=== PATIENT | female | born 1950 | race Caucasian/White ===

== ENCOUNTER 2018-05-10 17:11 | Inpatient (IN) | payer OTHER ==
--- NOTE | 2018-05-10 18:15 | PDOC ---
History of Present Illness - General Chief Complaint: Nausea/Vomiting Stated Complaint: Nausea/Vomiting Time Seen by Provider: 05/10/18 18:03 History Source: Patient Exam Limitations: Language Barrier - History of Present Illness Initial Comments: 05/10/18 22:50 Pt is a 68yo F with PMH of kidney failure s/p b/l nephrectomy with L kidney transplant January 2012 on Mycophenolate and Tacrolimus sent to ED from Dr. Perez's office for UTI, cough and fever. Pt states that for the past week she has been having cough productive of yellow phlegm. She endorses feeling weak, liquid diarrhea (7 times today) fevers up to 103 for the past 4-5 days, chills and generalized malaise and nausea. She also endorses dysuria for the past 3 days. She endorses headache and neck pain that started yesterday. Denies abdominal pain, flank pain, chest pain, SOB, syncope. She states she was at [place] on Sunday or and given Ampicillin for the UTI. PMD: Ana PMH: see hpi PSH: see hpi Meds: see med rec Allergies: nkda Social: denies Past History - Past Medical History Allergies/Adverse Reactions: Allergies Allergy/AdvReac Type Severity Reaction Status Date / Time No Known Allergies Allergy Verified 05/10/18 19:03 Home Medications: Ambulatory Orders Baclofen 10 mg PO HS 05/10/18 Bisacodyl [Laxative] 5 mg PO DAILY 05/10/18 Gabapentin [Neurontin -] 300 mg PO BID 05/10/18 Linaclotide [Linzess] 72 mcg PO DAILY 05/10/18 Omeprazole 40 mg PO DAILY 05/10/18 Review of Systems - Review of Systems Constitutional: Yes: Chills, Fever, Weakness HEENTM: Yes: Nose Congestion. No: Double Vision, Ear Pain, Throat Pain Respiratory: Yes: Cough, Productive cough. No: Shortness of Breath, Hemoptysis Cardiac (ROS): No: Chest Pain, Edema, Lightheadedness, Palpitations, Syncope ABD/GI: Yes: Diarrhea, Nausea, Poor Appetite, Vomiting. No: Constipated, Difficulty Swallowing, Rectal Bleeding, Abdominal cramping : Yes: Burning, Dysuria. No: Flank Pain, Hematuria Musculoskeletal: Yes: Back Pain, Neck Pain. No: Joint Pain, Muscle Pain Integumentary: No: Symptoms Reported Neurological: Yes: Headache. No: Numbness, Paresthesia, Tingling, Tremors, Weakness, Dizziness *Physical Exam - Physical Exam General Appearance: Yes: Appropriately Dressed, Mild Distress, Obese HEENT: positive: EOMI, JEAN, Pharynx Normal. negative: Pale Conjunctivae, Scleral Icterus (R), Scleral Icterus (L), Pharyngeal Erythema Neck: positive: Trachea midline, Supple. negative: Lymphadenopathy (R), Lymphadenopathy (L) Respiratory/Chest: positive: Lungs Clear, Normal Breath Sounds. negative: Crackles, Rales, Rhonchi, Stridor, Wheezing Cardiovascular: positive: Regular Rhythm, Regular Rate, S1, S2. negative: Edema , JVD, Murmur Vascular Pulses: Carotid (R): 2+, Carotid (L): 2+, Dorsalis-Pedis (R): 2+, Doralis-Pedis (L): 2+ Gastrointestinal/Abdominal: positive: Normal Bowel Sounds, Soft. negative: Distended, Guarding, Rebound, Tenderness, Hernia Musculoskeletal: negative: CVA Tenderness Extremity: positive: Normal Capillary Refill, Pelvis Stable. negative: Coldness , Pedal Edema, Calf Tenderness Integumentary: positive: Normal Color, Dry, Warm. negative: Cold, Clammy, Diaphoresis, Petechiae, Rash, Swelling Neurologic: positive: mountain bike guide II-XII NML intact, Fully Oriented, Alert, Normal Mood/ Affect, Normal Response, Motor Strength 5/5 ED Treatment Course - LABORATORY CBC & Chemistry Diagram: 05/10/18 18:55 05/10/18 18:55 Medical Decision Making - Medical Decision Making 05/10/18 22:56 Pt is a 68yo F with PMH of kidney failure s/p b/l nephrectomy with L kidney transplant January 2012 on Mycophenolate and Tacrolimus sent to ED from Dr. Perez's office for UTI, cough and fever. Pt states that for the past week she has been having cough productive of yellow phlegm. She endorses feeling weak, liquid diarrhea (7 times today) fevers up to 103, chills and generalized malaise and nausea. She also endorses dysuria for the past 3 days. Denies abdominal pain, flank pain, chest pain, SOB, headache, syncope. She states she was at [place] on Sunday or and given Ampicillin for the UTI. Vitals: rectal temp 103.7 pulse PE: no abdominal tenderness, clear breath sounds High suspicion for sepsis. Pt is in an immunocompromised state. Could have UTI/ Pyelonephritis, PNA, Colitis possibly even C. Diff colitis due to recent antibiotic use and fever with diarrhea. -Septic workup, Prograf levels, cxr, ekg, stool for c.diff, ucx, ua. -Vanc and Zosyn. 500mL IVF, IV Tylenol Labs significant for WBC 19. lactic acid 1.3, Cr 2.0. Ca 8.2 Flu negative. CXR does not show focal infiltrates. UA pending. Will admit for sepsis, most likely from UTI or PNA (although no consolidations on CXR) Will order tacrolimus 1mg, 0.5mg and mycophenolate 500 05/11/18 00:30 102.1, HR 97, BP 89/34 Second IV placed. Pt getting 2.5 L Repeat vitals: BP 111/43, HR 89, 96%RA. Will monitor BP. Pt is otherwise mentating well, does not feel clammy, appears well UA shows 2+LE, bacteria and WBC pending 05/11/18 01:04 Repeat BP with different cuff 88/40. Per admitting team, pt should be transferred to renal transplant center. Pt had transplant at [facility]. Dr. Ferrell is her data entry email processor there. Called [facility] transplant center and spoke to Dr. Ferrell. Stated that pt does not need to be transferred, she can be managed here. Recommended transfer if we do not have capability of taking care of patient here or if prograf levels will take a while to result, pt can be transferred but it would be ed-ed or medicine- medicine transfer. Dr. Ferrell states that Cr of 2.0 is not too concerning. Recommended trial of hydration. Dr. Ferrell Double checked with lab about add on Prograf levels. It will be a send out, result most likely on Sunday. Wanted physical label. Label sent. *DC/Admit/Observation/Transfer Diagnosis at time of Disposition: Sepsis Qualifiers: Sepsis type: sepsis due to unspecified organism Qualified Code(s): A41.9 - Sepsis, unspecified organism UTI (urinary tract infection) Qualifiers: Urinary tract infection type: site unspecified Hematuria presence: without hematuria Qualified Code(s): N39.0 - Urinary tract infection, site not specified - Discharge Dispostion Condition at time of disposition: Stable Decision to Admit order: Yes - Referrals - Patient Instructions - Post Discharge Activity
[2018-05-10 18:22] VITALS: BMI 27.4
[2018-05-10] MEDS ORDERED: ACETAMINOPHEN 1000 MG/100 ML VIAL (NON FORMULARY) IVPB ONE (19:46)
[2018-05-10] MEDS ORDERED: ACETAMINOPHEN INJECTION 100 ML IVPB ONE (19:50)
[2018-05-10 19:56] LABS: INR 1.42 (0.83-1.09); PROTHROMBIN TIME (PATIENT) 16.8 SEC (9.7-13.0)
[2018-05-10 19:58] LABS: BASO % 0.1 % (0-2.0); HEMATOCRIT 36.2 % (32.4-45.2); HEMOGLOBIN 12.6 GM/dL (10.7-15.3); LYMPH % 2.9 % (8-40); MCH 29.5 pg (25.7-33.7); MCHC 34.7 g/dl (32.0-36.0); MEAN CELL VOLUME 85.1 fl (80-96); MEAN PLT VOLUME 9.1 fl (7.5-11.1); MONO % 6.6 % (3.8-10.2); NEUT % 90.4 % (42.8-82.8); PLATELET COUNT 135 K/MM3 (134-434); RBC 4.26 M/mm3 (3.60-5.2); RDW 13.8 % (11.6-15.6); WHITE BLOOD COUNT 19.2 K/mm3 (4.0-10.0)
[2018-05-10 20:05] LABS: LIPASE 49 U/L (73-393)
[2018-05-10 20:13] LABS: ALBUMIN 3.4 g/dl (3.4-5.0); ALK PHOS 111 U/L (45-117); ANION GAP 10 MMOL/L (8-16); BILIRUBIN,TOTAL 0.5 mg/dL (0.2-1); BLOOD UREA NITROGEN 30 mg/dL (7-18); CALCIUM 8.2 mg/dL (8.5-10.1); CHLORIDE 101 mmol/L (98-107); CO2 21 mmol/L (21-32); GLUCOSE,RANDOM 126 mg/dL (74-106); POTASSIUM 4.8 mmol/L (3.5-5.1); SGOT/AST 30 U/L (15-37); SGPT/ALT 18 U/L (13-61); SODIUM 132 mmol/L (136-145); TOT PROT 6.1 g/dl (6.4-8.2)
[2018-05-10] MEDS ORDERED: PIPERACILLIN/TAZOB 3.375 GM 3.375 GM in DEXTROSE 5%-WATER - 50 ML IVPB ONE (20:22)
[2018-05-10] MEDS ORDERED: VANCOMYCIN 1 GM in D5W (PRE-DOCKED) 1,000 MG/250 ML IVPB ONE (20:22)
[2018-05-10] MEDS ORDERED: VANCOMYCIN 1 GRAM (PRE-DOCKED) 1,000 MG/250 ML BAG IVPB ONE (20:25)
[2018-05-10] MEDS ORDERED: PIPERACILLIN/TAZOB 3.375 GM 3.375 GM/50 ML BAG IVPB ONE (20:26)
--- NOTE | 2018-05-10 21:03 | PDOC ---
Attending Attestation - Resident Resident Name: Maria C Urbano - ED Attending Attestation I have performed the following: I have examined & evaluated the patient, The case was reviewed & discussed with the resident, I agree w/resident's findings & plan, Exceptions are as noted - HPI HPI: 05/10/18 20:57 The patient is a 68 year old female, with a significant past medical history of renal disease and bilateral nephrectomy s/p L renal transplant 2011 who presents to the emergency department from Dr. Jorge office to rule out pneumonia and pyelonephritis. The patient reports having one week of yellow, productive cough,accompanied with vomiting, fevers with tmax of 103, and chills. The patient reports having multiple episodes watery brown diarrhea. The patient reports having dysuria since Sunday, at which point states she went to [facility] and was prescribed ampicillin. The patient denies CP, shortness of breath, headache and dizziness. The patient denies frequency, urgency and hematuria. Allergies: NKA Past surgical history: Bilateral nephrostomy tube(L transplant, 2011) Social history: No reported - Physicial Exam PE: 05/10/18 21:09 agree with resident exam - Medical Decision Making 05/10/18 21:09 68yo F with MMP including renal transplant (on immunesuppression) presents to the ED with fever, prductive cough, hypoxia, vomiting, diarrhea, and dysuria. Given immunecomprimised status, will do broad infectious w/u, cover empirically , and admit. Dr. Qureshi sent pt in for admission. 05/11/18 00:02 BP 89/42, pt status post 1 L NS 2nd IV line placed, 2 more liters going, one LR and one NS Will repeat after fluid resusitation WBC 19 UA collected, appears cloudy. Possible infiltrate on CXR as well Pt has already been covered with [facility] has been microblogged for admission, awaiting call back. 05/11/18 00:47 Pt was initially accepted for admission On Dr. Smith's evaluation, asks to hold on the admission and see if [facility] renal transplant team will accept the pt as her creatinine is 2 [facility] transfer center has been contacted 05/11/18 01:[address] Ferrell, the pt's renal transplant surgeon at [facility] Discussed creatinine of 2, and remaining results. She's states no urgent need for transfer at this time Case discussed with Dr. Ambrose who has evaluated the pt, pt accepted for admission. Case discussed in detail with admitting physician including history, physical exam and ancillary studies. Admitting physician has assumed care for the patient, will follow all pending diagnostics and will complete the evaluation and treatment.
[2018-05-10] MEDS ORDERED: SODIUM CHLORIDE 500 ML IV STA (22:07)
[2018-05-10] MEDS ORDERED: SODIUM CHLORIDE 1,000 ML IV STA (23:06)
[2018-05-10] MEDS ORDERED: TACROLIMUS ANHYDROUS 1 MG CAPSULE PO ONE (23:15)
[2018-05-10] MEDS ORDERED: MYCOPHENOLATE MOFETIL 250 MG CAPSULE PO ONE (23:16)
[2018-05-10] MEDS ORDERED: TACROLIMUS 0.5 MG CAPSULE PO ONE (23:24)
[2018-05-11 00:13] LABS: URINE APPEARANCE CLOUDY; URINE BILIRUBIN NEGATIVE (<2.0 mg/dL); URINE GLUCOSE (UA) 1+ (NEGATIVE); URINE KETONE NEGATIVE (NEGATIVE); URINE LEUK ESTERASE 2+ (NEGATIVE); URINE NITRITE NEGATIVE (NEGATIVE); URINE PROTEIN 2+ (NEGATIVE); URINE UROBILINOGEN NEGATIVE mg/dL (0.2-1.0)
[2018-05-11 00:20] LABS: URINE COLOR YELLOW
[2018-05-11 00:22] LABS: EPI CELLS MANY /HPF (FEW); GRANULAR CASTS 25 /lpf; URINE MUCUS RARE
--- NOTE | 2018-05-11 01:13 | HP ---
Admitting History and Physical - Primary Care Physician PCP: Liza Qureshi - Admission Chief Complaint: burning sensation when you i urinate History of Present Illness: this is a 68 y/o f with hx of HTN, DM, ESRD s/p renal transplant presented to the hospital for pain when the patient urinate that started sunday, the patient was at [facility] for which she d/c from the hospital and went to her PCP. who told her to come to the ER. patient has been complaining of burning urination, fever, chills, denied any flank pain. she stated that she has been coughing as well for the past few days and she is complaining of shoulder pain. History Source: Patient Limitations to Obtaining History: No Limitations - Smoking History Smoking history: Never smoked Have you smoked in the past 12 months: No - Alcohol/Substance Use Hx Alcohol Use: No Home Medications - Allergies Allergies/Adverse Reactions: Allergies Allergy/AdvReac Type Severity Reaction Status Date / Time No Known Allergies Allergy Verified 05/10/18 19:03 - Home Medications Home Medications: Ambulatory Orders Baclofen 10 mg PO HS 05/10/18 Bisacodyl [Laxative] 5 mg PO DAILY 05/10/18 Gabapentin [Neurontin -] 300 mg PO BID 05/10/18 Linaclotide [Linzess] 72 mcg PO DAILY 05/10/18 Omeprazole 40 mg PO DAILY 05/10/18 Review of Systems - Review of Systems Constitutional: reports: Chills, Diaphoresis, Fever Eyes: reports: No Symptoms HENT: reports: No Symptoms Neck: reports: No Symptoms Cardiovascular: reports: No Symptoms Respiratory: reports: No Symptoms Gastrointestinal: reports: Diarrhea Genitourinary: reports: Burning, Dysuria Breasts: reports: No Symptoms Reported Musculoskeletal: reports: No Symptoms Integumentary: reports: No Symptoms Neurological: reports: No Symptoms Physical Examination Vital Signs: Vital Signs Temperature 102.1 F H 05/10/18 22:48 Pulse Rate 97 H 05/10/18 22:48 Respiratory Rate 18 05/10/18 22:48 Blood Pressure 89/34 L 05/10/18 22:48 O2 Sat by Pulse Oximetry (%) 95 05/10/18 22:48 Constitutional: Yes: Well Nourished, No Distress, Calm Eyes: Yes: WNL, Conjunctiva Clear, EOM Intact HENT: Yes: WNL, Atraumatic, Normocephalic Neck: Yes: WNL, Supple, Trachea Midline Cardiovascular: Yes: WNL, Regular Rate and Rhythm, S1, S2 Respiratory: Yes: WNL, Regular, CTA Bilaterally Gastrointestinal: Yes: WNL, Normal Bowel Sounds, Soft Musculoskeletal: Yes: WNL Extremities: Yes: WNL Edema: No Peripheral Pulses WNL: Yes Labs: CBC, BMP 05/10/18 18:55 05/10/18 18:55 Imaging - Results Chest X-ray: Image Reviewed Problem List - Problems (1) SIRS (systemic inflammatory response syndrome) Assessment/Plan: admit patient to the [facility] for sirs start pipercillin/tazobactam stat dose of vancomycin f/u with ID IVF hydration ID consult Code(s): R65.10 - SIRS OF NON-INFECTIOUS ORIGIN W/O ACUTE ORGAN DYSFUNCTION (2) Sepsis due to gram-negative urinary tract infection Assessment/Plan: 05/18 UTI follow up blood cultures f.u urine cultures pipercillin/tazobactam will treat it as MDRO Code(s): A41.50 - GRAM-NEGATIVE SEPSIS, UNSPECIFIED; N39.0 - URINARY TRACT INFECTION, SITE NOT SPECIFIED (3) Acute kidney injury superimposed on CKD Assessment/Plan: no base line f/u renal consult IVF hydration f/u with creatinine Code(s): N17.9 - ACUTE KIDNEY FAILURE, UNSPECIFIED; N18.9 - CHRONIC KIDNEY DISEASE, UNSPECIFIED (4) History of renal transplant Assessment/Plan: patient is s/p transplant c.w immumosupressive medication c/w tacrlimus c/w Mycophenolate Mofotil Code(s): Z94.0 - KIDNEY TRANSPLANT STATUS
[2018-05-11] MEDS ORDERED: SODIUM CHLORIDE 1,000 ML IV SCH (01:45)
[2018-05-11] MEDS ORDERED: HEPARIN NA (PORCINE) 5,000 UNITS/ML 1ML VIAL SQ SCH (02:00)
[2018-05-11] MEDS: SODIUM CHLORIDE 1,000 ML IV SCH (06:24)
[2018-05-11] MEDS: INSULIN SLIDING SCALE (NOVOLOG) 1 VIAL SQ SCH ×3 (06:24→16:39)
--- NOTE | 2018-05-11 09:41 | CONSULT ---
Consult - text type - Consultation Consultation Note: Renal Consult for ESRD s/p Renal Transplant This is a 68 year old woman with history of polycystic kidney and liver disease , ESRD s/p renal transplant in 2011 in [place] (now follows at [facility] with Dr. Krause), Hypertension, Pancreatic cyst, [place] kidney nephrectomy in 2013 who presented with complaints of dysuria, abd pain, fever and diarrhea and found to have UA suspicious for UTI and TRU with Cr of 2. Baseline Cr is 1 from 02/2018. Pt is on tacrolimus 1.5mg BID, Cellcept 500mg BID. Pt reports dysuria for 3 days and diarrhea x 2 days. Has abd discomfort today, dysuria is improved. No sob, cp, GEORGE, confusion, lethargy, LE swelling. PMhx: as above Allergies: NKDA Family Hx: NC Social Hx: No T/A/D ROS: as per HPI, all other pertinent ros negative Vital Signs Temperature 99.0 F 05/11/18 08:57 Pulse Rate 88 05/11/18 08:57 Respiratory Rate 21 H 05/11/18 08:57 Blood Pressure 112/45 L 05/11/18 08:57 O2 Sat by Pulse Oximetry (%) 96 05/11/18 09:25 Intake & Output 05/08/18 05/09/18 05/10/18 05/11/18 23:59 23:59 23:59 23:59 Weight 77.111 kg NAD awake and alert neck supple no JVD RRR, CTA soft, mild tenderness RUQ No LE edema, clubbing or cyanosis no tenderness over graft site CBC, BMP 05/10/18 18:55 05/10/18 18:55 Current Medications Heparin Sodium (Porcine) (Heparin -) 5,000 unit SQ TID [facility] Sodium Chloride (Normal Saline -) 1,000 mls @ 100 mls/hr IV ASDIR [facility] Last Admin: 05/11/18 06:24 Dose: 100 mls/hr Insulin Aspart (Novolog Vial Sliding Scale -) 1 vial SQ TIDAC [facility]; Protocol Last Admin: 05/11/18 06:24 Dose: Not Given Tacrolimus (Prograf) 1.5 mg PO DAILY [facility] Last Admin: 05/11/18 09:31 Dose: 1.5 mg 68 year old woman with history of polycystic kidney and liver disease, ESRD s/p renal transplant in 2011 in [place] (now follows at [facility] with Dr. Timmy Lieberman), Hypertension, Pancreatic cyst, [place] kidney nephrectomy in 2013 who presented with complaints of dysuria, abd pain, fever and diarrhea and found to have UA suspicious for UTI and TRU with Cr of 2. #TRU likely due to volume depletion in setting of UTI/Diarrhea and less likely an acute rejection #Dysuria r/o pylonephritis #Abd discomfort with hx of pancreatic cyst #Hx of hypertension, now normotensive #Hyponatremia in setting of renal insufficiency Baseline Cr is 1 Check urine studies for UPCR, FeNa Check Abd US to check for pylonephritis around transplanted kidney and r/o RUQ pathology Continue aggressive IVF hydration with NS Continue Tacolimus 1.5mg BID, Cellcept 500mg BID Pt is not on prednisone can consider holding Cellcept if pt appears toxic/septic but does not appear that way at this time Trend renal function BID Avoid IV contrast and Nephrotoxins can consider transfer to tertiary care center if there is not marked improvement in renal function in 24-48 hours continue zosyn, follow up urine and blood cultures. Baseline labs obtained from [facility] EMR. Thank you Will follow Moiz Diamond DO
[2018-05-11] MEDS ORDERED: TACROLIMUS ANHYDROUS 1 MG CAPSULE PO SCH (10:00)
[2018-05-11] MEDS ORDERED: TACROLIMUS 0.5 MG CAPSULE PO SCH (10:00)
[2018-05-11] MEDS ORDERED: PIPERACILLIN/TAZOB 2.25 GM 2.25 GM in DEXTROSE 5%-WATER - 50 ML IVPB SCH ×2 (10:15→10:30)
[2018-05-11] MEDS ORDERED: PIPERACILLIN/TAZOB 2.25 GM 2.25 GM/50 ML BAG IVPB ONE (10:24)
[2018-05-11] MEDS: MYCOPHENOLATE MOFETIL 250 MG CAPSULE PO SCH ×2 (10:35→22:34)
--- NOTE | 2018-05-11 14:00 | CON.CARD ---
Consult Consult Specialty:: Cardiology - History of Present Illness History of Present Illness: 68 year old woman with history of polycystic kidney and liver disease, ESRD s/p renal transplant in 2011 in [place] (now follows at [facility] with Dr. Timmy Lieberman), Hypertension, Pancreatic cyst, [place] kidney nephrectomy in 2013 who presented with dysuria, abd pain, fever and diarrhea and found to have UA suspicious for UTI and TRU with Cr of 2. Baseline Cr is 1 from 02/2018. Pt reports dysuria for 3 days and diarrhea x 2 days. Had transient hypotension in ER. - History Source History Provided By: Patient, Medical Record - Alcohol/Substance Use Hx Alcohol Use: No - Smoking History Smoking history: Never smoked Have you smoked in the past 12 months: No Home Medications - Allergies Allergies/Adverse Reactions: Allergies Allergy/AdvReac Type Severity Reaction Status Date / Time No Known Allergies Allergy Verified 05/10/18 19:03 - Home Medications Home Medications: Ambulatory Orders Baclofen 10 mg PO HS 05/10/18 Bisacodyl [Laxative] 5 mg PO DAILY 05/10/18 Gabapentin [Neurontin -] 300 mg PO BID 05/10/18 Linaclotide [Linzess] 72 mcg PO DAILY 05/10/18 Omeprazole 40 mg PO DAILY 05/10/18 Fluticasone Prop 0.05% Nasal [Flonase -] 1 spray NS DAILY 05/11/18 Mycophenolate Mofetil [Cellcept -] 500 mg PO BID 05/11/18 Olopatadine HCl 0.2 ml OP DAILY 05/11/18 Olopatadine HCl [Pataday] 1 drop OP ASDIR 05/11/18 Polyethylene Glycol 3350 [Glycolax] 17 gm PO DAILY 05/11/18 Pramipexole Dihydrochloride [Mirapex -] 0.125 mg PO HS 05/11/18 Tacrolimus 1.5 mg PO BID 05/11/18 Vit B Comp/C/Folic/Iron/Vit E [Vitamin B Complex Tablet] 1 each PO DAILY Review of Systems - Review of Systems Constitutional: reports: Chills, Fever Eyes: reports: No Symptoms HENT: reports: No Symptoms Neck: reports: Pain on Movement Cardiovascular: denies: Chest Pain, Edema Respiratory: reports: No Symptoms Gastrointestinal: reports: Abdominal Pain Vital Signs: Vital Signs Temperature 99.5 F 05/11/18 12:40 Pulse Rate 74 05/11/18 12:40 Respiratory Rate 20 05/11/18 12:40 Blood Pressure 134/60 05/11/18 12:40 O2 Sat by Pulse Oximetry (%) 98 05/11/18 12:40 Constitutional: Yes: Well Nourished, Mild Distress, Obese Eyes: Yes: Conjunctiva Clear HENT: Yes: Atraumatic, Normocephalic Neck: Yes: Supple, Trachea Midline Respiratory: Yes: Regular, CTA Bilaterally Gastrointestinal: Yes: Normal Bowel Sounds, Soft Cardiovascular: Yes: Regular Rate and Rhythm JVD: No Carotid Bruit: No Heart Sounds: Yes: S1, S2 Murmur: Yes: Systolic Murmur, Diastolic Murmur Musculoskeletal: Yes: Back Pain Edema: No - Other Data Labs, Other Data: CBC, BMP 05/10/18 18:55 05/10/18 18:55 INR, PTT INR 1.42 (0.83-1.09) H 05/10/18 18:55 Troponin, BNP 05/10/18 18:55 Troponin I < 0.02 Troponin, BNP 05/10/18 18:55 Troponin I < 0.02 Problem List - Problems (1) Acute kidney injury superimposed on CKD Code(s): N17.9 - ACUTE KIDNEY FAILURE, UNSPECIFIED; N18.9 - CHRONIC KIDNEY DISEASE, UNSPECIFIED (2) History of renal transplant Code(s): Z94.0 - KIDNEY TRANSPLANT STATUS (3) SIRS (systemic inflammatory response syndrome) Code(s): R65.10 - SIRS OF NON-INFECTIOUS ORIGIN W/O ACUTE ORGAN DYSFUNCTION Assessment/Plan 68 year old woman with history of polycystic kidney and liver disease, ESRD s/p renal transplant in 2011 in [place] (now follows at [facility] with Dr. Timmy Lieberman), Hypertension, Pancreatic cyst, [place] kidney nephrectomy in 2013 who presented with dysuria, abd pain, fever and diarrhea and found to have UA suspicious for UTI and TRU with Cr of 2. Baseline Cr is 1 from 02/2018. Pt reports dysuria for 3 days and diarrhea x 2 days. Had transient hypotension in ER. TRU in renal transplant with likely UTI, diarrhea and dehydration resulting in hemodynamic instability which is now improved. Will see as needed.
[2018-05-11] MEDS ORDERED: MORPHINE SULFATE 2 MG/ML VIAL IVPUSH ONE (14:26)
[2018-05-11] MEDS ORDERED: DEXTROSE 5%-WATER - 50 ML IVPB ONE ×2 (14:36→17:23)
[2018-05-11] MEDS ORDERED: PIPERACILLIN/TAZOBACTAM 2.25 GM VIAL IVPB ONE ×2 (14:36→17:23)
[2018-05-11] MEDS: PIPERACILLIN/TAZOB 2.25 GM 2.25 GM in DEXTROSE 5%-WATER - 50 ML IVPB SCH ×2 (14:38→17:42)
[2018-05-11] MEDS: HEPARIN NA (PORCINE) 5,000 UNITS/ML 1ML VIAL SQ SCH ×2 (14:39→22:33)
--- NOTE | 2018-05-11 15:07 | PN ---
Progress Note, Physician Chief Complaint: UTI Sepsis History of Present Illness: Previous notes and events reviewed awake and alert NAD c/o llq pain radiating down thigh - Current Medication List Current Medications: Active Medications Albuterol/Ipratropium (Duoneb -) 1 amp NEB Q6H PRN PRN Reason: SHORTNESS OF BREATH Heparin Sodium (Porcine) (Heparin -) 5,000 unit SQ TID [facility] Last Admin: 05/11/18 14:39 Dose: 5,000 unit Sodium Chloride (Normal Saline -) 1,000 mls @ 100 mls/hr IV ASDIR [facility] Last Admin: 05/11/18 06:24 Dose: 100 mls/hr Piperacillin Sod/Tazobactam (Sod 2.25 gm/ Dextrose) 50 mls @ 100 mls/hr IVPB Q8H-IV [facility]; Protocol Last Admin: 05/11/18 14:38 Dose: 100 mls/hr Insulin Aspart (Novolog Vial Sliding Scale -) 1 vial SQ TIDAC [facility]; Protocol Last Admin: 05/11/18 12:14 Dose: Not Given Mycophenolate Mofetil (Cellcept -) 500 mg PO BID [facility] Last Admin: 05/11/18 10:35 Dose: 500 mg Tacrolimus (Prograf) 1.5 mg PO BID [facility] - Objective Vital Signs: Vital Signs Temperature 98.6 F 05/11/18 13:49 Pulse Rate 82 05/11/18 13:49 Respiratory Rate 20 05/11/18 13:49 Blood Pressure 142/54 L 05/11/18 13:49 O2 Sat by Pulse Oximetry (%) 98 05/11/18 13:49 Constitutional: Yes: Calm, Mild Distress Eyes: Yes: Conjunctiva Clear Cardiovascular: Yes: Regular Rate and Rhythm Respiratory: Yes: Regular, CTA Bilaterally Gastrointestinal: Yes: Soft, Abdomen, Obese, Tenderness (LLQ tenderness on palpation) Genitourinary: Yes: Incontinence Musculoskeletal: Yes: Muscle Weakness Extremities: Yes: WNL Edema: No Neurological: Yes: Alert, Oriented Psychiatric: Yes: Alert, Oriented Labs: CBC, BMP 05/10/18 18:55 05/10/18 18:55 INR, PTT INR 1.42 (0.83-1.09) H 05/10/18 18:55 Yari Menendez - Last Filed: 05/11/18 15:25> - Current Medication List Current Medications: Active Medications Acetaminophen (Tylenol -) 650 mg PO Q6H PRN PRN Reason: Fever Or Pain Last Admin: 05/12/18 07:00 Dose: 650 mg Albuterol/Ipratropium (Duoneb -) 1 amp NEB Q6H PRN PRN Reason: SHORTNESS OF BREATH Last Admin: 05/12/18 06:20 Dose: 1 amp Heparin Sodium (Porcine) (Heparin -) 5,000 unit SQ TID [facility] Last Admin: 05/12/18 05:58 Dose: 5,000 unit Sodium Chloride (Normal Saline -) 1,000 mls @ 100 mls/hr IV ASDIR [facility] Last Admin: 05/12/18 06:55 Dose: 100 mls/hr Piperacillin Sod/Tazobactam (Sod 2.25 gm/ Dextrose) 50 mls @ 100 mls/hr IVPB Q8H-IV [facility]; Protocol Last Admin: 05/12/18 02:20 Dose: 100 mls/hr Insulin Aspart (Novolog Vial Sliding Scale -) 1 vial SQ TIDAC [facility]; Protocol Last Admin: 05/12/18 06:12 Dose: Not Given Metronidazole (Flagyl -) 500 mg PO TID [facility] Last Admin: 05/12/18 05:58 Dose: 500 mg Mycophenolate Mofetil (Cellcept -) 500 mg PO BID [facility] Last Admin: 05/11/18 22:34 Dose: 500 mg Tacrolimus (Prograf) 1.5 mg PO BID [facility] Last Admin: 05/11/18 22:34 Dose: 1.5 mg - Objective Vital Signs: Vital Signs Temperature 98.3 F 05/12/18 06:56 Pulse Rate 85 05/12/18 06:56 Respiratory Rate 20 05/12/18 06:56 Blood Pressure 121/50 L 05/12/18 06:56 O2 Sat by Pulse Oximetry (%) 96 05/11/18 21:00 Labs: CBC, BMP 05/12/18 07:00 INR, PTT INR 1.42 (0.83-1.09) H 05/10/18 18:55 <Cyndie Santos - Last Filed: 05/12/18 09:02> Problem List - Problems (1) Acute kidney injury superimposed on CKD Assessment/Plan: -renal on board -cont tacrolimus and mycophenolate -monitor renal function BID -abd US reviewed no hydronephrosis, L pelvic transplant kidney grossly unremarkable -if renal function does not improve in 24-48 hrs consider transfer to tertiary facility Code(s): N17.9 - ACUTE KIDNEY FAILURE, UNSPECIFIED; N18.9 - CHRONIC KIDNEY DISEASE, UNSPECIFIED (2) History of renal transplant Assessment/Plan: -abd US reviewed no hydronephrosis, L pelvic transplant kidney grossly unremarkable -if renal function does not improve in 24-48 hrs consider transfer to tertiary facility Code(s): Z94.0 - KIDNEY TRANSPLANT STATUS (3) Sepsis Assessment/Plan: -cont IVF hydration -cont IV zosyn -wbc elev, will monitor for down trend -lactic acid 1.3 -BC pending Code(s): A41.9 - SEPSIS, UNSPECIFIED ORGANISM Qualifiers: Sepsis type: sepsis due to unspecified organism Qualified Code(s): A41.9 - Sepsis, unspecified organism (4) UTI (urinary tract infection) Assessment/Plan: -cont with IV zosyn -urine culture pending -pyuria noted Code(s): N39.0 - URINARY TRACT INFECTION, SITE NOT SPECIFIED Qualifiers: Urinary tract infection type: site unspecified Hematuria presence: without hematuria Qualified Code(s): N39.0 - Urinary tract infection, site not specified <Yari Bowers - Last Filed: 05/11/18 15:25> Assessment/Plan dvt ppx <Yari Bowers - Last Filed: 05/11/18 15:25> PATIENT SEEN AND EXAMINED AND I AGREE WITH THE ABOVE NOTE <Cyndie Santos - Last Filed: 05/12/18 09:02>
--- NOTE | 2018-05-11 17:09 | CON.GI ---
Consult Consult Specialty:: Gastroenterology ( covering for Dr Matias) Referred by:: DAVIN Fox Reason for Consultation:: Liver cysts - History of Present Illness Chief Complaint: Fever and diarrhea History of Present Illness: 68F with renal transplant presents with fever of 103 and diarrhea. She has also been having mild lower abdominal cramps and has noted spotting of blood since the diarrhea began. She was started on Ampicillin for a UTI several days ago. She is followed for her transplant at [facility] but the transplant was done in [place] at which time her polycystic kidneys were removed. She informs me that she has multiple liver and pancreatic cysts but no liver disease or bout with pancreatitis. Dr Matias is her pricing director and has done both and EGD and a colonoscopy on her. She informs me that she was found to have gastritis but was free of polyps. She was moving her bowel regularly until this diarrhea began. 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year): age 48 Home Medications - Allergies Allergies/Adverse Reactions: Allergies Allergy/AdvReac Type Severity Reaction Status Date / Time No Known Allergies Allergy Verified 05/10/18 19:03 - Home Medications Home Medications: Ambulatory Orders Baclofen 10 mg PO HS 05/10/18 Bisacodyl [Laxative] 5 mg PO DAILY 05/10/18 Gabapentin [Neurontin -] 300 mg PO BID 05/10/18 Linaclotide [Linzess] 72 mcg PO DAILY 05/10/18 Omeprazole 40 mg PO DAILY 05/10/18 Fluticasone Prop 0.05% Nasal [Flonase -] 1 spray NS DAILY 05/11/18 Mycophenolate Mofetil [Cellcept -] 500 mg PO BID 05/11/18 Olopatadine HCl 0.2 ml OP DAILY 05/11/18 Olopatadine HCl [Pataday] 1 drop OP ASDIR 05/11/18 Polyethylene Glycol 3350 [Glycolax] 17 gm PO DAILY 05/11/18 Pramipexole Dihydrochloride [Mirapex -] 0.125 mg PO HS 05/11/18 Tacrolimus 1.5 mg PO BID 05/11/18 Vit B Comp/C/Folic/Iron/Vit E [Vitamin B Complex Tablet] 1 each PO DAILY Family Disease History - Family Disease History Family Disease History: CA: Father ( of lung cancer), Mother ( of breast cancer), Brother ( of lung cancer) Physical Exam-GI Vital Signs: Vital Signs Temperature 98.6 F 05/11/18 13:49 Pulse Rate 82 05/11/18 13:49 Respiratory Rate 20 05/11/18 15:15 Blood Pressure 142/54 L 05/11/18 13:49 O2 Sat by Pulse Oximetry (%) 98 05/11/18 15:15 Current Medications Generic Name Dose Route Start Last Admin Trade Name Freq PRN Reason Stop Dose Admin Albuterol/Ipratropium 1 amp 05/11/18 10:16 Duoneb - NEB Q6H PRN SHORTNESS OF BREATH Heparin Sodium (Porcine) 5,000 unit 05/11/18 14:00 05/11/18 14:39 Heparin - SQ 5,000 unit TID [facility] Administration Sodium Chloride 1,000 mls @ 100 mls/hr 05/11/18 06:30 05/11/18 06:24 Normal Saline - IV 100 mls/hr ASDIR [facility] Administration Piperacillin Sod/Tazobactam 50 mls @ 100 mls/hr 05/11/18 14:30 05/11/18 14:38 Sod 2.25 gm/ Dextrose IVPB 100 mls/hr Q8H-IV [facility] Administration Protocol Insulin Aspart 1 vial 05/11/18 07:00 05/11/18 16:39 Novolog Vial Sliding Scale - SQ Not Given TIDAC [facility] Protocol Mycophenolate Mofetil 500 mg 05/11/18 10:15 05/11/18 10:35 Cellcept - PO 500 mg BID [facility] Administration Tacrolimus 1.5 mg 05/11/18 22:00 Prograf PO BID [facility] CBC,CMP WBC 19.2 K/mm3 (4.0-10.0) H 05/10/18 18:55 RBC 4.26 M/mm3 (3.60-5.2) 05/10/18 18:55 Hgb 12.6 GM/dL (10.7-15.3) 05/10/18 18:55 Hct 36.2 % (32.4-45.2) 05/10/18 18:55 MCV 85.1 fl (80-96) 05/10/18 18:55 MCH 29.5 pg (25.7-33.7) 05/10/18 18:55 MCHC 34.7 g/dl (32.0-36.0) 05/10/18 18:55 RDW 13.8 % (11.6-15.6) 05/10/18 18:55 Plt Count 135 K/MM3 (134-434) 05/10/18 18:55 MPV 9.1 fl (7.5-11.1) 05/10/18 18:55 Absolute Neuts (auto) 17.4 K/mm3 (1.5-8.0) H 05/10/18 18:55 Neutrophils % 90.4 % (42.8-82.8) H 05/10/18 18:55 Lymphocytes % 2.9 % (8-40) L 05/10/18 18:55 Monocytes % 6.6 % (3.8-10.2) 05/10/18 18:55 Eosinophils % 0.0 % (0-4.5) 05/10/18 18:55 Basophils % 0.1 % (0-2.0) 05/10/18 18:55 Nucleated RBC % 0 % (0-0) 05/10/18 18:55 Sodium 132 mmol/L (136-145) L 05/10/18 18:55 Potassium 4.8 mmol/L (3.5-5.1) 05/10/18 18:55 Chloride 101 mmol/L (98-107) 05/10/18 18:55 Carbon Dioxide 21 mmol/L (21-32) 05/10/18 18:55 Anion Gap 10 MMOL/L (8-16) 05/10/18 18:55 BUN 30 mg/dL (7-18) H 05/10/18 18:55 Creatinine 2.0 mg/dL (0.55-1.3) H 05/10/18 18:55 Creat Clearance w eGFR 24.63 (>60) 05/10/18 18:55 POC Glucometer 149 UNITS (80-120) 05/11/18 16:36 Random Glucose 126 mg/dL (74-106) H 05/10/18 18:55 Lactic Acid 1.3 mmol/L (0.4-2.0) 05/10/18 18:55 Calcium 8.2 mg/dL (8.5-10.1) L 05/10/18 18:55 Total Bilirubin 0.5 mg/dL (0.2-1) 05/10/18 18:55 AST 30 U/L (15-37) 05/10/18 18:55 ALT 18 U/L (13-61) 05/10/18 18:55 Alkaline Phosphatase 111 U/L (45-117) 05/10/18 18:55 Troponin I < 0.02 ng/ml (0.00-0.05) 05/10/18 18:55 Total Protein 6.1 g/dl (6.4-8.2) L 05/10/18 18:55 Albumin 3.4 g/dl (3.4-5.0) 05/10/18 18:55 Lipase 49 U/L (73-393) L 05/10/18 18:55 Constitutional: Yes: Anxious Eyes: Yes: Conjunctiva Clear HENT: Yes: Atraumatic Neck: Yes: Supple Cardiovascular: Yes: Regular Rate and Rhythm Respiratory: Yes: CTA Bilaterally Gastrointestinal Inspection: Yes: Scars (healed vertical midline incisions and drain scars) ...Auscultate: Yes: Hyperactive Bowel Sounds ...Palpate: Yes: Soft, Other (mild LLQ tenderness) ...Rectal Exam: Yes: Guaiac Positive (loose mustard colored stool) Labs: CBC, BMP 05/10/18 18:55 05/10/18 18:55 INR, PTT INR 1.42 (0.83-1.09) H 05/10/18 18:55 Imaging - Results Ultrasound: Report Reviewed (Fernando Beaulieu Name: [facility] Phys: Moiz Diamond MD : [id number] Age: 68 Sex: F [facility] Acct: [id number] Loc: [facility] Exam Date: 05/11/18 Status: [place] [address] Unit Number: [id number] EXAM#: TYPE/EXAM: RESULT: [id number] US/ABDOMEN US -LIMITED Abdominal sonogram HISTORY: Status post transplant kidney. Evaluate for pyelonephritis COMPARISON: MR the abdomen 11/05/2017 FINDINGS: The liver is enlarged measuring 20.1 cm. Multiple cysts of the liver are again identified. The largest measures 7.2 cm There are no gallstones No abnormal bile duct dilatation Pancreas is not seen because of bowel gas The spleen was not identified A left pelvic transplant kidney is identified. It measures 13.5 cm without evidence of hydronephrosis, renal masses, renal calculi or perinephric collections. The chenega right and left kidneys are not identified The aorta was not well imaged. IMPRESSION: Multiple hepatic cysts. Enlarged liver Pancreas not seen because of bowel gas Left pelvic transplant kidney grossly unremarkable Reported By: Warren Marion MD 05/11/18 1200 Technologist: Jessica Beaulieu Transcribed Date/Time: 05/11/18 1200 Tug Boat Engineer: Warren Marion Printed Date/Time: By: Signed by: Warren Marion Signed on: 11-May-2018 12:02) Problem List - Problems (1) Polycystic liver disease, congenital Assessment/Plan: Generally liver and pancreatic function remain stable with polycystic disease. Pain can occur with massive cystic involvement and cyst abscesses are rare. Suresh has normal LFTs and no pain over her liver so I believe this area is asymptomatic. Code(s): Q44.6 - CYSTIC DISEASE OF LIVER (2) Diarrhea Assessment/Plan: I am concerned that Suresh may may C diff colitis and agree with empiric Vanco therapy given her immunocompromised state. Code(s): R19.7 - DIARRHEA, UNSPECIFIED (3) Polycystic kidney disease Code(s): Q61.3 - POLYCYSTIC KIDNEY, UNSPECIFIED (4) Acute kidney injury superimposed on CKD Code(s): N17.9 - ACUTE KIDNEY FAILURE, UNSPECIFIED; N18.9 - CHRONIC KIDNEY DISEASE, UNSPECIFIED (5) History of renal transplant Code(s): Z94.0 - KIDNEY TRANSPLANT STATUS (6) SIRS (systemic inflammatory response syndrome) Code(s): R65.10 - SIRS OF NON-INFECTIOUS ORIGIN W/O ACUTE ORGAN DYSFUNCTION (7) Sepsis due to gram-negative urinary tract infection Code(s): A41.50 - GRAM-NEGATIVE SEPSIS, UNSPECIFIED; N39.0 - URINARY TRACT INFECTION, SITE NOT SPECIFIED Assessment/Plan Asymptomatic liver and pancreatic cysts Agree with Vanco for suspected C diff colitis
--- NOTE | 2018-05-11 17:34 | PN ---
Progress Note (short form) - Note Progress Note: ID CONSULT DICTATED R/O sepsis secondary to source Pending c/s empiric zosyn
[2018-05-11] MEDS: ACETAMINOPHEN 325 MG TABLET (FP) PO PRN (18:11)
[2018-05-11 19:16] LABS: ANION GAP 10 MMOL/L (8-16); BLOOD UREA NITROGEN 33 mg/dL (7-18); CALCIUM 7.8 mg/dL (8.5-10.1); CHLORIDE 102 mmol/L (98-107); CO2 21 mmol/L (21-32); CREATININE 1.9 mg/dL (0.55-1.3); GLUCOSE,RANDOM 167 mg/dL (74-106); POTASSIUM 3.8 mmol/L (3.5-5.1); SODIUM 133 mmol/L (136-145)
[2018-05-11] MEDS ORDERED: PT OWN MED DRAWER 7, Y5N ONE (22:05)
[2018-05-11] MEDS: metroNIDAZOLE 250 MG TABLET PO SCH (22:33)
[2018-05-11] MEDS: TACROLIMUS 0.5 MG CAPSULE PO SCH (22:34)
[2018-05-12] MEDS ORDERED: PIPERACILLIN/TAZOBACTAM 2.25 GM VIAL IVPB ONE ×3 (01:32→17:06)
[2018-05-12] MEDS ORDERED: DEXTROSE 5%-WATER - 50 ML IVPB ONE ×3 (01:32→17:06)
[2018-05-12] MEDS: PIPERACILLIN/TAZOB 2.25 GM 2.25 GM in DEXTROSE 5%-WATER - 50 ML IVPB SCH ×3 (02:20→17:17)
[2018-05-12] MEDS: HEPARIN NA (PORCINE) 5,000 UNITS/ML 1ML VIAL SQ SCH ×3 (05:58→21:05)
[2018-05-12] MEDS: metroNIDAZOLE 250 MG TABLET PO SCH ×3 (05:58→21:06)
[2018-05-12] MEDS: INSULIN SLIDING SCALE (NOVOLOG) 1 VIAL SQ SCH ×3 (06:12→16:44)
[2018-05-12] MEDS: ALBUTEROL SO4 2.5/IPRATROPIUM 0.5 INH SOL 3 ML VIAL.NEB. NEB PRN ×2 (06:20→20:25)
[2018-05-12] MEDS: SODIUM CHLORIDE 1,000 ML IV SCH ×2 (06:55→18:45)
[2018-05-12] MEDS: ACETAMINOPHEN 325 MG TABLET (FP) PO PRN (07:00)
[2018-05-12 07:51] LABS: BASO % 0.1 % (0-2.0); HEMOGLOBIN 11.5 GM/dL (10.7-15.3); LYMPH % 4.7 % (8-40); MCH 29.6 pg (25.7-33.7); MCHC 34.8 g/dl (32.0-36.0); MEAN CELL VOLUME 85.2 fl (80-96); MEAN PLT VOLUME 9.6 fl (7.5-11.1); MONO % 6.5 % (3.8-10.2); NEUT % 88.7 % (42.8-82.8); PLATELET COUNT 126 K/MM3 (134-434); RBC 3.87 M/mm3 (3.60-5.2); RDW 13.8 % (11.6-15.6); WHITE BLOOD COUNT 15.8 K/mm3 (4.0-10.0)
[2018-05-12 09:06] LABS: ALBUMIN 2.6 g/dl (3.4-5.0); ALK PHOS 91 U/L (45-117); ANION GAP 11 MMOL/L (8-16); BILIRUBIN,TOTAL 0.5 mg/dL (0.2-1); BLOOD UREA NITROGEN 29 mg/dL (7-18); CALCIUM 8.3 mg/dL (8.5-10.1); CHLORIDE 107 mmol/L (98-107); CHOLESTEROL 104 mg/dL (50-200); CO2 20 mmol/L (21-32); CREATININE 1.5 mg/dL (0.55-1.3); GLUCOSE,RANDOM 112 mg/dL (74-106); HDL CHOLESTEROL 23 mg/dL (40-60); MAGNESIUM 1.2 mg/dL (1.8-2.4); PHOSPHOROUS 2.2 mg/dL (2.5-4.9); POTASSIUM 3.5 mmol/L (3.5-5.1); SGOT/AST 16 U/L (15-37); SGPT/ALT 17 U/L (13-61); SODIUM 137 mmol/L (136-145); TRIGLYCERIDES 131 mg/dL (0-150)
[2018-05-12] MEDS ORDERED: PT OWN MED DRAWER 7, Y5N ONE ×2 (09:46→19:42)
[2018-05-12] MEDS: MYCOPHENOLATE MOFETIL 250 MG CAPSULE PO SCH ×2 (09:58→21:06)
[2018-05-12] MEDS: TACROLIMUS 0.5 MG CAPSULE PO SCH ×2 (09:59→21:06)
--- NOTE | 2018-05-12 10:11 | CONS ---
DATE OF CONSULTATION: 05/11/2018 The patient is a 68-year-old female with a history of renal transplant who is evaluated for fever. She was admitted to the hospital on May 10, 2018, with a 1-week history of cough productive of yellowish sputum, chills, malaise, and dysuria and diarrhea. The patient reports, over the past 4 to 5 days, she has had high-grade fever to as high as 103 associated with dysuria for the past 3 days, chills, malaise, and loose bowel movements. She also had a cough productive of yellowish sputum. The patient was admitted to the hospital, where she underwent evaluation. A sonogram of the abdomen showed a transplant kidney without evidence of inflammation or hydronephrosis. She was empirically treated with Zosyn. At the present time, she complains of headache and diffuse body pains. An influenza swab was performed and was negative. PAST MEDICAL HISTORY: Positive for chronic kidney disease secondary to polycystic kidneys. She is status post left renal transplant and bilateral nephrectomy. No known allergies. MEDICATIONS: Tylenol; albuterol; morphine; mycophenolate; tacrolimus. SOCIAL HISTORY: Patient resides at home in the community. She is a former smoker. No recent hospital admissions to [facility]. SYSTEMS REVIEW: Neurologic: No loss of consciousness, seizure activity, focal weakness. Cardiac: Negative chest pain or palpitations. Respiratory: As per HPI. Gastrointestinal: As per HPI. Genitourinary: As per HPI. LABORATORY DATA: White count 19.2 with 90 neutrophils, 3 lymphocytes, 6 monocytes; hematocrit 36.2; platelet count 135. Urinalysis with 264 white cells. BUN 30, creatinine 2.0. CHEST X-RAY: Negative for acute infiltrate. PHYSICAL EXAMINATION: General: She is awake. She is in moderate distress secondary to generalized body pain and headache. Vital Signs: Temperature 99.5, temperature maximum 103.7, blood pressure 134/90, pulse 74 and regular, respirations 20/min. HEENT: Sclerae anicteric. Heart Sounds: S1, S2. Lungs: Clear bilaterally. No rhonchi, rales, or wheezing. Abdomen: Soft. No tenderness elicited. No mass, rebound, or rigidity. Extremities: Negative for edema. IMPRESSION: 1. Urinary tract infection, possible sepsis secondary to genitourinary source. 2. Rule out respiratory tract infection. 3. Leukocytosis. 4. Azotemia. 5. History of renal transplant, on immunosuppressive therapy. Await culture results. Empiric antibiotic coverage with Zosyn 2.25 g IV piggyback every 8 hours. The patient was also given a STAT dose of vancomycin. Further recommendations pending sepsis workup. Thank you for the kind referral. JERZY MCCAIN M.D. [id number]
[2018-05-12 10:23] LABS: INR 1.22 (0.83-1.09); PROTHROMBIN TIME (PATIENT) 14.4 SEC (9.7-13.0)
[2018-05-12 10:26] LABS: ACTIVATED PTT 30.4 SECONDS (25.2-36.5)
[2018-05-12] MEDS: PANTOPRAZOLE 40 MG TABLET (FP) PO SCH (14:46)
[2018-05-12] MEDS ORDERED: MAGNESIUM OXIDE 400 MG TABLET (FP) PO ONE (20:23)
--- NOTE | 2018-05-12 20:26 | PN ---
Progress Note, Physician Chief Complaint: AWAKE ALERT EATING DINNER FEELING BETTER EVENTS AND NOTES REVIEWED - Current Medication List Current Medications: Active Medications Acetaminophen (Tylenol -) 650 mg PO Q6H PRN PRN Reason: Fever Or Pain Last Admin: 05/12/18 07:00 Dose: 650 mg Albuterol/Ipratropium (Duoneb -) 1 amp NEB Q6H PRN PRN Reason: SHORTNESS OF BREATH Last Admin: 05/12/18 06:20 Dose: 1 amp Heparin Sodium (Porcine) (Heparin -) 5,000 unit SQ TID [facility] Last Admin: 05/12/18 13:08 Dose: 5,000 unit Sodium Chloride (Normal Saline -) 1,000 mls @ 100 mls/hr IV ASDIR [facility] Last Admin: 05/12/18 18:45 Dose: 100 mls/hr Piperacillin Sod/Tazobactam (Sod 2.25 gm/ Dextrose) 50 mls @ 100 mls/hr IVPB Q8H-IV [facility]; Protocol Last Admin: 05/12/18 17:17 Dose: 100 mls/hr Insulin Aspart (Novolog Vial Sliding Scale -) 1 vial SQ TIDAC [facility]; Protocol Last Admin: 05/12/18 16:44 Dose: Not Given Magnesium Oxide (Mag-Ox -) 800 mg PO ONCE ONE Stop: 05/12/18 20:24 Magnesium Oxide (Mag-Ox -) 400 mg PO BID [facility] Metronidazole (Flagyl -) 500 mg PO TID [facility] Last Admin: 05/12/18 13:08 Dose: 500 mg Mycophenolate Mofetil (Cellcept -) 500 mg PO BID [facility] Last Admin: 05/12/18 09:58 Dose: 500 mg Pantoprazole Sodium (Protonix -) 40 mg PO DAILY [facility] Last Admin: 05/12/18 14:46 Dose: 40 mg Tacrolimus (Prograf) 1.5 mg PO BID [facility] Last Admin: 05/12/18 09:59 Dose: 1.5 mg - Objective Vital Signs: Vital Signs Temperature 97.7 F 05/12/18 14:24 Pulse Rate 73 05/12/18 14:24 Respiratory Rate 18 05/12/18 14:24 Blood Pressure 132/78 05/12/18 14:24 O2 Sat by Pulse Oximetry (%) 96 05/12/18 09:00 Constitutional: Yes: Mild Distress Cardiovascular: Yes: Regular Rate and Rhythm Respiratory: Yes: WNL Gastrointestinal: Yes: Soft Genitourinary: Yes: Other Extremities: Yes: WNL Neurological: Yes: WNL ...Motor Strength: WNL Psychiatric: Yes: WNL Labs: CBC, BMP 05/12/18 07:00 05/12/18 08:40 INR, PTT INR 1.22 (0.83-1.09) H 05/12/18 09:35 Problem List - Problems (1) Acute kidney injury superimposed on CKD Code(s): N17.9 - ACUTE KIDNEY FAILURE, UNSPECIFIED; N18.9 - CHRONIC KIDNEY DISEASE, UNSPECIFIED (2) Diarrhea Code(s): R19.7 - DIARRHEA, UNSPECIFIED (3) History of renal transplant Code(s): Z94.0 - KIDNEY TRANSPLANT STATUS (4) Polycystic liver disease, congenital Code(s): Q44.6 - CYSTIC DISEASE OF LIVER (5) Sepsis Code(s): A41.9 - SEPSIS, UNSPECIFIED ORGANISM Qualifiers: Sepsis type: sepsis due to unspecified organism Qualified Code(s): A41.9 - Sepsis, unspecified organism (6) Sepsis due to gram-negative urinary tract infection Code(s): A41.50 - GRAM-NEGATIVE SEPSIS, UNSPECIFIED; N39.0 - URINARY TRACT INFECTION, SITE NOT SPECIFIED Assessment/Plan IV ABX CONTINUE MAG OXIDE 800MG PO X 1 NOW THEN 400MG BID STARTING TOMORROW OOB TO CHAIR PT EVAL RENAL EVAL
[2018-05-12] MEDS: MAGNESIUM OXIDE 400 MG TABLET (FP) PO SCH (21:06)
[2018-05-12] MEDS ORDERED: RANITIDINE HCL 150 MG/10 ML UNIT-DOSE PO ONE (23:13)
[2018-05-13] MEDS ORDERED: DEXTROSE 5%-WATER - 50 ML IVPB ONE ×3 (01:20→16:49)
[2018-05-13] MEDS ORDERED: PIPERACILLIN/TAZOBACTAM 2.25 GM VIAL IVPB ONE ×3 (01:20→16:48)
[2018-05-13] MEDS: PIPERACILLIN/TAZOB 2.25 GM 2.25 GM in DEXTROSE 5%-WATER - 50 ML IVPB SCH ×3 (01:31→16:59)
[2018-05-13] MEDS: metroNIDAZOLE 250 MG TABLET PO SCH ×3 (05:55→21:11)
[2018-05-13] MEDS: HEPARIN NA (PORCINE) 5,000 UNITS/ML 1ML VIAL SQ SCH ×3 (05:55→21:12)
[2018-05-13] MEDS: INSULIN SLIDING SCALE (NOVOLOG) 1 VIAL SQ SCH ×3 (06:06→16:59)
[2018-05-13] MEDS: SODIUM CHLORIDE 1,000 ML IV SCH (06:06)
[2018-05-13 08:06] LABS: ANION GAP 9 MMOL/L (8-16); BLOOD UREA NITROGEN 18 mg/dL (7-18); CALCIUM 8.1 mg/dL (8.5-10.1); CHLORIDE 110 mmol/L (98-107); CO2 19 mmol/L (21-32); CREATININE 1.1 mg/dL (0.55-1.3); GLUCOSE,RANDOM 117 mg/dL (74-106); MAGNESIUM 1.7 mg/dL (1.8-2.4); PHOSPHOROUS 1.6 mg/dL (2.5-4.9); POTASSIUM 3.7 mmol/L (3.5-5.1); SODIUM 138 mmol/L (136-145)
[2018-05-13 08:39] LABS: HEMOGLOBIN 11.4 GM/dL (10.7-15.3); MCH 28.6 pg (25.7-33.7); MCHC 34.6 g/dl (32.0-36.0); MEAN CELL VOLUME 82.6 fl (80-96); PLATELET COUNT 148 K/MM3 (134-434); RDW 14.3 % (11.6-15.6)
[2018-05-13] MEDS: TACROLIMUS 0.5 MG CAPSULE PO SCH ×2 (09:09→21:13)
[2018-05-13] MEDS: PANTOPRAZOLE 40 MG TABLET (FP) PO SCH (09:09)
[2018-05-13] MEDS: MAGNESIUM OXIDE 400 MG TABLET (FP) PO SCH ×2 (09:09→21:12)
[2018-05-13] MEDS: MYCOPHENOLATE MOFETIL 250 MG CAPSULE PO SCH ×2 (09:11→21:12)
[2018-05-13] MEDS: NAPH,MB-DB/K PH,MBDB POWDER PACKET PO SCH ×2 (11:25→21:11)
--- NOTE | 2018-05-13 15:17 | PN ---
Progress Note, Physician Chief Complaint: AWAKE ALERT FEELING BETTER DENIES CHEST PAIN OR SOB - Current Medication List Current Medications: Active Medications Acetaminophen (Tylenol -) 650 mg PO Q6H PRN PRN Reason: Fever Or Pain Last Admin: 05/12/18 07:00 Dose: 650 mg Albuterol/Ipratropium (Duoneb -) 1 amp NEB Q6H PRN PRN Reason: SHORTNESS OF BREATH Last Admin: 05/12/18 20:25 Dose: 1 amp Heparin Sodium (Porcine) (Heparin -) 5,000 unit SQ TID [facility] Last Admin: 05/13/18 14:03 Dose: 5,000 unit Piperacillin Sod/Tazobactam (Sod 2.25 gm/ Dextrose) 50 mls @ 100 mls/hr IVPB Q8H-IV [facility]; Protocol Last Admin: 05/13/18 09:09 Dose: 100 mls/hr Insulin Aspart (Novolog Vial Sliding Scale -) 1 vial SQ TIDAC [facility]; Protocol Last Admin: 05/13/18 11:25 Dose: Not Given Magnesium Oxide (Mag-Ox -) 400 mg PO BID [facility] Last Admin: 05/13/18 09:09 Dose: 400 mg Metronidazole (Flagyl -) 500 mg PO TID [facility] Last Admin: 05/13/18 14:03 Dose: 500 mg Mycophenolate Mofetil (Cellcept -) 500 mg PO BID [facility] Last Admin: 05/13/18 09:11 Dose: 500 mg Pantoprazole Sodium (Protonix -) 40 mg PO DAILY [facility] Last Admin: 05/13/18 09:09 Dose: 40 mg Potassium Phos/Sodium Phos (Phos-Nak Packet -) 1 packet PO BID [facility] Last Admin: 05/13/18 11:25 Dose: 1 packet Tacrolimus (Prograf) 1.5 mg PO BID [facility] Last Admin: 05/13/18 09:09 Dose: 1.5 mg - Objective Vital Signs: Vital Signs Temperature 98.4 F 05/13/18 14:00 Pulse Rate 78 05/13/18 14:00 Respiratory Rate 20 05/13/18 14:00 Blood Pressure 153/81 05/13/18 14:00 O2 Sat by Pulse Oximetry (%) 96 05/13/18 09:00 Constitutional: Yes: Mild Distress Eyes: Yes: WNL HENT: Yes: WNL Neck: Yes: WNL Cardiovascular: Yes: WNL Respiratory: Yes: WNL Gastrointestinal: Yes: WNL Genitourinary: Yes: WNL Musculoskeletal: Yes: Muscle Weakness Edema: No Integumentary: Yes: WNL Wound/Incision: Yes: Clean/Dry Neurological: Yes: Pre-Existing Deficit Labs: CBC, BMP 05/13/18 08:15 05/13/18 06:17 INR, PTT INR 1.22 (0.83-1.09) H 05/12/18 09:35 Problem List - Problems (1) Acute kidney injury superimposed on CKD Code(s): N17.9 - ACUTE KIDNEY FAILURE, UNSPECIFIED; N18.9 - CHRONIC KIDNEY DISEASE, UNSPECIFIED (2) Diarrhea Code(s): R19.7 - DIARRHEA, UNSPECIFIED (3) History of renal transplant Code(s): Z94.0 - KIDNEY TRANSPLANT STATUS (4) Polycystic liver disease, congenital Code(s): Q44.6 - CYSTIC DISEASE OF LIVER (5) Sepsis Code(s): A41.9 - SEPSIS, UNSPECIFIED ORGANISM Qualifiers: Sepsis type: sepsis due to unspecified organism Qualified Code(s): A41.9 - Sepsis, unspecified organism (6) Sepsis due to gram-negative urinary tract infection Code(s): A41.50 - GRAM-NEGATIVE SEPSIS, UNSPECIFIED; N39.0 - URINARY TRACT INFECTION, SITE NOT SPECIFIED Assessment/Plan IV ABX CONTINUE MAG OXIDE 800MG PO X 1 NOW THEN 400MG BID STARTING TOMORROW OOB TO CHAIR PT EVAL PHYSICAL THERAPY EVAL DVT PROPHYLAXIS RENAL EVAL
--- NOTE | 2018-05-13 15:44 | PN ---
Progress Note (short form) - Note Progress Note: Renal follow up for TRU/Renal transplant Pt seen and examined at the bedside c/o cough, no sob making urine no abd pain, N/V/D, CP Vital Signs Temperature 98.4 F 05/13/18 14:00 Pulse Rate 78 05/13/18 14:00 Respiratory Rate 20 05/13/18 14:00 Blood Pressure 153/81 05/13/18 14:00 O2 Sat by Pulse Oximetry (%) 96 05/13/18 09:00 Intake & Output 05/10/18 05/11/18 05/12/18 05/13/18 23:59 23:59 23:59 23:59 Intake Total 620 2120 1370 Balance 620 2120 1370 Weight 77.111 kg 77.111 kg 81.363 kg NAD no JVD Dec BS soft, mild tenderness RUQ No LE edema, clubbing or cyanosis no tenderness over graft site CBC, BMP 05/13/18 08:15 05/13/18 06:17 Current Medications Acetaminophen (Tylenol -) 650 mg PO Q6H PRN PRN Reason: Fever Or Pain Last Admin: 05/12/18 07:00 Dose: 650 mg Albuterol/Ipratropium (Duoneb -) 1 amp NEB Q6H PRN PRN Reason: SHORTNESS OF BREATH Last Admin: 05/12/18 20:25 Dose: 1 amp Heparin Sodium (Porcine) (Heparin -) 5,000 unit SQ TID [facility] Last Admin: 05/13/18 14:03 Dose: 5,000 unit Piperacillin Sod/Tazobactam (Sod 2.25 gm/ Dextrose) 50 mls @ 100 mls/hr IVPB Q8H-IV [facility]; Protocol Last Admin: 05/13/18 09:09 Dose: 100 mls/hr Insulin Aspart (Novolog Vial Sliding Scale -) 1 vial SQ TIDAC [facility]; Protocol Last Admin: 05/13/18 11:25 Dose: Not Given Magnesium Oxide (Mag-Ox -) 400 mg PO BID [facility] Last Admin: 05/13/18 09:09 Dose: 400 mg Metronidazole (Flagyl -) 500 mg PO TID [facility] Last Admin: 05/13/18 14:03 Dose: 500 mg Mycophenolate Mofetil (Cellcept -) 500 mg PO BID [facility] Last Admin: 05/13/18 09:11 Dose: 500 mg Pantoprazole Sodium (Protonix -) 40 mg PO DAILY [facility] Last Admin: 05/13/18 09:09 Dose: 40 mg Potassium Phos/Sodium Phos (Phos-Nak Packet -) 1 packet PO BID [facility] Last Admin: 05/13/18 11:25 Dose: 1 packet Tacrolimus (Prograf) 1.5 mg PO BID [facility] Last Admin: 05/13/18 09:09 Dose: 1.5 mg 68 year old woman with history of polycystic kidney and liver disease, ESRD s/p renal transplant in 2011 in [place] (now follows at [facility] with Dr. Timmy Lieberman), Hypertension, Pancreatic cyst, [place] kidney nephrectomy in 2013 who presented with complaints of dysuria, abd pain, fever and diarrhea and found to have UA suspicious for UTI and TRU with Cr of 2. #TRU likely due to volume depletion in setting of UTI/Diarrhea and less likely an acute rejection #Dysuria r/o pylonephritis #Abd discomfort with hx of pancreatic cyst #Hx of hypertension, now normotensive #Hyponatremia in setting of renal insufficiency Renal function now improved to baseline s/p IVF US of Abd showed multiple hepatic cysts which are chronic and no pathology in transplanted kidney Continue Tacolimus 1.5mg BID, Cellcept 500mg BID will discontinue IVF at this time Avoid IV contrast and Nephrotoxins Continue zosyn as per primary, follow up cultures Thank you Will follow Moiz Diamond DO
[2018-05-13] MEDS ORDERED: PT OWN MED DRAWER 7, Y5N ONE ×2 (17:21→21:00)
[2018-05-13] MEDS ORDERED: guaiFENesin/D-M SUGAR-FREE/ACLHOL-FREE 118 ML BOTTLE PO PRN (20:32)
[2018-05-14] MEDS ORDERED: PT OWN MED DRAWER 7, Y5N ONE ×3 (01:15→22:38)
[2018-05-14] MEDS ORDERED: PIPERACILLIN/TAZOBACTAM 2.25 GM VIAL IVPB ONE ×3 (01:15→16:55)
[2018-05-14] MEDS ORDERED: DEXTROSE 5%-WATER - 50 ML IVPB ONE ×3 (01:16→16:55)
[2018-05-14] MEDS: PIPERACILLIN/TAZOB 2.25 GM 2.25 GM in DEXTROSE 5%-WATER - 50 ML IVPB SCH ×3 (01:36→17:02)
[2018-05-14] MEDS: ACETAMINOPHEN 325 MG TABLET (FP) PO PRN (01:44)
[2018-05-14] MEDS: HEPARIN NA (PORCINE) 5,000 UNITS/ML 1ML VIAL SQ SCH ×3 (06:02→22:42)
[2018-05-14] MEDS: metroNIDAZOLE 250 MG TABLET PO SCH ×3 (06:02→22:42)
[2018-05-14] MEDS: INSULIN SLIDING SCALE (NOVOLOG) 1 VIAL SQ SCH ×3 (06:03→16:45)
[2018-05-14 07:34] LABS: ANION GAP 7 MMOL/L (8-16); BLOOD UREA NITROGEN 13 mg/dL (7-18); CHLORIDE 106 mmol/L (98-107); CO2 24 mmol/L (21-32); GLUCOSE,RANDOM 113 mg/dL (74-106); MAGNESIUM 1.4 mg/dL (1.8-2.4); PHOSPHOROUS 1.4 mg/dL (2.5-4.9); POTASSIUM 3.3 mmol/L (3.5-5.1); SODIUM 137 mmol/L (136-145)
--- NOTE | 2018-05-14 08:13 | PN ---
Progress Note, Physician Chief Complaint: AWAKE ALERT FEELING BETTER - Current Medication List Current Medications: Active Medications Acetaminophen (Tylenol -) 650 mg PO Q6H PRN PRN Reason: Fever Or Pain Last Admin: 05/14/18 01:44 Dose: 650 mg Albuterol/Ipratropium (Duoneb -) 1 amp NEB Q6H PRN PRN Reason: SHORTNESS OF BREATH Last Admin: 05/12/18 20:25 Dose: 1 amp Guaifenesin (Diabetic Tussin Dm -) 5 ml PO Q4H PRN PRN Reason: COUGH Last Admin: 05/13/18 21:13 Dose: 5 ml Heparin Sodium (Porcine) (Heparin -) 5,000 unit SQ TID [facility] Last Admin: 05/14/18 06:02 Dose: 5,000 unit Piperacillin Sod/Tazobactam (Sod 2.25 gm/ Dextrose) 50 mls @ 100 mls/hr IVPB Q8H-IV [facility]; Protocol Last Admin: 05/14/18 01:36 Dose: 100 mls/hr Insulin Aspart (Novolog Vial Sliding Scale -) 1 vial SQ TIDAC [facility]; Protocol Last Admin: 05/14/18 06:03 Dose: Not Given Magnesium Oxide (Mag-Ox -) 400 mg PO BID [facility] Last Admin: 05/13/18 21:12 Dose: 400 mg Magnesium Sulfate (Magnesium Sulfate) 1 gm IVPB ONCE ONE Stop: 05/14/18 08:10 Metronidazole (Flagyl -) 500 mg PO TID [facility] Last Admin: 05/14/18 06:02 Dose: 500 mg Mycophenolate Mofetil (Cellcept -) 500 mg PO BID [facility] Last Admin: 05/13/18 21:12 Dose: 500 mg Pantoprazole Sodium (Protonix -) 40 mg PO DAILY [facility] Last Admin: 05/13/18 09:09 Dose: 40 mg Potassium Chloride (K-Dur -) 40 meq PO ONCE ONE Stop: 05/14/18 08:10 Potassium Phos/Sodium Phos (Phos-Nak Packet -) 1 packet PO BID [facility] Last Admin: 05/13/18 21:11 Dose: 1 packet Tacrolimus (Prograf) 1.5 mg PO BID [facility] Last Admin: 05/13/18 21:13 Dose: 1.5 mg - Objective Vital Signs: Vital Signs Temperature 98.6 F 05/14/18 05:20 Pulse Rate 63 05/14/18 05:20 Respiratory Rate 20 05/14/18 05:20 Blood Pressure 141/73 05/14/18 05:20 O2 Sat by Pulse Oximetry (%) 93 L 05/13/18 21:00 Constitutional: Yes: Mild Distress Eyes: Yes: WNL HENT: Yes: WNL Neck: Yes: WNL Cardiovascular: Yes: Regular Rate and Rhythm Respiratory: Yes: WNL Gastrointestinal: Yes: Normal Bowel Sounds, Soft Genitourinary: Yes: WNL Musculoskeletal: Yes: Muscle Weakness Extremities: Yes: WNL Edema: No Peripheral Pulses WNL: Yes Integumentary: Yes: WNL Wound/Incision: Yes: Clean/Dry Neurological: Yes: WNL ...Motor Strength: WNL Psychiatric: Yes: WNL Labs: CBC, BMP 05/13/18 08:15 05/14/18 06:15 INR, PTT INR 1.22 (0.83-1.09) H 05/12/18 09:35 Problem List - Problems (1) Acute kidney injury superimposed on CKD Code(s): N17.9 - ACUTE KIDNEY FAILURE, UNSPECIFIED; N18.9 - CHRONIC KIDNEY DISEASE, UNSPECIFIED (2) Diarrhea Code(s): R19.7 - DIARRHEA, UNSPECIFIED (3) History of renal transplant Code(s): Z94.0 - KIDNEY TRANSPLANT STATUS (4) Polycystic liver disease, congenital Code(s): Q44.6 - CYSTIC DISEASE OF LIVER (5) Sepsis Code(s): A41.9 - SEPSIS, UNSPECIFIED ORGANISM Qualifiers: Sepsis type: sepsis due to unspecified organism Qualified Code(s): A41.9 - Sepsis, unspecified organism (6) Sepsis due to gram-negative urinary tract infection Code(s): A41.50 - GRAM-NEGATIVE SEPSIS, UNSPECIFIED; N39.0 - URINARY TRACT INFECTION, SITE NOT SPECIFIED Assessment/Plan IV ABX PER ID PT EVAL OOB TO CHAIR REPLETE POTASSIUM AND MAGNESIUM ON NEUTROPHOS DC PLANNING TO D/W ID DR MCCAIN ON DURATION WITH ABX
[2018-05-14] MEDS ORDERED: MAGNESIUM SULF 50% (8.12 MEQ/2 ML-1 GM VIAL) IVPB ONE (08:45)
[2018-05-14] MEDS ORDERED: POTASSIUM CHLORIDE TABS 10 MEQ TABLET.ER (FP) PO ONE (09:00)
[2018-05-14] MEDS: NAPH,MB-DB/K PH,MBDB POWDER PACKET PO SCH ×2 (09:05→22:42)
[2018-05-14] MEDS: PANTOPRAZOLE 40 MG TABLET (FP) PO SCH (09:05)
[2018-05-14] MEDS: MAGNESIUM OXIDE 400 MG TABLET (FP) PO SCH ×2 (09:05→22:42)
[2018-05-14] MEDS: MYCOPHENOLATE MOFETIL 250 MG CAPSULE PO SCH ×2 (09:08→22:43)
[2018-05-14] MEDS: TACROLIMUS 0.5 MG CAPSULE PO SCH ×2 (09:08→22:44)
--- NOTE | 2018-05-14 11:35 | PN ---
Progress Note (short form) - Note Progress Note: Renal follow up for TRU/Renal transplant Pt seen and examined at the bedside no acute complaints feels well making urine no sob, cp, abd pain Vital Signs Temperature 98.3 F 05/14/18 09:11 Pulse Rate 69 05/14/18 09:11 Respiratory Rate 16 05/14/18 09:11 Blood Pressure 150/80 05/14/18 09:11 O2 Sat by Pulse Oximetry (%) 93 L 05/13/18 21:00 Intake & Output 05/11/18 05/12/18 05/13/18 05/14/18 23:59 23:59 23:59 23:59 Intake Total 620 2120 1610 50 Balance 620 2120 1610 50 Weight 77.111 kg 81.363 kg 80.059 kg NAD no JVD Dec BS soft, mild tenderness RUQ No LE edema, clubbing or cyanosis CBC, BMP 05/13/18 08:15 05/14/18 06:15 Current Medications Acetaminophen (Tylenol -) 650 mg PO Q6H PRN PRN Reason: Fever Or Pain Last Admin: 05/14/18 01:44 Dose: 650 mg Albuterol/Ipratropium (Duoneb -) 1 amp NEB Q6H PRN PRN Reason: SHORTNESS OF BREATH Last Admin: 05/12/18 20:25 Dose: 1 amp Guaifenesin (Diabetic Tussin Dm -) 5 ml PO Q4H PRN PRN Reason: COUGH Last Admin: 05/13/18 21:13 Dose: 5 ml Heparin Sodium (Porcine) (Heparin -) 5,000 unit SQ TID [facility] Last Admin: 05/14/18 06:02 Dose: 5,000 unit Piperacillin Sod/Tazobactam (Sod 2.25 gm/ Dextrose) 50 mls @ 100 mls/hr IVPB Q8H-IV [facility]; Protocol Last Admin: 05/14/18 10:21 Dose: 100 mls/hr Insulin Aspart (Novolog Vial Sliding Scale -) 1 vial SQ TIDAC [facility]; Protocol Last Admin: 05/14/18 06:03 Dose: Not Given Magnesium Oxide (Mag-Ox -) 400 mg PO BID [facility] Last Admin: 05/14/18 09:05 Dose: 400 mg Metronidazole (Flagyl -) 500 mg PO TID [facility] Last Admin: 05/14/18 06:02 Dose: 500 mg Mycophenolate Mofetil (Cellcept -) 500 mg PO BID [facility] Last Admin: 05/14/18 09:08 Dose: 500 mg Pantoprazole Sodium (Protonix -) 40 mg PO DAILY [facility] Last Admin: 05/14/18 09:05 Dose: 40 mg Potassium Phos/Sodium Phos (Phos-Nak Packet -) 1 packet PO BID [facility] Last Admin: 05/14/18 09:05 Dose: 1 packet Tacrolimus (Prograf) 1.5 mg PO BID [facility] Last Admin: 05/14/18 09:08 Dose: 1.5 mg 68 year old woman with history of polycystic kidney and liver disease, ESRD s/p renal transplant in 2011 in [place] (now follows at [facility] with Dr. Timmy Lieberman), Hypertension, Pancreatic cyst, [place] kidney nephrectomy in 2013 who presented with complaints of dysuria, abd pain, fever and diarrhea and found to have UA suspicious for UTI and TRU with Cr of 2. #TRU likely due to volume depletion #Abd discomfort with hx of pancreatic cyst #Hx of hypertension, now normotensive #Hyponatremia in setting of renal insufficiency (improved) Renal function now improved to baseline US of Abd showed multiple hepatic cysts which are chronic and no pathology in transplanted kidney Continue Tacolimus 1.5mg BID, Cellcept 500mg BID continue to trend renal function and electrolytes while inpatient stable for discharge from renal perspective to follow up with primary micro computer specialist on discharge Thank you Will follow Moiz Diamond DO
[2018-05-14] MEDS: ALBUTEROL SO4 2.5/IPRATROPIUM 0.5 INH SOL 3 ML VIAL.NEB. NEB PRN (20:20)
[2018-05-15] MEDS ORDERED: DEXTROSE 5%-WATER - 50 ML IVPB ONE ×2 (01:29→09:33)
[2018-05-15] MEDS ORDERED: PIPERACILLIN/TAZOBACTAM 2.25 GM VIAL IVPB ONE ×2 (01:29→09:33)
[2018-05-15] MEDS: PIPERACILLIN/TAZOB 2.25 GM 2.25 GM in DEXTROSE 5%-WATER - 50 ML IVPB SCH ×2 (01:39→09:57)
[2018-05-15] MEDS: HEPARIN NA (PORCINE) 5,000 UNITS/ML 1ML VIAL SQ SCH ×3 (06:15→21:51)
[2018-05-15] MEDS: INSULIN SLIDING SCALE (NOVOLOG) 1 VIAL SQ SCH ×3 (06:15→17:16)
[2018-05-15] MEDS: metroNIDAZOLE 250 MG TABLET PO SCH ×3 (06:15→21:51)
[2018-05-15 07:09] LABS: HEMATOCRIT 34.7 % (32.4-45.2); HEMOGLOBIN 11.9 GM/dL (10.7-15.3); MCHC 34.4 g/dl (32.0-36.0); MEAN CELL VOLUME 84.3 fl (80-96); PLATELET COUNT 192 K/MM3 (134-434); RBC 4.12 M/mm3 (3.60-5.2); RDW 14.5 % (11.6-15.6); WHITE BLOOD COUNT 6.5 K/mm3 (4.0-10.0)
[2018-05-15 07:50] LABS: ANION GAP 9 MMOL/L (8-16); BLOOD UREA NITROGEN 11 mg/dL (7-18); CALCIUM 8.2 mg/dL (8.5-10.1); CHLORIDE 107 mmol/L (98-107); CO2 24 mmol/L (21-32); CREATININE 0.9 mg/dL (0.55-1.3); GLUCOSE,RANDOM 118 mg/dL (74-106); MAGNESIUM 1.6 mg/dL (1.8-2.4); PHOSPHOROUS 2.4 mg/dL (2.5-4.9); POTASSIUM 3.8 mmol/L (3.5-5.1); SODIUM 140 mmol/L (136-145)
[2018-05-15] MEDS ORDERED: PT OWN MED DRAWER 7, Y5N ONE (09:32)
[2018-05-15] MEDS: TACROLIMUS 0.5 MG CAPSULE PO SCH ×2 (09:56→21:53)
[2018-05-15] MEDS: NAPH,MB-DB/K PH,MBDB POWDER PACKET PO SCH ×2 (09:56→21:52)
[2018-05-15] MEDS: MAGNESIUM OXIDE 400 MG TABLET (FP) PO SCH ×2 (09:56→21:52)
[2018-05-15] MEDS: PANTOPRAZOLE 40 MG TABLET (FP) PO SCH (09:56)
[2018-05-15] MEDS: MYCOPHENOLATE MOFETIL 250 MG CAPSULE PO SCH ×2 (09:57→22:07)
--- NOTE | 2018-05-15 10:00 | PN ---
Progress Note, Physician - Current Medication List Current Medications: Active Medications Acetaminophen (Tylenol -) 650 mg PO Q6H PRN PRN Reason: Fever Or Pain Last Admin: 05/14/18 01:44 Dose: 650 mg Albuterol/Ipratropium (Duoneb -) 1 amp NEB Q6H PRN PRN Reason: SHORTNESS OF BREATH Last Admin: 05/14/18 20:20 Dose: 1 amp Guaifenesin (Diabetic Tussin Dm -) 5 ml PO Q4H PRN PRN Reason: COUGH Last Admin: 05/13/18 21:13 Dose: 5 ml Heparin Sodium (Porcine) (Heparin -) 5,000 unit SQ TID [facility] Last Admin: 05/15/18 06:15 Dose: 5,000 unit Piperacillin Sod/Tazobactam (Sod 2.25 gm/ Dextrose) 50 mls @ 100 mls/hr IVPB Q8H-IV [facility]; Protocol Last Admin: 05/15/18 09:57 Dose: 100 mls/hr Insulin Aspart (Novolog Vial Sliding Scale -) 1 vial SQ TIDAC [facility]; Protocol Last Admin: 05/15/18 06:15 Dose: Not Given Magnesium Oxide (Mag-Ox -) 400 mg PO BID [facility] Last Admin: 05/15/18 09:56 Dose: 400 mg Metronidazole (Flagyl -) 500 mg PO TID [facility] Last Admin: 05/15/18 06:15 Dose: 500 mg Mycophenolate Mofetil (Cellcept -) 500 mg PO BID [facility] Last Admin: 05/15/18 09:57 Dose: 500 mg Pantoprazole Sodium (Protonix -) 40 mg PO DAILY [facility] Last Admin: 05/15/18 09:56 Dose: 40 mg Potassium Phos/Sodium Phos (Phos-Nak Packet -) 1 packet PO BID [facility] Last Admin: 05/15/18 09:56 Dose: 1 packet Tacrolimus (Prograf) 1.5 mg PO BID [facility] Last Admin: 05/15/18 09:56 Dose: 1.5 mg - Objective Vital Signs: Vital Signs Temperature 97.9 F 05/15/18 05:43 Pulse Rate 70 05/15/18 05:43 Respiratory Rate 18 05/15/18 05:43 Blood Pressure 151/67 05/15/18 05:43 O2 Sat by Pulse Oximetry (%) 96 05/14/18 21:00 Cardiovascular: Yes: Regular Rate and Rhythm Respiratory: Yes: Regular, CTA Bilaterally Gastrointestinal: Yes: Normal Bowel Sounds, Soft Labs: CBC, BMP 05/15/18 06:30 05/15/18 06:30 INR, PTT INR 1.22 (0.83-1.09) H 05/12/18 09:35 Problem List - Problems (1) UTI (urinary tract infection) Assessment/Plan: On antibiotics Microbiology 05/10/18 19:20 Blood - Peripheral Venous Blood Culture - Preliminary NO GROWTH OBTAINED AFTER 96 HOURS, INCUBATION TO CONTINUE FOR 1 DAYS. 05/10/18 19:20 Blood - Peripheral Venous Blood Culture - Preliminary NO GROWTH OBTAINED AFTER 96 HOURS, INCUBATION TO CONTINUE FOR 1 DAYS. 05/10/18 23:50 Urine - Urine Clean Catch Urine Culture - Final NO GROWTH OBTAINED 05/10/18 09:02 Stool Clostridium difficile Antigen (BRITT) - Final 05/10/18 09:02 Stool Clostridium difficile Toxin Assay - Final Code(s): N39.0 - URINARY TRACT INFECTION, SITE NOT SPECIFIED Qualifiers: Urinary tract infection type: site unspecified Hematuria presence: without hematuria Qualified Code(s): N39.0 - Urinary tract infection, site not specified (2) Acute kidney injury superimposed on CKD Assessment/Plan: Laboratory Tests 05/14/18 05/15/18 06:15 06:30 Potassium 3.8 BUN 13 11 Creatinine 1.0 0.9 f/u renal consult s/p IVF hydration Code(s): N17.9 - ACUTE KIDNEY FAILURE, UNSPECIFIED; N18.9 - CHRONIC KIDNEY DISEASE, UNSPECIFIED (3) History of renal transplant Assessment/Plan: patient is s/p transplant c.w immumosupressive medication c/w tacrlimus c/w Mycophenolate Mofotil Code(s): Z94.0 - KIDNEY TRANSPLANT STATUS (4) Sepsis Assessment/Plan: admit patient to the [facility] for sirs ID consult noted 2/2 UTI follow up blood cultures neg f.u urine cultures neg pipercillin/tazobactam per id Code(s): A41.9 - SEPSIS, UNSPECIFIED ORGANISM Qualifiers: Sepsis type: sepsis due to unspecified organism Qualified Code(s): A41.9 - Sepsis, unspecified organism
--- NOTE | 2018-05-15 10:27 | PN ---
Progress Note, Physician History of Present Illness: OOB IN [place] NO C/O ABDOMINAL PAIN NO F/C TEMPS DOWN AFEBRILE WBC IMPROVED WNL BC (-) URINE C/S (-) - Current Medication List Current Medications: Active Medications Acetaminophen (Tylenol -) 650 mg PO Q6H PRN PRN Reason: Fever Or Pain Last Admin: 05/14/18 01:44 Dose: 650 mg Albuterol/Ipratropium (Duoneb -) 1 amp NEB Q6H PRN PRN Reason: SHORTNESS OF BREATH Last Admin: 05/14/18 20:20 Dose: 1 amp Guaifenesin (Diabetic Tussin Dm -) 5 ml PO Q4H PRN PRN Reason: COUGH Last Admin: 05/13/18 21:13 Dose: 5 ml Heparin Sodium (Porcine) (Heparin -) 5,000 unit SQ TID [facility] Last Admin: 05/15/18 06:15 Dose: 5,000 unit Piperacillin Sod/Tazobactam (Sod 2.25 gm/ Dextrose) 50 mls @ 100 mls/hr IVPB Q8H-IV [facility]; Protocol Last Admin: 05/15/18 09:57 Dose: 100 mls/hr Insulin Aspart (Novolog Vial Sliding Scale -) 1 vial SQ TIDAC [facility]; Protocol Last Admin: 05/15/18 06:15 Dose: Not Given Magnesium Oxide (Mag-Ox -) 400 mg PO BID [facility] Last Admin: 05/15/18 09:56 Dose: 400 mg Metronidazole (Flagyl -) 500 mg PO TID [facility] Last Admin: 05/15/18 06:15 Dose: 500 mg Mycophenolate Mofetil (Cellcept -) 500 mg PO BID [facility] Last Admin: 05/15/18 09:57 Dose: 500 mg Pantoprazole Sodium (Protonix -) 40 mg PO DAILY [facility] Last Admin: 05/15/18 09:56 Dose: 40 mg Potassium Phos/Sodium Phos (Phos-Nak Packet -) 1 packet PO BID [facility] Last Admin: 05/15/18 09:56 Dose: 1 packet Tacrolimus (Prograf) 1.5 mg PO BID [facility] Last Admin: 05/15/18 09:56 Dose: 1.5 mg - Objective Vital Signs: Vital Signs Temperature 97.9 F 05/15/18 05:43 Pulse Rate 70 05/15/18 05:43 Respiratory Rate 18 05/15/18 05:43 Blood Pressure 151/67 05/15/18 05:43 O2 Sat by Pulse Oximetry (%) 96 05/14/18 21:00 Constitutional: Yes: No Distress Eyes: Yes: Conjunctiva Clear Cardiovascular: Yes: Regular Rate and Rhythm, S1, S2 Respiratory: Yes: CTA Bilaterally Gastrointestinal: Yes: Normal Bowel Sounds, Soft Labs: CBC, BMP 05/15/18 06:30 05/15/18 06:30 INR, PTT INR 1.22 (0.83-1.09) H 05/12/18 09:35 Assessment/Plan UTI FEVER/ LEUKOCYTOSIS- RESOLVED S/P RENAL TRANSPLANT SUBSTITUTE PO ANTIBIOTICS AUGMENTIN 875MG PO BID X 48-72H
[2018-05-15] MEDS ORDERED: MAGNESIUM SULF 50% (8.12 MEQ/2 ML-1 GM VIAL) IVPB ONE (11:00)
--- NOTE | 2018-05-15 13:26 | PN ---
Progress Note (short form) - Note Progress Note: Renal follow up for TRU/Renal transplant Pt seen and examined at the bedside complains of discomfort in legs no sob, cp, abd pain, N/V Vital Signs Temperature 98.2 F 05/15/18 10:00 Pulse Rate 75 05/15/18 10:00 Respiratory Rate 18 05/15/18 10:00 Blood Pressure 141/81 05/15/18 10:00 O2 Sat by Pulse Oximetry (%) 95 05/15/18 10:00 Intake & Output 05/12/18 05/13/18 05/14/18 05/15/18 23:59 23:59 23:59 23:59 Intake Total 2119 1610 550 900 Balance 2119 1610 550 900 Weight 81.363 kg 80.059 kg 80.467 kg NAD no JVD Dec BS soft, mild tenderness RUQ No LE edema, clubbing or cyanosis CBC, BMP 05/15/18 06:30 05/15/18 06:30 Current Medications Acetaminophen (Tylenol -) 650 mg PO Q6H PRN PRN Reason: Fever Or Pain Last Admin: 05/14/18 01:44 Dose: 650 mg Albuterol/Ipratropium (Duoneb -) 1 amp NEB Q6H PRN PRN Reason: SHORTNESS OF BREATH Last Admin: 05/14/18 20:20 Dose: 1 amp Amoxicillin/Clavulanate Potassium (Augmentin - 875mg Tablet) 1 tab PO BID@0800, 1730 [facility] Guaifenesin (Diabetic Tussin Dm -) 5 ml PO Q4H PRN PRN Reason: COUGH Last Admin: 05/13/18 21:13 Dose: 5 ml Heparin Sodium (Porcine) (Heparin -) 5,000 unit SQ TID [facility] Last Admin: 05/15/18 06:15 Dose: 5,000 unit Insulin Aspart (Novolog Vial Sliding Scale -) 1 vial SQ TIDAC [facility]; Protocol Last Admin: 05/15/18 11:41 Dose: Not Given Magnesium Oxide (Mag-Ox -) 400 mg PO BID [facility] Last Admin: 05/15/18 09:56 Dose: 400 mg Metronidazole (Flagyl -) 500 mg PO TID [facility] Last Admin: 05/15/18 06:15 Dose: 500 mg Mycophenolate Mofetil (Cellcept -) 500 mg PO BID [facility] Last Admin: 05/15/18 09:57 Dose: 500 mg Pantoprazole Sodium (Protonix -) 40 mg PO DAILY [facility] Last Admin: 05/15/18 09:56 Dose: 40 mg Potassium Phos/Sodium Phos (Phos-Nak Packet -) 1 packet PO BID [facility] Last Admin: 05/15/18 09:56 Dose: 1 packet Tacrolimus (Prograf) 1.5 mg PO BID [facility] Last Admin: 05/15/18 09:56 Dose: 1.5 mg 68 year old woman with history of polycystic kidney and liver disease, ESRD s/p renal transplant in 2011 in [place] (now follows at [facility] with Dr. Timmy Lieberman), Hypertension, Pancreatic cyst, [place] kidney nephrectomy in 2013 who presented with complaints of dysuria, abd pain, fever and diarrhea and found to have UA suspicious for UTI and TRU with Cr of 2. #TRU likely due to volume depletion #Abd discomfort with hx of pancreatic cyst #Hx of hypertension, now normotensive #Hyponatremia in setting of renal insufficiency (improved) Renal function now improved to baseline US of Abd showed multiple hepatic cysts which are chronic and no pathology in transplanted kidney Continue Tacolimus 1.5mg BID, Cellcept 500mg BID on oral Abx as per ID discharge planning as per primary Moiz Diamond DO
[2018-05-15] MEDS: AMOX TR/POT CLAV 875MG/125MG TABLETS (FP) PO SCH (17:17)
[2018-05-15 18:43] LABS: URINE APPEARANCE CLEAR; URINE BILIRUBIN NEGATIVE (<2.0 mg/dL); URINE COLOR LTYELLOW; URINE GLUCOSE (UA) NEGATIVE (NEGATIVE); URINE KETONE NEGATIVE (NEGATIVE); URINE LEUK ESTERASE TRACE (NEGATIVE); URINE NITRITE NEGATIVE (NEGATIVE); URINE PROTEIN NEGATIVE (NEGATIVE); URINE UROBILINOGEN NEGATIVE mg/dL (0.2-1.0)
[2018-05-15 18:46] LABS: EPI CELLS RARE /HPF (FEW)
[2018-05-15] MEDS: FLUTICASONE PROP 0.05% 16 GM NASAL SPRAY NS SCH (21:49)
[2018-05-16] MEDS: HEPARIN NA (PORCINE) 5,000 UNITS/ML 1ML VIAL SQ SCH ×2 (06:26→14:30)
[2018-05-16] MEDS: metroNIDAZOLE 250 MG TABLET PO SCH ×2 (06:26→14:30)
[2018-05-16] MEDS: INSULIN SLIDING SCALE (NOVOLOG) 1 VIAL SQ SCH ×3 (06:27→16:43)
[2018-05-16] MEDS ORDERED: PT OWN MED DRAWER 7, Y5N ONE (09:25)
[2018-05-16] MEDS: PANTOPRAZOLE 40 MG TABLET (FP) PO SCH (09:35)
[2018-05-16] MEDS: FLUTICASONE PROP 0.05% 16 GM NASAL SPRAY NS SCH (09:35)
[2018-05-16] MEDS: AMOX TR/POT CLAV 875MG/125MG TABLETS (FP) PO SCH (09:35)
[2018-05-16] MEDS: MYCOPHENOLATE MOFETIL 250 MG CAPSULE PO SCH (09:35)
[2018-05-16] MEDS: MAGNESIUM OXIDE 400 MG TABLET (FP) PO SCH (09:35)
[2018-05-16] MEDS: NAPH,MB-DB/K PH,MBDB POWDER PACKET PO SCH (09:36)
[2018-05-16] MEDS: TACROLIMUS 0.5 MG CAPSULE PO SCH (09:36)
--- NOTE | 2018-05-16 10:12 | PN ---
Progress Note, Physician Chief Complaint: UTI Sepsis History of Present Illness: Previous notes and events reviewed awake and alert NAD wbc nl and afebrile patient complain of having fecal incontinence - Current Medication List Current Medications: Active Medications Acetaminophen (Tylenol -) 650 mg PO Q6H PRN PRN Reason: Fever Or Pain Last Admin: 05/14/18 01:44 Dose: 650 mg Albuterol/Ipratropium (Duoneb -) 1 amp NEB Q6H PRN PRN Reason: SHORTNESS OF BREATH Last Admin: 05/14/18 20:20 Dose: 1 amp Amoxicillin/Clavulanate Potassium (Augmentin - 875mg Tablet) 1 tab PO BID@0800, 1730 [facility] Last Admin: 05/16/18 09:35 Dose: 1 tab Fluticasone Propionate (Flonase -) 2 spray NS DAILY [facility] Last Admin: 05/16/18 09:35 Dose: 1 sprays Guaifenesin (Diabetic Tussin Dm -) 5 ml PO Q4H PRN PRN Reason: COUGH Last Admin: 05/13/18 21:13 Dose: 5 ml Heparin Sodium (Porcine) (Heparin -) 5,000 unit SQ TID [facility] Last Admin: 05/16/18 06:26 Dose: 5,000 unit Insulin Aspart (Novolog Vial Sliding Scale -) 1 vial SQ TIDAC [facility]; Protocol Last Admin: 05/16/18 06:27 Dose: Not Given Magnesium Oxide (Mag-Ox -) 400 mg PO BID [facility] Last Admin: 05/16/18 09:35 Dose: 400 mg Metronidazole (Flagyl -) 500 mg PO TID [facility] Last Admin: 05/16/18 06:26 Dose: 500 mg Mycophenolate Mofetil (Cellcept -) 500 mg PO BID [facility] Last Admin: 05/16/18 09:35 Dose: 500 mg Pantoprazole Sodium (Protonix -) 40 mg PO DAILY [facility] Last Admin: 05/16/18 09:35 Dose: 40 mg Potassium Phos/Sodium Phos (Phos-Nak Packet -) 1 packet PO BID [facility] Last Admin: 05/16/18 09:36 Dose: 1 packet Tacrolimus (Prograf) 1.5 mg PO BID [facility] Last Admin: 05/16/18 09:36 Dose: 1.5 mg - Objective Vital Signs: Vital Signs Temperature 97.3 F L 05/16/18 06:00 Pulse Rate 63 05/16/18 06:00 Respiratory Rate 20 05/16/18 06:00 Blood Pressure 148/73 05/16/18 06:00 O2 Sat by Pulse Oximetry (%) 95 05/15/18 20:39 Constitutional: Yes: No Distress, Calm Eyes: Yes: Conjunctiva Clear Cardiovascular: Yes: Regular Rate and Rhythm Respiratory: Yes: Diminished Gastrointestinal: Yes: Normal Bowel Sounds, Soft Genitourinary: Yes: Incontinence Musculoskeletal: Yes: Muscle Weakness Extremities: Yes: WNL Edema: No Neurological: Yes: Alert, Oriented Psychiatric: Yes: Alert, Oriented Labs: CBC, BMP 05/15/18 06:30 05/15/18 06:30 INR, PTT INR 1.22 (0.83-1.09) H 05/12/18 09:35 Microbiology 05/10/18 19:20 Blood - Peripheral Venous Blood Culture - Final NO GROWTH AFTER 5 DAYS INCUBATION 05/10/18 19:20 Blood - Peripheral Venous Blood Culture - Final NO GROWTH AFTER 5 DAYS INCUBATION Problem List - Problems (1) Acute kidney injury superimposed on CKD Assessment/Plan: -renal on board -cont tacrolimus and mycophenolate -renal function has improved Code(s): N17.9 - ACUTE KIDNEY FAILURE, UNSPECIFIED; N18.9 - CHRONIC KIDNEY DISEASE, UNSPECIFIED (2) History of renal transplant Assessment/Plan: -renal on board -BUN/Cr has improved, will continue to monitor renal function -cont with tacrolimus and cellcept Code(s): Z94.0 - KIDNEY TRANSPLANT STATUS (3) Sepsis Assessment/Plan: -PO ABT augmentin -BC neg -UC neg -LA 1.3 -wbc 6.5 and afebrile Code(s): A41.9 - SEPSIS, UNSPECIFIED ORGANISM Qualifiers: Sepsis type: sepsis due to unspecified organism Qualified Code(s): A41.9 - Sepsis, unspecified organism (4) UTI (urinary tract infection) Assessment/Plan: -PO augmentin for ABT -UC neg -wbc 6.5 Code(s): N39.0 - URINARY TRACT INFECTION, SITE NOT SPECIFIED Qualifiers: Urinary tract infection type: site unspecified Hematuria presence: without hematuria Qualified Code(s): N39.0 - Urinary tract infection, site not specified Assessment/Plan dvt ppx SNF discharge for rehab
--- NOTE | 2018-05-16 13:28 | DS ---
Physical Examination Vital Signs: Vital Signs Temperature 97.3 F L 05/16/18 10:33 Pulse Rate 80 05/16/18 10:33 Respiratory Rate 20 05/16/18 10:33 Blood Pressure 131/54 L 05/16/18 10:33 O2 Sat by Pulse Oximetry (%) 95 05/16/18 10:33 Findings/Remarks: Patient is a 68 y/o female with past medical history of HTN, DM, ESRD s/p transplant. Patient presented to ER with complaints of painful urination and was noted with elevated WBC 19.2 on admission. Patient was also noted with elevated BUN/Cr on admission, nephrology was consulted. Patient was placed on IV ABT with good response and switched to PO augmentin. Patient is now afebrile , BUN/Cr . 11/0.9, and WBC 6.5. Patient will be discharged home and home care services will be re-started. Constitutional: Yes: No Distress, Calm Eyes: Yes: Conjunctiva Clear Neck: Yes: Supple Cardiovascular: Yes: Regular Rate and Rhythm Respiratory: Yes: Regular, CTA Bilaterally Gastrointestinal: Yes: Normal Bowel Sounds, Soft Renal/: Yes: Incontinence Musculoskeletal: Yes: Muscle Weakness Extremities: Yes: WNL Edema: No Integumentary: Yes: WNL Neurological: Yes: Alert, Oriented Psychiatric: Yes: Alert, Oriented Labs: CBC, BMP 05/15/18 06:30 05/15/18 06:30 Microbiology 05/10/18 19:20 Blood - Peripheral Venous Blood Culture - Final NO GROWTH AFTER 5 DAYS INCUBATION 05/10/18 19:20 Blood - Peripheral Venous Blood Culture - Final NO GROWTH AFTER 5 DAYS INCUBATION Discharge Summary Reason For Visit: URINARY TRACT INFECTION SEPSIS Current Active Problems Acute kidney injury superimposed on CKD (Acute) Diarrhea (Acute) History of renal transplant (Acute) Polycystic kidney disease (Acute) Polycystic liver disease, congenital (Acute) SIRS (systemic inflammatory response syndrome) (Acute) Sepsis (Acute) Sepsis due to gram-negative urinary tract infection (Acute) UTI (urinary tract infection) (Acute) Hospital Course: see progress notes CBC, BMP 05/15/18 06:30 05/15/18 06:30 Current Medications Acetaminophen (Tylenol -) 650 mg PO Q6H PRN PRN Reason: Fever Or Pain Last Admin: 05/14/18 01:44 Dose: 650 mg Amoxicillin/Clavulanate Potassium (Augmentin - 875mg Tablet) 1 tab PO BID@0800, 1730 [facility] Last Admin: 05/16/18 09:35 Dose: 1 tab Fluticasone Propionate (Flonase -) 2 spray NS DAILY [facility] Last Admin: 05/16/18 09:35 Dose: 1 sprays Guaifenesin (Diabetic Tussin Dm -) 5 ml PO Q4H PRN PRN Reason: COUGH Last Admin: 05/13/18 21:13 Dose: 5 ml Heparin Sodium (Porcine) (Heparin -) 5,000 unit SQ TID [facility] Last Admin: 05/16/18 06:26 Dose: 5,000 unit Insulin Aspart (Novolog Vial Sliding Scale -) 1 vial SQ TIDAC [facility]; Protocol Last Admin: 05/16/18 12:01 Dose: Not Given Magnesium Oxide (Mag-Ox -) 400 mg PO BID [facility] Last Admin: 05/16/18 09:35 Dose: 400 mg Metronidazole (Flagyl -) 500 mg PO TID [facility] Last Admin: 05/16/18 06:26 Dose: 500 mg Mycophenolate Mofetil (Cellcept -) 500 mg PO BID [facility] Last Admin: 05/16/18 09:35 Dose: 500 mg Pantoprazole Sodium (Protonix -) 40 mg PO DAILY [facility] Last Admin: 05/16/18 09:35 Dose: 40 mg Potassium Phos/Sodium Phos (Phos-Nak Packet -) 1 packet PO BID [facility] Last Admin: 05/16/18 09:36 Dose: 1 packet Tacrolimus (Prograf) 1.5 mg PO BID [facility] Last Admin: 05/16/18 09:36 Dose: 1.5 mg Laboratory Tests 05/10/18 05/10/18 05/10/18 18:55 18:55 18:55 WBC 19.2 H RBC 4.26 Hgb 12.6 Hct 36.2 MCV 85.1 MCH 29.5 MCHC 34.7 RDW 13.8 Plt Count 135 MPV 9.1 Absolute Neuts (auto) 17.4 H Neutrophils % 90.4 H Lymphocytes % 2.9 L Monocytes % 6.6 Eosinophils % 0.0 Basophils % 0.1 Nucleated RBC % 0 PT with INR 16.80 H INR 1.42 H PTT (Actin FS) Sodium 132 L Potassium 4.8 Chloride 101 Carbon Dioxide 21 Anion Gap 10 BUN 30 H Creatinine 2.0 H Creat Clearance w eGFR 24.63 POC Glucometer Random Glucose 126 H Lactic Acid Calcium 8.2 L Phosphorus Magnesium Total Bilirubin 0.5 AST 30 ALT 18 Alkaline Phosphatase 111 Troponin I Total Protein 6.1 L Albumin 3.4 Triglycerides Cholesterol Total LDL Cholesterol HDL Cholesterol Lipase TSH Urine Color Urine Appearance Urine pH Ur Specific [place] Urine Protein Urine Glucose (UA) Urine Ketones Urine Blood Urine Nitrite Urine Bilirubin Urine Urobilinogen Ur Leukocyte Esterase Urine WBC (Auto) Urine RBC (Auto) Ur Epithelial Cells Granular Casts Urine Mucus Random Vancomycin Tacrolimus Influenza A (Rapid) Influenza B (Rapid) 05/10/18 05/10/18 05/10/18 18:55 18:55 18:55 WBC RBC Hgb Hct MCV MCH MCHC RDW Plt Count MPV Absolute Neuts (auto) Neutrophils % Lymphocytes % Monocytes % Eosinophils % Basophils % Nucleated RBC % PT with INR INR PTT (Actin FS) Sodium Potassium Chloride Carbon Dioxide Anion Gap BUN Creatinine Creat Clearance w eGFR POC Glucometer Random Glucose Lactic Acid 1.3 Calcium Phosphorus Magnesium Total Bilirubin AST ALT Alkaline Phosphatase Troponin I < 0.02 Total Protein Albumin Triglycerides Cholesterol Total LDL Cholesterol HDL Cholesterol Lipase 49 L TSH Urine Color Urine Appearance Urine pH Ur Specific [place] Urine Protein Urine Glucose (UA) Urine Ketones Urine Blood Urine Nitrite Urine Bilirubin Urine Urobilinogen Ur Leukocyte Esterase Urine WBC (Auto) Urine RBC (Auto) Ur Epithelial Cells Granular Casts Urine Mucus Random Vancomycin Tacrolimus 4.3 Influenza A (Rapid) Influenza B (Rapid) 05/10/18 05/10/18 05/11/18 20:34 23:50 12:11 WBC RBC Hgb Hct MCV MCH MCHC RDW Plt Count MPV Absolute Neuts (auto) Neutrophils % Lymphocytes % Monocytes % Eosinophils % Basophils % Nucleated RBC % PT with INR INR PTT (Actin FS) Sodium Potassium Chloride Carbon Dioxide Anion Gap BUN Creatinine Creat Clearance w eGFR POC Glucometer 158.18498 Random Glucose Lactic Acid Calcium Phosphorus Magnesium Total Bilirubin AST ALT Alkaline Phosphatase Troponin I Total Protein Albumin Triglycerides Cholesterol Total LDL Cholesterol HDL Cholesterol Lipase TSH Urine Color Yellow Urine Appearance Cloudy Urine pH 5.[address] [place] 1.020 Urine Protein 2+ H Urine Glucose (UA) 1+ H Urine Ketones Negative Urine Blood 1+ H Urine Nitrite Negative Urine Bilirubin Negative Urine Urobilinogen Negative Ur Leukocyte Esterase 2+ H Urine WBC (Auto) 264 Urine RBC (Auto) 99 Ur Epithelial Cells Many Granular Casts 25 Urine Mucus Rare Random Vancomycin Tacrolimus Influenza A (Rapid) Negative Influenza B (Rapid) Negative 05/11/18 05/11/18 05/12/18 16:36 18:20 06:10 WBC RBC Hgb Hct MCV MCH MCHC RDW Plt Count MPV Absolute Neuts (auto) Neutrophils % Lymphocytes % Monocytes % Eosinophils % Basophils % Nucleated RBC % PT with INR INR PTT (Actin FS) Sodium 133 L Potassium 3.8 Chloride 102 Carbon Dioxide 21 Anion Gap 10 BUN 33 H Creatinine 1.9 H Creat Clearance w eGFR 26.13 POC Glucometer 149 101 Random Glucose 167 H Lactic Acid Calcium 7.8 L Phosphorus Magnesium Total Bilirubin AST ALT Alkaline Phosphatase Troponin I Total Protein Albumin Triglycerides Cholesterol Total LDL Cholesterol HDL Cholesterol Lipase TSH Urine Color Urine Appearance Urine pH Ur Specific [place] Urine Protein Urine Glucose (UA) Urine Ketones Urine Blood Urine Nitrite Urine Bilirubin Urine Urobilinogen Ur Leukocyte Esterase Urine WBC (Auto) Urine RBC (Auto) Ur Epithelial Cells Granular Casts Urine Mucus Random Vancomycin Tacrolimus Influenza A (Rapid) Influenza B (Rapid) 05/12/18 05/12/18 05/12/18 07:00 07:00 08:40 WBC 15.8 H RBC 3.87 Hgb 11.5 Hct 33.0 MCV 85.2 MCH 29.6 MCHC 34.8 RDW 13.8 Plt Count 126 L MPV 9.6 Absolute Neuts (auto) 14.0 H Neutrophils % 88.7 H Lymphocytes % 4.7 L D Monocytes % 6.5 Eosinophils % 0.0 Basophils % 0.1 Nucleated RBC % 0 PT with INR INR PTT (Actin FS) Sodium 137 Potassium 3.5 Chloride 107 Carbon Dioxide 20 L Anion Gap 11 BUN 29 H Creatinine 1.5 H Creat Clearance w eGFR 34.33 POC Glucometer Random Glucose 112 H Lactic Acid Calcium 8.3 L Phosphorus 2.2 L Magnesium 1.2 L Total Bilirubin 0.5 AST 16 ALT 17 Alkaline Phosphatase 91 Troponin I Total Protein 5.0 L Albumin 2.6 L Triglycerides 131 Cholesterol 104 Total LDL Cholesterol 54 HDL Cholesterol 23 L Lipase TSH Urine Color Urine Appearance Urine pH Ur Specific [place] Urine Protein Urine Glucose (UA) Urine Ketones Urine Blood Urine Nitrite Urine Bilirubin Urine Urobilinogen Ur Leukocyte Esterase Urine WBC (Auto) Urine RBC (Auto) Ur Epithelial Cells Granular Casts Urine Mucus Random Vancomycin 4.4 L Tacrolimus Influenza A (Rapid) Influenza B (Rapid) 05/12/18 05/12/18 05/12/18 09:35 11:29 16:41 WBC RBC Hgb Hct MCV MCH MCHC RDW Plt Count MPV Absolute Neuts (auto) Neutrophils % Lymphocytes % Monocytes % Eosinophils % Basophils % Nucleated RBC % PT with INR 14.40 H INR 1.22 H PTT (Actin FS) 30.4 Sodium Potassium Chloride Carbon Dioxide Anion Gap BUN Creatinine Creat Clearance w eGFR POC Glucometer 147 190 Random Glucose Lactic Acid Calcium Phosphorus Magnesium Total Bilirubin AST ALT Alkaline Phosphatase Troponin I Total Protein Albumin Triglycerides Cholesterol Total LDL Cholesterol HDL Cholesterol Lipase TSH Urine Color Urine Appearance Urine pH Ur Specific [place] Urine Protein Urine Glucose (UA) Urine Ketones Urine Blood Urine Nitrite Urine Bilirubin Urine Urobilinogen Ur Leukocyte Esterase Urine WBC (Auto) Urine RBC (Auto) Ur Epithelial Cells Granular Casts Urine Mucus Random Vancomycin Tacrolimus Influenza A (Rapid) Influenza B (Rapid) 05/13/18 05/13/18 05/13/18 06:03 06:17 08:15 WBC 13.0 H RBC 4.00 Hgb 11.4 Hct 33.0 MCV 82.6 MCH 28.6 MCHC 34.6 RDW 14.3 Plt Count 148 MPV 9.0 Absolute Neuts (auto) Neutrophils % Lymphocytes % Monocytes % Eosinophils % Basophils % Nucleated RBC % PT with INR INR PTT (Actin FS) Sodium 138 Potassium 3.7 Chloride 110 H Carbon Dioxide 19 L Anion Gap 9 BUN 18 Creatinine 1.1 Creat Clearance w eGFR 49.10 POC Glucometer 118 Random Glucose 117 H Lactic Acid Calcium 8.1 L Phosphorus 1.6 L Magnesium 1.7 L Total Bilirubin AST ALT Alkaline Phosphatase Troponin I Total Protein Albumin Triglycerides Cholesterol Total LDL Cholesterol HDL Cholesterol Lipase TSH Urine Color Urine Appearance Urine pH Ur Specific [place] Urine Protein Urine Glucose (UA) Urine Ketones Urine Blood Urine Nitrite Urine Bilirubin Urine Urobilinogen Ur Leukocyte Esterase Urine WBC (Auto) Urine RBC (Auto) Ur Epithelial Cells Granular Casts Urine Mucus Random Vancomycin Tacrolimus Influenza A (Rapid) Influenza B (Rapid) 05/13/18 05/13/18 05/14/18 11:17 16:57 06:02 WBC RBC Hgb Hct MCV MCH MCHC RDW Plt Count MPV Absolute Neuts (auto) Neutrophils % Lymphocytes % Monocytes % Eosinophils % Basophils % Nucleated RBC % PT with INR INR PTT (Actin FS) Sodium Potassium Chloride Carbon Dioxide Anion Gap BUN Creatinine Creat Clearance w eGFR POC Glucometer 173 110 125 Random Glucose Lactic Acid Calcium Phosphorus Magnesium Total Bilirubin AST ALT Alkaline Phosphatase Troponin I Total Protein Albumin Triglycerides Cholesterol Total LDL Cholesterol HDL Cholesterol Lipase TSH Urine Color Urine Appearance Urine pH Ur Specific [place] Urine Protein Urine Glucose (UA) Urine Ketones Urine Blood Urine Nitrite Urine Bilirubin Urine Urobilinogen Ur Leukocyte Esterase Urine WBC (Auto) Urine RBC (Auto) Ur Epithelial Cells Granular Casts Urine Mucus Random Vancomycin Tacrolimus Influenza A (Rapid) Influenza B (Rapid) 05/14/18 05/14/18 05/14/18 06:15 11:51 16:44 WBC RBC Hgb Hct MCV MCH MCHC RDW Plt Count MPV Absolute Neuts (auto) Neutrophils % Lymphocytes % Monocytes % Eosinophils % Basophils % Nucleated RBC % PT with INR INR PTT (Actin FS) Sodium 137 Potassium 3.3 L Chloride 106 Carbon Dioxide 24 Anion Gap 7 L BUN 13 Creatinine 1.0 Creat Clearance w eGFR 54.81 POC Glucometer 138 137 Random Glucose 113 H Lactic Acid Calcium 8.0 L Phosphorus 1.4 L Magnesium 1.4 L Total Bilirubin AST ALT Alkaline Phosphatase Troponin I Total Protein Albumin Triglycerides Cholesterol Total LDL Cholesterol HDL Cholesterol Lipase TSH Urine Color Urine Appearance Urine pH Ur Specific [place] Urine Protein Urine Glucose (UA) Urine Ketones Urine Blood Urine Nitrite Urine Bilirubin Urine Urobilinogen Ur Leukocyte Esterase Urine WBC (Auto) Urine RBC (Auto) Ur Epithelial Cells Granular Casts Urine Mucus Random Vancomycin Tacrolimus Influenza A (Rapid) Influenza B (Rapid) 05/15/18 05/15/18 05/15/18 05:53 06:30 06:30 WBC 6.5 RBC 4.12 Hgb 11.9 Hct 34.7 MCV 84.3 MCH 29.0 MCHC 34.4 RDW 14.5 Plt Count 192 D MPV 9.0 Absolute Neuts (auto) Neutrophils % Lymphocytes % Monocytes % Eosinophils % Basophils % Nucleated RBC % PT with INR INR PTT (Actin FS) Sodium 140 Potassium 3.8 Chloride 107 Carbon Dioxide 24 Anion Gap 9 BUN 11 Creatinine 0.9 Creat Clearance w eGFR > 60 POC Glucometer 122 Random Glucose 118 H Lactic Acid Calcium 8.2 L Phosphorus 2.4 L Magnesium 1.6 L Total Bilirubin AST ALT Alkaline Phosphatase Troponin I Total Protein Albumin Triglycerides Cholesterol Total LDL Cholesterol HDL Cholesterol Lipase TSH 2.46 Urine Color Urine Appearance Urine pH Ur Specific [place] Urine Protein Urine Glucose (UA) Urine Ketones Urine Blood Urine Nitrite Urine Bilirubin Urine Urobilinogen Ur Leukocyte Esterase Urine WBC (Auto) Urine RBC (Auto) Ur Epithelial Cells Granular Casts Urine Mucus Random Vancomycin Tacrolimus Influenza A (Rapid) Influenza B (Rapid) 05/15/18 05/15/18 05/15/18 11:27 16:41 17:47 WBC RBC Hgb Hct MCV MCH MCHC RDW Plt Count MPV Absolute Neuts (auto) Neutrophils % Lymphocytes % Monocytes % Eosinophils % Basophils % Nucleated RBC % PT with INR INR PTT (Actin FS) Sodium Potassium Chloride Carbon Dioxide Anion Gap BUN Creatinine Creat Clearance w eGFR POC Glucometer 148 128 Random Glucose Lactic Acid Calcium Phosphorus Magnesium Total Bilirubin AST ALT Alkaline Phosphatase Troponin I Total Protein Albumin Triglycerides Cholesterol Total LDL Cholesterol HDL Cholesterol Lipase TSH Urine Color Ltyellow Urine Appearance Clear Urine pH 6.0 [address] [place] 1.009 L Urine Protein Negative Urine Glucose (UA) Negative Urine Ketones Negative Urine Blood Negative Urine Nitrite Negative Urine Bilirubin Negative Urine Urobilinogen Negative Ur Leukocyte Esterase Trace Urine WBC (Auto) 2 Urine RBC (Auto) 1 Ur Epithelial Cells Rare Granular Casts Urine Mucus Random Vancomycin Tacrolimus Influenza A (Rapid) Influenza B (Rapid) 05/16/18 05/16/18 05:13 11:26 WBC RBC Hgb Hct MCV MCH MCHC RDW Plt Count MPV Absolute Neuts (auto) Neutrophils % Lymphocytes % Monocytes % Eosinophils % Basophils % Nucleated RBC % PT with INR INR PTT (Actin FS) Sodium Potassium Chloride Carbon Dioxide Anion Gap BUN Creatinine Creat Clearance w eGFR POC Glucometer 100 129 Random Glucose Lactic Acid Calcium Phosphorus Magnesium Total Bilirubin AST ALT Alkaline Phosphatase Troponin I Total Protein Albumin Triglycerides Cholesterol Total LDL Cholesterol HDL Cholesterol Lipase TSH Urine Color Urine Appearance Urine pH Ur Specific [place] Urine Protein Urine Glucose (UA) Urine Ketones Urine Blood Urine Nitrite Urine Bilirubin Urine Urobilinogen Ur Leukocyte Esterase Urine WBC (Auto) Urine RBC (Auto) Ur Epithelial Cells Granular Casts Urine Mucus Random Vancomycin Tacrolimus Influenza A (Rapid) Influenza B (Rapid) Condition: Stable - Instructions Diet, Activity, Other Instructions: Patient is to follow up with PMD in 3-4 days Patient is to follow up with surety bond agent at [facility] as scheduled cont with low Na diet cont with current med regimen as ordered cont antibiotic therapy will resume home care services Disposition: VNS/HOME HEALTH CARE - Home Medications Comprehensive Discharge Medication List: Ambulatory Orders Baclofen 10 mg PO HS 05/10/18 Bisacodyl [Laxative] 5 mg PO DAILY 05/10/18 Gabapentin [Neurontin -] 300 mg PO BID 05/10/18 Linaclotide [Linzess] 72 mcg PO DAILY 05/10/18 Omeprazole 40 mg PO DAILY 05/10/18 Fluticasone Prop 0.05% Nasal [Flonase -] 1 spray NS DAILY 05/11/18 Mycophenolate Mofetil [Cellcept -] 500 mg PO BID 05/11/18 Olopatadine HCl 0.2 ml OP DAILY 05/11/18 Olopatadine HCl [Pataday] 1 drop OP ASDIR 05/11/18 Polyethylene Glycol 3350 [Glycolax] 17 gm PO DAILY 05/11/18 Pramipexole Dihydrochloride [Mirapex -] 0.125 mg PO HS 05/11/18 Tacrolimus 1.5 mg PO BID 05/11/18 Vit B Comp/C/Folic/Iron/Vit E [Vitamin B Complex Tablet] 1 each PO DAILY
[2018-05-16 15:00] VITALS: BP 169/96; PULSE 72; TEMP 97.9
== END 2018-05-16 18:12 | disposition home health service (06) | DRG 872 ==
LOC: JER 17:11 → JERBED 22:08 → J4S 05-11 13:17
PROVIDERS: ADMIT Internal Medicine; ATTEND Family Medicine
DX: A41.9 Sepsis, unspecified organism (principal); N39.0 Urinary tract infection, site not specified; Z94.0 Kidney transplant status; N17.9 Acute kidney failure, unspecified; E87.1 Hypo-osmolality and hyponatremia; Q61.3 Polycystic kidney, unspecified; K86.2 Cyst of pancreas; K76.89 Other specified diseases of liver; Z90.5 Acquired absence of kidney; I12.9 Hypertensive chronic kidney disease with stage 1 through stage 4 chronic kidney disease, or unspecified chronic kidney disease; N18.9 Chronic kidney disease, unspecified; E86.9 Volume depletion, unspecified; R19.7 Diarrhea, unspecified; E66.9 Obesity, unspecified; Z68.28 Body mass index [BMI] 28.0-28.9, adult; E86.0 Dehydration
CPT/HCPCS: 36415; 71045-TC-FY; 76705-TC; 80048; 80053; 80061; 80197; 81003; 81015; 82962; 83605; 83690; 83721; 83735; 84100; 84443; 84484; 85025; 85027; 85610; 85730; 87040; 87045; 87046; 87086; 87186; 87324; 87449; 87804; 94640; 97116-GP; 97161-GP; 99283-25; G0480; J0131; J1644; J7030; J7517

== ENCOUNTER 2018-05-29 18:14 | Inpatient (IN) | payer OTHER ==
[2018-05-29 18:38] VITALS: BMI 27.1
[2018-05-29] MEDS ORDERED: ACETAMINOPHEN 325 MG TABLET (FP) PO ONE (19:50)
[2018-05-29] MEDS ORDERED: ACETAMINOPHEN 325 MG TABLET (FP) ONE (19:58)
--- NOTE | 2018-05-29 20:24 | PDOC ---
History of Present Illness - General Chief Complaint: Weakness Stated Complaint: VOMITTING/NAUSEA Time Seen by Provider: 05/29/18 19:47 History Source: Patient - History of Present Illness Initial Comments: 05/29/18 20:17 68 yo female with PMH HTN, DM, ESRD s/p renal transplant in 2013, presents with 2 days of myalgias, headache, neck and extremity pain, nausea, burning with urination, lower abdominal pain, and chills. She states she was discharged around may with antibiotics for her urinary tract infection and mentions a concern for pneumonia at that time. She states she completed her antibiotic course at home. She lives alone in an apartment and is able to care for herself normally. She denies any cough, SOB, vomiting. Past History - Travel Traveled outside of the country in the last 30 days: No - Past Medical History Allergies/Adverse Reactions: Allergies Allergy/AdvReac Type Severity Reaction Status Date / Time No Known Allergies Allergy Verified 05/10/18 19:03 Home Medications: Ambulatory Orders Baclofen 10 mg PO HS 05/10/18 Omeprazole 40 mg PO DAILY 05/10/18 Olopatadine HCl [Pataday] 1 drop OP BID 05/11/18 Pramipexole Dihydrochloride [Mirapex -] 0.125 mg PO HS 05/11/18 Tacrolimus 1.5 mg PO BID 05/11/18 Vit B Comp/C/Folic/Iron/Vit E [Vitamin B Complex Tablet] 1 each PO DAILY Mycophenolate Mofetil [Cellcept -] 500 mg PO BID capsule 05/16/18 Diclofenac Sodium 100 gm TP HS 05/29/18 Propylene Glycol/Peg 400 [Systane Ultra 0.4-0.3% Eye Drp] 10 ml OP BID 05/29/18 Anemia: Yes Asthma: No Cancer: No Cardiac Disorders: No CVA: Yes (mild L hemiparesis) COPD: No CHF: No Dementia: No Diabetes: Yes GI Disorders: No Disorders: No HTN: Yes Hypercholesterolemia: No Kidney Stones: No (kidney) Liver Disease: (polycystic liver/pancreas) Seizures: No Thyroid Disease: No - Surgical History Abdominal Surgery: No Appendectomy: No Cardiac Surgery: No Cholecystectomy: No Lung Surgery: No Neurologic Surgery: No Orthopedic Surgery: No - Suicide/Smoking/Psychosocial Hx Smoking History: Never smoked Have you smoked in the past 12 months: No If you are a former smoker, when did you quit?: when transplanted Information on smoking cessation initiated: No Hx Alcohol Use: No Drug/Substance Use Hx: No Hx Substance Use Treatment: No Review of Systems - Review of Systems Able to Perform ROS?: Yes Is the patient limited [place] proficient: Yes Constitutional: Yes: Chills Respiratory: No: Cough, Shortness of Breath, Wheezing Cardiac (ROS): No: Chest Pain, Edema, Irregular Heart Rate ABD/GI: Yes: Nausea. No: Rectal Bleeding, Vomiting, Tarry Stools : Yes: Burning, Dysuria. No: Hematuria, Incontinence Musculoskeletal: Yes: Joint Pain, Muscle Pain Neurological: Yes: Headache. No: Numbness, Paresthesia, Dizziness *Physical Exam - Vital Signs Last Vital Signs Temp Pulse Resp BP Pulse Ox 99.5 F 87 18 142/54 L 100 05/29/18 18:33 05/29/18 18:33 05/29/18 18:33 05/29/18 18:33 05/29/18 18:33 - Physical Exam Comments: 05/29/18 21:25 GEN: A&O, no acute distress HEENT: moist mucus membranes, no exudate, PERRL, EOMI NECK: supple, no lymphadenopathy HEART: RRR, no murmurs LUNGS: CTA b/l, no wheezes ABDOMEN: Soft, suprapubic tenderness to palpation, LLQ resolving ecchymosis likely from recent DVT prophylaxis, MSK: CVA tenderness b/l EXTREMITIES: no edema or calf tenderness Moderate Sedation - Procedure Monitoring Vital Signs: Procedure Monitoring Vital Signs Temperature 99.5 F 05/29/18 18:33 Pulse Rate 87 05/29/18 18:33 Respiratory Rate 18 05/29/18 18:33 Blood Pressure 142/54 L 05/29/18 18:33 O2 Sat by Pulse Oximetry (%) 100 05/29/18 18:33 ED Treatment Course - LABORATORY CBC & Chemistry Diagram: 05/29/18 20:41 05/29/18 20:41 Medical Decision Making - Medical Decision Making 05/29/18 19:50 68 yo female with recent UTI admission, states she completed her antibiotics on discharge. She is complaining of dysuria and suprapubic pain in addition to diffuse myalgias. Differential Dx at this time included UTI, Pyelonephritis, Flu. will order CBC, CMP, UA, Urine c/s, flu swab 05/29/18 21:30 WBC count 11.3, Hyponatremic at 124, 3+ LE 25 WBCs, Flu swab negative As patient failed recent inpatient treatment with IV Abx and outpatient Augmentin, will give one dose Zosyn following blood cultures being drawn. 1L NS, Zofran, Pepsid 05/29/18 21:55 Case discussed with Hospitalist Service who will accept for admission as patient will require IV Abx for UTI, possibly pyelonephritis, as well as management of her hyponatremia. BUN/Cr okay, would have low threshold for US of transplant kidney if renal function begins to worsen. *DC/Admit/Observation/Transfer Diagnosis at time of Disposition: UTI (urinary tract infection), Hyponatremia - Discharge Dispostion Condition at time of disposition: Stable Decision to Admit order: Yes - Referrals - Patient Instructions - Post Discharge Activity
[2018-05-29 20:57] LABS: BASO % 0.3 % (0-2.0); EOS % 0.1 % (0-4.5); HEMOGLOBIN 12.9 GM/dL (10.7-15.3); LYMPH % 6.5 % (8-40); MCH 28.9 pg (25.7-33.7); MEAN PLT VOLUME 8.7 fl (7.5-11.1); MONO % 6.8 % (3.8-10.2); NEUT % 86.3 % (42.8-82.8); PLATELET COUNT 233 K/MM3 (134-434); RBC 4.47 M/mm3 (3.60-5.2); RDW 14.1 % (11.6-15.6); WHITE BLOOD COUNT 11.7 K/mm3 (4.0-10.0)
[2018-05-29 20:59] LABS: URINE APPEARANCE SLCLOUDY; URINE BILIRUBIN NEGATIVE (<2.0 mg/dL); URINE COLOR LTYELLOW; URINE GLUCOSE (UA) NEGATIVE (NEGATIVE); URINE KETONE NEGATIVE (NEGATIVE); URINE LEUK ESTERASE 3+ (NEGATIVE); URINE NITRITE NEGATIVE (NEGATIVE); URINE PROTEIN NEGATIVE (NEGATIVE); URINE UROBILINOGEN NEGATIVE mg/dL (0.2-1.0)
[2018-05-29 21:01] LABS: EPI CELLS RARE /HPF (FEW); URINE BACTERIA RARE /hpf (NONE SEEN)
[2018-05-29] MEDS ORDERED: ONDANSETRON 4 MG/2 ML VIAL IVPUSH ONE (21:02)
[2018-05-29] MEDS ORDERED: FAMOTIDINE 20 MG/50 ML IVPB 20 MG/50 ML MG IVPB ONE (21:02)
[2018-05-29] MEDS ORDERED: SODIUM CHLORIDE 0.9% 1000 ML INFUS.BAG IV ONE (21:02)
--- NOTE | 2018-05-29 21:09 | PDOC ---
Attending Attestation - HPI HPI: 05/29/18 22:20 The patient is a 68 year old female, with a significant PMH of HTN, DM, ESRD s/ p transplant 2013, who presents to the emergency department complaining of myalgia, diarrhea, headache, abdominal pain and dysuria. Patient was here at the end of April for a UTI, given antibiotics, and was discharged with the rest of the prescription. Patient denies cough, SOB, vomiting Allergies: IV Dye Past surgical history: Renal transplant 2013 Social history: None reported - Physicial Exam PE: 05/29/18 22:21 GENERAL: Awake, alert, and fully oriented, in no acute distress HEAD: No signs of trauma EYES: PERRLA, EOMI, sclera anicteric, conjunctiva clear ENT: Auricles normal inspection, hearing grossly normal, nares patent, oropharynx clear without exudates. Moist mucosa NECK: Normal ROM, supple, no lymphadenopathy, JVD, or masses LUNGS: Breath sounds equal, clear to auscultation bilaterally. No wheezes, and no crackles HEART: Regular rate and rhythm, normal S1 and S2, no murmurs, rubs or gallops ABDOMEN: (+) Left CVA and superpubic tenderness. Soft, normoactive bowel sounds. No guarding, no rebound. No masses EXTREMITIES: (+) Right upper extremity AV fistula. Normal range of motion, no edema. No clubbing or cyanosis. No cords, erythema, or tenderness NEUROLOGICAL: Cranial nerves II through XII grossly intact. Normal speech, normal gait SKIN: (+) Hot to touch. Dry, normal turgor, no rashes or lesions noted. <Liliana Chapman - Last Filed: 05/29/18 22:20> - Resident Resident Name: Gumaro Ibanez - ED Attending Attestation I have performed the following: I have examined & evaluated the patient, The case was reviewed & discussed with the resident, I agree w/resident's findings & plan, Exceptions are as noted - Medical Decision Making 05/29/18 21:07 I, Dr. Alba Wagner, DO, attest that this document has been prepared under my direction and personally reviewed by me in its entirety. I further attest, that it accurately reflects all work, treatment, procedures and medical decision -making performed by me. 05/29/18 21:07 a/p: 68yo female with hx of ESRD s/p renal transplant in [place] and follows with nephro at [facility] recently dc from [facility] for UTI with fever/n/v/dysuria, L flank pain -transplanted kidney to [facility] -recently dc on augmentin -fevers since yesterday -concer for recurrent uti vs flu -will send labs, ivf hdyration, fever control, ua, ucx, flu swab -will hydrate -will give tylenol -will monitor and reassess -will most likely need admission 05/29/18 21:29 pt with recurrent uti, recently on abx culture pending increasing wbc sodium low will need ivf hdyraiton, abx will add blood cultures given fevers at home pt follows with Dr. Santos as outpt will admit to [facility] marc Santos at night 05/29/18 22:08 resident discussed the case with the IT APPLICATION SUPPORT ANALYST from [facility] who accepts pt under Dr. Hidalgo <Alba Wagner - Last Filed: 05/29/18 23:28> Heart Score/ECG Review - ECG Intrepretation Comment:: 05/29/18 22:09 sinus at 85 w pac, nl axis, nl interval, no acute st/t wave findings <Alba Wagner - Last Filed: 05/29/18 23:28> Attestations - Attestations 05/29/18 22:21 Documentation prepared by Liliana Chapman, acting as medical officer psychiatry for Alba Wagner DO. <Liliana Chapman - Last Filed: 05/29/18 22:20>
[2018-05-29 21:19] LABS: ALBUMIN 3.8 g/dl (3.4-5.0); ALK PHOS 143 U/L (45-117); ANION GAP 10 MMOL/L (8-16); BILIRUBIN,TOTAL 0.9 mg/dL (0.2-1); BLOOD UREA NITROGEN 14 mg/dL (7-18); CALCIUM 8.9 mg/dL (8.5-10.1); CHLORIDE 90 mmol/L (98-107); CO2 24 mmol/L (21-32); GLUCOSE,RANDOM 129 mg/dL (74-106); MAGNESIUM 1.5 mg/dL (1.8-2.4); PHOSPHOROUS 2.5 mg/dL (2.5-4.9); POTASSIUM 4.7 mmol/L (3.5-5.1); SGOT/AST 14 U/L (15-37); SGPT/ALT 20 U/L (13-61); SODIUM 124 mmol/L (136-145); TOT PROT 6.9 g/dl (6.4-8.2)
[2018-05-29] MEDS ORDERED: ONDANSETRON 4 MG/2 ML VIAL ONE (21:23)
[2018-05-29] MEDS ORDERED: PIPERACILLIN/TAZOB 3.375 GM 3.375 GM in DEXTROSE 5%-WATER - 50 ML IVPB ONE (21:30)
[2018-05-29] MEDS ORDERED: MAGNESIUM SULF 50% (8.12 MEQ/2 ML-1 GM VIAL) IVPB ONE (21:30)
--- NOTE | 2018-05-29 23:26 | HP ---
Admitting History and Physical - Admission Chief Complaint: abdominal pain, urinary frequency History of Present Illness: 68 year old female, with a history of ESRD previously on HD via RUE AVF, now s/ p bilateral nephrectomy with L renal transplant 2011 presents to ED one week after discharge for inpatient treatment of UTII. Ms. Rios reports abdominal pain, urinary frequency, nausea, vomiting and myalgias associated with suprapubic tenderness and loose stools. Of note, pt was recently hospitalized from 05/10 to 05/16 after presenting to ED with complaints of painful urination and was noted with elevated WBC 19.2. She was also noted to have an elevated Cr of 2.0 on admission, nephrology was consulted. Patient was placed on Zosyn with good response and switched to PO Augmentin at time of discharge. Patients' BUN/Cr 11/0.9, and WBC 6.5 a time of discharge. Pt reports completing entire course of augmentin which finished saturday 05/27, however, on sunday 05/28 she began to experience urinary frequency and abdominal pain. She endorses inserting " a vaginal ovule" for two consecutive days which slightly relieved her symptoms. However, due to progressive malaise, N and vomiting she decided to present to ED for evaluation. In ED vitals were: T 99.5, HR 87, RR 18, BP 142/54, O2 sat 100% Flu swab negative WBC 11.3, UA +3 Leuks, 25WBCs Pt dosed Zosyn and decision made to admit for further management. History Source: Patient Limitations to Obtaining History: No Limitations - Past Medical History Cardiovascular: Yes: HTN, Hyperlipdemia Gastrointestinal: Yes: Gastritis Renal/: Yes: Renal Failure (due to polycystic disease leading to nephrectomies and renal transplant in [place] in 2013) Reproductive: Yes: Postmenopausal - Past Surgical History Past Surgical History: Yes: AV Fistula/Graft (RUE no longer active), Kidney Transplant (2013) - Smoking History Smoking history: Never smoked Have you smoked in the past 12 months: No If you are a former smoker, when did you quit?: when transplanted - Alcohol/Substance Use Hx Alcohol Use: No History of Substance Use: reports: None - Social History 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 Home Medications - Allergies Allergies/Adverse Reactions: Allergies Allergy/AdvReac Type Severity Reaction Status Date / Time No Known Allergies Allergy Verified 05/10/18 19:03 - Home Medications Home Medications: Ambulatory Orders Baclofen 10 mg PO HS 05/10/18 Omeprazole 40 mg PO DAILY 05/10/18 Olopatadine HCl [Pataday] 1 drop OP BID 05/11/18 Pramipexole Dihydrochloride [Mirapex -] 0.125 mg PO HS 05/11/18 Tacrolimus 1.5 mg PO BID 05/11/18 Vit B Comp/C/Folic/Iron/Vit E [Vitamin B Complex Tablet] 1 each PO DAILY Mycophenolate Mofetil [Cellcept -] 500 mg PO BID capsule 05/16/18 Diclofenac Sodium 100 gm TP HS 05/29/18 Propylene Glycol/Peg 400 [Systane Ultra 0.4-0.3% Eye Drp] 10 ml OP BID 05/29/18 Family Disease History - Family Disease History Family Disease History: CA: Father ( of lung cancer), Mother ( of breast cancer), Brother ( of lung cancer) Review of Systems - Review of Systems Constitutional: reports: Lethargy, Weakness Eyes: reports: No Symptoms HENT: reports: No Symptoms Neck: reports: No Symptoms Cardiovascular: reports: No Symptoms Respiratory: reports: No Symptoms Gastrointestinal: reports: Abdominal Pain, Diarrhea, Vomiting Genitourinary: reports: Flank Pain, Frequency Breasts: reports: No Symptoms Reported Musculoskeletal: reports: Back Pain, Muscle Weakness Neurological: reports: Weakness Endocrine: reports: No Symptoms Hematology/Lymphatic: reports: No Symptoms Psychiatric: reports: No Symptoms Physical Examination Vital Signs: Vital Signs Temperature 99.5 F 05/29/18 18:33 Pulse Rate 87 05/29/18 18:33 Respiratory Rate 18 05/29/18 18:33 Blood Pressure 142/54 L 05/29/18 18:33 O2 Sat by Pulse Oximetry (%) 100 05/29/18 18:33 Constitutional: Yes: No Distress, Calm Eyes: Yes: Conjunctiva Clear, PERRL HENT: Yes: Atraumatic, Normocephalic Neck: Yes: Supple, Trachea Midline Cardiovascular: Yes: Regular Rate and Rhythm Respiratory: Yes: Regular, CTA Bilaterally Gastrointestinal: Yes: Soft, Abdomen, Obese, Tenderness, Epigastrium, Tenderness , Rebound ...Rectal Exam: Yes: Deferred Renal/: Yes: CVA Tenderness - Left Musculoskeletal: Yes: WNL Extremities: Yes: WNL Edema: No Peripheral Pulses WNL: Yes Peripheral Pulses: Left Radial: 2+, Right Radial: 2+ Wound/Incision: Yes: Other (well healed abdominal incision) ...Motor Strength: WNL Psychiatric: Yes: Alert, Oriented Labs: CBC, BMP 05/29/18 20:41 05/29/18 20:41 Imaging - Results Chest X-ray: Report Reviewed (CXR 05/29/2018 Impression: No significant interval change or acute cardiopulmonary disease is present.) Problem List - Problems (1) Prophylactic measure Assessment/Plan: SC heparin BID OOB to chair ambulate as tolerated hold bowel regimen due to loose stools Code(s): Z29.9 - ENCOUNTER FOR PROPHYLACTIC MEASURES, UNSPECIFIED (2) Hyponatremia Assessment/Plan: Trend sodium urine electrolytes ordered renal consult in AM Code(s): E87.1 - HYPO-OSMOLALITY AND HYPONATREMIA (3) UTI (urinary tract infection) Assessment/Plan: f/u urine culture During last hospitalization urine culture was negative will hold off on abx overnight, await ID consult in AM Code(s): N39.0 - URINARY TRACT INFECTION, SITE NOT SPECIFIED Qualifiers: (4) Diarrhea Assessment/Plan: encourage oral fluid hydration Code(s): R19.7 - DIARRHEA, UNSPECIFIED (5) Abdominal pain Assessment/Plan: Abdominal sono and CT w/o constrast ordered to evaluate for alternate processes to explain pt's symptoms Code(s): R10.9 - UNSPECIFIED ABDOMINAL PAIN Assessment/Plan DISPO: Full code Visit type - Emergency Visit Emergency Visit: Yes ED Registration Date: 05/29/18 Care time: The patient presented to the Emergency Department on the above date and was hospitalized for further evaluation of their emergent condition. - New Patient This patient is new to me today: Yes Date on this admission: 05/29/18 - Critical Care Critical Care patient: No
[2018-05-29] MEDS ORDERED: ONDANSETRON 4 MG/2 ML VIAL IVPUSH PRN (23:40)
[2018-05-30] MEDS ORDERED: MAGNESIUM 1GM/D5W - 1 GM/100 ML IVPB IVPB ONE (00:48)
[2018-05-30] MEDS ORDERED: PIPERACILLIN/TAZOB 3.375 GM 3.375 GM/50 ML BAG IVPB ONE (00:48)
[2018-05-30] MEDS: ARTIFICIAL TEARS (POLYVINYL ALCOHOL) OPTH DROPS OU SCH ×3 (01:03→21:51)
[2018-05-30] MEDS: PRAMIPEXOLE DIHYDROCHLORIDE 0.125 MG TABLET PO SCH ×2 (01:04→21:50)
[2018-05-30] MEDS: TACROLIMUS 0.5 MG CAPSULE PO SCH ×3 (01:04→21:50)
[2018-05-30] MEDS: MYCOPHENOLATE MOFETIL 500 MG TABLET PO SCH ×3 (01:05→21:51)
[2018-05-30] MEDS ORDERED: PT OWN MED DRAWER 7, Y5N ONE ×2 (08:47→20:09)
[2018-05-30] MEDS: PANTOPRAZOLE 40 MG TABLET (FP) PO SCH (09:06)
[2018-05-30] MEDS: VITAMIN B COMPLEX W/C COMBO TABLET (FP) PO SCH (09:06)
[2018-05-30 09:27] LABS: HEMATOCRIT 36.3 % (32.4-45.2); HEMOGLOBIN 12.6 GM/dL (10.7-15.3); MCH 29.6 pg (25.7-33.7); MCHC 34.7 g/dl (32.0-36.0); MEAN CELL VOLUME 85.3 fl (80-96); MEAN PLT VOLUME 8.8 fl (7.5-11.1); PLATELET COUNT 202 K/MM3 (134-434); RBC 4.26 M/mm3 (3.60-5.2); RDW 14.5 % (11.6-15.6); WHITE BLOOD COUNT 10.1 K/mm3 (4.0-10.0)
[2018-05-30 09:39] LABS: ALBUMIN 3.4 g/dl (3.4-5.0); ALK PHOS 124 U/L (45-117); AMYLASE 58 U/L (25-115); ANION GAP 9 MMOL/L (8-16); BILIRUBIN,TOTAL 0.5 mg/dL (0.2-1); BLOOD UREA NITROGEN 11 mg/dL (7-18); CALCIUM 8.7 mg/dL (8.5-10.1); CHLORIDE 95 mmol/L (98-107); CO2 25 mmol/L (21-32); CREATININE 1.2 mg/dL (0.55-1.3); GLUCOSE,RANDOM 174 mg/dL (74-106); LIPASE 123 U/L (73-393); MAGNESIUM 1.5 mg/dL (1.8-2.4); N-TERMINAL BNP 1995.6 pg/ml (5-125); PHOSPHOROUS 2.2 mg/dL (2.5-4.9); POTASSIUM 4.5 mmol/L (3.5-5.1); SGOT/AST 14 U/L (15-37); SGPT/ALT 18 U/L (13-61); SODIUM 128 mmol/L (136-145); TOT PROT 6.2 g/dl (6.4-8.2)
--- NOTE | 2018-05-30 09:44 | PN ---
Progress Note, Physician Chief Complaint: B/L nephrectomy with L renal transplant 2011 UTI History of Present Illness: Previous notes and events reviewed awake and alert NAD sts continues to have dysuria and urgency with urination, denies suprapubic pain elev Na 128 - Current Medication List Current Medications: Active Medications Acetaminophen (Tylenol -) 650 mg PO Q6H PRN PRN Reason: FEVER Artificial Tears (Artificial Tears) 1 drop OU BID [facility] Last Admin: 05/30/18 09:06 Dose: 1 drop Influenza Virus Vaccine Quadrival (Flulaval Quad [id number]) 60 mcg IM .ONCE ONE Stop: 05/30/18 10:01 Multivitamins (Total B With C -) 1 each PO DAILY [facility] Last Admin: 05/30/18 09:06 Dose: 1 each Mycophenolate Mofetil (Cellcept -) 500 mg PO BID [facility] Last Admin: 05/30/18 09:08 Dose: 500 mg Ondansetron HCl (Zofran Injection) 4 mg IVPUSH Q6H PRN PRN Reason: NAUSEA Pantoprazole Sodium (Protonix -) 40 mg PO DAILY [facility] Last Admin: 05/30/18 09:06 Dose: 40 mg Pneumococcal 13-Valent Conj Vacc (Prevnar 13 Syringe -) 0.5 ml IM .ONCE ONE Stop: 05/30/18 10:01 Pramipexole Dihydrochloride (Mirapex -) 0.125 mg PO HS [facility] Last Admin: 05/30/18 01:04 Dose: Not Given Tacrolimus (Prograf) 1.5 mg PO BID [facility] Last Admin: 05/30/18 09:06 Dose: 1.5 mg - Objective Vital Signs: Vital Signs Temperature 98.5 F 05/30/18 04:44 Pulse Rate 81 05/30/18 04:44 Respiratory Rate 18 05/30/18 06:43 Blood Pressure 127/52 L 05/30/18 04:44 O2 Sat by Pulse Oximetry (%) 98 05/30/18 06:43 Constitutional: Yes: Well Nourished, No Distress, Calm Eyes: Yes: Conjunctiva Clear HENT: Yes: Normocephalic Neck: Yes: Supple Cardiovascular: Yes: Regular Rate and Rhythm Respiratory: Yes: Regular, CTA Bilaterally Gastrointestinal: Yes: Normal Bowel Sounds, Soft, Other (non tender) Genitourinary: Yes: Other (dysuria, urgency) Musculoskeletal: Yes: Muscle Weakness Extremities: Yes: WNL Neurological: Yes: Alert, Oriented Psychiatric: Yes: Alert, Oriented Labs: CBC, BMP 05/30/18 08:42 <Yari Bowers - Last Filed: 05/30/18 09:38> - Current Medication List Current Medications: Active Medications Acetaminophen (Tylenol -) 650 mg PO Q6H PRN PRN Reason: FEVER Last Admin: 06/01/18 20:58 Dose: 650 mg Artificial Tears (Artificial Tears) 1 drop OU BID [facility] Last Admin: 06/02/18 22:00 Dose: 1 drop Ertapenem 1 gm/ Sodium (Chloride) 50 mls @ 100 mls/hr IVPB DAILY [facility] Last Admin: 06/02/18 11:10 Dose: 100 mls/hr Multivitamins (Total B With C -) 1 each PO DAILY [facility] Last Admin: 06/02/18 11:12 Dose: 1 each Mycophenolate Mofetil (Cellcept -) 500 mg PO BID [facility] Last Admin: 06/02/18 22:01 Dose: 500 mg Ondansetron HCl (Zofran Injection) 4 mg IVPUSH Q6H PRN PRN Reason: NAUSEA Last Admin: 05/31/18 17:16 Dose: 4 mg Pantoprazole Sodium (Protonix -) 40 mg PO DAILY [facility] Last Admin: 06/02/18 11:11 Dose: 40 mg Pramipexole Dihydrochloride (Mirapex -) 0.125 mg PO HS [facility] Last Admin: 06/02/18 22:57 Dose: 0.125 mg Tacrolimus (Prograf) 1.5 mg PO BID [facility] Last Admin: 06/02/18 22:02 Dose: 1.5 mg - Objective Vital Signs: Vital Signs Temperature 97.6 F 06/03/18 06:00 Pulse Rate 64 06/03/18 06:00 Respiratory Rate 18 06/03/18 06:00 Blood Pressure 124/67 06/03/18 06:00 O2 Sat by Pulse Oximetry (%) 98 06/02/18 20:44 <Cyndie Santos - Last Filed: 06/03/18 08:22> Problem List - Problems (1) Hyponatremia Assessment/Plan: -current Na level 128 -will continue to trend Na level -renal consult pending -renal US reviewed and shows L pelvic renal transplant measuring 12.9cm without gross evidence of hydronephrosis or renal stones Code(s): E87.1 - HYPO-OSMOLALITY AND HYPONATREMIA (2) UTI (urinary tract infection) Assessment/Plan: -ID consult pending -wbc trending down from 11.7 to 10.1 now -afebrile -UC pending Code(s): N39.0 - URINARY TRACT INFECTION, SITE NOT SPECIFIED (3) History of renal transplant Assessment/Plan: -renal consult pending -current BUN/Cr 02/14.2 -cont tacrolimus and cellcept -renal US reviewed and shows L pelvic renal transplant measuring 12.9cm without gross evidence of hydronephrosis or renal stones -abd/pelvic CT scan show left renal haziness adjacent fat, otherwise neg Code(s): Z94.0 - KIDNEY TRANSPLANT STATUS <Yari Bowers - Last Filed: 05/30/18 09:38> Assessment/Plan PATIENT SEEN AND EXAMINED AND I AGREE WITH ABOVE NOTE <Cyndie Santos - Last Filed: 06/03/18 08:22>
[2018-05-30] MEDS ORDERED: PNEUMOC 13-VAL CONJ-DIP CRM/PF 0.5 ML DISP.SYRIN IM ONE (10:00)
[2018-05-30] MEDS ORDERED: FLU VACCINE QUAD 60 MCG/0.5 ML (MDV 18-19) IM ONE (10:00)
[2018-05-30] MEDS: ACETAMINOPHEN 325 MG TABLET (FP) PO PRN ×2 (11:16→19:00)
[2018-05-30] MEDS ORDERED: SODIUM CHLORIDE 1,000 ML IV SCH (11:30)
[2018-05-30] MEDS ORDERED: VANCOMYCIN 1 GRAM (PRE-DOCKED) 1,000 MG/250 ML BAG IVPB ONE (13:41)
--- NOTE | 2018-05-30 13:41 | PN ---
Progress Note (short form) - Note Progress Note: ID CONSULT DICTATED FEVER ? SOURCE ? RECURRENT UTI ? VIRAL SYNDROME S/P RENAL TRANSPLANT ON IMMUNOSUPPRESSIVE THERAPY AWAIT C/S EMPIRIC CEFEPIME + STAT DOSE VANCOMYCIN
--- NOTE | 2018-05-30 14:33 | CONS ---
DATE OF CONSULTATION: DATE OF DICTATION: 05/30/2018 The patient is a 68-year-old female who is evaluated for fever. The patient was recently hospitalized at [facility] from May 10 through May 16. She had presented with urinary tract and respiratory tract symptoms. She was treated with a course of Zosyn for presumed urinary tract infection as well as respiratory tract infection. She was discharged home, to complete a course of Augmentin. The patient reports completing the course of Augmentin on May 27, 2018. She now returns with 2-day history of generalized body pain, arthralgias, myalgias, headache, dysuria, lower abdominal pain, and chills. She was admitted to the hospital. She was empirically treated with Zosyn. She was noted to have an elevated white blood cell count, patient now febrile to 101. Patient supine in bed. She complains of generalized body pain. She complains of mild dysuria. She denies any chest pain, shortness of breath, or cough. No vomiting. She did report some loose bowel movements. She has a history of renal transplant, on immunosuppressive therapy. Past medical history positive for hypertension, diabetes, chronic kidney disease. PAST SURGICAL HISTORY: Status post bilateral nephrectomy and renal transplant in 2013. Allergies to IV DYE. MEDICATIONS: Baclofen, omeprazole, tacrolimus, CellCept. SOCIAL HISTORY: Lives at home. Nonsmoker, nondrinker. SYSTEMS REVIEW: Neurologic: No loss of consciousness, seizure activity, or focal weakness. Cardiac: Negative chest pain or palpitations. Respiratory: Negative cough or sputum production. Gastrointestinal: Positive diarrhea. Genitourinary: Positive for dysuria. LABORATORY DATA: White count 11.7, hematocrit 36.3, platelet count 202. Sodium 128, BUN 11, creatinine 1.2, total bilirubin 0.5, alkaline phosphatase 124, AST 14, ALT 18. CAT scan of the abdomen and pelvis showed some haziness around the renal transplant. Chest x-ray negative for acute infiltrate. Urinalysis: 25 white cells. Influenza swab negative. PHYSICAL EXAMINATION: General: She is supine in bed. She was awakened from sleep, complains of generalized weakness and body pain. Vital Signs: Temperature 98.5. Blood pressure 127/52. Pulse 81, regular. Respirations 18 per minute. Eyes: Sclerae anicteric. Heart Sounds: S1, S2. Lungs: Clear. Abdomen: Soft, nontender. No suprapubic tenderness. Extremities: Negative for edema. IMPRESSION: 1. Fever, unclear source. 2. Rule out urinary tract infection/sepsis secondary to urinary tract infection.3. Rule out viral syndrome. 4. Status post renal transplant. Await sepsis workup. Empiric antibiotic coverage with cefepime plus stat dose vancomycin. Will cover for possible hospital-acquired urinary tract pathogens. Will follow. Thank you for the kind referral. JERZY MCCAIN M.D. [id number]
[2018-05-30] MEDS ORDERED: DEXTROSE 5%-WATER - 50 ML IVPB ONE (15:10)
[2018-05-30] MEDS ORDERED: CEFEPIME HCL 1 GM VIAL (RESTRICTED TO ID) ONE (15:10)
--- NOTE | 2018-05-30 15:11 | CONSULT ---
Consult - text type - Consultation Consultation Note: Renal consult for ESRD with Renal Transplant 68 year old woman with history of polycystic kidney and liver disease, ESRD s/p renal transplant in 2011 in [place] (now follows at [facility] with Dr. Timmy Lieberman), Hypertension, Pancreatic cyst, [place] kidney nephrectomy in 2013 who presented with complaints of abd pain and dysuria and found to have cystitis with sepsis syndrome. Pt is on oral immunosuppressive medications for renal transplant. Reports complaince with all her medications. No N/V/D. Oral intake has deminished. No flank pain or pain over kidney transplant site. Denies any sob, cp. + Fever. PMhx: as above Allergies: NKDA Family Hx: NC Social Hx: No T/A/D ROS: as per HPI, all other pertinent ros negative Home Medications Medication Instructions Recorded Baclofen 10 mg PO HS 05/10/18 Omeprazole 40 mg PO DAILY 05/10/18 Olopatadine HCl [Pataday] 1 drop OP BID 05/11/18 Pramipexole Dihydrochloride 0.125 mg PO HS 05/11/18 [Mirapex -] Tacrolimus 1.5 mg PO BID 05/11/18 Vit B Comp/C/Folic/Iron/Vit E 1 each PO DAILY 05/11/18 [Vitamin B Complex Tablet] Mycophenolate Mofetil [Cellcept -] 500 mg PO BID capsule 05/16/18 Diclofenac Sodium 100 gm TP HS 05/29/18 Propylene Glycol/Peg 400 [Systane 10 ml OP BID 05/29/18 Ultra 0.4-0.3% Eye Drp] Vital Signs Temperature 98.1 F 05/30/18 15:07 Pulse Rate 74 05/30/18 15:07 Respiratory Rate 18 05/30/18 15:07 Blood Pressure 130/61 05/30/18 15:07 O2 Sat by Pulse Oximetry (%) 98 05/30/18 09:00 Intake & Output 05/27/18 05/28/18 05/29/18 05/30/18 23:59 23:59 23:59 23:59 Intake Total 230 Balance 230 Weight 76.204 kg 75.886 kg NAD awake and alert neck supple RRR CTA soft NT/ND no Le edema no bladder distension CBC, BMP 05/30/18 08:42 05/30/18 08:42 Current Medications Acetaminophen (Tylenol -) 650 mg PO Q6H PRN PRN Reason: FEVER Last Admin: 05/30/18 11:16 Dose: 650 mg Artificial Tears (Artificial Tears) 1 drop OU BID [facility] Last Admin: 05/30/18 09:06 Dose: 1 drop Sodium Chloride (Normal Saline -) 1,000 mls @ 83 mls/hr IV ASDIR [facility] Last Admin: 05/30/18 12:44 Dose: 83 mls/hr Cefepime HCl 1 gm/ Dextrose 50 mls @ 100 mls/hr IVPB Q8H-IV AILYN; Protocol Vancomycin HCl (Vancomycin (Pre-Docked)) 1,000 mg in 250 mls @ 166.667 mls/hr IVPB ONCE ONE; Protocol Stop: 05/30/18 15:10 Multivitamins (Total B With C -) 1 each PO DAILY [facility] Last Admin: 05/30/18 09:06 Dose: 1 each Mycophenolate Mofetil (Cellcept -) 500 mg PO BID [facility] Last Admin: 05/30/18 09:08 Dose: 500 mg Ondansetron HCl (Zofran Injection) 4 mg IVPUSH Q6H PRN PRN Reason: NAUSEA Pantoprazole Sodium (Protonix -) 40 mg PO DAILY [facility] Last Admin: 05/30/18 09:06 Dose: 40 mg Pramipexole Dihydrochloride (Mirapex -) 0.125 mg PO HS [facility] Last Admin: 05/30/18 01:04 Dose: Not Given Tacrolimus (Prograf) 1.5 mg PO BID [facility] Last Admin: 05/30/18 09:06 Dose: 1.5 mg 68 year old woman with history of polycystic kidney and liver disease, ESRD s/p renal transplant in 2011 in [place] (now follows at [facility] with Dr. Timmy Lieberman), Hypertension, Pancreatic cyst, [place] kidney nephrectomy in 2013 who presented with complaints of abd pain and dysuria and found to have cystitis with sepsis syndrome. #Cystitis/Sepsis syndrome r/o pylonephritis #Hyponatremia likely hypovolemic in setting of infection #ESRD s/p Renal Transplant #Hypertension Renal function at baseline Continue Tacrolimus and Cellcept at present dosages Avoid Nephrotoxins and IV contrast if possible CT and Us reviewed, no obstruction in urine flow noted but there was haziness around kidney, ? pyloenphritis Continue abx as per ID Start isotonic saline Repeat BMP this evening to monitor Na trend on IVF Thank you Moiz Diamond DO
[2018-05-30] MEDS: CEFEPIME 1 GM in DEXTROSE 5%-WATER - 50 ML IVPB SCH ×2 (15:13→17:14)
--- NOTE | 2018-05-30 15:40 | EKG ---
Test Reason : Blood Pressure : / mmHG Vent. Rate : 085 BPM Atrial Rate : 085 BPM P-R Int : 166 ms QRS Dur : 088 ms QT Int : 366 ms P-R-T Axes : 040 -08 066 degrees QTc Int : 435 ms SINUS RHYTHM WITH PREMATURE ATRIAL COMPLEXES OTHERWISE NORMAL ECG NO PREVIOUS ECGS AVAILABLE Confirmed by SENA RIVERA, MATT (2013) on 05/30/2018 3:40:33 PM Referred By: Confirmed By:MATT SHETTY MD
[2018-05-30 18:32] LABS: ANION GAP 8 MMOL/L (8-16); BLOOD UREA NITROGEN 11 mg/dL (7-18); CALCIUM 8.4 mg/dL (8.5-10.1); CHLORIDE 95 mmol/L (98-107); CO2 26 mmol/L (21-32); CREATININE 1.2 mg/dL (0.55-1.3); GLUCOSE,RANDOM 180 mg/dL (74-106); POTASSIUM 4.2 mmol/L (3.5-5.1); SODIUM 129 mmol/L (136-145)
[2018-05-31] MEDS: CEFEPIME 1 GM in DEXTROSE 5%-WATER - 50 ML IVPB SCH ×3 (03:05→17:16)
[2018-05-31 08:32] LABS: BASO % 0.5 % (0-2.0); HEMATOCRIT 37.2 % (32.4-45.2); HEMOGLOBIN 12.5 GM/dL (10.7-15.3); LYMPH % 5.8 % (8-40); MCH 28.9 pg (25.7-33.7); MCHC 33.6 g/dl (32.0-36.0); MONO % 9.7 % (3.8-10.2); RBC 4.33 M/mm3 (3.60-5.2); RDW 14.3 % (11.6-15.6); WHITE BLOOD COUNT 10.1 K/mm3 (4.0-10.0)
[2018-05-31 08:51] LABS: ANION GAP 9 MMOL/L (8-16); BLOOD UREA NITROGEN 9 mg/dL (7-18); CALCIUM 8.7 mg/dL (8.5-10.1); CHLORIDE 96 mmol/L (98-107); CO2 23 mmol/L (21-32); GLUCOSE,RANDOM 102 mg/dL (74-106); MAGNESIUM 1.9 mg/dL (1.8-2.4); POTASSIUM 4.4 mmol/L (3.5-5.1); SODIUM 127 mmol/L (136-145)
[2018-05-31] MEDS ORDERED: CEFEPIME HCL 1 GM VIAL (RESTRICTED TO ID) ONE ×2 (08:57→16:55)
[2018-05-31] MEDS ORDERED: PT OWN MED DRAWER 7, Y5N ONE (08:57)
[2018-05-31] MEDS ORDERED: DEXTROSE 5%-WATER - 50 ML IVPB ONE ×2 (08:57→16:55)
[2018-05-31] MEDS: ARTIFICIAL TEARS (POLYVINYL ALCOHOL) OPTH DROPS OU SCH ×2 (10:35→21:43)
[2018-05-31] MEDS: PANTOPRAZOLE 40 MG TABLET (FP) PO SCH (10:36)
[2018-05-31] MEDS: VITAMIN B COMPLEX W/C COMBO TABLET (FP) PO SCH (10:36)
[2018-05-31] MEDS: MYCOPHENOLATE MOFETIL 500 MG TABLET PO SCH ×2 (10:40→21:43)
[2018-05-31] MEDS: TACROLIMUS 0.5 MG CAPSULE PO SCH ×2 (10:41→21:44)
[2018-05-31 11:01] LABS: PLATELET ESTIMATE NORMAL
[2018-05-31 13:02] LABS: OSMOLALITY,SERUM 264 mosm/kg (278-305)
--- NOTE | 2018-05-31 13:54 | PN ---
Progress Note (short form) - Note Progress Note: Renal follow up for CKD/Renal Transplant Pt seen and examined at the bedside no acute complaints was worried about her kidney function no sob, cp, abd pain Vital Signs Temperature 98.8 F 05/31/18 10:00 Pulse Rate 93 H 05/31/18 10:00 Respiratory Rate 18 05/31/18 10:00 Blood Pressure 127/75 05/31/18 10:00 O2 Sat by Pulse Oximetry (%) 96 05/31/18 09:00 Intake & Output 05/28/18 05/29/18 05/30/18 05/31/18 23:59 23:59 23:59 23:59 Intake Total 1028 150 Balance 1028 150 Weight 76.204 kg 75.886 kg 75.115 kg NAD awake and alert neck supple RRR CTA soft NT/ND no Le edema no bladder distension CBC, BMP 05/31/18 06:00 05/31/18 06:00 Current Medications Acetaminophen (Tylenol -) 650 mg PO Q6H PRN PRN Reason: FEVER Last Admin: 05/30/18 19:00 Dose: 650 mg Artificial Tears (Artificial Tears) 1 drop OU BID [facility] Last Admin: 05/31/18 10:35 Dose: 1 drop Cefepime HCl 1 gm/ Dextrose 50 mls @ 100 mls/hr IVPB Q8H-IV [facility]; Protocol Last Admin: 05/31/18 10:35 Dose: 100 mls/hr Multivitamins (Total B With C -) 1 each PO DAILY [facility] Last Admin: 05/31/18 10:36 Dose: 1 each Mycophenolate Mofetil (Cellcept -) 500 mg PO BID [facility] Last Admin: 05/31/18 10:40 Dose: 500 mg Ondansetron HCl (Zofran Injection) 4 mg IVPUSH Q6H PRN PRN Reason: NAUSEA Pantoprazole Sodium (Protonix -) 40 mg PO DAILY [facility] Last Admin: 05/31/18 10:36 Dose: 40 mg Pramipexole Dihydrochloride (Mirapex -) 0.125 mg PO HS [facility] Last Admin: 05/30/18 21:50 Dose: 0.125 mg Tacrolimus (Prograf) 1.5 mg PO BID [facility] Last Admin: 05/31/18 10:41 Dose: 1.5 mg 68 year old woman with history of polycystic kidney and liver disease, ESRD s/p renal transplant in 2011 in [place] (now follows at [facility] with Dr. Timmy Lieberman), Hypertension, Pancreatic cyst, [place] kidney nephrectomy in 2013 who presented with complaints of abd pain and dysuria and found to have cystitis with sepsis syndrome. #Cystitis/Sepsis syndrome r/o pylonephritis #Hyponatremia likely hypovolemic in setting of infection #ESRD s/p Renal Transplant #Hypertension Renal function at baseline Continue Tacrolimus and Cellcept at present dosages Avoid Nephrotoxins and IV contrast if possible Continue abx as per ID can stop IVF now as pt appears to be evolemic free water restriction of 1L Trend renal function and electrolytes Thank you Moiz Diamond DO
--- NOTE | 2018-05-31 14:43 | PN ---
Progress Note, Physician Chief Complaint: APPEARS MORE COMFORTABLE TODAY REPORTS LESS GENERALIZED PAIN TEMPS DOWN AFEBRILE WBC IMPROVED BC PRELIM (-) URINE C/S GNR - Current Medication List Current Medications: Active Medications Acetaminophen (Tylenol -) 650 mg PO Q6H PRN PRN Reason: FEVER Last Admin: 05/30/18 19:00 Dose: 650 mg Artificial Tears (Artificial Tears) 1 drop OU BID [facility] Last Admin: 05/31/18 10:35 Dose: 1 drop Cefepime HCl 1 gm/ Dextrose 50 mls @ 100 mls/hr IVPB Q8H-IV [facility]ILY[facility]; Protocol Last Admin: 05/31/18 10:35 Dose: 100 mls/hr Multivitamins (Total B With C -) 1 each PO DAILY [facility] Last Admin: 05/31/18 10:36 Dose: 1 each Mycophenolate Mofetil (Cellcept -) 500 mg PO BID [facility] Last Admin: 05/31/18 10:40 Dose: 500 mg Ondansetron HCl (Zofran Injection) 4 mg IVPUSH Q6H PRN PRN Reason: NAUSEA Pantoprazole Sodium (Protonix -) 40 mg PO DAILY [facility] Last Admin: 05/31/18 10:36 Dose: 40 mg Pramipexole Dihydrochloride (Mirapex -) 0.125 mg PO HS [facility] Last Admin: 05/30/18 21:50 Dose: 0.125 mg Tacrolimus (Prograf) 1.5 mg PO BID [facility] Last Admin: 05/31/18 10:41 Dose: 1.5 mg - Objective Vital Signs: Vital Signs Temperature 98.8 F 05/31/18 10:00 Pulse Rate 93 H 05/31/18 10:00 Respiratory Rate 18 05/31/18 10:00 Blood Pressure 127/75 05/31/18 10:00 O2 Sat by Pulse Oximetry (%) 96 05/31/18 09:00 Constitutional: Yes: No Distress Eyes: Yes: Conjunctiva Clear Cardiovascular: Yes: Regular Rate and Rhythm, S1, S2 Respiratory: Yes: CTA Bilaterally Gastrointestinal: Yes: Normal Bowel Sounds, Soft. No: Tenderness Edema: No Labs: CBC, BMP 05/31/18 06:00 05/31/18 06:00 Assessment/Plan UTI R/O SEPSIS SECONDARY TO UTI S/P RENAL TRANSPLANT AWAIT C/S CONTINUE CEFEPIME
--- NOTE | 2018-05-31 15:49 | PN ---
Progress Note, Physician Chief Complaint: B/L nephrectomy with L renal transplant 2012 UTI History of Present Illness: Previous notes and events reviewed awake and alert NAD Na 127 complain of urgency with urination and feeling weak WBC trending down 10.1 - Current Medication List Current Medications: Active Medications Acetaminophen (Tylenol -) 650 mg PO Q6H PRN PRN Reason: FEVER Last Admin: 05/30/18 19:00 Dose: 650 mg Artificial Tears (Artificial Tears) 1 drop OU BID [facility] Last Admin: 05/31/18 10:35 Dose: 1 drop Cefepime HCl 1 gm/ Dextrose 50 mls @ 100 mls/hr IVPB Q8H-IV [facility]; Protocol Last Admin: 05/31/18 10:35 Dose: 100 mls/hr Multivitamins (Total B With C -) 1 each PO DAILY [facility] Last Admin: 05/31/18 10:36 Dose: 1 each Mycophenolate Mofetil (Cellcept -) 500 mg PO BID [facility] Last Admin: 05/31/18 10:40 Dose: 500 mg Ondansetron HCl (Zofran Injection) 4 mg IVPUSH Q6H PRN PRN Reason: NAUSEA Pantoprazole Sodium (Protonix -) 40 mg PO DAILY [facility] Last Admin: 05/31/18 10:36 Dose: 40 mg Pramipexole Dihydrochloride (Mirapex -) 0.125 mg PO HS [facility] Last Admin: 05/30/18 21:50 Dose: 0.125 mg Tacrolimus (Prograf) 1.5 mg PO BID [facility] Last Admin: 05/31/18 10:41 Dose: 1.5 mg - Objective Vital Signs: Vital Signs Temperature 98.8 F 05/31/18 10:00 Pulse Rate 93 H 05/31/18 10:00 Respiratory Rate 18 05/31/18 10:00 Blood Pressure 127/75 05/31/18 10:00 O2 Sat by Pulse Oximetry (%) 96 05/31/18 09:00 Constitutional: Yes: No Distress, Calm Eyes: Yes: Conjunctiva Clear HENT: Yes: Normocephalic Cardiovascular: Yes: Regular Rate and Rhythm Respiratory: Yes: Regular, CTA Bilaterally Gastrointestinal: Yes: Normal Bowel Sounds, Soft Musculoskeletal: Yes: Muscle Weakness Extremities: Yes: WNL Edema: No Neurological: Yes: Alert Psychiatric: Yes: Alert Labs: CBC, BMP 05/31/18 06:00 05/31/18 06:00 Microbiology 05/29/18 20:41 Urine Culture - Preliminary Urine - Urine Clean Catch Non Lactose Fermenting Gnb 05/29/18 23:54 Blood Culture - Preliminary Blood - Peripheral Venous NO GROWTH OBTAINED AFTER 24 HOURS, INCUBATION TO CONTINUE FOR 4 DAYS. 05/29/18 23:54 Blood Culture - Preliminary Blood - Peripheral Venous NO GROWTH OBTAINED AFTER 24 HOURS, INCUBATION TO CONTINUE FOR 4 DAYS. <Yari Bowers - Last Filed: 05/31/18 15:50> - Current Medication List Current Medications: Active Medications Acetaminophen (Tylenol -) 650 mg PO Q6H PRN PRN Reason: FEVER Last Admin: 06/01/18 20:58 Dose: 650 mg Artificial Tears (Artificial Tears) 1 drop OU BID [facility] Last Admin: 06/02/18 22:00 Dose: 1 drop Ertapenem 1 gm/ Sodium (Chloride) 50 mls @ 100 mls/hr IVPB DAILY [facility] Last Admin: 06/02/18 11:10 Dose: 100 mls/hr Multivitamins (Total B With C -) 1 each PO DAILY [facility] Last Admin: 06/02/18 11:12 Dose: 1 each Mycophenolate Mofetil (Cellcept -) 500 mg PO BID [facility] Last Admin: 06/02/18 22:01 Dose: 500 mg Ondansetron HCl (Zofran Injection) 4 mg IVPUSH Q6H PRN PRN Reason: NAUSEA Last Admin: 05/31/18 17:16 Dose: 4 mg Pantoprazole Sodium (Protonix -) 40 mg PO DAILY [facility] Last Admin: 06/02/18 11:11 Dose: 40 mg Pramipexole Dihydrochloride (Mirapex -) 0.125 mg PO HS [facility] Last Admin: 06/02/18 22:57 Dose: 0.125 mg Tacrolimus (Prograf) 1.5 mg PO BID [facility] Last Admin: 06/02/18 22:02 Dose: 1.5 mg - Objective Vital Signs: Vital Signs Temperature 97.6 F 06/03/18 06:00 Pulse Rate 64 06/03/18 06:00 Respiratory Rate 18 06/03/18 06:00 Blood Pressure 124/67 06/03/18 06:00 O2 Sat by Pulse Oximetry (%) 98 06/02/18 20:44 <Cyndie Santos - Last Filed: 06/03/18 08:21> Problem List - Problems (1) Hyponatremia Assessment/Plan: -current Na level 127 -will continue to trend Na level -renal on board -renal US reviewed and shows L pelvic renal transplant measuring 12.9cm without gross evidence of hydronephrosis or renal stones Code(s): E87.1 - HYPO-OSMOLALITY AND HYPONATREMIA (2) UTI (urinary tract infection) Assessment/Plan: -ID on board -continue cefepime -wbc trending down, currently 10.1 -afebrile -UC with non lactose fermenting GNB -tylenol PRN for temp >100F Code(s): N39.0 - URINARY TRACT INFECTION, SITE NOT SPECIFIED (3) History of renal transplant Assessment/Plan: -renal consult pending -current BUN/Cr 9/1.0, will continue to trend -1L fluid restriction -cont tacrolimus and cellcept -avoid nephrotoxic drugs -renal US reviewed and shows L pelvic renal transplant measuring 12.9cm without gross evidence of hydronephrosis or renal stones -abd/pelvic CT scan show left renal haziness adjacent fat, otherwise neg Code(s): Z94.0 - KIDNEY TRANSPLANT STATUS <Yari Bowers - Last Filed: 05/31/18 15:50> Assessment/Plan see problem list dvt ppx <Yari Bowers - Last Filed: 05/31/18 15:50> PATIENT SEEN AND EXAMINED AND I AGREE WITH ABOVE NOTE <Cyndie Santos - Last Filed: 06/03/18 08:21>
[2018-05-31] MEDS: ACETAMINOPHEN 325 MG TABLET (FP) PO PRN (17:26)
[2018-05-31] MEDS: PRAMIPEXOLE DIHYDROCHLORIDE 0.125 MG TABLET PO SCH (21:45)
[2018-06-01] MEDS ORDERED: CEFEPIME HCL 1 GM VIAL (RESTRICTED TO ID) ONE ×2 (01:26→09:35)
[2018-06-01] MEDS ORDERED: DEXTROSE 5%-WATER - 50 ML IVPB ONE ×2 (01:27→09:35)
[2018-06-01] MEDS: CEFEPIME 1 GM in DEXTROSE 5%-WATER - 50 ML IVPB SCH ×2 (02:01→09:56)
[2018-06-01] MEDS ORDERED: PT OWN MED DRAWER 7, Y5N ONE ×2 (09:34→16:52)
[2018-06-01 09:43] LABS: BASO % 0.4 % (0-2.0); EOS % 0.3 % (0-4.5); HEMATOCRIT 39.7 % (32.4-45.2); HEMOGLOBIN 13.4 GM/dL (10.7-15.3); LYMPH % 13.4 % (8-40); MCH 28.9 pg (25.7-33.7); MCHC 33.8 g/dl (32.0-36.0); MEAN CELL VOLUME 85.5 fl (80-96); MEAN PLT VOLUME 9.3 fl (7.5-11.1); MONO % 10.8 % (3.8-10.2); NEUT % 75.1 % (42.8-82.8); PLATELET COUNT 192 K/MM3 (134-434); RBC 4.64 M/mm3 (3.60-5.2); RDW 14.5 % (11.6-15.6); WHITE BLOOD COUNT 7.7 K/mm3 (4.0-10.0)
[2018-06-01] MEDS: MYCOPHENOLATE MOFETIL 500 MG TABLET PO SCH ×2 (09:55→20:59)
[2018-06-01] MEDS: ARTIFICIAL TEARS (POLYVINYL ALCOHOL) OPTH DROPS OU SCH ×2 (09:55→20:59)
[2018-06-01] MEDS: TACROLIMUS 0.5 MG CAPSULE PO SCH ×2 (09:56→20:59)
[2018-06-01] MEDS: PANTOPRAZOLE 40 MG TABLET (FP) PO SCH (09:57)
[2018-06-01] MEDS: VITAMIN B COMPLEX W/C COMBO TABLET (FP) PO SCH (09:57)
--- NOTE | 2018-06-01 10:01 | PN ---
Progress Note (short form) - Note Progress Note: Renal follow up for CKD/Renal Transplant Pt seen and examined at the bedside feels much better has mild pain in bladder but much improved no cp, sob, abd pain making urine no fevers Vital Signs Temperature 97.8 F 05/31/18 19:40 Pulse Rate 83 05/31/18 19:40 Respiratory Rate 20 05/31/18 21:00 Blood Pressure 155/59 L 05/31/18 19:40 O2 Sat by Pulse Oximetry (%) 97 05/31/18 21:00 Intake & Output 05/29/18 05/30/18 05/31/18 06/01/18 23:59 23:59 23:59 23:59 Intake Total 1028 350 50 Balance 1028 350 50 Weight 76.204 kg 75.886 kg 75.115 kg 75.353 kg NAD RRR CTA soft NT/ND no Le edema CBC, BMP 06/01/18 08:22 Current Medications Acetaminophen (Tylenol -) 650 mg PO Q6H PRN PRN Reason: FEVER Last Admin: 05/31/18 17:26 Dose: 650 mg Artificial Tears (Artificial Tears) 1 drop OU BID [facility] Last Admin: 06/01/18 09:55 Dose: 1 drop Cefepime HCl 1 gm/ Dextrose 50 mls @ 100 mls/hr IVPB Q8H-IV [facility]; Protocol Last Admin: 06/01/18 09:56 Dose: 100 mls/hr Multivitamins (Total B With C -) 1 each PO DAILY [facility] Last Admin: 06/01/18 09:57 Dose: 1 each Mycophenolate Mofetil (Cellcept -) 500 mg PO BID [facility] Last Admin: 06/01/18 09:55 Dose: 500 mg Ondansetron HCl (Zofran Injection) 4 mg IVPUSH Q6H PRN PRN Reason: NAUSEA Last Admin: 05/31/18 17:16 Dose: 4 mg Pantoprazole Sodium (Protonix -) 40 mg PO DAILY [facility] Last Admin: 06/01/18 09:57 Dose: 40 mg Pramipexole Dihydrochloride (Mirapex -) 0.125 mg PO HS [facility] Last Admin: 05/31/18 21:45 Dose: 0.125 mg Tacrolimus (Prograf) 1.5 mg PO BID [facility] Last Admin: 02/16/19 09:56 Dose: 1.5 mg 68 year old woman with history of polycystic kidney and liver disease, ESRD s/p renal transplant in 2011 in [place] (now follows at [facility] with Dr. Timmy Lieberman), Hypertension, Pancreatic cyst, [place] kidney nephrectomy in 2013 who presented with complaints of abd pain and dysuria and found to have cystitis with sepsis syndrome. #Cystitis/Sepsis syndrome r/o pylonephritis #Hyponatremia likely hypovolemic in setting of infection #ESRD s/p Renal Transplant #Hypertension Todays labs pending Continue Tacrolimus and Cellcept at present dosages Avoid Nephrotoxins and IV contrast if possible Continue abx as per ID free water restriction of 1L until serum Na improves Trend renal function and electrolytes can consider urologic eval as an outpatient as pt has had frequent urinary tract infections Thank you Moiz Diamond DO
--- NOTE | 2018-06-01 10:10 | PN ---
Progress Note, Physician Chief Complaint: B/L nephrectomy with L renal transplant 2012 UTI History of Present Illness: Previous notes and events reviewed awake and alert NAD sts feeling better WBC nl 7.7 - Current Medication List Current Medications: Active Medications Acetaminophen (Tylenol -) 650 mg PO Q6H PRN PRN Reason: FEVER Last Admin: 05/31/18 17:26 Dose: 650 mg Artificial Tears (Artificial Tears) 1 drop OU BID [facility] Last Admin: 06/01/18 09:55 Dose: 1 drop Cefepime HCl 1 gm/ Dextrose 50 mls @ 100 mls/hr IVPB Q8H-IV [facility]; Protocol Last Admin: 06/01/18 09:56 Dose: 100 mls/hr Multivitamins (Total B With C -) 1 each PO DAILY [facility] Last Admin: 06/01/18 09:57 Dose: 1 each Mycophenolate Mofetil (Cellcept -) 500 mg PO BID [facility] Last Admin: 06/01/18 09:55 Dose: 500 mg Ondansetron HCl (Zofran Injection) 4 mg IVPUSH Q6H PRN PRN Reason: NAUSEA Last Admin: 05/31/18 17:16 Dose: 4 mg Pantoprazole Sodium (Protonix -) 40 mg PO DAILY [facility] Last Admin: 06/01/18 09:57 Dose: 40 mg Pramipexole Dihydrochloride (Mirapex -) 0.125 mg PO HS [facility] Last Admin: 05/31/18 21:45 Dose: 0.125 mg Tacrolimus (Prograf) 1.5 mg PO BID [facility] Last Admin: 06/01/18 09:56 Dose: 1.5 mg - Objective Vital Signs: Vital Signs Temperature 97.8 F 05/31/18 19:40 Pulse Rate 83 05/31/18 19:40 Respiratory Rate 20 05/31/18 21:00 Blood Pressure 155/59 L 05/31/18 19:40 O2 Sat by Pulse Oximetry (%) 97 05/31/18 21:00 Constitutional: Yes: Well Nourished, No Distress, Calm Eyes: Yes: Conjunctiva Clear HENT: Yes: Normocephalic Neck: Yes: Supple Cardiovascular: Yes: Regular Rate and Rhythm Respiratory: Yes: Regular, CTA Bilaterally Gastrointestinal: Yes: Normal Bowel Sounds, Soft, Tenderness (suprapubic tenderness) Musculoskeletal: Yes: Muscle Weakness Extremities: Yes: WNL Edema: No Neurological: Yes: Alert, Oriented Psychiatric: Yes: Alert, Oriented Labs: CBC, BMP 06/01/18 08:22 Microbiology 05/29/18 23:54 Blood - Peripheral Venous Blood Culture - Preliminary NO GROWTH OBTAINED AFTER 48 HOURS, INCUBATION TO CONTINUE FOR 3 DAYS. 05/29/18 23:54 Blood - Peripheral Venous Blood Culture - Preliminary NO GROWTH OBTAINED AFTER 48 HOURS, INCUBATION TO CONTINUE FOR 3 DAYS. 05/29/18 20:41 Urine - Urine Clean Catch Urine Culture - Preliminary Non Lactose Fermenting Gnb <Yari Bowers - Last Filed: 06/01/18 10:05> - Current Medication List Current Medications: Active Medications Acetaminophen (Tylenol -) 650 mg PO Q6H PRN PRN Reason: FEVER Last Admin: 06/01/18 20:58 Dose: 650 mg Artificial Tears (Artificial Tears) 1 drop OU BID [facility] Last Admin: 06/02/18 22:00 Dose: 1 drop Ertapenem 1 gm/ Sodium (Chloride) 50 mls @ 100 mls/hr IVPB DAILY [facility] Last Admin: 06/02/18 11:10 Dose: 100 mls/hr Multivitamins (Total B With C -) 1 each PO DAILY [facility] Last Admin: 06/02/18 11:12 Dose: 1 each Mycophenolate Mofetil (Cellcept -) 500 mg PO BID [facility] Last Admin: 06/02/18 22:01 Dose: 500 mg Ondansetron HCl (Zofran Injection) 4 mg IVPUSH Q6H PRN PRN Reason: NAUSEA Last Admin: 05/31/18 17:16 Dose: 4 mg Pantoprazole Sodium (Protonix -) 40 mg PO DAILY [facility] Last Admin: 06/02/18 11:11 Dose: 40 mg Pramipexole Dihydrochloride (Mirapex -) 0.125 mg PO HS [facility] Last Admin: 06/02/18 22:57 Dose: 0.125 mg Tacrolimus (Prograf) 1.5 mg PO BID [facility] Last Admin: 06/02/18 22:02 Dose: 1.5 mg - Objective Vital Signs: Vital Signs Temperature 97.6 F 06/03/18 06:00 Pulse Rate 64 06/03/18 06:00 Respiratory Rate 18 06/03/18 06:00 Blood Pressure 124/67 06/03/18 06:00 O2 Sat by Pulse Oximetry (%) 98 06/02/18 20:44 <Cyndie Santos - Last Filed: 06/03/18 08:21> Problem List - Problems (1) Hyponatremia Assessment/Plan: -Na level 127, pending todays result -will continue to trend Na level -renal on board -renal US reviewed and shows L pelvic renal transplant measuring 12.9cm without gross evidence of hydronephrosis or renal stones Code(s): E87.1 - HYPO-OSMOLALITY AND HYPONATREMIA (2) UTI (urinary tract infection) Assessment/Plan: -ID on board -continue cefepime -wbc nl at 7.7 -afebrile -UC with non lactose fermenting GNB -tylenol PRN for temp >100F Code(s): N39.0 - URINARY TRACT INFECTION, SITE NOT SPECIFIED (3) History of renal transplant Assessment/Plan: -renal consult pending -BUN/Cr 9/1.0, today result pending -1L fluid restriction -cont tacrolimus and cellcept -avoid nephrotoxic drugs -renal US reviewed and shows L pelvic renal transplant measuring 12.9cm without gross evidence of hydronephrosis or renal stones -abd/pelvic CT scan show left renal haziness adjacent fat, otherwise neg Code(s): Z94.0 - KIDNEY TRANSPLANT STATUS (4) Polycystic liver disease, congenital Assessment/Plan: -US show multiple hepatic cysts with the largest simple cyst measuring 7.7 x 6.7cm -GI consult placed Code(s): Q44.6 - CYSTIC DISEASE OF LIVER <Yari Bowers - Last Filed: 06/01/18 10:05> Assessment/Plan PATIENT DAVIDE ND EXAMINED AND I AGREE WITH ABOVE NOTE <Cyndie Santos - Last Filed: 06/03/18 08:21>
[2018-06-01 10:47] LABS: ANION GAP 11 MMOL/L (8-16); BLOOD UREA NITROGEN 9 mg/dL (7-18); CALCIUM 9.3 mg/dL (8.5-10.1); CHLORIDE 98 mmol/L (98-107); CO2 22 mmol/L (21-32); CREATININE 0.9 mg/dL (0.55-1.3); GLUCOSE,RANDOM 107 mg/dL (74-106); MAGNESIUM 1.9 mg/dL (1.8-2.4); PHOSPHOROUS 2.7 mg/dL (2.5-4.9); POTASSIUM 4.4 mmol/L (3.5-5.1); SODIUM 132 mmol/L (136-145)
--- NOTE | 2018-06-01 13:17 | PN ---
Progress Note (short form) - Note Progress Note: overall improved able to eat no fevers still with pelvic discomfort, dysuria Vital Signs Period Temp Pulse Resp BP Sys/Contreras Pulse Ox Last 24 Hr 97.8 F-98.8 F 72-89 18-20 107-155/44-65 97-98 cor-rrr luungs clear abd soft,nt +suprpubic discomfort to palpation ext no edema CBC, BMP 06/01/18 08:22 06/01/18 08:27 Microbiology 05/29/18 20:41 Urine - Urine Clean Catch Urine Culture - Final Escherichia Coli [facility] [employer] Informatics Clinical Analyst 05/29/18 23:54 Blood - Peripheral Venous Blood Culture - Preliminary NO GROWTH OBTAINED AFTER 48 HOURS, INCUBATION TO CONTINUE FOR 3 DAYS. 05/29/18 23:54 Blood - Peripheral Venous Blood Culture - Preliminary NO GROWTH OBTAINED AFTER 48 HOURS, INCUBATION TO CONTINUE FOR 3 DAYS. us/ct scan-results reviewed-no hydronephrosis noted, left renal haziness adjacent fat Current Medications Acetaminophen (Tylenol -) 650 mg PO Q6H PRN PRN Reason: FEVER Last Admin: 05/31/18 17:26 Dose: 650 mg Artificial Tears (Artificial Tears) 1 drop OU BID [facility] Last Admin: 06/01/18 09:55 Dose: 1 drop Cefepime HCl 1 gm/ Dextrose 50 mls @ 100 mls/hr IVPB Q8H-IV [facility]; Protocol Last Admin: 06/01/18 09:56 Dose: 100 mls/hr Multivitamins (Total B With C -) 1 each PO DAILY [facility] Last Admin: 06/01/18 09:57 Dose: 1 each Mycophenolate Mofetil (Cellcept -) 500 mg PO BID [facility] Last Admin: 06/01/18 09:55 Dose: 500 mg Ondansetron HCl (Zofran Injection) 4 mg IVPUSH Q6H PRN PRN Reason: NAUSEA Last Admin: 05/31/18 17:16 Dose: 4 mg Pantoprazole Sodium (Protonix -) 40 mg PO DAILY [facility] Last Admin: 06/01/18 09:57 Dose: 40 mg Pramipexole Dihydrochloride (Mirapex -) 0.125 mg PO HS [facility] Last Admin: 05/31/18 21:45 Dose: 0.125 mg Tacrolimus (Prograf) 1.5 mg PO BID [facility] Last Admin: 06/01/18 09:56 Dose: 1.5 mg a/p UTI renal transplant switch to ertapenem renal f/u ongoing spoke with hui who translated for patient need for contact isolation
--- NOTE | 2018-06-01 17:27 | CON.GI ---
Consult Consult Specialty:: GI - History of Present Illness History of Present Illness: 68 y/o F history of ESRD previously on HD via RUE AVF, now s/p bilateral nephrectomy with L renal transplant 2011 presents to ED one week after discharge for inpatient treatment of UTII. Ms. Rios reports abdominal pain, urinary frequency, nausea, vomiting and myalgias associated with suprapubic tenderness and loose stoolPatient was admitted because recurrent UTI. She denies abdominal pain, nausea, vomiting and diarrhea. On routine abdominal ultrasound she was noted to have multiple large cyst in the liver. - Past Medical History Cardio/Vascular: Yes: HTN, Hyperlipdemia Gastrointestinal: Yes: Gastritis Renal/: Yes: Renal Failure (due to polycystic disease leading to nephrectomies and renal transplant in [place] in 2013) ...: No - Past Surgical History Past Surgical History: Yes: AV Fistula/Graft (RUE no longer active), Kidney Transplant (2013) - Alcohol/Substance Use Hx Alcohol Use: No History of Substance Use: reports: None - Smoking History Smoking history: Never smoked Have you smoked in the past 12 months: No If you are a former smoker, when did you quit?: when transplanted - Social History Usual Living Arrangement: Alone ADL: Support Services (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 weekly) 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 Home Medications - Allergies Allergies/Adverse Reactions: Allergies Allergy/AdvReac Type Severity Reaction Status Date / Time No Known Allergies Allergy Verified 05/10/18 19:03 - Home Medications Home Medications: Ambulatory Orders Baclofen 10 mg PO HS 05/10/18 Omeprazole 40 mg PO DAILY 05/10/18 Olopatadine HCl [Pataday] 1 drop OP BID 05/11/18 Pramipexole Dihydrochloride [Mirapex -] 0.125 mg PO HS 05/11/18 Tacrolimus 1.5 mg PO BID 05/11/18 Vit B Comp/C/Folic/Iron/Vit E [Vitamin B Complex Tablet] 1 each PO DAILY Mycophenolate Mofetil [Cellcept -] 500 mg PO BID capsule 05/16/18 Diclofenac Sodium 100 gm TP HS 05/29/18 Propylene Glycol/Peg 400 [Systane Ultra 0.4-0.3% Eye Drp] 10 ml OP BID 05/29/18 Family Disease History - Family Disease History Family Disease History: CA: Father ( of lung cancer), Mother ( of breast cancer), Brother ( of lung cancer) Review of Systems - Review of Systems Constitutional: denies: Fever HENT: denies: Difficult Swallowing Cardiovascular: denies: Chest Pain Respiratory: denies: Cough Gastrointestinal: denies: Abdominal Pain, Bloating, Constipation, Diarrhea, Indigestion, Melena, Nausea, Rectal Bleeding, Vomiting Physical Exam-GI Vital Signs: Vital Signs Temperature 97.4 F L 06/01/18 17:05 Pulse Rate 67 06/01/18 17:05 Respiratory Rate 18 06/01/18 17:05 Blood Pressure 151/53 L 06/01/18 17:05 O2 Sat by Pulse Oximetry (%) 98 06/01/18 09:00 Constitutional: No: Well Nourished Eyes: No: Conjunctiva Clear HENT: No: Atraumatic Neck: No: Supple Respiratory: No: CTA Bilaterally Gastrointestinal Inspection: No: Distention ...Auscultate: Yes: Normoactive Bowel Sounds ...Palpate: Yes: Mass, Soft. No: Firm/Rigid, Guarding, Hepatomegaly, Pulsatile Mass, Splenomegaly, Tenderness Labs: CBC, BMP 06/01/18 08:22 06/01/18 08:27 All Active Problems Abdominal pain (Acute) Hyponatremia (Acute) Prophylactic measure (Acute) UTI (urinary tract infection) (Acute) Acute kidney injury superimposed on CKD (Acute) Diarrhea (Acute) History of renal transplant (Acute) Polycystic kidney disease (Acute) Polycystic liver disease, congenital (Acute) SIRS (systemic inflammatory response syndrome) (Acute) Sepsis (Acute) Sepsis due to gram-negative urinary tract infection (Acute) Home Medications Medication Instructions Recorded Baclofen 10 mg PO HS 05/10/18 Omeprazole 40 mg PO DAILY 05/10/18 Olopatadine HCl [Pataday] 1 drop OP BID 05/11/18 Pramipexole Dihydrochloride 0.125 mg PO HS 05/11/18 [Mirapex -] Tacrolimus 1.5 mg PO BID 05/11/18 Vit B Comp/C/Folic/Iron/Vit E 1 each PO DAILY 05/11/18 [Vitamin B Complex Tablet] Mycophenolate Mofetil [Cellcept -] 500 mg PO BID capsule 05/16/18 Diclofenac Sodium 100 gm TP HS 05/29/18 Propylene Glycol/Peg 400 [Systane 10 ml OP BID 05/29/18 Ultra 0.4-0.3% Eye Drp] Ambulatory Orders Baclofen 10 mg PO HS 05/10/18 Omeprazole 40 mg PO DAILY 05/10/18 Olopatadine HCl [Pataday] 1 drop OP BID 05/11/18 Pramipexole Dihydrochloride [Mirapex -] 0.125 mg PO HS 05/11/18 Tacrolimus 1.5 mg PO BID 05/11/18 Vit B Comp/C/Folic/Iron/Vit E [Vitamin B Complex Tablet] 1 each PO DAILY Mycophenolate Mofetil [Cellcept -] 500 mg PO BID capsule 05/16/18 Diclofenac Sodium 100 gm TP HS 05/29/18 Propylene Glycol/Peg 400 [Systane Ultra 0.4-0.3% Eye Drp] 10 ml OP BID 05/29/18 Problem List - Problems (1) Polycystic liver disease, congenital Assessment/Plan: in the absence of any abdominal pain, jaundice, evidence of bleeding into cyst nor evidence of anyinfected cyst, the management is for the underlying problem is to repeat the imaging of the liver if above conditions are suspected. At this time no further work-up is needed. Code(s): Q44.6 - CYSTIC DISEASE OF LIVER
[2018-06-01] MEDS: ACETAMINOPHEN 325 MG TABLET (FP) PO PRN (20:58)
[2018-06-01] MEDS: PRAMIPEXOLE DIHYDROCHLORIDE 0.125 MG TABLET PO SCH (20:59)
[2018-06-02] MEDS ORDERED: PT OWN MED DRAWER 7, Y5N ONE (10:49)
[2018-06-02] MEDS: ERTAPENEM SODIUM 1 GM in SODIUM CHLORIDE 50 ML IVPB SCH ×2 (11:07→11:10)
[2018-06-02] MEDS: PANTOPRAZOLE 40 MG TABLET (FP) PO SCH (11:11)
[2018-06-02] MEDS: TACROLIMUS 0.5 MG CAPSULE PO SCH ×2 (11:11→22:02)
[2018-06-02] MEDS: MYCOPHENOLATE MOFETIL 500 MG TABLET PO SCH ×2 (11:12→22:01)
[2018-06-02] MEDS: ARTIFICIAL TEARS (POLYVINYL ALCOHOL) OPTH DROPS OU SCH ×2 (11:12→22:00)
[2018-06-02] MEDS: VITAMIN B COMPLEX W/C COMBO TABLET (FP) PO SCH (11:12)
--- NOTE | 2018-06-02 11:30 | PN ---
Progress Note (short form) - Note Progress Note: overall improved able to eat no fevers less dysuria us/ct scan-results reviewed-no hydronephrosis noted, left renal haziness adjacent fat Vital Signs Period Temp Pulse Resp BP Sys/Contreras Pulse Ox Last 24 Hr 97.4 F-97.8 F 67-78 18-18 147-157/48-85 98 cor-rrr lungs clear abd soft,nt ext no edema CBC, BMP 06/01/18 08:22 06/01/18 08:27 Microbiology 05/29/18 23:54 Blood - Peripheral Venous Blood Culture - Preliminary NO GROWTH OBTAINED AFTER 72 HOURS, INCUBATION TO CONTINUE FOR 2 DAYS. 05/29/18 23:54 Blood - Peripheral Venous Blood Culture - Preliminary NO GROWTH OBTAINED AFTER 72 HOURS, INCUBATION TO CONTINUE FOR 2 DAYS. 05/29/18 20:41 Urine - Urine Clean Catch Urine Culture - Final Escherichia Coli Esbl Records Specialist Current Medications Acetaminophen (Tylenol -) 650 mg PO Q6H PRN PRN Reason: FEVER Last Admin: 06/01/18 20:58 Dose: 650 mg Artificial Tears (Artificial Tears) 1 drop OU BID [facility] Last Admin: 06/02/18 11:12 Dose: 1 drop Ertapenem 1 gm/ Sodium (Chloride) 50 mls @ 100 mls/hr IVPB DAILY [facility] Last Admin: 06/02/18 11:10 Dose: 100 mls/hr Multivitamins (Total B With C -) 1 each PO DAILY [facility] Last Admin: 06/02/18 11:12 Dose: 1 each Mycophenolate Mofetil (Cellcept -) 500 mg PO BID [facility] Last Admin: 06/02/18 11:12 Dose: 500 mg Ondansetron HCl (Zofran Injection) 4 mg IVPUSH Q6H PRN PRN Reason: NAUSEA Last Admin: 05/31/18 17:16 Dose: 4 mg Pantoprazole Sodium (Protonix -) 40 mg PO DAILY [facility] Last Admin: 06/02/18 11:11 Dose: 40 mg Pramipexole Dihydrochloride (Mirapex -) 0.125 mg PO HS [facility] Last Admin: 06/01/18 20:59 Dose: 0.125 mg Tacrolimus (Prograf) 1.5 mg PO BID [facility] Last Admin: 06/02/18 11:11 Dose: 1.5 mg a/p UTI renal transplant continue ertapenem day #2 renal f/u ongoing d/w hospitalist- recurrent UTI -urology opinion will need to f/u 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
--- NOTE | 2018-06-02 11:40 | PN ---
Progress Note, Physician Chief Complaint: B/L nephrectomy with L renal transplant 2011 UTI History of Present Illness: Previous notes and events reviewed awake and alert NAD patient sts still experiecing urgency and lower abdominal pain c/o L sided chest pain, non-radiating, VS 139/76, 69, 20, 98% RA - Current Medication List Current Medications: Active Medications Acetaminophen (Tylenol -) 650 mg PO Q6H PRN PRN Reason: FEVER Last Admin: 06/01/18 20:58 Dose: 650 mg Artificial Tears (Artificial Tears) 1 drop OU BID [facility] Last Admin: 06/02/18 11:12 Dose: 1 drop Ertapenem 1 gm/ Sodium (Chloride) 50 mls @ 100 mls/hr IVPB DAILY [facility] Last Admin: 06/02/18 11:10 Dose: 100 mls/hr Multivitamins (Total B With C -) 1 each PO DAILY [facility] Last Admin: 06/02/18 11:12 Dose: 1 each Mycophenolate Mofetil (Cellcept -) 500 mg PO BID [facility] Last Admin: 06/02/18 11:12 Dose: 500 mg Ondansetron HCl (Zofran Injection) 4 mg IVPUSH Q6H PRN PRN Reason: NAUSEA Last Admin: 05/31/18 17:16 Dose: 4 mg Pantoprazole Sodium (Protonix -) 40 mg PO DAILY [facility] Last Admin: 06/02/18 11:11 Dose: 40 mg Pramipexole Dihydrochloride (Mirapex -) 0.125 mg PO HS [facility] Last Admin: 06/01/18 20:59 Dose: 0.125 mg Tacrolimus (Prograf) 1.5 mg PO BID [facility] Last Admin: 06/02/18 11:11 Dose: 1.5 mg - Objective Vital Signs: Vital Signs Temperature 97.5 F L 06/02/18 05:00 Pulse Rate 74 06/02/18 05:00 Respiratory Rate 18 06/01/18 23:10 Blood Pressure 147/48 L 06/02/18 05:00 O2 Sat by Pulse Oximetry (%) 98 06/01/18 21:00 Constitutional: Yes: No Distress, Calm Eyes: Yes: Conjunctiva Clear HENT: Yes: Normocephalic Cardiovascular: Yes: Regular Rate and Rhythm Respiratory: Yes: Regular, CTA Bilaterally Gastrointestinal: Yes: Normal Bowel Sounds, Soft, Tenderness (lower abdominal tenderness) Musculoskeletal: Yes: Muscle Weakness Extremities: Yes: WNL Edema: No Neurological: Yes: Alert, Pre-Existing Deficit Psychiatric: Yes: Alert Labs: CBC, BMP 06/01/18 08:22 06/01/18 08:27 Microbiology 05/29/18 23:54 Blood - Peripheral Venous Blood Culture - Preliminary NO GROWTH OBTAINED AFTER 72 HOURS, INCUBATION TO CONTINUE FOR 2 DAYS. 05/29/18 23:54 Blood - Peripheral Venous Blood Culture - Preliminary NO GROWTH OBTAINED AFTER 72 HOURS, INCUBATION TO CONTINUE FOR 2 DAYS. 05/29/18 20:41 Urine - Urine Clean Catch Urine Culture - Final Escherichia Coli Esbl Assistant Program Manager <Yari Bowers - Last Filed: 06/02/18 11:42> - Current Medication List Current Medications: Active Medications Acetaminophen (Tylenol -) 650 mg PO Q6H PRN PRN Reason: FEVER Last Admin: 06/01/18 20:58 Dose: 650 mg Artificial Tears (Artificial Tears) 1 drop OU BID [facility] Last Admin: 06/02/18 22:00 Dose: 1 drop Ertapenem 1 gm/ Sodium (Chloride) 50 mls @ 100 mls/hr IVPB DAILY [facility] Last Admin: 06/02/18 11:10 Dose: 100 mls/hr Multivitamins (Total B With C -) 1 each PO DAILY [facility] Last Admin: 06/02/18 11:12 Dose: 1 each Mycophenolate Mofetil (Cellcept -) 500 mg PO BID [facility] Last Admin: 06/02/18 22:01 Dose: 500 mg Ondansetron HCl (Zofran Injection) 4 mg IVPUSH Q6H PRN PRN Reason: NAUSEA Last Admin: 05/31/18 17:16 Dose: 4 mg Pantoprazole Sodium (Protonix -) 40 mg PO DAILY [facility] Last Admin: 06/02/18 11:11 Dose: 40 mg Pramipexole Dihydrochloride (Mirapex -) 0.125 mg PO HS [facility] Last Admin: 06/02/18 22:57 Dose: 0.125 mg Tacrolimus (Prograf) 1.5 mg PO BID [facility] Last Admin: 06/02/18 22:02 Dose: 1.5 mg - Objective Vital Signs: Vital Signs Temperature 97.6 F 06/03/18 06:00 Pulse Rate 64 06/03/18 06:00 Respiratory Rate 18 06/03/18 06:00 Blood Pressure 124/67 06/03/18 06:00 O2 Sat by Pulse Oximetry (%) 98 06/02/18 20:44 <Cyndie Santos - Last Filed: 06/03/18 08:20> Problem List - Problems (1) Hyponatremia Assessment/Plan: -Na level 132 -will continue to trend Na level -renal on board -renal US reviewed and shows L pelvic renal transplant measuring 12.9cm without gross evidence of hydronephrosis or renal stones Code(s): E87.1 - HYPO-OSMOLALITY AND HYPONATREMIA (2) UTI (urinary tract infection) Assessment/Plan: -ID on board -continue ertapenem -wbc nl at 7.7 -afebrile -UC with E.Coli and ESBL--continue contact precaution -tylenol PRN for temp >100F Code(s): N39.0 - URINARY TRACT INFECTION, SITE NOT SPECIFIED (3) History of renal transplant Assessment/Plan: -renal consult pending -BUN/Cr 9/0.9 -1L fluid restriction -cont tacrolimus and cellcept -avoid nephrotoxic drugs -renal US reviewed and shows L pelvic renal transplant measuring 12.9cm without gross evidence of hydronephrosis or renal stones -abd/pelvic CT scan show left renal haziness adjacent fat, otherwise neg Code(s): Z94.0 - KIDNEY TRANSPLANT STATUS (4) Polycystic liver disease, congenital Assessment/Plan: -US show multiple hepatic cysts with the largest simple cyst measuring 7.7 x 6.7cm -GI recommendations appreciated Code(s): Q44.6 - CYSTIC DISEASE OF LIVER (5) Chest pain Assessment/Plan: -EKG and cardiac profile ordered STAT -cardiology consult place -Abd/Pelvic CT scan from 05/30/18 show large pericardial effusion--echo ordered Code(s): R07.9 - CHEST PAIN, UNSPECIFIED <Yari Bowers - Last Filed: 06/02/18 11:42> Assessment/Plan PATIENT SEEN AND EXAMINED AND I AGREE WITH ABOVE NOTE <Cyndie Santos - Last Filed: 06/03/18 08:20>
[2018-06-02 12:40] LABS: HEMATOCRIT 36.6 % (32.4-45.2); HEMOGLOBIN 12.8 GM/dL (10.7-15.3); MCH 29.7 pg (25.7-33.7); MCHC 34.9 g/dl (32.0-36.0); PLATELET COUNT 222 K/MM3 (134-434); RDW 14.2 % (11.6-15.6); WHITE BLOOD COUNT 5.8 K/mm3 (4.0-10.0)
--- NOTE | 2018-06-02 12:40 | EKG ---
Test Reason : Blood Pressure : / mmHG Vent. Rate : 063 BPM Atrial Rate : 063 BPM P-R Int : 150 ms QRS Dur : 088 ms QT Int : 402 ms P-R-T Axes : 044 013 072 degrees QTc Int : 411 ms NORMAL SINUS RHYTHM NORMAL ECG WHEN COMPARED WITH ECG OF 29-MAY-2018 21:59, PREMATURE ATRIAL COMPLEXES ARE NO LONGER PRESENT Confirmed by JERZY REYES MD ([id number]) on 06/02/2018 12:40:17 PM Referred By: Lesly ARANDA Confirmed By:JERZY REYES MD
[2018-06-02 13:04] LABS: ALBUMIN 3.1 g/dl (3.4-5.0); ALK PHOS 122 U/L (45-117); ANION GAP 7 MMOL/L (8-16); BILIRUBIN,TOTAL 0.2 mg/dL (0.2-1); BLOOD UREA NITROGEN 14 mg/dL (7-18); CALCIUM 8.8 mg/dL (8.5-10.1); CHLORIDE 98 mmol/L (98-107); CO2 28 mmol/L (21-32); CREATININE 0.9 mg/dL (0.55-1.3); GLUCOSE,RANDOM 100 mg/dL (74-106); POTASSIUM 4.6 mmol/L (3.5-5.1); SGOT/AST 26 U/L (15-37); SGPT/ALT 37 U/L (13-61); SODIUM 133 mmol/L (136-145); TOT PROT 6.5 g/dl (6.4-8.2)
--- NOTE | 2018-06-02 16:20 | CON.CARD ---
Consult Consult Specialty:: Cardiology Reason for Consultation:: Pericardial Effusion on CT - History of Present Illness Chief Complaint: Malaise History of Present Illness: This is a 68 year old female with a PMH of HTN, DM, ESRD S/P reanl transplant in 2013. She presented on 05/29/18 with malaise and abdominal pain. A CT scan of the abdomen and pelvis happened to show a large pericardial effusion. She remains hemodynamically stable. - Past Medical History Cardio/Vascular: Yes: HTN, Hyperlipdemia Gastrointestinal: Yes: Gastritis Renal/: Yes: Renal Failure (due to polycystic disease leading to nephrectomies and renal transplant in [place] in 2013) ...: No - Past Surgical History Past Surgical History: Yes: AV Fistula/Graft (RUE no longer active), Kidney Transplant (2013) - Alcohol/Substance Use Hx Alcohol Use: No History of Substance Use: reports: None - Smoking History Smoking history: Never smoked Have you smoked in the past 12 months: No If you are a former smoker, when did you quit?: when transplanted - Social History Usual Living Arrangement: Alone ADL: Support Services (QUALITY CONTROL TESTER 3hrs per day x 3days weekly) 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 Home Medications - Allergies Allergies/Adverse Reactions: Allergies Allergy/AdvReac Type Severity Reaction Status Date / Time No Known Allergies Allergy Verified 05/10/18 19:03 - Home Medications Home Medications: Ambulatory Orders Baclofen 10 mg PO HS 05/10/18 Omeprazole 40 mg PO DAILY 05/10/18 Olopatadine HCl [Pataday] 1 drop OP BID 05/11/18 Pramipexole Dihydrochloride [Mirapex -] 0.125 mg PO HS 05/11/18 Tacrolimus 1.5 mg PO BID 05/11/18 Vit B Comp/C/Folic/Iron/Vit E [Vitamin B Complex Tablet] 1 each PO DAILY Mycophenolate Mofetil [Cellcept -] 500 mg PO BID capsule 05/16/18 Diclofenac Sodium 100 gm TP HS 05/29/18 Propylene Glycol/Peg 400 [Systane Ultra 0.4-0.3% Eye Drp] 10 ml OP BID 05/29/18 Family Disease History - Family Disease History Family Disease History: CA: Father ( of lung cancer), Mother ( of breast cancer), Brother ( of lung cancer) Vital Signs: Vital Signs Temperature 98.1 F 06/02/18 14:18 Pulse Rate 74 06/02/18 14:18 Respiratory Rate 18 06/02/18 14:18 Blood Pressure 125/57 L 06/02/18 14:18 O2 Sat by Pulse Oximetry (%) 98 06/01/18 21:00 Constitutional: Yes: No Distress HENT: Yes: WNL Neck: Yes: WNL Respiratory: Yes: Dullness (At bases bilaterally) Gastrointestinal: Yes: Normal Bowel Sounds Cardiovascular: Yes: Regular Rate and Rhythm (NL S1S2 no MRHG) JVD: No Extremities: Yes: WNL Neurological: Yes: Alert, Oriented - Other Data Labs, Other Data: CBC, BMP 06/02/18 11:33 06/02/18 11:33 Troponin, BNP 06/02/18 11:33 Troponin I < 0.02 Troponin, BNP 06/02/18 11:33 Troponin I < 0.02 Assessment/Plan 68 year old female with a PMH of HTN, DM, ESRD S/P reanl transplant in 2013. She presented on 05/29/18 with malaise and abdominal pain. A CT scan of the abdomen and pelvis happened to show a large pericardial effusion. She also complained of intermittent chest pain. Large Pericardial effusion Obtain an echocardiogram Check cardiac markers EKG reviewed - NSR with no acute changes, no evidence for pericarditis Will follow with you
[2018-06-02] MEDS: PRAMIPEXOLE DIHYDROCHLORIDE 0.125 MG TABLET PO SCH (22:57)
--- NOTE | 2018-06-03 08:10 | PN ---
Progress Note, Physician History of Present Illness: Patient examined and case discussed with Dr. Matias GI FOLLOW UP NOTE Patient examined lying in bed. Abdominal US shows multiple hepatic cysts. Denies abdominal pain, nausea, vomiting, diarrhea, rectal bleeding. Denies abnormal weight loss. - Current Medication List Current Medications: Active Medications Acetaminophen (Tylenol -) 650 mg PO Q6H PRN PRN Reason: FEVER Last Admin: 06/01/18 20:58 Dose: 650 mg Artificial Tears (Artificial Tears) 1 drop OU BID [facility] Last Admin: 06/02/18 22:00 Dose: 1 drop Ertapenem 1 gm/ Sodium (Chloride) 50 mls @ 100 mls/hr IVPB DAILY [facility] Last Admin: 06/02/18 11:10 Dose: 100 mls/hr Multivitamins (Total B With C -) 1 each PO DAILY [facility] Last Admin: 06/02/18 11:12 Dose: 1 each Mycophenolate Mofetil (Cellcept -) 500 mg PO BID [facility] Last Admin: 06/02/18 22:01 Dose: 500 mg Ondansetron HCl (Zofran Injection) 4 mg IVPUSH Q6H PRN PRN Reason: NAUSEA Last Admin: 05/31/18 17:16 Dose: 4 mg Pantoprazole Sodium (Protonix -) 40 mg PO DAILY [facility] Last Admin: 06/02/18 11:11 Dose: 40 mg Pramipexole Dihydrochloride (Mirapex -) 0.125 mg PO HS [facility] Last Admin: 06/02/18 22:57 Dose: 0.125 mg Tacrolimus (Prograf) 1.5 mg PO BID [facility] Last Admin: 06/02/18 22:02 Dose: 1.5 mg - Objective Vital Signs: Vital Signs Temperature 97.6 F 06/03/18 06:00 Pulse Rate 64 06/03/18 06:00 Respiratory Rate 18 06/03/18 06:00 Blood Pressure 124/67 06/03/18 06:00 O2 Sat by Pulse Oximetry (%) 98 06/02/18 20:44 Constitutional: Yes: No Distress, Calm Eyes: Yes: Conjunctiva Clear HENT: Yes: Normocephalic Cardiovascular: Yes: Regular Rate and Rhythm Respiratory: Yes: Regular, CTA Bilaterally Gastrointestinal: Yes: Normal Bowel Sounds, Soft, Tenderness (LLQ, tympany, non- distended). No: WNL, Abdomen, Obese, Ascites, Distention, Hematemesis, Hemorrhoids, Hepatomegaly, Hernia, Hyperactive Bowel Sounds, Hypoactive Bowel Sounds, Melena, Palpable Mass, Pulsatile Mass, Rectal Bleeding, Splenomegaly, Tenderness, Epigastrium, Tenderness, Rebound, Vomiting, Other Musculoskeletal: Yes: Muscle Weakness Neurological: Yes: Alert, Pre-Existing Deficit Psychiatric: Yes: Alert Labs: CBC, BMP 06/02/18 11:33 06/02/18 11:33 Active Medications Generic Name Dose Route Start Last Admin Trade Name Freq PRN Reason Stop Dose Admin Acetaminophen 650 mg 05/29/18 23:40 06/01/18 20:58 Tylenol - PO 650 mg Q6H PRN Administration FEVER Artificial Tears 1 drop 05/29/18 23:45 06/02/18 22:00 Artificial Tears OU 1 drop BID [facility] Administration Ertapenem 1 gm/ Sodium 50 mls @ 100 mls/hr 06/01/18 14:00 06/02/18 11:10 Chloride IVPB 100 mls/hr DAILY [facility] Administration Multivitamins 1 each 05/30/18 10:00 06/02/18 11:12 Total B With C - PO 1 each DAILY [facility] Administration Mycophenolate Mofetil 500 mg 05/29/18 23:45 06/02/18 22:01 Cellcept - PO 500 mg BID [facility] Administration Ondansetron HCl 4 mg 05/29/18 23:40 05/31/18 17:16 Zofran Injection IVPUSH 4 mg Q6H PRN Administration NAUSEA Pantoprazole Sodium 40 mg 05/30/18 10:00 06/02/18 11:11 Protonix - PO 40 mg DAILY [facility] Administration Pramipexole Dihydrochloride 0.125 mg 05/29/18 23:45 06/02/18 22:57 Mirapex - PO 0.125 mg HS [facility] Administration Tacrolimus 1.5 mg 05/29/18 23:45 06/02/18 22:02 Prograf PO 1.5 mg BID [facility] Administration Problem List - Problems (1) Hyponatremia Code(s): E87.1 - HYPO-OSMOLALITY AND HYPONATREMIA (2) UTI (urinary tract infection) Code(s): N39.0 - URINARY TRACT INFECTION, SITE NOT SPECIFIED Qualifiers: (3) History of renal transplant Code(s): Z94.0 - KIDNEY TRANSPLANT STATUS (4) Polycystic liver disease, congenital Assessment/Plan: -US show multiple hepatic cysts with the largest simple cyst measuring 7.7 x 6.7cm -patient instructed to follow up as an outpatient and will repeat abdominal US Code(s): Q44.6 - CYSTIC DISEASE OF LIVER (5) Chest pain Code(s): R07.9 - CHEST PAIN, UNSPECIFIED
--- NOTE | 2018-06-03 08:23 | PN ---
Progress Note, Physician Chief Complaint: AWAKE ALERT EVENTS AND NOTES REVIEWED - Current Medication List Current Medications: Active Medications Acetaminophen (Tylenol -) 650 mg PO Q6H PRN PRN Reason: FEVER Last Admin: 06/01/18 20:58 Dose: 650 mg Artificial Tears (Artificial Tears) 1 drop OU BID [facility] Last Admin: 06/02/18 22:00 Dose: 1 drop Ertapenem 1 gm/ Sodium (Chloride) 50 mls @ 100 mls/hr IVPB DAILY [facility] Last Admin: 06/02/18 11:10 Dose: 100 mls/hr Multivitamins (Total B With C -) 1 each PO DAILY [facility] Last Admin: 06/02/18 11:12 Dose: 1 each Mycophenolate Mofetil (Cellcept -) 500 mg PO BID [facility] Last Admin: 06/02/18 22:01 Dose: 500 mg Ondansetron HCl (Zofran Injection) 4 mg IVPUSH Q6H PRN PRN Reason: NAUSEA Last Admin: 05/31/18 17:16 Dose: 4 mg Pantoprazole Sodium (Protonix -) 40 mg PO DAILY [facility] Last Admin: 06/02/18 11:11 Dose: 40 mg Pramipexole Dihydrochloride (Mirapex -) 0.125 mg PO HS [facility] Last Admin: 06/02/18 22:57 Dose: 0.125 mg Tacrolimus (Prograf) 1.5 mg PO BID [facility] Last Admin: 06/02/18 22:02 Dose: 1.5 mg - Objective Vital Signs: Vital Signs Temperature 97.6 F 06/03/18 06:00 Pulse Rate 64 06/03/18 06:00 Respiratory Rate 18 06/03/18 06:00 Blood Pressure 124/67 06/03/18 06:00 O2 Sat by Pulse Oximetry (%) 98 06/02/18 20:44 Constitutional: Yes: Mild Distress Eyes: Yes: WNL HENT: Yes: WNL Neck: Yes: WNL Cardiovascular: Yes: Regular Rate and Rhythm Respiratory: Yes: On Nasal O2, Rhonchi Gastrointestinal: Yes: Soft Genitourinary: Yes: Other Musculoskeletal: Yes: WNL Extremities: Yes: WNL Edema: No Peripheral Pulses WNL: Yes Integumentary: Yes: WNL Wound/Incision: Yes: Clean/Dry Neurological: Yes: WNL ...Motor Strength: WNL Psychiatric: Yes: WNL Problem List - Problems (1) Abdominal pain Code(s): R10.9 - UNSPECIFIED ABDOMINAL PAIN (2) Chest pain Code(s): R07.9 - CHEST PAIN, UNSPECIFIED (3) Hyponatremia Code(s): E87.1 - HYPO-OSMOLALITY AND HYPONATREMIA (4) UTI (urinary tract infection) Code(s): N39.0 - URINARY TRACT INFECTION, SITE NOT SPECIFIED Qualifiers: (5) Acute kidney injury superimposed on CKD Code(s): N17.9 - ACUTE KIDNEY FAILURE, UNSPECIFIED; N18.9 - CHRONIC KIDNEY DISEASE, UNSPECIFIED (6) History of renal transplant Code(s): Z94.0 - KIDNEY TRANSPLANT STATUS Assessment/Plan IV ABX PER ID RENAL TX PATIENT WITH HYDRONEPHROSIS WILL CALL CONSULT NEPHROLOGY JERONIMO JOYA TO CHAIR ECHO CHECK CARDIAC STATUS CARDIOLOGY CONSULT
[2018-06-03 08:44] LABS: HEMATOCRIT 38.2 % (32.4-45.2); HEMOGLOBIN 12.8 GM/dL (10.7-15.3); MCH 28.4 pg (25.7-33.7); MCHC 33.4 g/dl (32.0-36.0); MEAN PLT VOLUME 8.4 fl (7.5-11.1); PLATELET COUNT 223 K/MM3 (134-434); RDW 14.3 % (11.6-15.6); WHITE BLOOD COUNT 5.1 K/mm3 (4.0-10.0)
[2018-06-03 09:07] LABS: ALBUMIN 3.1 g/dl (3.4-5.0); ALK PHOS 120 U/L (45-117); ANION GAP 7 MMOL/L (8-16); BILIRUBIN,TOTAL 0.5 mg/dL (0.2-1); BLOOD UREA NITROGEN 17 mg/dL (7-18); CALCIUM 9.2 mg/dL (8.5-10.1); CHLORIDE 99 mmol/L (98-107); CO2 28 mmol/L (21-32); CREATININE 0.9 mg/dL (0.55-1.3); GLUCOSE,RANDOM 99 mg/dL (74-106); POTASSIUM 4.7 mmol/L (3.5-5.1); SGOT/AST 24 U/L (15-37); SGPT/ALT 36 U/L (13-61); SODIUM 134 mmol/L (136-145); TOT PROT 6.3 g/dl (6.4-8.2)
[2018-06-03] MEDS ORDERED: PT OWN MED DRAWER 7, Y5N ONE (09:25)
[2018-06-03] MEDS: PANTOPRAZOLE 40 MG TABLET (FP) PO SCH (09:46)
[2018-06-03] MEDS: VITAMIN B COMPLEX W/C COMBO TABLET (FP) PO SCH (09:46)
[2018-06-03] MEDS: ERTAPENEM SODIUM 1 GM in SODIUM CHLORIDE 50 ML IVPB SCH (09:46)
[2018-06-03] MEDS: MYCOPHENOLATE MOFETIL 500 MG TABLET PO SCH ×2 (09:46→22:13)
[2018-06-03] MEDS: TACROLIMUS 0.5 MG CAPSULE PO SCH ×2 (09:47→22:14)
--- NOTE | 2018-06-03 10:46 | PN ---
Progress Note (short form) - Note Progress Note: still some dysuria 2 episodes of left sided chest pain yesterday, none today no fevers Vital Signs Period Temp Pulse Resp BP Sys/Contreras Pulse Ox Last 24 Hr 97.6 F-98.3 F 61-74 18-18 124-152/54-67 98 cor-rrr lngs decreased bs at bases abd soft,nt ext no edema CBC, BMP 06/03/18 08:10 06/03/18 08:10 Microbiology 05/29/18 23:54 Blood - Peripheral Venous Blood Culture - Preliminary NO GROWTH OBTAINED AFTER 96 HOURS, INCUBATION TO CONTINUE FOR 1 DAYS. 05/29/18 23:54 Blood - Peripheral Venous Blood Culture - Preliminary NO GROWTH OBTAINED AFTER 96 HOURS, INCUBATION TO CONTINUE FOR 1 DAYS. 05/29/18 20:41 Urine - Urine Clean Catch Urine Culture - Final Escherichia Coli Esbl Lithoplate Maker Current Medications Acetaminophen (Tylenol -) 650 mg PO Q6H PRN PRN Reason: FEVER Last Admin: 06/01/18 20:58 Dose: 650 mg Artificial Tears (Artificial Tears) 1 drop OU BID [facility] Last Admin: 06/02/18 22:00 Dose: 1 drop Ertapenem 1 gm/ Sodium (Chloride) 50 mls @ 100 mls/hr IVPB DAILY [facility] Last Admin: 06/03/18 09:46 Dose: 100 mls/hr Multivitamins (Total B With C -) 1 each PO DAILY [facility] Last Admin: 06/03/18 09:46 Dose: 1 each Mycophenolate Mofetil (Cellcept -) 500 mg PO BID [facility] Last Admin: 06/03/18 09:46 Dose: 500 mg Ondansetron HCl (Zofran Injection) 4 mg IVPUSH Q6H PRN PRN Reason: NAUSEA Last Admin: 05/31/18 17:16 Dose: 4 mg Pantoprazole Sodium (Protonix -) 40 mg PO DAILY [facility] Last Admin: 06/03/18 09:46 Dose: 40 mg Pramipexole Dihydrochloride (Mirapex -) 0.125 mg PO HS [facility] Last Admin: 06/02/18 22:57 Dose: 0.125 mg Tacrolimus (Prograf) 1.5 mg PO BID [facility] Last Admin: 06/03/18 09:47 Dose: 1.5 mg a/p UTI s/p renal transplant continue ertapenem day #3 renal f/u ongoing d/w hospitalist- recurrent UTI -urology opinion will need to f/u 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
--- NOTE | 2018-06-03 14:04 | PN ---
Progress Note, Physician Chief Complaint: The patient seen and examined in her room. still with some right sided suprapubic pain. Maintains good urine output. History of Present Illness: 68 year old woman with history of polycystic kidney and liver disease, ESRD s/p renal transplant in 2011 in [place] (now following at [facility] with Dr. Krause), Hypertension, Pancreatic cyst, [place] kidney nephrectomy in 2013 who presented with complaints of abdominal pain and dysuria and found to have cystitis with sepsis syndrome. - Current Medication List Current Medications: Active Medications Acetaminophen (Tylenol -) 650 mg PO Q6H PRN PRN Reason: FEVER Last Admin: 06/01/18 20:58 Dose: 650 mg Artificial Tears (Artificial Tears) 1 drop OU BID [facility] Last Admin: 06/02/18 22:00 Dose: 1 drop Ertapenem 1 gm/ Sodium (Chloride) 50 mls @ 100 mls/hr IVPB DAILY [facility] Last Admin: 06/03/18 09:46 Dose: 100 mls/hr Multivitamins (Total B With C -) 1 each PO DAILY [facility] Last Admin: 06/03/18 09:46 Dose: 1 each Mycophenolate Mofetil (Cellcept -) 500 mg PO BID [facility] Last Admin: 06/03/18 09:46 Dose: 500 mg Ondansetron HCl (Zofran Injection) 4 mg IVPUSH Q6H PRN PRN Reason: NAUSEA Last Admin: 05/31/18 17:16 Dose: 4 mg Pantoprazole Sodium (Protonix -) 40 mg PO DAILY [facility] Last Admin: 06/03/18 09:46 Dose: 40 mg Pramipexole Dihydrochloride (Mirapex -) 0.125 mg PO HS [facility] Last Admin: 06/02/18 22:57 Dose: 0.125 mg Tacrolimus (Prograf) 1.5 mg PO BID [facility] Last Admin: 06/03/18 09:47 Dose: 1.5 mg - Objective Vital Signs: Vital Signs Temperature 98.3 F 06/03/18 09:30 Pulse Rate 83 06/03/18 09:30 Respiratory Rate 18 06/03/18 09:30 Blood Pressure 120/54 L 06/03/18 09:30 O2 Sat by Pulse Oximetry (%) 98 06/03/18 09:00 Constitutional: Yes: Well Nourished, Anxious, Mild Distress Eyes: Yes: Conjunctiva Clear HENT: Yes: Normocephalic Neck: Yes: Trachea Midline Cardiovascular: Yes: Regular Rate and Rhythm, S1, S2 Respiratory: Yes: CTA Bilaterally, Diminished Gastrointestinal: Yes: Normal Bowel Sounds, Soft, Tenderness (suprapubic region) Genitourinary: No: Bladder Distention, CVA Tenderness - Left, CVA Tenderness - Right, Hematuria Edema: No Neurological: Yes: Alert, Oriented (Lithuanian speaking only) Labs: CBC, BMP 06/03/18 08:10 06/03/18 08:10 Problem List - Problems (1) Abdominal pain Code(s): R10.9 - UNSPECIFIED ABDOMINAL PAIN (2) Hyponatremia Code(s): E87.1 - HYPO-OSMOLALITY AND HYPONATREMIA (3) UTI (urinary tract infection) Code(s): N39.0 - URINARY TRACT INFECTION, SITE NOT SPECIFIED Qualifiers: (4) Acute kidney injury superimposed on CKD Code(s): N17.9 - ACUTE KIDNEY FAILURE, UNSPECIFIED; N18.9 - CHRONIC KIDNEY DISEASE, UNSPECIFIED (5) History of renal transplant Code(s): Z94.0 - KIDNEY TRANSPLANT STATUS (6) Polycystic kidney disease Code(s): Q61.3 - POLYCYSTIC KIDNEY, UNSPECIFIED (7) Sepsis Code(s): A41.9 - SEPSIS, UNSPECIFIED ORGANISM Qualifiers: Sepsis type: sepsis due to unspecified organism Qualified Code(s): A41.9 - Sepsis, unspecified organism Assessment/Plan 68 year old woman with history of polycystic kidney and liver disease, ESRD s/p renal transplant in 2011 in [place] (now follows at [facility] with Dr. Timmy Lieberman), Hypertension, Pancreatic cyst, [place] kidney nephrectomy in 2013 who presented with complaints of abd pain and dysuria and found to have cystitis with sepsis syndrome. #Cystitis/Sepsis syndrome r/o pylonephritis #Hyponatremia likely hypovolemic in setting of infection #ESRD s/p Renal Transplant #Hypertension. Will continue the IV antibotics as ordered. Renal functions stable. will continue the current Anti-rejection regimen. Will monitor the renal functions with you. Quiana Mendoza MD
--- NOTE | 2018-06-03 15:02 | PN ---
Progress Note, Physician Chief Complaint: No chest pain or sob History of Present Illness: 68 year old female with a PMH of HTN, DM, ESRD S/P reanl transplant in 2013. She presented on 05/29/18 with malaise and abdominal pain. A CT scan of the abdomen and pelvis happened to show a large pericardial effusion. She also complained of intermittent chest pain. Being treated for cystitis with sepsis syndrome - Current Medication List Current Medications: Active Medications Acetaminophen (Tylenol -) 650 mg PO Q6H PRN PRN Reason: FEVER Last Admin: 06/01/18 20:58 Dose: 650 mg Artificial Tears (Artificial Tears) 1 drop OU BID [facility] Last Admin: 06/02/18 22:00 Dose: 1 drop Ertapenem 1 gm/ Sodium (Chloride) 50 mls @ 100 mls/hr IVPB DAILY [facility] Last Admin: 06/03/18 09:46 Dose: 100 mls/hr Multivitamins (Total B With C -) 1 each PO DAILY [facility] Last Admin: 06/03/18 09:46 Dose: 1 each Mycophenolate Mofetil (Cellcept -) 500 mg PO BID [facility] Last Admin: 06/03/18 09:46 Dose: 500 mg Ondansetron HCl (Zofran Injection) 4 mg IVPUSH Q6H PRN PRN Reason: NAUSEA Last Admin: 05/31/18 17:16 Dose: 4 mg Pantoprazole Sodium (Protonix -) 40 mg PO DAILY [facility] Last Admin: 06/03/18 09:46 Dose: 40 mg Pramipexole Dihydrochloride (Mirapex -) 0.125 mg PO HS [facility] Last Admin: 06/02/18 22:57 Dose: 0.125 mg Tacrolimus (Prograf) 1.5 mg PO BID [facility] Last Admin: 06/03/18 09:47 Dose: 1.5 mg - Objective Vital Signs: Vital Signs Temperature 97.7 F 06/03/18 14:48 Pulse Rate 69 06/03/18 14:48 Respiratory Rate 20 06/03/18 14:48 Blood Pressure 127/71 06/03/18 14:48 O2 Sat by Pulse Oximetry (%) 98 06/03/18 09:00 Constitutional: Yes: No Distress Neck: Yes: Supple Cardiovascular: Yes: Regular Rate and Rhythm, Murmur (+3/6 HSM RUSB), S1, S2. No: JVD Respiratory: Yes: Diminished (R base) Gastrointestinal: Yes: Soft Edema: No Labs: CBC, BMP 06/03/18 08:10 06/03/18 08:10 Assessment/Plan 68 year old female with a PMH of HTN, DM, ESRD S/P reanl transplant in 2013. She presented on 05/29/18 with malaise and abdominal pain. A CT scan of the abdomen and pelvis happened to show a large pericardial effusion. She also complained of intermittent chest pain. Being treated for cystitis and sepsis syndrome Large Pericardial effusion Obtain an echocardiogram EKG reviewed - NSR with no acute changes, no evidence for pericarditis
[2018-06-03] MEDS: ACETAMINOPHEN 325 MG TABLET (FP) PO PRN (15:16)
[2018-06-03] MEDS: ARTIFICIAL TEARS (POLYVINYL ALCOHOL) OPTH DROPS OU SCH ×2 (18:21→22:13)
[2018-06-03] MEDS: PRAMIPEXOLE DIHYDROCHLORIDE 0.125 MG TABLET PO SCH (22:14)
--- NOTE | 2018-06-04 07:50 | CON.GU ---
Consult Consult Specialty:: urology Referred by:: odette Reason for Consultation:: uti - History of Present Illness Chief Complaint: uti History of Present Illness: Patient is s/p renal transplant 4 years ago and is currently followed by [facility]. She has had two uti's over the last month. Patient denies difficulty emptying her bladder and is currently without dysuria, frequency or urgency. - History Source History Provided By: Patient - Past Medical History Cardio/Vascular: Yes: HTN, Hyperlipdemia Gastrointestinal: Yes: Gastritis Renal/: Yes: Renal Failure (due to polycystic disease leading to nephrectomies and renal transplant in [place] in 2013) ...: No - Past Surgical History Past Surgical History: Yes: AV Fistula/Graft (RUE no longer active), Kidney Transplant (2013) - Alcohol/Substance Use Hx Alcohol Use: No History of Substance Use: reports: None - Smoking History Smoking history: Never smoked Have you smoked in the past 12 months: No If you are a former smoker, when did you quit?: when transplanted - Social History Usual Living Arrangement: Alone 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) Occupation: retired [employer] Home Medications - Allergies Allergies/Adverse Reactions: Allergies Allergy/AdvReac Type Severity Reaction Status Date / Time No Known Allergies Allergy Verified 05/10/18 19:03 - Home Medications Home Medications: Ambulatory Orders Baclofen 10 mg PO HS 05/10/18 Omeprazole 40 mg PO DAILY 05/10/18 Olopatadine HCl [Pataday] 1 drop OP BID 05/11/18 Pramipexole Dihydrochloride [Mirapex -] 0.125 mg PO HS 05/11/18 Tacrolimus 1.5 mg PO BID 05/11/18 Vit B Comp/C/Folic/Iron/Vit E [Vitamin B Complex Tablet] 1 each PO DAILY Mycophenolate Mofetil [Cellcept -] 500 mg PO BID capsule 05/16/18 Diclofenac Sodium 100 gm TP HS 05/29/18 Propylene Glycol/Peg 400 [Systane Ultra 0.4-0.3% Eye Drp] 10 ml OP BID 05/29/18 Family Disease History - Family Disease History Family Disease History: CA: Father ( of lung cancer), Mother ( of breast cancer), Brother ( of lung cancer) Physical Exam- Vital Signs: Vital Signs Temperature 98.7 F 06/04/18 05:00 Pulse Rate 68 06/04/18 05:00 Respiratory Rate 20 06/04/18 05:00 Blood Pressure 125/68 06/04/18 05:00 O2 Sat by Pulse Oximetry (%) 96 06/03/18 21:00 Constitutional: Yes: Well Nourished, No Distress, Calm Eyes: Yes: WNL, Conjunctiva Clear, EOM Intact HENT: Yes: WNL, Atraumatic, Normocephalic Neck: Yes: WNL, Supple, Trachea Midline Cardiovascular: Yes: WNL, Regular Rate and Rhythm Respiratory: Yes: WNL, Regular Gastrointestinal: Yes: Normal Bowel Sounds, Soft Renal/: Yes: WNL Kidneys: Yes: WNL Pelvis: Yes: Bladder Non Palpable External Genitalia: Yes: WNL Labs: CBC, BMP 06/03/18 08:10 06/03/18 08:10 Assessment/Plan imp recurrent uti s/p bilateral nephrectomies and renal transplan plan complete antiobiotic course will follow up as outpatient for uroflow analysis
--- NOTE | 2018-06-04 10:21 | PN ---
Progress Note, Physician Chief Complaint: The patient appears comfortable at the time of exam. She reports no recurrent chest pain, SOB at rest or palpitation. History of Present Illness: 68 year old woman with a PMHx of HTN, DM, ESRD, s/p reanl transplant in 2013 admitted on 05/29/18 with malaise and abdominal pain. A CT scan of the abdomen and pelvis happened to show a large pericardial effusion. She also complained of intermittent chest pain. Being treated for cystitis and sepsis syndrome. Hemodynamically stable. Echocardiogram pending EKG reviewed - NSR with no acute changes, no evidence for pericarditis - Current Medication List Current Medications: Active Medications Acetaminophen (Tylenol -) 650 mg PO Q6H PRN PRN Reason: FEVER Last Admin: 06/03/18 15:16 Dose: 650 mg Artificial Tears (Artificial Tears) 1 drop OU BID [facility] Last Admin: 06/03/18 22:13 Dose: 1 drop Ertapenem 1 gm/ Sodium (Chloride) 50 mls @ 100 mls/hr IVPB DAILY [facility] Last Admin: 06/03/18 09:46 Dose: 100 mls/hr Multivitamins (Total B With C -) 1 each PO DAILY [facility] Last Admin: 06/03/18 09:46 Dose: 1 each Mycophenolate Mofetil (Cellcept -) 500 mg PO BID [facility] Last Admin: 06/03/18 22:13 Dose: 500 mg Ondansetron HCl (Zofran Injection) 4 mg IVPUSH Q6H PRN PRN Reason: NAUSEA Last Admin: 05/31/18 17:16 Dose: 4 mg Pantoprazole Sodium (Protonix -) 40 mg PO DAILY [facility] Last Admin: 06/03/18 09:46 Dose: 40 mg Pramipexole Dihydrochloride (Mirapex -) 0.125 mg PO HS [facility] Last Admin: 06/03/18 22:14 Dose: 0.125 mg Tacrolimus (Prograf) 1.5 mg PO BID [facility] Last Admin: 06/03/18 22:14 Dose: 1.5 mg - Objective Vital Signs: Vital Signs Temperature 98.7 F 06/04/18 05:00 Pulse Rate 68 06/04/18 05:00 Respiratory Rate 20 06/04/18 05:00 Blood Pressure 125/68 06/04/18 05:00 O2 Sat by Pulse Oximetry (%) 96 06/03/18 21:00 General: Well developed. Well nourished. No acute distress. Head: Normocephalic. Atraumatic, Eyes: PERRLA, EOMI. Sclerae anicteric. Conjunctivae clear. Neck: Supple. +- JVD. No bruits. Heart: Normal S1, S2: Regular rhythm and rate. No murmur. No gallop or rub. Lungs: Symmetrical air entry. Clear to auscultation. No crackles. No wheezing or rhonchi. Abdomen: Soft. Bowel sound positive. Non tender. No masses. Extremities: No edema. No clubbing or cyanosis. PD 2+, equal bilaterally. Neuro: Intact, no focal findings. AAO X3. Labs: CBC, BMP 06/03/18 08:10 06/03/18 08:10 Assessment/Plan 68 year old woman with a PMHx of HTN, DM, ESRD, s/p reanl transplant in 2013 admitted on 05/29/18 with malaise and abdominal pain. A CT scan of the abdomen and pelvis happened to show a large pericardial effusion. She also complained of intermittent chest pain. Being treated for cystitis and sepsis syndrome. Hemodynamically stable. EKG reviewed - NSR with no acute changes, no evidence for pericarditis Echocardiogram pending for evaluation of the severity of pericardial effusion. We will follow with you.
[2018-06-04] MEDS ORDERED: PT OWN MED DRAWER 7, Y5N ONE (10:42)
[2018-06-04] MEDS: VITAMIN B COMPLEX W/C COMBO TABLET (FP) PO SCH (10:43)
[2018-06-04] MEDS: PANTOPRAZOLE 40 MG TABLET (FP) PO SCH (10:43)
[2018-06-04] MEDS: TACROLIMUS 0.5 MG CAPSULE PO SCH ×2 (10:44→22:14)
[2018-06-04] MEDS: ERTAPENEM SODIUM 1 GM in SODIUM CHLORIDE 50 ML IVPB SCH (10:49)
[2018-06-04] MEDS: MYCOPHENOLATE MOFETIL 500 MG TABLET PO SCH ×2 (10:49→22:14)
[2018-06-04] MEDS: ARTIFICIAL TEARS (POLYVINYL ALCOHOL) OPTH DROPS OU SCH ×2 (10:50→22:15)
--- NOTE | 2018-06-04 11:01 | PN ---
Progress Note, Physician Chief Complaint: The patient seen and examined in her room. Comfortable. Has some suprapubic discomfort, but much better compared to when she was admitted. Maintains good urine output. History of Present Illness: 68 year old female with history of Polycystic Kidney and Liver Disease, ESRD s/ p renal transplant in 2011 in [place] (now following at [facility] [place] with Dr. Krause), Hypertension, Pancreatic cyst, [place] kidney nephrectomy in 2013 who presented with complaints of abdominal pain and dysuria and found to have cystitis with sepsis syndrome. The patient had been strated on IV antibiotics, with marked improvement in symptoms. - Current Medication List Current Medications: Active Medications Acetaminophen (Tylenol -) 650 mg PO Q6H PRN PRN Reason: FEVER Last Admin: 06/03/18 15:16 Dose: 650 mg Artificial Tears (Artificial Tears) 1 drop OU BID [facility] Last Admin: 06/04/18 10:50 Dose: 1 drop Ertapenem 1 gm/ Sodium (Chloride) 50 mls @ 100 mls/hr IVPB DAILY [facility] Last Admin: 06/04/18 10:49 Dose: 100 mls/hr Multivitamins (Total B With C -) 1 each PO DAILY [facility] Last Admin: 06/04/18 10:43 Dose: 1 each Mycophenolate Mofetil (Cellcept -) 500 mg PO BID [facility] Last Admin: 06/04/18 10:49 Dose: 500 mg Ondansetron HCl (Zofran Injection) 4 mg IVPUSH Q6H PRN PRN Reason: NAUSEA Last Admin: 05/31/18 17:16 Dose: 4 mg Pantoprazole Sodium (Protonix -) 40 mg PO DAILY [facility] Last Admin: 06/04/18 10:43 Dose: 40 mg Pramipexole Dihydrochloride (Mirapex -) 0.125 mg PO HS [facility] Last Admin: 06/03/18 22:14 Dose: 0.125 mg Tacrolimus (Prograf) 1.5 mg PO BID [facility] Last Admin: 06/04/18 10:44 Dose: 1.5 mg - Objective Vital Signs: Vital Signs Temperature 98.7 F 06/04/18 05:00 Pulse Rate 68 06/04/18 05:00 Respiratory Rate 20 06/04/18 05:00 Blood Pressure 125/68 06/04/18 05:00 O2 Sat by Pulse Oximetry (%) 96 06/03/18 21:00 Constitutional: Yes: No Distress, Anxious Eyes: Yes: Conjunctiva Clear HENT: Yes: Atraumatic, Normocephalic Neck: Yes: Trachea Midline Cardiovascular: Yes: S1, S2 Respiratory: Yes: CTA Bilaterally Gastrointestinal: Yes: Normal Bowel Sounds, Soft Genitourinary: No: Bladder Distention, CVA Tenderness - Left, CVA Tenderness - Right Extremities: Yes: WNL Neurological: Yes: Alert, Oriented Labs: CBC, BMP 06/03/18 08:10 No labs seen from today. Problem List - Problems (1) Abdominal pain Code(s): R10.9 - UNSPECIFIED ABDOMINAL PAIN (2) Hyponatremia Code(s): E87.1 - HYPO-OSMOLALITY AND HYPONATREMIA (3) UTI (urinary tract infection) Code(s): N39.0 - URINARY TRACT INFECTION, SITE NOT SPECIFIED Qualifiers: (4) Acute kidney injury superimposed on CKD Code(s): N17.9 - ACUTE KIDNEY FAILURE, UNSPECIFIED; N18.9 - CHRONIC KIDNEY DISEASE, UNSPECIFIED (5) History of renal transplant Code(s): Z94.0 - KIDNEY TRANSPLANT STATUS (6) Polycystic kidney disease Code(s): Q61.3 - POLYCYSTIC KIDNEY, UNSPECIFIED (7) Sepsis Code(s): A41.9 - SEPSIS, UNSPECIFIED ORGANISM Qualifiers: Sepsis type: sepsis due to unspecified organism Qualified Code(s): A41.9 - Sepsis, unspecified organism Assessment/Plan 68 year old woman with history of polycystic kidney and liver disease, ESRD s/p renal transplant in 2011 in [place] (now follows at [facility] with Dr. Timmy Lieberman), Hypertension, Pancreatic cyst, [place] kidney nephrectomy in 2013 who presented with complaints of abd pain and dysuria and found to have cystitis with sepsis syndrome. #Cystitis/Sepsis syndrome r/o pylonephritis...On IV Abx. #Hyponatremia likely hypovolemic in setting of infection ...improving #ESRD s/p Renal Transplant #Hypertension. Will continue the IV antibotics as ordered. Renal functions stable. Will continue the current Anti-rejection regimen. Will monitor the renal functions with you. Quiana Mendoza MD
--- NOTE | 2018-06-04 15:15 | PN ---
Progress Note, Physician Chief Complaint: B/L nephrectomy with L renal transplant 2012 UTI History of Present Illness: Previous notes and events reviewed awake and alert NAD denies chest pain, SOB - Current Medication List Current Medications: Active Medications Acetaminophen (Tylenol -) 650 mg PO Q6H PRN PRN Reason: FEVER Last Admin: 06/03/18 15:16 Dose: 650 mg Artificial Tears (Artificial Tears) 1 drop OU BID [facility] Last Admin: 06/04/18 10:50 Dose: 1 drop Ertapenem 1 gm/ Sodium (Chloride) 50 mls @ 100 mls/hr IVPB DAILY [facility] Last Admin: 06/04/18 10:49 Dose: 100 mls/hr Multivitamins (Total B With C -) 1 each PO DAILY [facility] Last Admin: 06/04/18 10:43 Dose: 1 each Mycophenolate Mofetil (Cellcept -) 500 mg PO BID [facility] Last Admin: 06/04/18 10:49 Dose: 500 mg Ondansetron HCl (Zofran Injection) 4 mg IVPUSH Q6H PRN PRN Reason: NAUSEA Last Admin: 05/31/18 17:16 Dose: 4 mg Pantoprazole Sodium (Protonix -) 40 mg PO DAILY [facility] Last Admin: 06/04/18 10:43 Dose: 40 mg Pramipexole Dihydrochloride (Mirapex -) 0.125 mg PO HS [facility] Last Admin: 06/03/18 22:14 Dose: 0.125 mg Tacrolimus (Prograf) 1.5 mg PO BID [facility] Last Admin: 06/04/18 10:44 Dose: 1.5 mg - Objective Vital Signs: Vital Signs Temperature 98.2 F 06/04/18 14:00 Pulse Rate 80 06/04/18 14:00 Respiratory Rate 20 06/04/18 14:00 Blood Pressure 140/77 06/04/18 14:00 O2 Sat by Pulse Oximetry (%) 96 06/03/18 21:00 Constitutional: Yes: No Distress, Calm Eyes: Yes: Conjunctiva Clear HENT: Yes: Normocephalic Neck: Yes: Supple Cardiovascular: Yes: Regular Rate and Rhythm Respiratory: Yes: Regular, CTA Bilaterally Gastrointestinal: Yes: Normal Bowel Sounds, Soft, Tenderness (LLQ) Musculoskeletal: Yes: Muscle Weakness Neurological: Yes: Alert, Pre-Existing Deficit Psychiatric: Yes: Alert Labs: CBC, BMP 06/03/18 08:10 06/03/18 08:10 Microbiology 05/29/18 23:54 Blood - Peripheral Venous Blood Culture - Final NO GROWTH AFTER 5 DAYS INCUBATION 05/29/18 23:54 Blood - Peripheral Venous Blood Culture - Final NO GROWTH AFTER 5 DAYS INCUBATION Problem List - Problems (1) Hyponatremia Assessment/Plan: -Na level 134 -will continue to trend Na level -renal on board Code(s): E87.1 - HYPO-OSMOLALITY AND HYPONATREMIA (2) UTI (urinary tract infection) Assessment/Plan: -ID on board -continue ertapenem -wbc nl -afebrile -UC with E.Coli and ESBL--continue contact precaution -tylenol PRN for temp >100F -urology on board due to recurrent uti -will f/u with urology as outpatient for uroflow Code(s): N39.0 - URINARY TRACT INFECTION, SITE NOT SPECIFIED Qualifiers: (3) History of renal transplant Assessment/Plan: -renal consult pending -BUN/Cr 17/0.9 -1L fluid restriction -cont tacrolimus and cellcept -avoid nephrotoxic drugs -renal US reviewed and shows L pelvic renal transplant measuring 12.9cm without gross evidence of hydronephrosis or renal stones -abd/pelvic CT scan show left renal haziness adjacent fat, otherwise neg Code(s): Z94.0 - KIDNEY TRANSPLANT STATUS (4) Polycystic liver disease, congenital Assessment/Plan: -US show multiple hepatic cysts with the largest simple cyst measuring 7.7 x 6.7cm -patient instructed to follow up as an outpatient and will repeat abdominal US Code(s): Q44.6 - CYSTIC DISEASE OF LIVER (5) Pericardial effusion Assessment/Plan: -cardiology on board -Abd/Pelvic CT scan from 05/30/18 show large pericardial effusion -pending echocardiogram Code(s): I31.3 - PERICARDIAL EFFUSION (NONINFLAMMATORY) (6) Sepsis Code(s): A41.9 - SEPSIS, UNSPECIFIED ORGANISM Qualifiers: Sepsis type: sepsis due to unspecified organism Qualified Code(s): A41.9 - Sepsis, unspecified organism
[2018-06-04] MEDS: PRAMIPEXOLE DIHYDROCHLORIDE 0.125 MG TABLET PO SCH (22:14)
[2018-06-05 08:41] LABS: HEMATOCRIT 41.1 % (32.4-45.2); MCH 29.2 pg (25.7-33.7); MEAN CELL VOLUME 85.8 fl (80-96); PLATELET COUNT 291 K/MM3 (134-434); RBC 4.79 M/mm3 (3.60-5.2); RDW 14.4 % (11.6-15.6); WHITE BLOOD COUNT 8.1 K/mm3 (4.0-10.0)
[2018-06-05 09:10] LABS: ALBUMIN 3.6 g/dl (3.4-5.0); ALK PHOS 131 U/L (45-117); ANION GAP 6 MMOL/L (8-16); BILIRUBIN,TOTAL 0.3 mg/dL (0.2-1); BLOOD UREA NITROGEN 17 mg/dL (7-18); CALCIUM 9.5 mg/dL (8.5-10.1); CHLORIDE 100 mmol/L (98-107); CO2 29 mmol/L (21-32); CREATININE 0.9 mg/dL (0.55-1.3); GLUCOSE,RANDOM 126 mg/dL (74-106); POTASSIUM 4.6 mmol/L (3.5-5.1); SGOT/AST 19 U/L (15-37); SGPT/ALT 32 U/L (13-61); SODIUM 135 mmol/L (136-145)
[2018-06-05] MEDS: VITAMIN B COMPLEX W/C COMBO TABLET (FP) PO SCH (09:18)
[2018-06-05] MEDS: ARTIFICIAL TEARS (POLYVINYL ALCOHOL) OPTH DROPS OU SCH ×2 (09:19→23:01)
[2018-06-05] MEDS: TACROLIMUS 0.5 MG CAPSULE PO SCH ×2 (09:19→23:01)
[2018-06-05] MEDS: MYCOPHENOLATE MOFETIL 500 MG TABLET PO SCH ×2 (09:19→23:01)
[2018-06-05] MEDS: ERTAPENEM SODIUM 1 GM in SODIUM CHLORIDE 50 ML IVPB SCH (10:01)
[2018-06-05] MEDS: PANTOPRAZOLE 40 MG TABLET (FP) PO SCH (10:09)
--- NOTE | 2018-06-05 11:36 | PN ---
Progress Note, Physician - Current Medication List Current Medications: Active Medications Acetaminophen (Tylenol -) 650 mg PO Q6H PRN PRN Reason: FEVER Last Admin: 06/03/18 15:16 Dose: 650 mg Artificial Tears (Artificial Tears) 1 drop OU BID [facility] Last Admin: 06/05/18 09:19 Dose: 1 drop Ertapenem 1 gm/ Sodium (Chloride) 50 mls @ 100 mls/hr IVPB DAILY [facility] Last Admin: 06/05/18 10:01 Dose: 100 mls/hr Multivitamins (Total B With C -) 1 each PO DAILY [facility] Last Admin: 06/05/18 09:18 Dose: 1 each Mycophenolate Mofetil (Cellcept -) 500 mg PO BID [facility] Last Admin: 06/05/18 09:19 Dose: 500 mg Ondansetron HCl (Zofran Injection) 4 mg IVPUSH Q6H PRN PRN Reason: NAUSEA Last Admin: 05/31/18 17:16 Dose: 4 mg Pantoprazole Sodium (Protonix -) 40 mg PO DAILY [facility] Last Admin: 06/05/18 10:09 Dose: 40 mg Pramipexole Dihydrochloride (Mirapex -) 0.125 mg PO HS [facility] Last Admin: 06/04/18 22:14 Dose: 0.125 mg Tacrolimus (Prograf) 1.5 mg PO BID [facility] Last Admin: 06/05/18 09:19 Dose: 1.5 mg - Objective Vital Signs: Vital Signs Temperature 98.2 F 06/05/18 09:00 Pulse Rate 85 06/05/18 09:00 Respiratory Rate 20 06/05/18 09:00 Blood Pressure 119/72 06/05/18 09:00 O2 Sat by Pulse Oximetry (%) 98 06/05/18 09:00 Labs: CBC, BMP 06/05/18 08:00 06/05/18 08:15 Assessment/Plan Problems (1) Hyponatremia Assessment/Plan: -Na level 134 -will continue to trend Na level -renal on board Code(s): E87.1 - HYPO-OSMOLALITY AND HYPONATREMIA (2) UTI (urinary tract infection) Assessment/Plan: -ID on board -continue ertapenem -wbc nl -afebrile -UC with E.Coli and ESBL--continue contact precaution -tylenol PRN for temp >100F -urology on board due to recurrent uti -will f/u with urology as outpatient for uroflow Code(s): N39.0 - URINARY TRACT INFECTION, SITE NOT SPECIFIED Qualifiers: (3) History of renal transplant Assessment/Plan: -renal consult pending -BUN/Cr 17/0.9 -1L fluid restriction -cont tacrolimus and cellcept -avoid nephrotoxic drugs -renal US reviewed and shows L pelvic renal transplant measuring 12.9cm without gross evidence of hydronephrosis or renal stones -abd/pelvic CT scan show left renal haziness adjacent fat, otherwise neg Code(s): Z94.0 - KIDNEY TRANSPLANT STATUS (4) Polycystic liver disease, congenital Assessment/Plan: -US show multiple hepatic cysts with the largest simple cyst measuring 7.7 x 6.7cm -patient instructed to follow up as an outpatient and will repeat abdominal US Code(s): Q44.6 - CYSTIC DISEASE OF LIVER (5) Pericardial effusion Assessment/Plan: -cardiology on board -Abd/Pelvic CT scan from 05/30/18 show large pericardial effusion -pending echocardiogram Code(s): I31.3 - PERICARDIAL EFFUSION (NONINFLAMMATORY)
[2018-06-05 14:47] LABS: ANISOCYTOSIS 1+; MACROCYTOSIS 0; PLATELET ESTIMATE NORMAL
--- NOTE | 2018-06-05 15:04 | PN ---
Progress Note, Physician Chief Complaint: No new complaints No chest pain Breathing improving History of Present Illness: 68 year old female with a PMH of HTN, DM, ESRD S/P reanl transplant in 2013. She presented on 05/29/18 with malaise and abdominal pain. A CT scan of the abdomen and pelvis happened to show a large pericardial effusion. She also complained of intermittent chest pain. Being treated for cystitis with sepsis syndrome - Current Medication List Current Medications: Active Medications Acetaminophen (Tylenol -) 650 mg PO Q6H PRN PRN Reason: FEVER Last Admin: 06/03/18 15:16 Dose: 650 mg Artificial Tears (Artificial Tears) 1 drop OU BID [facility] Last Admin: 06/05/18 09:19 Dose: 1 drop Ertapenem 1 gm/ Sodium (Chloride) 50 mls @ 100 mls/hr IVPB DAILY [facility] Last Admin: 06/05/18 10:01 Dose: 100 mls/hr Multivitamins (Total B With C -) 1 each PO DAILY [facility] Last Admin: 06/05/18 09:18 Dose: 1 each Mycophenolate Mofetil (Cellcept -) 500 mg PO BID [facility] Last Admin: 06/05/18 09:19 Dose: 500 mg Ondansetron HCl (Zofran Injection) 4 mg IVPUSH Q6H PRN PRN Reason: NAUSEA Last Admin: 05/31/18 17:16 Dose: 4 mg Pantoprazole Sodium (Protonix -) 40 mg PO DAILY [facility] Last Admin: 06/05/18 10:09 Dose: 40 mg Pramipexole Dihydrochloride (Mirapex -) 0.125 mg PO HS [facility] Last Admin: 06/04/18 22:14 Dose: 0.125 mg Tacrolimus (Prograf) 1.5 mg PO BID [facility] Last Admin: 06/05/18 09:19 Dose: 1.5 mg - Objective Vital Signs: Vital Signs Temperature 97.3 F L 06/05/18 13:57 Pulse Rate 78 06/05/18 13:57 Respiratory Rate 20 06/05/18 13:57 Blood Pressure 114/66 06/05/18 13:57 O2 Sat by Pulse Oximetry (%) 98 06/05/18 09:00 Constitutional: Yes: No Distress Neck: Yes: Supple Cardiovascular: Yes: Regular Rate and Rhythm, Murmur (+2/6 HSM RUSB), S1, S2. No: JVD Respiratory: Yes: CTA Bilaterally Gastrointestinal: Yes: Soft Edema: No Labs: CBC, BMP 06/05/18 08:00 06/05/18 08:15 Problem List - Problems (1) Pericardial effusion Code(s): I31.3 - PERICARDIAL EFFUSION (NONINFLAMMATORY) Assessment/Plan 68 year old female with a PMH of HTN, DM, ESRD S/P reanl transplant in 2013. She presented on 05/29/18 with malaise and abdominal pain. A CT scan of the abdomen and pelvis happened to show a large pericardial effusion. Being treated for cystitis and sepsis syndrome Large Pericardial effusion Obtain an echocardiogram EKG reviewed - NSR with no acute changes, no evidence for pericarditis
--- NOTE | 2018-06-05 16:20 | PN ---
Progress Note, Physician Chief Complaint: The patient seen and examined in her room.Comfortable. Maintains good urine output. History of Present Illness: 68 year old female with history of Polycystic Kidney and Liver Disease, ESRD s/ p renal transplant in 2011 in [place] (now following at [facility] with Dr. Krause), Hypertension, Pancreatic cyst, [place] kidney nephrectomy in 2013 who presented with complaints of abdominal pain and dysuria and found to have cystitis with sepsis syndrome. The patient had been started on IV antibiotics, with marked improvement in symptoms. - Current Medication List Current Medications: Active Medications Acetaminophen (Tylenol -) 650 mg PO Q6H PRN PRN Reason: FEVER Last Admin: 06/03/18 15:16 Dose: 650 mg Artificial Tears (Artificial Tears) 1 drop OU BID [facility] Last Admin: 06/05/18 09:19 Dose: 1 drop Ertapenem 1 gm/ Sodium (Chloride) 50 mls @ 100 mls/hr IVPB DAILY [facility] Last Admin: 06/05/18 10:01 Dose: 100 mls/hr Multivitamins (Total B With C -) 1 each PO DAILY [facility] Last Admin: 06/05/18 09:18 Dose: 1 each Mycophenolate Mofetil (Cellcept -) 500 mg PO BID [facility] Last Admin: 06/05/18 09:19 Dose: 500 mg Ondansetron HCl (Zofran Injection) 4 mg IVPUSH Q6H PRN PRN Reason: NAUSEA Last Admin: 05/31/18 17:16 Dose: 4 mg Pantoprazole Sodium (Protonix -) 40 mg PO DAILY [facility] Last Admin: 06/05/18 10:09 Dose: 40 mg Pramipexole Dihydrochloride (Mirapex -) 0.125 mg PO HS [facility] Last Admin: 06/04/18 22:14 Dose: 0.125 mg Tacrolimus (Prograf) 1.5 mg PO BID [facility] Last Admin: 06/05/18 09:19 Dose: 1.5 mg - Objective Vital Signs: Vital Signs Temperature 97.3 F L 06/05/18 13:57 Pulse Rate 78 06/05/18 13:57 Respiratory Rate 20 06/05/18 13:57 Blood Pressure 114/66 06/05/18 13:57 O2 Sat by Pulse Oximetry (%) 98 06/05/18 09:00 Constitutional: Yes: No Distress Eyes: Yes: WNL HENT: Yes: Atraumatic Neck: Yes: Trachea Midline Cardiovascular: Yes: Regular Rate and Rhythm, S1, S2 Respiratory: Yes: Regular Gastrointestinal: Yes: Normal Bowel Sounds, Soft Genitourinary: Yes: Other (Nontender). No: Bladder Distention, CVA Tenderness - Left, CVA Tenderness - Right, Hematuria Labs: CBC, BMP 06/05/18 08:00 06/05/18 08:15 Problem List - Problems (1) Abdominal pain Code(s): R10.9 - UNSPECIFIED ABDOMINAL PAIN (2) Hyponatremia Code(s): E87.1 - HYPO-OSMOLALITY AND HYPONATREMIA (3) UTI (urinary tract infection) Code(s): N39.0 - URINARY TRACT INFECTION, SITE NOT SPECIFIED Qualifiers: (4) Acute kidney injury superimposed on CKD Code(s): N17.9 - ACUTE KIDNEY FAILURE, UNSPECIFIED; N18.9 - CHRONIC KIDNEY DISEASE, UNSPECIFIED (5) History of renal transplant Code(s): Z94.0 - KIDNEY TRANSPLANT STATUS (6) Polycystic kidney disease Code(s): Q61.3 - POLYCYSTIC KIDNEY, UNSPECIFIED (7) Sepsis Code(s): A41.9 - SEPSIS, UNSPECIFIED ORGANISM Qualifiers: Sepsis type: sepsis due to unspecified organism Qualified Code(s): A41.9 - Sepsis, unspecified organism Assessment/Plan 68 year old woman with history of polycystic kidney and liver disease, ESRD s/p renal transplant in 2011 in [place] (now follows at [facility] with Dr. Timmy Lieberman), Hypertension, Pancreatic cyst, [place] kidney nephrectomy in 2013 who presented with complaints of abd pain and dysuria and found to have cystitis with sepsis syndrome. #Cystitis/Sepsis syndrome r/o pylonephritis...On IV Abx. #Hyponatremia likely hypovolemic in setting of infection ...improving. Today 135 mEq/L #ESRD s/p Renal Transplant #Hypertension. Will continue the IV antibotics as ordered. Renal functions stable. Will continue the current Anti-rejection regimen. Quiana Mendoza MD
[2018-06-05] MEDS ORDERED: traMADol HCL 50 MG TABLET PO ONE (22:22)
--- NOTE | 2018-06-05 22:55 | ECHO ---
Version: 1 Name: MIRIAN WASHINGTON Exam: Adult Echocardiogram Study Date: 06/05/2018, 10:47 AM Age: 68 Years MMode/2D Measurements & Calculations IVSd: 1.31 cm LVIDs: 2.49 cm LVIDd: 3.7 cm LVPWd: 0.91 cm LVOT diam: 2.40 cm Ao root diam: 3.1 cm LA dimension: 3.3 cm Doppler Measurements & Calculations MV E max sanford: 53.8 cm/sec Med E/e': 8.9 MV A max sanford: 66.1 cm/sec Med Peak E' [place]: 6.0 cm/sec MV E/A: 0.81 Lat E/e': 12.6 Lat Peak E' [place]: 4.3 cm/sec Ao max P.3 mmHg Ao V2 max: 135.0 cm/sec TR max sanford: 169.0 cm/sec TR max P.4 mmHg Left Ventricle There is moderate concentric left ventricular hypertrophy. Left ventricular systolic function is nor mal. Ejection Fraction = 60%. E/A reversal consistent with but not diagnostic of poor LV compliance. The left ventricular wall motion is normal. Right Ventricle The right ventricular systolic function is grossly normal. Atria Normal left and right atrial size and function. Mitral Valve There is trivial mitral valve thickening. There is trace to mild mitral regurgitation. Tricuspid Valve There is mild tricuspid regurgitation. Right ventricular systolic pressure is normal. Aortic Valve There is mild to moderate aortic valve thickening. Pulmonic Valve Trace pulmonic valvular regurgitation. Great Vessels The aortic root is normal size. Pericardium/Pleura Small to moderate pericardial effusion (1 cm) without evidence of cardiac tamponade. Summary Statements There is moderate concentric left ventricular hypertrophy. Left ventricular systolic function is normal. Ejection Fraction = 60%. E/A reversal consistent with but not diagnostic of poor LV compliance The left ventricular wall motion is normal. The right ventricular systolic function is grossly normal. Normal left and right atrial size and function. There is trivial mitral valve thickening. There is trace to mild mitral regurgitation. There is mild tricuspid regurgitation. Right ventricular systolic pressure is normal. There is mild to moderate aortic valve thickening. Trace pulmonic valvular regurgitation. The aortic root is normal size. Small to moderate pericardial effusion (1 cm) without evidence of cardiac tamponade. David Leos MD 06/05/2018, 10:54 PM Ordering Physician: LAUREN LAGOS Referring Physician: JESUS CONTI Performed By: BRIANDA
[2018-06-05] MEDS: PRAMIPEXOLE DIHYDROCHLORIDE 0.125 MG TABLET PO SCH (23:01)
[2018-06-06] MEDS ORDERED: PT OWN MED DRAWER 7, Y5N ONE ×2 (10:20→10:54)
[2018-06-06] MEDS: VITAMIN B COMPLEX W/C COMBO TABLET (FP) PO SCH (10:22)
[2018-06-06] MEDS: PANTOPRAZOLE 40 MG TABLET (FP) PO SCH (10:22)
[2018-06-06] MEDS: MYCOPHENOLATE MOFETIL 500 MG TABLET PO SCH ×2 (10:24→22:08)
[2018-06-06] MEDS: TACROLIMUS 0.5 MG CAPSULE PO SCH ×2 (10:26→22:08)
[2018-06-06] MEDS: ERTAPENEM SODIUM 1 GM in SODIUM CHLORIDE 50 ML IVPB SCH ×2 (10:27→11:15)
[2018-06-06] MEDS: ARTIFICIAL TEARS (POLYVINYL ALCOHOL) OPTH DROPS OU SCH ×2 (10:29→22:09)
--- NOTE | 2018-06-06 10:42 | PN ---
Progress Note, Physician Chief Complaint: B/L nephrectomy with L renal transplant 2012 UTI History of Present Illness: Previous notes and events reviewed awake and alert NAD denies chest pain, SOB complain of lower abdominal pain during the night at 8pm, currently denies pain on exam - Current Medication List Current Medications: Active Medications Acetaminophen (Tylenol -) 650 mg PO Q6H PRN PRN Reason: FEVER Last Admin: 06/03/18 15:16 Dose: 650 mg Artificial Tears (Artificial Tears) 1 drop OU BID [facility] Last Admin: 06/06/18 10:29 Dose: 1 drop Ertapenem 1 gm/ Sodium (Chloride) 50 mls @ 100 mls/hr IVPB DAILY [facility] Last Admin: 06/06/18 10:27 Dose: 100 mls/hr Multivitamins (Total B With C -) 1 each PO DAILY [facility] Last Admin: 06/06/18 10:22 Dose: 1 each Mycophenolate Mofetil (Cellcept -) 500 mg PO BID [facility] Last Admin: 06/06/18 10:24 Dose: 500 mg Ondansetron HCl (Zofran Injection) 4 mg IVPUSH Q6H PRN PRN Reason: NAUSEA Last Admin: 05/31/18 17:16 Dose: 4 mg Pantoprazole Sodium (Protonix -) 40 mg PO DAILY [facility] Last Admin: 06/06/18 10:22 Dose: 40 mg Pramipexole Dihydrochloride (Mirapex -) 0.125 mg PO HS [facility] Last Admin: 06/05/18 23:01 Dose: 0.125 mg Tacrolimus (Prograf) 1.5 mg PO BID [facility] Last Admin: 06/06/18 10:26 Dose: 1.5 mg - Objective Vital Signs: Vital Signs Temperature 98.6 F 06/06/18 08:14 Pulse Rate 82 06/06/18 08:14 Respiratory Rate 06/06/18 08:14 Blood Pressure 137/67 06/06/18 08:14 O2 Sat by Pulse Oximetry (%) 98 06/06/18 09:04 Constitutional: Yes: No Distress, Calm Eyes: Yes: Conjunctiva Clear HENT: Yes: Normocephalic Cardiovascular: Yes: Regular Rate and Rhythm Respiratory: Yes: Regular, CTA Bilaterally Gastrointestinal: Yes: Normal Bowel Sounds, Soft, Tenderness (lower abdomen) Musculoskeletal: Yes: Muscle Weakness Extremities: Yes: WNL Edema: No Neurological: Yes: Alert, Pre-Existing Deficit Psychiatric: Yes: Alert Labs: CBC, BMP 06/05/18 08:00 06/05/18 08:15 Microbiology 05/29/18 23:54 Blood - Peripheral Venous Blood Culture - Final NO GROWTH AFTER 5 DAYS INCUBATION 05/29/18 23:54 Blood - Peripheral Venous Blood Culture - Final NO GROWTH AFTER 5 DAYS INCUBATION 05/29/18 20:41 Urine - Urine Clean Catch Urine Culture - Final Escherichia Coli Esbl Fur Comber <Yari Bowers - Last Filed: 06/06/18 10:38> - Current Medication List Current Medications: Active Medications Acetaminophen (Tylenol -) 650 mg PO Q6H PRN PRN Reason: FEVER Last Admin: 06/03/18 15:16 Dose: 650 mg Acetaminophen (Tylenol -) 650 mg PO Q6H PRN PRN Reason: PAIN LEVEL 1-5 Artificial Tears (Artificial Tears) 1 drop OU BID [facility] Last Admin: 06/06/18 10:29 Dose: 1 drop Ertapenem 1 gm/ Sodium (Chloride) 50 mls @ 100 mls/hr IVPB DAILY [facility] Last Admin: 06/06/18 11:15 Dose: Not Given Multivitamins (Total B With C -) 1 each PO DAILY [facility] Last Admin: 06/06/18 10:22 Dose: 1 each Mycophenolate Mofetil (Cellcept -) 500 mg PO BID [facility] Last Admin: 06/06/18 10:24 Dose: 500 mg Ondansetron HCl (Zofran Injection) 4 mg IVPUSH Q6H PRN PRN Reason: NAUSEA Last Admin: 05/31/18 17:16 Dose: 4 mg Pantoprazole Sodium (Protonix -) 40 mg PO DAILY [facility] Last Admin: 06/06/18 10:22 Dose: 40 mg Pramipexole Dihydrochloride (Mirapex -) 0.125 mg PO HS [facility] Last Admin: 06/05/18 23:01 Dose: 0.125 mg Tacrolimus (Prograf) 1.5 mg PO BID [facility] Last Admin: 06/06/18 10:26 Dose: 1.5 mg - Objective Vital Signs: Vital Signs Temperature 97.9 F 06/06/18 18:00 Pulse Rate 73 06/06/18 18:00 Respiratory Rate 20 02/21/19 20:27 Blood Pressure 148/85 02/21/19 18:00 O2 Sat by Pulse Oximetry (%) 96 06/06/18 20:27 Labs: CBC, BMP 06/05/18 08:00 06/05/18 08:15 <Cyndie Santos - Last Filed: 06/06/18 20:55> Problem List - Problems (1) Hyponatremia Assessment/Plan: -Na level 135 -will continue to trend Na level -renal on board Code(s): E87.1 - HYPO-OSMOLALITY AND HYPONATREMIA (2) UTI (urinary tract infection) Assessment/Plan: -ID on board -continue ertapenem -wbc 8.1 -afebrile -UC with E.Coli and ESBL--continue contact precaution -tylenol PRN for temp >100F -urology on board due to recurrent uti -will f/u with urology as outpatient for uroflow Code(s): N39.0 - URINARY TRACT INFECTION, SITE NOT SPECIFIED (3) History of renal transplant Assessment/Plan: -renal consult pending -BUN/Cr 17/0.9 -1L fluid restriction -cont tacrolimus and cellcept -avoid nephrotoxic drugs -renal US reviewed and shows L pelvic renal transplant measuring 12.9cm without gross evidence of hydronephrosis or renal stones -abd/pelvic CT scan show left renal haziness adjacent fat, otherwise neg Code(s): Z94.0 - KIDNEY TRANSPLANT STATUS (4) Polycystic liver disease, congenital Assessment/Plan: -US show multiple hepatic cysts with the largest simple cyst measuring 7.7 x 6.7cm -patient instructed to follow up as an outpatient and will repeat abdominal US Code(s): Q44.6 - CYSTIC DISEASE OF LIVER (5) Pericardial effusion Assessment/Plan: -cardiology on board -Abd/Pelvic CT scan from 05/30/18 show large pericardial effusion -Echocardiogram performed --EF 60%, small to moderate pericardial effusion 1cm without evidence of cardiac tamponade Code(s): I31.3 - PERICARDIAL EFFUSION (NONINFLAMMATORY) <Yari Bowers - Last Filed: 06/06/18 10:38> - Problems (1) Abdominal pain Code(s): R10.9 - UNSPECIFIED ABDOMINAL PAIN (2) Chest pain Code(s): R07.9 - CHEST PAIN, UNSPECIFIED (3) Hyponatremia Code(s): E87.1 - HYPO-OSMOLALITY AND HYPONATREMIA (4) UTI (urinary tract infection) Code(s): N39.0 - URINARY TRACT INFECTION, SITE NOT SPECIFIED Qualifiers: (5) Acute kidney injury superimposed on CKD Code(s): N17.9 - ACUTE KIDNEY FAILURE, UNSPECIFIED; N18.9 - CHRONIC KIDNEY DISEASE, UNSPECIFIED (6) History of renal transplant Code(s): Z94.0 - KIDNEY TRANSPLANT STATUS <Cyndie Santos - Last Filed: 06/06/18 20:55> Assessment/Plan see problem list dvt ppx <Yari Bowers - Last Filed: 06/06/18 10:38>
--- NOTE | 2018-06-06 10:47 | PN ---
Progress Note, Physician Chief Complaint: The patient seen and examined in her room.Comfortable. Maintains good urine output History of Present Illness: 68 year old female with history of Polycystic Kidney and Liver Disease, ESRD s/ p renal transplant in 2011 in [place] (now following at [facility] with Dr. Krause), Hypertension, Pancreatic cyst, [place] kidney nephrectomy in 2013 who presented with complaints of abdominal pain and dysuria and found to have cystitis with sepsis syndrome. The patient had been started on IV antibiotics, with marked improvement in symptoms. - Current Medication List Current Medications: Active Medications Acetaminophen (Tylenol -) 650 mg PO Q6H PRN PRN Reason: FEVER Last Admin: 06/03/18 15:16 Dose: 650 mg Acetaminophen (Tylenol -) 650 mg PO Q6H PRN PRN Reason: PAIN LEVEL 1-5 Artificial Tears (Artificial Tears) 1 drop OU BID [facility] Last Admin: 06/06/18 10:29 Dose: 1 drop Ertapenem 1 gm/ Sodium (Chloride) 50 mls @ 100 mls/hr IVPB DAILY [facility] Last Admin: 06/06/18 10:27 Dose: 100 mls/hr Multivitamins (Total B With C -) 1 each PO DAILY [facility] Last Admin: 06/06/18 10:22 Dose: 1 each Mycophenolate Mofetil (Cellcept -) 500 mg PO BID [facility] Last Admin: 06/06/18 10:24 Dose: 500 mg Ondansetron HCl (Zofran Injection) 4 mg IVPUSH Q6H PRN PRN Reason: NAUSEA Last Admin: 05/31/18 17:16 Dose: 4 mg Pantoprazole Sodium (Protonix -) 40 mg PO DAILY [facility] Last Admin: 06/06/18 10:22 Dose: 40 mg Pramipexole Dihydrochloride (Mirapex -) 0.125 mg PO HS [facility] Last Admin: 06/05/18 23:01 Dose: 0.125 mg Tacrolimus (Prograf) 1.5 mg PO BID [facility] Last Admin: 06/06/18 10:26 Dose: 1.5 mg - Objective Vital Signs: Vital Signs Temperature 98.6 F 06/06/18 08:14 Pulse Rate 82 06/06/18 08:14 Respiratory Rate 19 06/06/18 08:14 Blood Pressure 137/67 06/06/18 08:14 O2 Sat by Pulse Oximetry (%) 98 06/06/18 09:04 Constitutional: Yes: No Distress Eyes: Yes: Conjunctiva Clear HENT: Yes: Normocephalic Neck: Yes: Trachea Midline Cardiovascular: Yes: S1, S2 Respiratory: Yes: CTA Bilaterally, Diminished Gastrointestinal: Yes: Normal Bowel Sounds, Soft Genitourinary: No: Bladder Distention, CVA Tenderness - Left, CVA Tenderness - Right, Hematuria Labs: CBC, BMP 06/05/18 08:00 06/05/18 08:15 Problem List - Problems (1) Abdominal pain Code(s): R10.9 - UNSPECIFIED ABDOMINAL PAIN (2) Hyponatremia Code(s): E87.1 - HYPO-OSMOLALITY AND HYPONATREMIA (3) UTI (urinary tract infection) Code(s): N39.0 - URINARY TRACT INFECTION, SITE NOT SPECIFIED Qualifiers: (4) Acute kidney injury superimposed on CKD Code(s): N17.9 - ACUTE KIDNEY FAILURE, UNSPECIFIED; N18.9 - CHRONIC KIDNEY DISEASE, UNSPECIFIED (5) History of renal transplant Code(s): Z94.0 - KIDNEY TRANSPLANT STATUS (6) Polycystic kidney disease Code(s): Q61.3 - POLYCYSTIC KIDNEY, UNSPECIFIED (7) Sepsis Code(s): A41.9 - SEPSIS, UNSPECIFIED ORGANISM Qualifiers: Sepsis type: sepsis due to unspecified organism Qualified Code(s): A41.9 - Sepsis, unspecified organism Assessment/Plan 68 year old woman with history of polycystic kidney and liver disease, ESRD s/p renal transplant in 2011 in [place] (now follows at [facility] with Dr. Timmy Lieberman), Hypertension, Pancreatic cyst, [place] kidney nephrectomy in 2013 who presented with complaints of abd pain and dysuria and found to have cystitis with sepsis syndrome. #Cystitis/Sepsis syndrome r/o pylonephritis...On IV Abx. #Hyponatremia likely hypovolemic in setting of infection ...improving. No labs from today. #ESRD s/p Renal Transplant #Hypertension. Will continue the IV antibotics as ordered. Renal functions stable. Will continue the current Anti-rejection regimen. Quiana Mendoza MD
[2018-06-06] MEDS ORDERED: ACETAMINOPHEN 325 MG TABLET (FP) PO PRN (11:11)
--- NOTE | 2018-06-06 15:20 | PN ---
Progress Note, Physician Chief Complaint: No new complaints Feels better No chest pain or sob History of Present Illness: 68 year old female with a PMH of HTN, DM, ESRD S/P reanl transplant in 2013. She presented on 05/29/18 with malaise and abdominal pain. A CT scan of the abdomen and pelvis happened to show a large pericardial effusion. She also complained of intermittent chest pain. Being treated for cystitis with sepsis syndrome - Current Medication List Current Medications: Active Medications Acetaminophen (Tylenol -) 650 mg PO Q6H PRN PRN Reason: FEVER Last Admin: 06/03/18 15:16 Dose: 650 mg Acetaminophen (Tylenol -) 650 mg PO Q6H PRN PRN Reason: PAIN LEVEL 1-5 Artificial Tears (Artificial Tears) 1 drop OU BID [facility] Last Admin: 06/06/18 10:29 Dose: 1 drop Ertapenem 1 gm/ Sodium (Chloride) 50 mls @ 100 mls/hr IVPB DAILY [facility] Last Admin: 06/06/18 11:15 Dose: Not Given Multivitamins (Total B With C -) 1 each PO DAILY [facility] Last Admin: 06/06/18 10:22 Dose: 1 each Mycophenolate Mofetil (Cellcept -) 500 mg PO BID [facility] Last Admin: 06/06/18 10:24 Dose: 500 mg Ondansetron HCl (Zofran Injection) 4 mg IVPUSH Q6H PRN PRN Reason: NAUSEA Last Admin: 05/31/18 17:16 Dose: 4 mg Pantoprazole Sodium (Protonix -) 40 mg PO DAILY [facility] Last Admin: 06/06/18 10:22 Dose: 40 mg Pramipexole Dihydrochloride (Mirapex -) 0.125 mg PO HS [facility] Last Admin: 06/05/18 23:01 Dose: 0.125 mg Tacrolimus (Prograf) 1.5 mg PO BID [facility] Last Admin: 06/06/18 10:26 Dose: 1.5 mg - Objective Vital Signs: Vital Signs Temperature 97.8 F 06/06/18 14:18 Pulse Rate 80 06/06/18 14:18 Respiratory Rate 20 06/06/18 14:18 Blood Pressure 111/59 L 06/06/18 14:18 O2 Sat by Pulse Oximetry (%) 98 06/06/18 09:04 Constitutional: Yes: No Distress Neck: Yes: Supple Cardiovascular: Yes: Regular Rate and Rhythm, Murmur, S1, S2 Respiratory: Yes: CTA Bilaterally Gastrointestinal: Yes: Soft Edema: No Labs: CBC, BMP 06/05/18 08:00 06/05/18 08:15 Problem List - Problems (1) Pericardial effusion Code(s): I31.3 - PERICARDIAL EFFUSION (NONINFLAMMATORY) Assessment/Plan 68 year old female with a PMH of HTN, DM, ESRD S/P reanl transplant in 2013. She presented on 05/29/18 with malaise and abdominal pain. A CT scan of the abdomen and pelvis happened to show a large pericardial effusion. Being treated for cystitis and sepsis syndrome Pericardial effusion -Small to moderate pericardial effusion with otherwise unremarkable echo. No clinical signs of any issues from pericardial effusion or tamponade. EKG reviewed - NSR with no acute changes, no evidence for pericarditis -No chest pain or sob. No jvd -Being treated for cystitis/sepsis. Labs improving. Continue Abx as per primary team. Would follow up as outpatient and plan for outpatient repeat of echocardiogram to follow effusion. Please make her an appt with Dr. Rogelio Guzmán [phone]
--- NOTE | 2018-06-06 18:05 | PN ---
Progress Note, Physician Chief Complaint: NO COMPLAINTS NO DYSURIA AFEBRILE WBC IMPROVED BC (-) URINE C/S ESBL - Current Medication List Current Medications: Active Medications Acetaminophen (Tylenol -) 650 mg PO Q6H PRN PRN Reason: FEVER Last Admin: 06/03/18 15:16 Dose: 650 mg Acetaminophen (Tylenol -) 650 mg PO Q6H PRN PRN Reason: PAIN LEVEL 1-5 Artificial Tears (Artificial Tears) 1 drop OU BID [facility] Last Admin: 06/06/18 10:29 Dose: 1 drop Ertapenem 1 gm/ Sodium (Chloride) 50 mls @ 100 mls/hr IVPB DAILY [facility] Last Admin: 06/06/18 11:15 Dose: Not Given Multivitamins (Total B With C -) 1 each PO DAILY [facility] Last Admin: 06/06/18 10:22 Dose: 1 each Mycophenolate Mofetil (Cellcept -) 500 mg PO BID [facility] Last Admin: 06/06/18 10:24 Dose: 500 mg Ondansetron HCl (Zofran Injection) 4 mg IVPUSH Q6H PRN PRN Reason: NAUSEA Last Admin: 05/31/18 17:16 Dose: 4 mg Pantoprazole Sodium (Protonix -) 40 mg PO DAILY [facility] Last Admin: 06/06/18 10:22 Dose: 40 mg Pramipexole Dihydrochloride (Mirapex -) 0.125 mg PO HS [facility] Last Admin: 06/05/18 23:01 Dose: 0.125 mg Tacrolimus (Prograf) 1.5 mg PO BID [facility] Last Admin: 06/06/18 10:26 Dose: 1.5 mg - Objective Vital Signs: Vital Signs Temperature 97.8 F 06/06/18 14:18 Pulse Rate 80 06/06/18 14:18 Respiratory Rate 20 06/06/18 14:18 Blood Pressure 111/59 L 06/06/18 14:18 O2 Sat by Pulse Oximetry (%) 98 06/06/18 09:04 Constitutional: Yes: No Distress Cardiovascular: Yes: Regular Rate and Rhythm, S1, S2 Respiratory: Yes: CTA Bilaterally Gastrointestinal: Yes: Normal Bowel Sounds, Soft. No: Tenderness Edema: No Labs: CBC, BMP 06/05/18 08:00 06/05/18 08:15 Assessment/Plan UTI ESBL S/P RENAL TRANSPLANT CONTINUE ERTAPENEM PICC FOR OUTPATIENT ANTIBIOTIC THERAPY
[2018-06-06] MEDS: ACETAMINOPHEN 325 MG TABLET (FP) PO PRN (22:07)
[2018-06-06] MEDS: PRAMIPEXOLE DIHYDROCHLORIDE 0.125 MG TABLET PO SCH (22:08)
[2018-06-06] MEDS ORDERED: FAMOTIDINE 20 MG/50 ML IVPB 20 MG/50 ML MG IVPB ONE (22:23)
[2018-06-07 07:35] LABS: BASO % 0.6 % (0-2.0); EOS % 2.1 % (0-4.5); HEMATOCRIT 39.9 % (32.4-45.2); HEMOGLOBIN 13.3 GM/dL (10.7-15.3); LYMPH % 26.3 % (8-40); MCH 28.4 pg (25.7-33.7); MCHC 33.4 g/dl (32.0-36.0); MEAN CELL VOLUME 85.1 fl (80-96); MONO % 6.1 % (3.8-10.2); NEUT % 64.9 % (42.8-82.8); PLATELET COUNT 293 K/MM3 (134-434); RBC 4.69 M/mm3 (3.60-5.2); RDW 14.1 % (11.6-15.6); WHITE BLOOD COUNT 7.5 K/mm3 (4.0-10.0)
[2018-06-07 08:24] LABS: ALBUMIN 3.7 g/dl (3.4-5.0); ALK PHOS 148 U/L (45-117); ANION GAP 6 MMOL/L (8-16); BILIRUBIN,TOTAL 0.4 mg/dL (0.2-1); BLOOD UREA NITROGEN 25 mg/dL (7-18); CALCIUM 9.6 mg/dL (8.5-10.1); CHLORIDE 101 mmol/L (98-107); CO2 29 mmol/L (21-32); CREATININE 0.9 mg/dL (0.55-1.3); GLUCOSE,RANDOM 94 mg/dL (74-106); POTASSIUM 4.7 mmol/L (3.5-5.1); SGOT/AST 19 U/L (15-37); SGPT/ALT 34 U/L (13-61); SODIUM 136 mmol/L (136-145); TOT PROT 7.1 g/dl (6.4-8.2)
[2018-06-07] MEDS ORDERED: PT OWN MED DRAWER 7, Y5N ONE (10:13)
[2018-06-07] MEDS: ERTAPENEM SODIUM 1 GM in SODIUM CHLORIDE 50 ML IVPB SCH (10:28)
[2018-06-07] MEDS: VITAMIN B COMPLEX W/C COMBO TABLET (FP) PO SCH (10:28)
[2018-06-07] MEDS: PANTOPRAZOLE 40 MG TABLET (FP) PO SCH (10:28)
[2018-06-07] MEDS: TACROLIMUS 0.5 MG CAPSULE PO SCH (10:29)
[2018-06-07] MEDS: MYCOPHENOLATE MOFETIL 500 MG TABLET PO SCH (10:29)
[2018-06-07] MEDS: ARTIFICIAL TEARS (POLYVINYL ALCOHOL) OPTH DROPS OU SCH (10:30)
[2018-06-07 11:02] LABS: ANISOCYTOSIS 0; MACROCYTOSIS 0; OVALOCYTE 1+; PLATELET ESTIMATE NORMAL; TEAR DROP CELLS 1+
--- NOTE | 2018-06-07 13:37 | PN ---
Progress Note, Physician Chief Complaint: DOING WELL PICC INSERTED NO COMPLAINTS NO DYSURIA AFEBRILE WBC IMPROVED BC (-) URINE C/S ESBL - Current Medication List Current Medications: Active Medications Acetaminophen (Tylenol -) 650 mg PO Q6H PRN PRN Reason: FEVER Last Admin: 06/06/18 22:07 Dose: 650 mg Acetaminophen (Tylenol -) 650 mg PO Q6H PRN PRN Reason: PAIN LEVEL 1-5 Artificial Tears (Artificial Tears) 1 drop OU BID [facility] Last Admin: 06/07/18 10:30 Dose: 1 drop Ertapenem 1 gm/ Sodium (Chloride) 50 mls @ 100 mls/hr IVPB DAILY [facility] Last Admin: 06/07/18 10:28 Dose: 100 mls/hr Multivitamins (Total B With C -) 1 each PO DAILY [facility] Last Admin: 06/07/18 10:28 Dose: 1 each Mycophenolate Mofetil (Cellcept -) 500 mg PO BID [facility] Last Admin: 06/07/18 10:29 Dose: 500 mg Ondansetron HCl (Zofran Injection) 4 mg IVPUSH Q6H PRN PRN Reason: NAUSEA Last Admin: 05/31/18 17:16 Dose: 4 mg Pantoprazole Sodium (Protonix -) 40 mg PO DAILY [facility] Last Admin: 06/07/18 10:28 Dose: 40 mg Pramipexole Dihydrochloride (Mirapex -) 0.125 mg PO HS [facility] Last Admin: 06/06/18 22:08 Dose: 0.125 mg Tacrolimus (Prograf) 1.5 mg PO BID [facility] Last Admin: 06/07/18 10:29 Dose: 1.5 mg - Objective Vital Signs: Vital Signs Temperature 98 F 06/07/18 05:47 Pulse Rate 87 06/07/18 08:58 Respiratory Rate 18 06/07/18 08:58 Blood Pressure 107/45 L 06/07/18 08:58 O2 Sat by Pulse Oximetry (%) 96 06/07/18 08:58 Constitutional: Yes: No Distress Eyes: Yes: Conjunctiva Clear Cardiovascular: Yes: Regular Rate and Rhythm, S1, S2 Respiratory: Yes: CTA Bilaterally Gastrointestinal: Yes: Normal Bowel Sounds, Soft. No: Tenderness Extremities: Yes: Other (PICC L UE) Edema: No Labs: CBC, BMP 06/07/18 06:00 06/07/18 06:00 Assessment/Plan UTI ESBL S/P RENAL TRANSPLANT CONTINUE ERTAPENEM PICC FOR OUTPATIENT ANTIBIOTIC THERAPY ERTAPENEM 1GM IVPD Q24H X 7D WILL F/U IN OFFICE
[2018-06-07 14:22] VITALS: BP 99/58; PULSE 80; TEMP 98.3
--- NOTE | 2018-06-07 14:28 | PN ---
Progress Note, Physician Chief Complaint: The patient seen and examined in her room.Comfortable. Maintains good urine output. Had PICC line placed. History of Present Illness: 68 year old female with history of Polycystic Kidney and Liver Disease, ESRD s/ p renal transplant in 2011 in [place] (now following at [facility] with Dr. Krause), Hypertension, Pancreatic cyst, [place] kidney nephrectomy in 2013 who presented with complaints of abdominal pain and dysuria and found to have cystitis with sepsis syndrome. The patient had been started on IV antibiotics, with marked improvement in symptoms. Now she needs cotinued antibiotic course. - Current Medication List Current Medications: Active Medications Acetaminophen (Tylenol -) 650 mg PO Q6H PRN PRN Reason: FEVER Last Admin: 06/06/18 22:07 Dose: 650 mg Acetaminophen (Tylenol -) 650 mg PO Q6H PRN PRN Reason: PAIN LEVEL 1-5 Artificial Tears (Artificial Tears) 1 drop OU BID [facility] [place] Last Admin: 06/07/18 10:30 Dose: 1 drop Ertapenem 1 gm/ Sodium (Chloride) 50 mls @ 100 mls/hr IVPB DAILY [facility] Last Admin: 06/07/18 10:28 Dose: 100 mls/hr Multivitamins (Total B With C -) 1 each PO DAILY [facility] Last Admin: 06/07/18 10:28 Dose: 1 each Mycophenolate Mofetil (Cellcept -) 500 mg PO BID [facility] [place] Last Admin: 06/07/18 10:29 Dose: 500 mg Ondansetron HCl (Zofran Injection) 4 mg IVPUSH Q6H PRN PRN Reason: NAUSEA Last Admin: 05/31/18 17:16 Dose: 4 mg Pantoprazole Sodium (Protonix -) 40 mg PO DAILY [facility] [place] Last Admin: 06/07/18 10:28 Dose: 40 mg Pramipexole Dihydrochloride (Mirapex -) 0.125 mg PO HS [facility] Last Admin: 06/06/18 22:08 Dose: 0.125 mg Tacrolimus (Prograf) 1.5 mg PO BID [facility] Last Admin: 06/07/18 10:29 Dose: 1.5 mg - Objective Vital Signs: Vital Signs Temperature 98.3 F 06/07/18 14:19 Pulse Rate 80 06/07/18 14:19 Respiratory Rate 20 06/07/18 14:19 Blood Pressure 99/58 L 02/22/19 14:19 O2 Sat by Pulse Oximetry (%) 96 06/07/18 08:58 Constitutional: Yes: Calm Eyes: Yes: Conjunctiva Clear HENT: Yes: Normocephalic Cardiovascular: Yes: Regular Rate and Rhythm, S1, S2 Respiratory: Yes: CTA Bilaterally Gastrointestinal: Yes: Normal Bowel Sounds, Soft Genitourinary: Yes: CVA Tenderness - Left, CVA Tenderness - Right. No: Hematuria Edema: No Labs: CBC, BMP 06/07/18 06:00 06/07/18 06:00 Problem List - Problems (1) Abdominal pain Code(s): R10.9 - UNSPECIFIED ABDOMINAL PAIN (2) Hyponatremia Code(s): E87.1 - HYPO-OSMOLALITY AND HYPONATREMIA (3) UTI (urinary tract infection) Code(s): N39.0 - URINARY TRACT INFECTION, SITE NOT SPECIFIED Qualifiers: (4) Acute kidney injury superimposed on CKD Code(s): N17.9 - ACUTE KIDNEY FAILURE, UNSPECIFIED; N18.9 - CHRONIC KIDNEY DISEASE, UNSPECIFIED (5) History of renal transplant Code(s): Z94.0 - KIDNEY TRANSPLANT STATUS (6) Polycystic kidney disease Code(s): Q61.3 - POLYCYSTIC KIDNEY, UNSPECIFIED (7) Sepsis Code(s): A41.9 - SEPSIS, UNSPECIFIED ORGANISM Qualifiers: Sepsis type: sepsis due to unspecified organism Qualified Code(s): A41.9 - Sepsis, unspecified organism Assessment/Plan 68 year old woman with history of polycystic kidney and liver disease, ESRD s/p renal transplant in 2011 in [place] (now follows at [facility] with Dr. Timmy Lieberman), Hypertension, Pancreatic cyst, [place] kidney nephrectomy in 2013 who presented with complaints of abd pain and dysuria and found to have cystitis with sepsis syndrome. #Cystitis/Sepsis syndrome r/o pylonephritis...On IV Abx. Will require prolonged Abx course. #Hyponatremia likely hypovolemic in setting of infection ...improving. Almost near normal. #ESRD s/p Renal Transplant #Hypertension. Will continue the IV antibotics as ordered. Renal functions stable. Will continue the current Anti-rejection regimen. Quiana Mendoza MD
--- NOTE | 2018-06-07 16:15 | DS ---
Physical Examination Vital Signs: Vital Signs Temperature 98.3 F 06/07/18 14:19 Pulse Rate 80 06/07/18 14:19 Respiratory Rate 20 06/07/18 14:19 Blood Pressure 99/58 L 06/07/18 14:19 O2 Sat by Pulse Oximetry (%) 96 06/07/18 08:58 Findings/Remarks: Patient is a 68 y/o female with past medical history of ESRD with hx of HD, B/L nephroctomy s/p L renal transplant, and recurrent UTI. Patient presented to ER with complaints of abdominal pain, urinary frequency, and nausea. In ER WBC noted to be elevated 11.3, 3+ Leuks, and urine WBC 25. Patient found to have Sepsis on admission. Treated with IV ABT and evaluated by ID. UC positive for E.Coli and ESBL. PICC line placed to LUE for anitbiotic therapy. Constitutional: Yes: Well Nourished, No Distress, Calm Eyes: Yes: Conjunctiva Clear HENT: Yes: Atraumatic Neck: Yes: Supple Cardiovascular: Yes: Regular Rate and Rhythm Respiratory: Yes: Regular, CTA Bilaterally Gastrointestinal: Yes: Normal Bowel Sounds, Soft, Other (LLQ tenderness) Musculoskeletal: Yes: Muscle Weakness Extremities: Yes: WNL Edema: No Neurological: Yes: Alert, Pre-Existing Deficit Psychiatric: Yes: Alert Labs: CBC, BMP 06/07/18 06:00 06/07/18 06:00 Discharge Summary Reason For Visit: URINARY TRACT INFECTION,HYPONATREMIA Current Active Problems Abdominal pain (Acute) Chest pain (Acute) Hyponatremia (Acute) Pericardial effusion (Acute) Prophylactic measure (Acute) UTI (urinary tract infection) (Acute) Hospital Course: see progress notes Active Medications Generic Name Dose Route Start Last Admin Trade Name Freq PRN Reason Stop Dose Admin Acetaminophen 650 mg 05/29/18 23:40 06/06/18 22:07 Tylenol - PO 650 mg Q6H PRN Administration FEVER Acetaminophen 650 mg 06/06/18 11:11 Tylenol - PO Q6H PRN PAIN LEVEL 1-5 Artificial Tears 1 drop 05/29/18 23:45 06/07/18 10:30 Artificial Tears OU 1 drop BID [facility] Administration Ertapenem 1 gm/ Sodium 50 mls @ 100 mls/hr 06/01/18 14:00 06/07/18 10:28 Chloride IVPB 100 mls/hr DAILY [facility] Administration Multivitamins 1 each 05/30/18 10:00 06/07/18 10:28 Total B With C - PO 1 each DAILY [facility] Administration Mycophenolate Mofetil 500 mg 05/29/18 23:45 06/07/18 10:29 Cellcept - PO 500 mg BID [facility] Administration Ondansetron HCl 4 mg 05/29/18 23:40 05/31/18 17:16 Zofran Injection IVPUSH 4 mg Q6H PRN Administration NAUSEA Pantoprazole Sodium 40 mg 05/30/18 10:00 06/07/18 10:28 Protonix - PO 40 mg DAILY [facility] Administration Pramipexole Dihydrochloride 0.125 mg 05/29/18 23:45 06/06/18 22:08 Mirapex - PO 0.125 mg HS [facility] Administration Tacrolimus 1.5 mg 05/29/18 23:45 06/07/18 10:29 Prograf PO 1.5 mg BID [facility] Administration Microbiology 05/29/18 23:54 Blood - Peripheral Venous Blood Culture - Final NO GROWTH AFTER 5 DAYS INCUBATION 05/29/18 23:54 Blood - Peripheral Venous Blood Culture - Final NO GROWTH AFTER 5 DAYS INCUBATION 05/29/18 20:41 Urine - Urine Clean Catch Urine Culture - Final Escherichia Coli Esbl [employer] Administrator Laboratory Results - last 24 hr 06/07/18 06/07/18 06:00 06:00 WBC 7.5 RBC 4.69 Hgb 13.3 Hct 39.9 MCV 85.1 MCH 28.4 MCHC 33.4 RDW 14.1 Plt Count 293 MPV 8.0 Absolute Neuts (auto) 4.9 Neutrophils % 64.9 Neutrophils % (Manual) 63.3 Band Neutrophils % 2.0 Lymphocytes % 26.3 D Lymphocytes % (Manual) 7.2 L D Monocytes % 6.1 Monocytes % (Manual) 4 Eosinophils % 2.1 D Eosinophils % (Manual) 2.0 D Basophils % 0.6 Basophils % (Manual) 1.0 Myelocytes % (Man) 0 D Promyelocytes % (Man) 0 Blast Cells % (Manual) 0 Nucleated RBC % 0 Metamyelocytes 1 Hypochromia 0 Platelet Estimate Normal Polychromasia 1+ Poikilocytosis 1+ Anisocytosis 0 Microcytosis 0 Macrocytosis 0 Tear Drop Cells 1+ Ovalocytes 1+ [place] Cells 1+ Sodium 136 Potassium 4.7 Chloride 101 Carbon Dioxide 29 Anion Gap 6 L BUN 25 H Creatinine 0.9 Creat Clearance w eGFR > 60 Random Glucose 94 Calcium 9.6 Total Bilirubin 0.4 AST 19 ALT 34 Alkaline Phosphatase 148 H Total Protein 7.1 Albumin 3.7 Condition: Stable - Instructions Diet, Activity, Other Instructions: Patient to follow up with PMD in 1 week Patient to follow up with Urologist Dr. Jenkins for outpatient Uroflow Patient to follow up with GI Dr. Matias for US and liver work up Patient to follow up with [employer] Dr Naqvi Visiting nurse services for IV ABT for 1 week and PT for rehab continue with current medication regimen Referrals: Mike Naqvi MD [Staff Physician] - Julian Jenkins MD [Staff Physician] - Cyndie Santos MD [Staff Physician] - Disposition: VNS/HOME HEALTH CARE - Home Medications Comprehensive Discharge Medication List: Ambulatory Orders Baclofen 10 mg PO HS 05/10/18 Omeprazole 40 mg PO DAILY 05/10/18 Olopatadine HCl [Pataday] 1 drop OP BID 05/11/18 Pramipexole Dihydrochloride [Mirapex -] 0.125 mg PO HS 05/11/18 Tacrolimus 1.5 mg PO BID 05/11/18 Vit B Comp/C/Folic/Iron/Vit E [Vitamin B Complex Tablet] 1 each PO DAILY Mycophenolate Mofetil [Cellcept -] 500 mg PO BID capsule 05/16/18 Diclofenac Sodium 100 gm TP HS 05/29/18 Propylene Glycol/Peg 400 [Systane Ultra 0.4-0.3% Eye Drp] 10 ml OP BID 05/29/18
== END 2018-06-07 18:24 | disposition home health service (06) | DRG 872 ==
LOC: JER 18:14 → JERBED 21:59 → J7W 05-30 04:27
PROVIDERS: ADMIT Internal Medicine; ATTEND Family Medicine
PROC: 02HV33Z Insertion of Infusion Device into Superior Vena Cava, Percutaneous Approach (ICD-10-PCS; principal; 2018-06-07)
PROC: B518ZZA Fluoroscopy of Superior Vena Cava, Guidance (ICD-10-PCS; 2018-06-07)
DX: A41.9 Sepsis, unspecified organism (principal); N39.0 Urinary tract infection, site not specified; Z94.0 Kidney transplant status; E87.1 Hypo-osmolality and hyponatremia; I31.3 Pericardial effusion (noninflammatory); Q61.3 Polycystic kidney, unspecified; K86.2 Cyst of pancreas; N12 Tubulo-interstitial nephritis, not specified as acute or chronic; B96.20 Unspecified Escherichia coli [E. coli] as the cause of diseases classified elsewhere; R19.7 Diarrhea, unspecified; K29.70 Gastritis, unspecified, without bleeding; Z78.0 Asymptomatic menopausal state; R10.9 Unspecified abdominal pain; E86.1 Hypovolemia; R07.89 Other chest pain
CPT/HCPCS: 36415; 36569; 71045-TC-FY; 74176-TC; 76705-TC; 77001-TC-FY; 80048; 80053; 81003; 81015; 82150; 82436; 82550; 82962; 83690; 83735; 83880; 83930; 84100; 84133; 84300; 84484; 85025; 85027; 87040; 87086; 87186; 87804; 90670; 90688; 93005; 93010; 93306-TC; 97116-GP; 97161-GP; 99284-25; C1751; G0008; G0009; J7030; J7517

== ENCOUNTER 2018-09-16 17:59 | Inpatient (IN) | payer OTHER ==
--- NOTE | 2018-09-16 18:24 | PDOC ---
Rapid Medical Evaluation Time Seen by Provider: 09/16/18 18:09 Medical Evaluation: Allergies Allergy/AdvReac Type Severity Reaction Status Date / Time No Known Allergies Allergy Verified 05/10/18 19:03 09/16/18 18:09 This patient had a brief in-person evaluation cc: headache x 1 month seen by pmd 09/[address] due to history of evp operations shunt Pe crying in triage unlabored breathing heart s1 s2 order cat scan This patient will proceed to ed for further evaluation Discharge Disposition - Diagnosis Headache - Referrals - Patient Instructions - Post Discharge Activity
--- NOTE | 2018-09-16 19:31 | PDOC ---
Attending Attestation - Resident Resident Name: Davidson Bautista - ED Attending Attestation I have performed the following: I have examined & evaluated the patient, The case was reviewed & discussed with the resident, I agree w/resident's findings & plan, Exceptions are as noted
--- NOTE | 2018-09-16 19:40 | PDOC ---
History of Present Illness - General Chief Complaint: Headache Stated Complaint: DEPRESSION Time Seen by Provider: 09/16/18 18:09 History Source: Patient, Photograph Enlarger Used Exam Limitations: Language Barrier - History of Present Illness Initial Comments: 68 yo F w a pmh of stroke 3 years ago with residual left arm/leg weakness, HTN, NIDDM, ESRD s/p transplant 2013 presents to the ER with a bad headache that she has had for the past 2 weeks. The headache has not changed in character. She states that she went to her neurologist who prescribed her some medication but still have headache that is very strong at the back of my head. Also been really depressed for the past ten days. "I cry, i scream, cannot find myself okay at home." She wants something for the pain and the depression. She says "she wants to with the depression for the pain she is feeling." She clarifies that she does not actually want to . She just has so much pain that it is killing her. She denies any SI/HI. She also endorses chronic pain in her legs for which she is receiving physical therapy. She states that she feels like her left arm is weaker than the right arm. The patient wants to know why she is suffering from depression. She says she is losing her appetite and can barely eat. She states she sleeps with a machine bc she suffers from apnea. PCP: Dr. Santos Neurologist: Dr. Mazariegos PSH: Renal transplant - 7 years ago Allergies: IV dye, acetaminophen, oxycodone Social Hx: Denies smoking cigarettes, drinking, or other substance usage. Patient lives alone and has a home health specialist who comes Mon/wed in the afternoon and Thurs/Fri in the morning. Past History - Past Medical History Allergies/Adverse Reactions: Allergies Allergy/AdvReac Type Severity Reaction Status Date / Time acetaminophen [From Percocet] Allergy Verified 09/16/18 18:15 oxycodone [From Percocet] Allergy Verified 09/16/18 18:15 contrast Allergy Uncoded 09/16/18 18:18 Home Medications: Ambulatory Orders Baclofen 10 mg PO HS 05/10/18 Olopatadine HCl [Pataday] 1 drop OP BID 05/11/18 Tacrolimus 1.5 mg PO BID 05/11/18 Mycophenolate Mofetil [Cellcept -] 500 mg PO BID capsule 05/16/18 Diclofenac Sodium 100 gm TP HS 05/29/18 Ertapenem Sodium [Invanz -] 1 gm IVPB DAILY vial 06/07/18 Omeprazole 40 mg PO DAILY #60 tablet.dr 06/07/18 Pramipexole Dihydrochloride [Mirapex -] 0.125 mg PO HS #30 tablet 06/07/18 Propylene Glycol/Peg 400 [Systane Ultra 0.4-0.3% Eye Drp] 10 ml OP BID #1 bottle 06/07/18 Vit B Comp/C/Folic/Iron/Vit E [Vitamin B Complex Tablet] 1 each PO DAILY #30 tablet 06/07/18 Anemia: Yes Asthma: No Cancer: No Cardiac Disorders: No CVA: Yes (mild L hemiparesis-2004) COPD: No CHF: No Dementia: No Diabetes: Yes GI Disorders: No Disorders: No HTN: Yes Hypercholesterolemia: No Kidney Stones: No (kidney) Liver Disease: Yes (polycystic liver/pancreas) Seizures: No Thyroid Disease: No Other medical history: rt.side V-P Shunt - Surgical History Abdominal Surgery: No Appendectomy: No Cardiac Surgery: No Cholecystectomy: No Lung Surgery: No Neurologic Surgery: No Orthopedic Surgery: No - Suicide/Smoking/Psychosocial Hx Smoking History: Never smoked Have you smoked in the past 12 months: No If you are a former smoker, when did you quit?: when transplanted Information on smoking cessation initiated: No Hx Alcohol Use: No Drug/Substance Use Hx: No Substance Use Type: None Hx Substance Use Treatment: No Review of Systems - Review of Systems Able to Perform ROS?: Yes Comments:: CONSTITUTIONAL: No fever, no chills, no fatigue EYES: No visual changes ENT: No ear pain, no sore throat CARDIOVASCULAR: No chest pain, no palpitations RESPIRATORY: No cough, no SOB GI: No abdominal pain, no nausea, no vomiting, no constipation, no diarrhea GENITOURINARY: No dysuria, no frequency, no hematuria MUSKULOSKELETAL: No backpain, no joint pain, no myalgias SKIN: No rash NEURO: + headache *Physical Exam - Vital Signs Last Vital Signs Temp Pulse Resp BP Pulse Ox 98.2 F 85 16 171/61 H 96 09/16/18 18:10 09/16/18 18:10 09/16/18 18:10 09/16/18 18:10 09/16/18 18:10 - Physical Exam Comments: CONSTITUTIONAL: Well-appearing; well-nourished; Sad affect. HEAD: Normocephalic; atraumatic EYES: PERRL; EOM intact ENMT: External appears normal; normal oropharynx NECK: Supple; non-tender; no cervical lymphadenopathy CARD: Normal S1, S2; no murmurs, rubs, or gallops RESP: CTAB. No wheezes, rhonchi, or rales ABD: Soft, non-distended; non-tender; no palpable organomegaly, no palpable hernias EXT: Normal ROM in all four extremities; non-tender to palpation; distal pulses intact SKIN: Warm, dry, no rash NEURO: Alert, awake, appropriate. Cranial nerves 2-12 intact. No deficits to light touch in face, upper extremities and lower extremities. No pronator drift. Normal speech. Gait is normal without ataxia. ED Treatment Course - LABORATORY CBC & Chemistry Diagram: 09/16/18 20:26 09/16/18 21:23 Medical Decision Making - Medical Decision Making 68 yo F w a pmh of stroke 3 years ago with residual left arm/leg weakness, HTN, NIDDM, ESRD s/p transplant 2013 presents to the ER with a bad headache that she has had for the past 2 weeks. The headache has not changed in character. She states that she went to her neurologist who prescribed her some medication but still have headache that is very strong at the back of my head. Also been really depressed for the past ten days. "I cry, i scream, cannot find myself okay at home." She wants something for the pain and the depression. She says "she wants to with the depression for the pain she is feeling." She clarifies that she does not actually want to . She just has so much pain that it is killing her. She denies any SI/HI. She also endorses chronic pain in her legs for which she is receiving physical therapy. She states that she feels like her left arm is weaker than the right arm. VS: Hypertensive - Patient is not tachycardic, tachypneic, and satting well. Assessment: Patient is here with a headache that she's had for 2 weeks that hasn 't changed in character. I have an extremely low suspicion for meningitis given her lack of neck pain, ease with neck motion, persistent headache for 2 weeks without change, no nausea, no vomiting, no fever. - I suspect this headache is chronic in nature Plan: CT, Labs, urine, re-assess. CT shows no interval change from last year but does show a possible arachnoid cyst which could be contributing to her headache. - Patient has a multitude of psychiatric complaints and can benefit from a thorough neurologic and psychiatric evaluation in the hospital. - I have consulted and spoken with Dr. Mazariegos who evaluated the patient and agrees the patient's exam is unremarkable. Labs show patient is also hyponatremic. There is a large WBC count which does not fit well with the clinical situation. - The patient has no source for an infection. - Will obtain an ESR and CRP and repeat the WBC count in the morning. Will admit the patient to the hospital for a headache, pain control, and neuro/ psychiatric evaluations. *DC/Admit/Observation/Transfer Diagnosis at time of Disposition: Headache, Depression, Hyponatremia, Intractable pain - Discharge Dispostion Condition at time of disposition: Stable Decision to Admit order: Yes - Referrals Referrals: Cyndie Santos MD [Primary Care Provider] - - Patient Instructions - Post Discharge Activity
[2018-09-16] MEDS ORDERED: SODIUM CHLORIDE 1,000 ML IV SCH (20:00)
[2018-09-16] MEDS ORDERED: METOCLOPRAMIDE HCL INJECTION 10 MG/2 ML VIAL IVPUSH ONE (20:18)
[2018-09-16] MEDS ORDERED: METOCLOPRAMIDE HCL INJECTION 10 MG/2 ML VIAL ONE (20:29)
[2018-09-16 20:43] LABS: BASO % 0.4 % (0-2.0); HEMATOCRIT 37.3 % (32.4-45.2); HEMOGLOBIN 11.8 GM/dL (10.7-15.3); LYMPH % 4.4 % (8-40); MCH 25.3 pg (25.7-33.7); MCHC 31.7 g/dl (32.0-36.0); MEAN CELL VOLUME 79.7 fl (80-96); MONO % 3.5 % (3.8-10.2); NEUT % 91.7 % (42.8-82.8); PLATELET COUNT 313 K/MM3 (134-434); RBC 4.67 M/mm3 (3.60-5.2); RDW 16.4 % (11.6-15.6); WHITE BLOOD COUNT 17.7 K/mm3 (4.0-10.0)
[2018-09-16 21:05] LABS: PH,URINE 6.5 (5.0-8.0); URINE APPEARANCE CLEAR; URINE BILIRUBIN NEGATIVE (NEGATIVE); URINE COLOR YELLOW; URINE GLUCOSE (UA) NEGATIVE (NEGATIVE); URINE KETONE NEGATIVE (NEGATIVE); URINE LEUK ESTERASE NEGATIVE (NEGATIVE); URINE NITRITE NEGATIVE (NEGATIVE); URINE PROTEIN NEGATIVE (NEGATIVE); URINE UROBILINOGEN 0.2 mg/dL (0.2-1.0)
[2018-09-16 21:08] LABS: INR 1.07 (0.83-1.09); PROTHROMBIN TIME (PATIENT) 12.6 SEC (9.7-13.0)
[2018-09-16 21:14] LABS: PLATELET ESTIMATE ADEQUATE
[2018-09-16 22:34] LABS: ALBUMIN 4.2 g/dl (3.4-5.0); ALK PHOS 129 U/L (45-117); ANION GAP 9 MMOL/L (8-16); BILIRUBIN,TOTAL 0.5 mg/dL (0.2-1); BLOOD UREA NITROGEN 12 mg/dL (7-18); CALCIUM 9.4 mg/dL (8.5-10.1); CHLORIDE 97 mmol/L (98-107); CO2 24 mmol/L (21-32); CREATININE 0.9 mg/dL (0.55-1.3); GLUCOSE,RANDOM 93 mg/dL (74-106); POTASSIUM 4.4 mmol/L (3.5-5.1); SGOT/AST 20 U/L (15-37); SGPT/ALT 21 U/L (13-61); SODIUM 130 mmol/L (136-145); TOT PROT 6.8 g/dl (6.4-8.2)
[2018-09-16] MEDS ORDERED: KETOROLAC TROMETHAMINE 30 MG/1 ML VIAL IVPUSH ONE (23:01)
[2018-09-16] MEDS ORDERED: DEXAMETHASONE SOD PHOSPHATE 10 MG/1 ML VIAL IVPUSH ONE (23:02)
[2018-09-16] MEDS ORDERED: DEXAMETHASONE SOD PHOSPHATE 10 MG/1 ML VIAL ONE (23:28)
[2018-09-16] MEDS ORDERED: KETOROLAC TROMETHAMINE 30 MG/1 ML VIAL ONE (23:29)
[2018-09-17] MEDS ORDERED: MORPHINE SULFATE 2 MG/ML VIAL IVPUSH PRN (00:07)
--- NOTE | 2018-09-17 00:11 | PDOC ---
Documentation entered by Liliana Chapman SCRIBE, acting as scribe for Radha Salamanca MD. Radha Salamanca MD: This documentation has been prepared by the Ari garber Sammi, SCRIBE, under my direction and personally reviewed by me in its entirety. I confirm that the documentation accurately reflects all work, treatment, procedures, and medical decision making performed by me. Attending Attestation - Resident Resident Name: Davidson Bautista - ED Attending Attestation I have performed the following: I have examined & evaluated the patient, The case was reviewed & discussed with the resident, I agree w/resident's findings & plan, Exceptions are as noted - HPI HPI: 09/16/18 20:22 The patient is a 68 year old female, with a significant PMH of stroke 3 years ago with residual left arm/leg weakness, HTN, NIDDM, ESRD s/p transplant 2013, who presents to the emergency department for evaluation of a 2 weeks of severe headache, which has not subsided. The patient states she recently saw her neurologist and was prescribed a new migraine medication which she does not recall. She denies any other complaints. Allergies: NKA PCP: Ana Neurologist: Jeramy - Physicial Exam PE: 09/16/18 23:38 68 yo female has c/o headache for past 2 weeks. Denies trauma head ncat eyes elen eomi neck no bruits,no jvd cvs [id number] lungs cta b/l abd no rebound,no guarding skin warm and dry extremities no deformities, her old AV fistula in rt arm still has thrill(she is s/p kidney transplant) neuro axox3,ambulatory psych anxious because of her pain 09/17/18 00:07 - Medical Decision Making 09/16/18 23:42 labs reviewed there is a leukocytosis, normal plat level negative troponin INR=1.07 [id number] 09/17/18 00:09 ct scan of the head : no acute intracranial pathology pt received decadron,reglan ,IVF for her headache case discussed w Dr Mazariegos and pt admitted for persistent headache
[2018-09-17 00:18] LABS: ERYTHROCYTE SEDIMENTATION RATE 2 mm/hr (0-30)
--- NOTE | 2018-09-17 00:21 | HP ---
CHIEF COMPLAINT: ongoing severe headache for 2 weeks PCP: Dr. Bagley Neurologist: Dr. Mazariegos Nephrology- Dr. Jordan Al at [facility] HISTORY OF PRESENT ILLNESS: 68 year old Peruvian speaking female with a significant past medical history of stroke 3 years ago with residual left arm/leg weakness, hypertension(on no meds) , NIDDM, ESRD s/p renal transplant 2013 (now following at [facility] with Dr. Krause), and pancreatic cyst, who presents to the ER for evaluation symptoms of 2 weeks of a severe headache to her back neck region, which has not subsided. The patient reported she recently saw her Neurologist and she was prescribed a new migraine medication which she does not recall the name of. She denies chest pain, shortness of breath, dizziness, or palpitations. Upon evaluation in the ER CT scan of head showed a right middle cranial arachnoid cyst and no acute intracranial findings or hemorrhage. She was seen By Neurology- Dr. Mazariegos in the ER. She was prescribed tylenol, toradol, and decaron with some relief of headache. Labs notable for sodium 130, WBC 17.7. She is hypertensive with systolic blood pressure in the 170's, heart rate normal and currently afebrile. History was obtained by high school foreign language teacher at bedside. Recent Travel: denies PAST MEDICAL HISTORY stroke hypertension NIDDM ESRD PAST SURGICAL HISTORY: renal transplant 2013 Social History: Smoking:denies Alcohol:denies Drugs: denies Family History: noncontributory Allergies acetaminophen [From Percocet] Allergy (Verified 09/16/18 18:15) oxycodone [From Percocet] Allergy (Verified 09/16/18 18:15) contrast Allergy (Uncoded 09/16/18 18:18) HOME MEDICATIONS: Home Medications Medication Instructions Recorded Baclofen 10 mg PO HS 05/10/18 Olopatadine HCl [Pataday] 1 drop OP BID 05/11/18 Tacrolimus 1.5 mg PO BID 05/11/18 Mycophenolate Mofetil [Cellcept -] 500 mg PO BID capsule 05/16/18 Diclofenac Sodium 100 gm TP HS 05/29/18 Ertapenem Sodium [Invanz -] 1 gm IVPB DAILY vial 06/07/18 Omeprazole 40 mg PO DAILY #60 tablet. 06/07/18 Pramipexole Dihydrochloride 0.125 mg PO HS #30 tablet 06/07/18 [Mirapex -] Propylene Glycol/Peg 400 [Systane 10 ml OP BID #1 bottle 06/07/18 Ultra 0.4-0.3% Eye Drp] Vit B Comp/C/Folic/Iron/Vit E 1 each PO DAILY #30 tablet 06/07/18 [Vitamin B Complex Tablet] REVIEW OF SYSTEMS CONSTITUTIONAL: Absent: fever, chills, diaphoresis, generalized weakness, malaise, loss of appetite, weight change HEENT: Absent: rhinorrhea, nasal congestion, throat pain, throat swelling, difficulty swallowing, mouth swelling, ear pain, eye pain, visual changes CARDIOVASCULAR: Absent: chest pain, syncope, palpitations, irregular heart rate, lightheadedness , peripheral edema RESPIRATORY: Absent: cough, shortness of breath, dyspnea with exertion, orthopnea, wheezing, stridor, hemoptysis GASTROINTESTINAL: Absent: abdominal pain, abdominal distension, nausea, vomiting, diarrhea, constipation, melena, hematochezia GENITOURINARY: Absent: dysuria, frequency, urgency, hesitancy, hematuria, flank pain, genital pain MUSCULOSKELETAL: Absent: myalgia, arthralgia, joint swelling, back pain, neck pain SKIN: Absent: rash, itching, pallor HEMATOLOGIC/IMMUNOLOGIC: Absent: easy bleeding, easy bruising, lymphadenopathy, frequent infections ENDOCRINE: Absent: unexplained weight gain, unexplained weight loss, heat intolerance, cold intolerance NEUROLOGIC: Absent: headache, focal weakness or paresthesias, dizziness, unsteady gait, seizure, mental status changes, bladder or bowel incontinence PSYCHIATRIC: Absent: anxiety, depression, suicidal or homicidal ideation, hallucinations. PHYSICAL EXAMINATION Vital Signs - 24 hr 09/16/18 18:10 Temperature 98.2 F Pulse Rate 85 Respiratory 16 Rate Blood Pressure 171/61 H O2 Sat by Pulse 96 Oximetry (%) GENERAL: awake, alert, and fully oriented no acute distress HEAD: normal EYES: pupils equal, round and reactive to light EARS, NOSE, THROAT: ears normal, nares patent NECK: supple LUNGS: breath sounds clear to auscultation bilaterally, no wheezing,rales or use of accessory muscles HEART: regular rate and rhythm, normal S1 and S2 without murmur ABDOMEN: soft, nontender, not distended, normoactive bowel sounds MUSCULOSKELETAL: nomal range of motion at all joints UPPER EXTREMITIES: 2+ pulses, warm well-perfused no cyanosis LOWER EXTREMITIES: 2+ pulses, warm, well-perfused. No calf tenderness. No peripheral edema NEUROLOGICAL: no facil droop or grimace, speech clear PSYCHIATRIC:good eye contact SKIN: warm dry normal turgor no rashes or lesions noted Laboratory Results - last 24 hr 09/16/18 09/16/18 09/16/18 20:26 20:26 20:26 WBC 17.7 H RBC 4.67 Hgb 11.8 Hct 37.3 MCV 79.7 L MCH 25.3 L D MCHC 31.7 L RDW 16.4 H Plt Count 313 MPV 9.0 D Absolute Neuts (auto) 16.2 H Total Counted 100 Neutrophils % 91.7 H D Neutrophils % (Manual) 90.0 H Band Neutrophils % 1.0 Lymphocytes % 4.4 L D Lymphocytes % (Manual) 4.0 L D Monocytes % 3.5 L Monocytes % (Manual) 5 Eosinophils % 0.0 D Basophils % 0.4 Nucleated RBC % 0 Platelet Estimate Adequate Platelet Comment No clumping noted PT with INR 12.60 INR 1.07 Sodium Cancelled Potassium Cancelled Chloride Cancelled Carbon Dioxide Cancelled Anion Gap Cancelled BUN Cancelled Creatinine Cancelled Est GFR (CKD-EPI)AfAm Cancelled Est GFR (CKD-EPI)NonAf Cancelled Random Glucose Cancelled Calcium Cancelled Total Bilirubin Cancelled AST Cancelled ALT Cancelled Alkaline Phosphatase Cancelled Creatine Kinase Cancelled Troponin I Cancelled Total Protein Cancelled Albumin Cancelled Urine Color Urine Appearance Urine pH Ur Specific [place] Urine Protein Urine Glucose (UA) Urine Ketones Urine Blood Urine Nitrite Urine Bilirubin Urine Urobilinogen Ur Leukocyte Esterase Blood Type Antibody Screen 09/16/18 09/16/18 09/16/18 20:26 20:50 21:23 WBC RBC Hgb Hct MCV MCH MCHC RDW Plt Count MPV Absolute Neuts (auto) Total Counted Neutrophils % Neutrophils % (Manual) Band Neutrophils % Lymphocytes % Lymphocytes % (Manual) Monocytes % Monocytes % (Manual) Eosinophils % Basophils % Nucleated RBC % Platelet Estimate Platelet Comment PT with INR INR Sodium 130 L Potassium 4.4 Chloride 97 L Carbon Dioxide 24 Anion Gap 9 BUN 12 Creatinine 0.9 Est GFR (CKD-EPI)AfAm 75.08 Est GFR (CKD-EPI)NonAf 64.78 Random Glucose 93 Calcium 9.4 Total Bilirubin 0.5 AST 20 ALT 21 Alkaline Phosphatase 129 H Creatine Kinase 121 Troponin I 0.02 Total Protein 6.8 Albumin 4.2 Urine Color Yellow Urine Appearance Clear Urine pH 6.5 Ur Specific [place] 1.004 L Urine Protein Negative Urine Glucose (UA) Negative Urine Ketones Negative Urine Blood Negative Urine Nitrite Negative Urine Bilirubin Negative Urine Urobilinogen 0.2 Ur Leukocyte Esterase Negative Blood Type O NEGATIVE Antibody Screen Negative ASSESSMENT/PLAN: Mrs. 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 She was seen by her Neurologist in the outpatient setting and she was prescribed a new medication which she does not recall the name of. #1 Headache(Severe) Workup- CT scan of head showed a right middle cranial arachnoid cyst and no acute intra cranial findings or hemorrhage, +leukocytosis, afebrile, headache to back neck region. She was seen By Neurology- Dr. Mazariegos in the ER. No acute neurological findings on exam with mentation intact. She is hypertensive with systolic blood pressure in the 170's in setting of headache. -Neuro check every 4 hours -Continue with gabapentin and ordered morphine 2 mg IV prn for severe pain. Allergy to oxycodone and acetaminophen noted -ERP normal and C-Reactive protein pending -Check TSH -?lumbar puncture and MRI of brain in am -Neurology consulted- Dr. Mazariegos and will defer further management/ recommendations to Neurology #2 Depression At my presence she has no suicidal or homicidal ideations. She appears to be in pain due to her headache. - Psychiatry consulted Dr. Leach #3 Hypertension Uncontrolled in setting of pain -continue to monitor closely #4 Hyponatremia -continue with IV fluids NS @ 60cc/hr #5 Leukocytosis with abnormal differential Unclear etiology, remains afebrile, UA negative, hospitalized 05/2018 with UTI - E.Coli and ESBL, maintain contact precautions -ESR and CRP pending -Consulted Infectious Diseases for further evaluation - Dr. Vee #6 NIDDM Accucheks before meals and at bedtime Insulin per sliding scale as needed #7 ESRD S/P Renal Transplant Renal studies normal - Continue with immunosuppressive therapy with cellcept and tacrolimus FEN IVF NS @60cc/hr, ADA/Renal diet DVT TEDs and SCD's Visit type - Emergency Visit Emergency Visit: Yes ED Registration Date: 09/16/18 Care time: The patient presented to the Emergency Department on the above date and was hospitalized for further evaluation of their emergent condition. - New Patient This patient is new to me today: Yes Date on this admission: 09/17/18 - Critical Care Critical Care patient: No
[2018-09-17] MEDS ORDERED: SODIUM CHLORIDE 1,000 ML IV SCH (01:15)
[2018-09-17 03:49] VITALS: BMI 31.4
--- NOTE | 2018-09-17 08:33 | PN ---
Progress Note, Physician - Current Medication List Current Medications: Active Medications Gabapentin (Neurontin -) 300 mg PO DAILY AILYN Sodium Chloride (Normal Saline -) 1,000 mls @ 60 mls/hr IV ASDIR AILYN Last Admin: 09/17/18 01:43 Dose: 60 mls/hr Morphine Sulfate (Morphine Sulfate) 2 mg IVPUSH Q4H PRN PRN Reason: PAIN LEVEL 7 - 10 Stop: 09/18/18 00:06 Mycophenolate Mofetil (Cellcept -) 500 mg PO BID AILYN Non-Formulary Medication (Diclofenac Sodium [Diclofenac Sodium]) 100 gm TP HS AILYN Non-Formulary Medication (Olopatadine Hcl [Pataday]) 1 drop OP BID AILYN Non-Formulary Medication (Propylene Glycol/Peg 400 [Systane Ultra 0.4-0.3% Eye Drp]) 10 ml OP BID AILYN Pantoprazole Sodium (Protonix -) 40 mg PO DAILY AILYN Tacrolimus 1 mg/ Tacrolimus 0. (5 mg) 1.5 mg PO BID AILYN - Objective Vital Signs: Vital Signs Temperature 98.5 F 09/17/18 06:00 Pulse Rate 60 09/17/18 06:00 Respiratory Rate 20 09/17/18 06:00 Blood Pressure 135/57 L 09/17/18 06:00 O2 Sat by Pulse Oximetry (%) 96 09/17/18 03:49 Labs: CBC, BMP 09/16/18 20:26 09/16/18 21:23 INR, PTT INR 1.07 (0.83-1.09) 09/16/18 20:26 Problem List - Problems (1) Headache Assessment/Plan: IMPROVED Workup- CT scan of head showed a right middle cranial arachnoid cyst and no acute intra cranial findings or hemorrhage She is hypertensive with systolic blood pressure in the 170's in setting of headache. -Neuro check every 4 hours -Continue with gabapentin and ordered morphine 2 mg IV prn for severe pain. Allergy to oxycodone and acetaminophen noted -Neurology consulted- Dr. Mazariegos and will defer further management/ recommendations to Neurology Code(s): R51 - HEADACHE (2) Depression Assessment/Plan: - no suicidal or homicidal ideations. She appears to be in pain due to her headache. - Psychiatry consulted Dr. Leach Code(s): F32.9 - MAJOR DEPRESSIVE DISORDER, SINGLE EPISODE, UNSPECIFIED (3) History of renal transplant Assessment/Plan: - Continue with immunosuppressive therapy with cellcept and tacrolimus Code(s): Z94.0 - KIDNEY TRANSPLANT STATUS (4) HTN (hypertension) Assessment/Plan: Uncontrolled in setting of pain -continue to monitor closely Code(s): I10 - ESSENTIAL (PRIMARY) HYPERTENSION (5) Leukocytosis Assessment/Plan: Unclear etiology, remains afebrile, UA negative, hospitalized 05/2018 with UTI - E.Coli and ESBL, maintain contact precautions -ESR and CRP pending -Consulted Infectious Diseases for further evaluation - Dr. Vee Code(s): D72.829 - ELEVATED WHITE BLOOD CELL COUNT, UNSPECIFIED (6) Diabetes Assessment/Plan: Accucheks before meals and at bedtime Insulin per sliding scale as needed Code(s): E11.9 - TYPE 2 DIABETES MELLITUS WITHOUT COMPLICATIONS
--- NOTE | 2018-09-17 08:41 | CON.NEURO ---
Consult Consult Specialty:: Yair Referred by:: ER Reason for Consultation:: GEORGE - History of Present Illness History of Present Illness: this is a very pleasant 68-year-old right-handed female patient with history of chronic headaches Montenegrin-speaking presented to the hospital 2 days ago with a chief complaint of headache and neck pain. CAT scan of the head revealed no evidence of acute pathology CAT scan of the head revealed questionable sinusitis left maxillary sinus. With no abscess formation. Patient claims this morning that she feels much better patient was evaluated also by psychiatrist. ESR was 2 - History Source History Provided By: Patient Limitations to Obtaining History: No Limitations - Past Medical History Cardio/Vascular: Yes: HTN, Hyperlipdemia Gastrointestinal: Yes: Gastritis Renal/: Yes: Renal Failure (due to polycystic disease leading to nephrectomies and renal transplant in [place] in 2013) ...: No - Past Surgical History Past Surgical History: Yes: AV Fistula/Graft (RUE no longer active), Kidney Transplant (2013) - Alcohol/Substance Use Hx Alcohol Use: No History of Substance Use: reports: None - Smoking History Smoking history: Never smoked Have you smoked in the past 12 months: No If you are a former smoker, when did you quit?: when transplanted - Social History Usual Living Arrangement: Alone ADL: Support Services (SOCIAL SERVICE ASSISTANT 3hrs per day x 3days weekly) 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 Home Medications - Allergies Allergies/Adverse Reactions: Allergies Allergy/AdvReac Type Severity Reaction Status Date / Time acetaminophen [From Percocet] Allergy Verified 09/16/18 18:15 oxycodone [From Percocet] Allergy Verified 09/16/18 18:15 contrast Allergy Uncoded 09/16/18 18:18 - Home Medications Home Medications: Ambulatory Orders Olopatadine HCl [Pataday] 1 drop OP BID 05/11/18 Tacrolimus 1.5 mg PO BID 05/11/18 Mycophenolate Mofetil [Cellcept -] 500 mg PO BID capsule 05/16/18 Diclofenac Sodium 100 gm TP HS 05/29/18 Omeprazole 40 mg PO DAILY #60 tablet.dr 06/07/18 Propylene Glycol/Peg 400 [Systane Ultra 0.4-0.3% Eye Drp] 10 ml OP BID #1 bottle 06/07/18 Vit B Comp/C/Folic/Iron/Vit E [Vitamin B Complex Tablet] 1 each PO DAILY #30 tablet 06/07/18 Gabapentin 300 mg PO DAILY 09/17/18 Family Disease History - Family Disease History Family Disease History: CA: Father ( of lung cancer), Mother ( of breast cancer), Brother ( of lung cancer) Review of Systems - Review of Systems Constitutional: reports: No Symptoms Eyes: reports: No Symptoms HENT: reports: No Symptoms Physical Exam-Neuro Vital Signs: Vital Signs Temperature 98.5 F 09/17/18 06:00 Pulse Rate 60 09/17/18 06:00 Respiratory Rate 20 09/17/18 06:00 Blood Pressure 135/57 L 09/17/18 06:00 O2 Sat by Pulse Oximetry (%) 96 09/17/18 03:49 Labs: CBC, BMP 09/16/18 20:26 09/16/18 21:23 INR, PTT INR 1.07 (0.83-1.09) 09/16/18 20:26 - Neuro Exam Level Of Consciousness: Yes: Oriented to Person, Oriented to Place, Oriented to Time Eyes: Yes: PERRLA Speech: WNL Dominant Hand: Right Cranial Nerves II-XII Intact: Yes Gag: Present DTR's: 1+ Left Bicep, 1+ Right Bicep, 1+ Left Tricep, 1+ Right Tricep Response to light touch: Normal Response to pain prick: Normal Response to temperature: Normal Motor Strength: 3/5: Left Arm, Right Arm, Left Leg, Right Leg Gait: Deferred Imaging - Results Cat Scan: Image Reviewed Problem List - Problems (1) Headache Assessment/Plan: no evidence of acute intracranial pathology Clinical exam with no acute pathology Questionable depression/sinusitis/tension-type headache Neurologically patient can be discharged to follow up with neurology as an outpatient Follow-up with psychiatry Suggest tricyclic antidepressant in the form of Pamelor 50 mg once daily Continue Neurontin. Z-Vic Code(s): R51 - HEADACHE
[2018-09-17] MEDS: PANTOPRAZOLE 40 MG TABLET (FP) PO SCH (09:37)
[2018-09-17] MEDS: MYCOPHENOLATE MOFETIL 500 MG TABLET PO SCH ×2 (09:37→22:28)
[2018-09-17] MEDS: TACROLIMUS ANHYDROUS 1 MG, TACROLIMUS ANHYDROUS 0.5 MG PO SCH ×2 (09:37→22:34)
[2018-09-17] MEDS: GABAPENTIN 300 MG CAPSULE (FP) PO SCH (09:37)
[2018-09-17 09:56] LABS: HEMATOCRIT 38.9 % (32.4-45.2); MCH 28.1 pg (25.7-33.7); MCHC 33.3 g/dl (32.0-36.0); MEAN CELL VOLUME 84.2 fl (80-96); MEAN PLT VOLUME 8.4 fl (7.5-11.1); MONO % 0.9 % (3.8-10.2); NEUT % 91.1 % (42.8-82.8); PLATELET COUNT 202 K/MM3 (134-434); RBC 4.61 M/mm3 (3.60-5.2); RDW 14.2 % (11.6-15.6)
--- NOTE | 2018-09-17 09:59 | EKG ---
Test Reason : Blood Pressure : / mmHG Vent. Rate : 077 BPM Atrial Rate : 077 BPM P-R Int : 168 ms QRS Dur : 080 ms QT Int : 376 ms P-R-T Axes : 040 045 062 degrees QTc Int : 425 ms POOR DATA QUALITY, INTERPRETATION MAY BE ADVERSELY AFFECTED NORMAL SINUS RHYTHM SEPTAL INFARCT , AGE UNDETERMINED ABNORMAL ECG WHEN COMPARED WITH ECG OF 02-JUN-2018 12:02, SEPTAL INFARCT IS NOW PRESENT Confirmed by MD TIAN, BAM ([id number]) on 09/17/2018 9:58:56 AM Referred By: Confirmed By:BAM OVERTON MD
[2018-09-17] MEDS ORDERED: TACROLIMUS ANHYDROUS 1 MG, TACROLIMUS ANHYDROUS 0.5 MG PO SCH (10:00)
[2018-09-17] MEDS ORDERED: PROPYLENE GLYCOL OP SCH (10:00)
[2018-09-17] MEDS ORDERED: MYCOPHENOLATE MOFETIL 250 MG CAPSULE PO SCH (10:00)
[2018-09-17] MEDS ORDERED: TACROLIMUS ANHYDROUS 1 MG CAPSULE PO SCH ×3 (10:00)
[2018-09-17] MEDS ORDERED: VITAMIN B COMPLEX W/C COMBO TABLET (FP) PO SCH (10:00)
[2018-09-17] MEDS ORDERED: PATIENT'S OWN MEDICATION (NON-FORMULARY) (Olopatadine Hcl [Pataday] 1 DROP) OP SCH (10:00)
[2018-09-17] MEDS ORDERED: [UNRECOGNIZED DRUG - OTHER] OP SCH (10:00)
[2018-09-17] MEDS ORDERED: PEG OP SCH (10:00)
[2018-09-17 10:32] LABS: ALBUMIN 3.8 g/dl (3.4-5.0); BILIRUBIN,TOTAL 0.4 mg/dL (0.2-1); CALCIUM 9.2 mg/dL (8.5-10.1); CREATININE 0.9 mg/dL (0.55-1.3); POTASSIUM 4.4 mmol/L (3.5-5.1); TOT PROT 6.6 g/dl (6.4-8.2)
[2018-09-17 11:21] LABS: ANISOCYTOSIS 0; MACROCYTOSIS 0; PLATELET ESTIMATE NORMAL
--- NOTE | 2018-09-17 14:20 | PN ---
Progress Note (short form) - Note Progress Note: ID CONSULT DICTATED LEUKOCYTOSIS- RESOLVED HEADACHE S/P RENAL TRANSPLANT HX ESBL UTI DIABETES MELLITUS OBSERVE OFF ANTIBIOTICS
--- NOTE | 2018-09-17 15:36 | CONS ---
DATE OF CONSULTATION: DATE OF DICTATION: 09/17/2018 INFECTIOUS DISEASE CONSULTATION HISTORY OF PRESENT ILLNESS: The patient is a 68-year-old female, history of renal transplant with recent past medical history of recurrent urinary tract infections, now evaluated for leukocytosis. 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 She presented to the emergency room on September 16, 2018, with a several-week history of headache. She was seen in the emergency room. A CAT scan of the head was performed that showed left maxillary sinusitis, but no other evidence of acute pathology. She also had been complaining of worsening depression secondary to her persistent headache and decreased oral intake. On admission, she was found to have a white blood cell count of 17,000; it is presently 6.0. She was seen in consultation by neurology. At the present time she is out of bed to chair in no acute distress. She denies any recurrent urinary tract symptoms. No dysuria or hematuria. She denies any chest pain, shortness of breath, cough or sputum production. No vomiting or diarrhea. She has remained afebrile. PAST MEDICAL HISTORY: Positive for renal disease status post renal transplant in 2013, history of hypertension, diabetes stroke. 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 ALLERGIES: IV DYE, TYLENOL, OXYCODONE. SOCIAL HISTORY: She lives at home. She is a nonsmoker, nondrinker. Swazi speaking. SYSTEMS REVIEW: Neurologic: As per HPI. Cardiac: Negative for chest pain or palpitations. Respiratory: Negative for cough or sputum production. Gastrointestinal: Negative vomiting or diarrhea. Genitourinary: Negative for urinary tract infection. Positive for renal transplant on immunosuppressive therapy. LABORATORY DATA: White count on admission 17.7, presently 6.0, hematocrit 38.9, platelet count 202, creatinine 0.9. Urinalysis negative. PHYSICAL EXAMINATION: General: On exam, she is out of bed to chair in no acute distress. She is not acutely toxic appearing. Vital signs: Temperature 98.5, blood pressure 135/57, pulse 60 regular, respirations 20 per minute. HEENT: Sclerae anicteric. Cardiovascular: Heart sounds S1, S2. Lungs: Clear. Abdomen: Soft, nontender. Extremities: Negative for edema. IMPRESSION: 1. Leukocytosis, transient, now resolved. 2. Headache. 3. History of recurrent urinary tract infection, most recently with extended-spectrum beta-lactamases. 4. Status post renal transplant on immunosuppressive therapy. At the present time, she is not acutely toxic appearing. She has remained afebrile, and white blood cell count is now normal. Will observe off antibiotic therapy. Should she have recurrent leukocytosis or development of fever will obtain cultures and empirically start antibiotic therapy based on previous cultures. Thank you for the kind referral. JERZY MCCAIN M.D. [id number]
--- NOTE | 2018-09-17 18:00 | CON.PSY ---
Psychiatry Consult Chief Complaint: Patient with chronic enduring medical conditions seen for Psych e3val for depression. She talked abouyt weanting to because4 of Pain. She deniesc any concreye suicidal thoughts or Plans. apperas sad but ablr to talk and engage in conversation. Symptoms: reports: Depressed Mood - Previous Psychiatric Treatment Outpatient: None Inpatient: None - Previous Substance Abuse Treatment Outpatient: None Inpatient: None - Current Medications Current Medications: Active Medications Escitalopram Oxalate (Lexapro -) 5 mg PO DAILY [facility] Gabapentin (Neurontin -) 300 mg PO DAILY [facility] Last Admin: 09/17/18 09:37 Dose: 300 mg Sodium Chloride (Normal Saline -) 1,000 mls @ 60 mls/hr IV ASDIR [facility] Last Admin: 09/17/18 01:43 Dose: 60 mls/hr Morphine Sulfate (Morphine Sulfate) 2 mg IVPUSH Q4H PRN PRN Reason: PAIN LEVEL 7 - 10 Stop: 09/18/18 00:06 Mycophenolate Mofetil (Cellcept -) 500 mg PO BID [facility] Last Admin: 09/17/18 09:37 Dose: 500 mg Non-Formulary Medication (Diclofenac Sodium [Diclofenac Sodium]) 100 gm TP HS [facility] Non-Formulary Medication (Olopatadine Hcl [Pataday]) 1 drop OP BID [facility] Non-Formulary Medication (Propylene Glycol/Peg 400 [Systane Ultra 0.4-0.3% Eye Drp]) 10 ml OP BID [facility] Pantoprazole Sodium (Protonix -) 40 mg PO DAILY [facility] Last Admin: 09/17/18 09:37 Dose: 40 mg Tacrolimus 1 mg/ Tacrolimus 0. (5 mg) 1.5 mg PO BID [facility] Last Admin: 09/17/18 09:37 Dose: 1.5 mg - Allergies Allergies: Allergies Allergy/AdvReac Type Severity Reaction Status Date / Time acetaminophen [From Percocet] Allergy Verified 09/16/18 18:15 oxycodone [From Percocet] Allergy Verified 09/16/18 18:15 contrast Allergy Uncoded 09/16/18 18:18 - Current Living Status Usual Living Arrangement: With Spouse - Current Mental Status Evaluation Appearance: Well Groomed Attitude: Cooperative - Affect Affect: Constrictive Appropriateness: Appropriate to Content - Mood Mood: Depressed - Speech/Language Expressive: Coherent - Psychomotor Activity Psychomotor Activity: Slowed - Thought Process Thought Process: Intact - Thought Content Hallucinations: Absent Delusions: Absent - Self Perception Self Perception: No Impairment - Cognition Orientation: Time Memory, Immediate Recall: Intact Memory, Short Term: 2/3 Memory, Remote with Promptin/3 - Concentration Serial Sevens Intact: No Simple Calculations Intact: Yes - Abstraction Proverb Interpretation: Intact Judgement: Intact - Insight Insight: Intact - Impulse Control Impulse Control: Good Control - Suicidal Ideation Suicidal Ideation: No - Homicidal Ideation Homicidal Ideation: No Assessment/Plan 1) Lexapro 5mg po od for [id number].
[2018-09-17] MEDS ORDERED: PT OWN MED DRAWER 7, Y5N ONE ×2 (21:37→22:23)
[2018-09-17] MEDS ORDERED: PRAMIPEXOLE DIHYDROCHLORIDE 0.125 MG TABLET PO SCH (22:00)
[2018-09-17] MEDS ORDERED: BACLOFEN 10 MG TABLET (FP) PO SCH (22:00)
[2018-09-17] MEDS ORDERED: DICLOFENAC SODIUM 100 GM TP SCH (22:00)
[2018-09-18 06:12] VITALS: BP 151/79; PULSE 60; TEMP 98.3
[2018-09-18] MEDS ORDERED: PT OWN MED DRAWER 7, Y5N ONE (06:18)
[2018-09-18 08:30] LABS: HEMATOCRIT 37.6 % (32.4-45.2); HEMOGLOBIN 12.5 GM/dL (10.7-15.3); MCH 28.3 pg (25.7-33.7); MCHC 33.3 g/dl (32.0-36.0); MEAN PLT VOLUME 8.8 fl (7.5-11.1); PLATELET COUNT 204 K/MM3 (134-434); RBC 4.43 M/mm3 (3.60-5.2); WHITE BLOOD COUNT 7.3 K/mm3 (4.0-10.0)
[2018-09-18 09:06] LABS: CALCIUM 9.3 mg/dL (8.5-10.1); MAGNESIUM 1.6 mg/dL (1.8-2.4); POTASSIUM 4.3 mmol/L (3.5-5.1)
[2018-09-18] MEDS: MYCOPHENOLATE MOFETIL 500 MG TABLET PO SCH (09:31)
[2018-09-18] MEDS: TACROLIMUS ANHYDROUS 1 MG, TACROLIMUS ANHYDROUS 0.5 MG PO SCH (09:31)
[2018-09-18] MEDS: PANTOPRAZOLE 40 MG TABLET (FP) PO SCH (09:31)
[2018-09-18] MEDS: GABAPENTIN 300 MG CAPSULE (FP) PO SCH (09:31)
[2018-09-18] MEDS ORDERED: ESCITALOPRAM OXALATE 10 MG TABLET (FP) PO SCH (10:00)
--- NOTE | 2018-09-18 11:12 | DS ---
Physical Examination Vital Signs: Vital Signs Temperature 98.3 F 09/18/18 06:00 Pulse Rate 60 09/18/18 06:00 Respiratory Rate 20 09/18/18 06:00 Blood Pressure 151/79 09/18/18 06:00 O2 Sat by Pulse Oximetry (%) 97 09/17/18 21:00 Cardiovascular: Yes: Regular Rate and Rhythm Respiratory: Yes: Regular, CTA Bilaterally Gastrointestinal: Yes: Normal Bowel Sounds, Soft Neurological: Yes: Alert, Oriented Labs: CBC, BMP 09/18/18 07:35 09/18/18 07:45 Discharge Summary Reason For Visit: INTRACTABLE PAIN,DEPRESSION,HEADACHE,HYPONATREMIA Current Active Problems Depression (Acute) Diabetes (Acute) HTN (hypertension) (Acute) Headache (Acute) Hyponatremia (Acute) Intractable pain (Acute) Leukocytosis (Acute) Hospital Course: Problems (1) Headache Assessment/Plan: IMPROVED Workup- CT scan of head showed a right middle cranial arachnoid cyst and no acute intra cranial findings or hemorrhage She is hypertensive with systolic blood pressure in the 170's in setting of headache. -Neuro check every 4 hours -Continue with gabapentin and ordered morphine 2 mg IV prn for severe pain. Allergy to oxycodone and acetaminophen noted -Neurology consulted- Dr. Mazariegos CT SINUSES NOTED--STARTED ABX Code(s): R51 - HEADACHE (2) Depression Assessment/Plan: - no suicidal or homicidal ideations. She appears to be in pain due to her headache. - Psychiatry consulted Dr. Leach NOTED ON LEXAPRO Code(s): F32.9 - MAJOR DEPRESSIVE DISORDER, SINGLE EPISODE, UNSPECIFIED (3) History of renal transplant Assessment/Plan: - Continue with immunosuppressive therapy with cellcept and tacrolimus Code(s): Z94.0 - KIDNEY TRANSPLANT STATUS (4) HTN (hypertension) Assessment/Plan: Uncontrolled in setting of pain -continue to monitor closely Code(s): I10 - ESSENTIAL (PRIMARY) HYPERTENSION (5) Leukocytosis Assessment/Plan: Unclear etiology, remains afebrile, UA negative, hospitalized 05/2018 with UTI - E.Coli and ESBL, maintain contact precautions -ESR and CRP pending -Consulted Infectious Diseases for further evaluation - Dr. Vee NOTED Code(s): D72.829 - ELEVATED WHITE BLOOD CELL COUNT, UNSPECIFIED (6) Diabetes Assessment/Plan: Accucheks before meals and at bedtime Insulin per sliding scale as needed Code(s): E11.9 - TYPE 2 DIABETES MELLITUS WITHOUT COMPLICATIONS Condition: Improved - Instructions Disposition: HOME - Home Medications Comprehensive Discharge Medication List: Ambulatory Orders Olopatadine HCl [Pataday] 1 drop OP BID 05/11/18 Tacrolimus 1.5 mg PO BID 05/11/18 Mycophenolate Mofetil [Cellcept -] 500 mg PO BID capsule 05/16/18 Omeprazole 40 mg PO DAILY #60 tablet.dr 06/07/18 Propylene Glycol/Peg 400 [Systane Ultra 0.4-0.3% Eye Drp] 10 ml OP BID #1 bottle 06/07/18 Vit B Comp/C/Folic/Iron/Vit E [Vitamin B Complex Tablet] 1 each PO DAILY #30 tablet 06/07/18 Gabapentin 300 mg PO DAILY 09/17/18 Baclofen [Lioresal -] 10 mg PO HS tablet 09/18/18 Cefuroxime Axetil [Ceftin -] 500 mg PO BID #20 tablet 09/18/18 Escitalopram Oxalate [Lexapro -] 5 mg PO DAILY #30 tablet 09/18/18 Loratadine [Claritin -] 10 mg PO DAILY tablet 09/18/18
[2018-09-18] MEDS ORDERED: LORATADINE 10 MG TABLET PO SCH (11:15)
[2018-09-18] MEDS ORDERED: CEFUROXIME AXETIL 500 MG TABLET PO SCH (11:15)
== END 2018-09-18 17:35 | disposition home or self-care (01) | DRG 103 ==
LOC: JER 17:59 → JERBED 23:22 → J6S 09-17 02:58
PROVIDERS: ADMIT Family Medicine; ATTEND Family Medicine
DX: R51 Headache (principal); Z94.0 Kidney transplant status; I69.354 Hemiplegia and hemiparesis following cerebral infarction affecting left non-dominant side; K86.2 Cyst of pancreas; E87.1 Hypo-osmolality and hyponatremia; G93.0 Cerebral cysts; I10 Essential (primary) hypertension; E11.9 Type 2 diabetes mellitus without complications; K76.89 Other specified diseases of liver; F32.9 Major depressive disorder, single episode, unspecified; D72.829 Elevated white blood cell count, unspecified; K29.70 Gastritis, unspecified, without bleeding
CPT/HCPCS: 36415; 70450-TC; 70486-TC; 72125-TC; 80048; 80053; 81003; 82550; 83735; 84443; 84484; 85025; 85027; 85610; 85651; 86140; 86850; 86900; 86901; 93005; 93010; 97116-GP; 97161-GP; 99285-25; J1100; J7030; J7517

== ENCOUNTER 2018-10-20 19:48 | Emergency (ER) | payer OTHER ==
[2018-10-20 19:58] VITALS: BMI 27.1
[2018-10-20] MEDS ORDERED: IBUPROFEN 600 MG TABLET (FP) PO ONE (21:13)
[2018-10-20] MEDS ORDERED: CYCLOBENZAPRINE HCL 10 MG TABLET (FP) PO ONE (21:13)
--- NOTE | 2018-10-20 21:16 | PDOC ---
History of Present Illness - General Chief Complaint: Headache Stated Complaint: DIZZINESS Time Seen by Provider: 10/20/18 20:13 - History of Present Illness Initial Comments: 10/20/18 21:29 68yo F hx stroke (2016) w/residual LUE/LLE weakness, HTN, DM, ESRD s/p transplant (2013), chronic neck pain, and depression presents from home c/o headache and her chronic depression and neck pain. Pt had an argument with her son last night and has had a headache since. It started gradually, is constant, bitemporal, pressure type. Pt tried 2 Advil without improvement, last advil at 1500 today. She states she has a headache every time she gets worried or has a fight with her son. The last time it happened was when she had a fight with her son on September 16 and she presented here with the exact same symptoms. She was admitted from September 16- and had a full workup including labs (including trop, TSH , ESR/CRP), CTH/c-spine/sinuses, neuro consult, and psych consult. She is being seen by Dr Deshpande (Neurologist) and Dr Santos (PCP) and states Dr Santos is going to set her up with a psychiatrist at her next visit. She has appts for both of them set up this week. Pt also complains of her chronic neck pain x months, constant, R>L, 7/10, described as "tension in the muscle." Endorses her chronic depression, denies SI/HI/AVH, states she's just "crying a lot" and lives alone. Pt is prescribed 5mg escitalopram but states she only takes it when she feels bad. Endorses chronic leg pain from arthritis. Walks with a cane. Denies trauma, F/C, vision changes, fatigue, N/V, D/C, blood in stool or urine, dysuria, numbness/tingling, new weakness, abdominal pain, back pain. Past History - Past Medical History Allergies/Adverse Reactions: Allergies Allergy/AdvReac Type Severity Reaction Status Date / Time acetaminophen [From Percocet] Allergy Verified 10/20/18 19:55 oxycodone [From Percocet] Allergy Verified 10/20/18 19:55 contrast Allergy Uncoded 10/20/18 19:55 Home Medications: Ambulatory Orders Olopatadine HCl [Pataday] 1 drop OP BID 05/11/18 Tacrolimus 1.5 mg PO BID 05/11/18 Mycophenolate Mofetil [Cellcept -] 500 mg PO BID capsule 05/16/18 Omeprazole 40 mg PO DAILY #60 tablet.dr 06/07/18 Propylene Glycol/Peg 400 [Systane Ultra 0.4-0.3% Eye Drp] 10 ml OP BID #1 bottle 06/07/18 Vit B Comp/C/Folic/Iron/Vit E [Vitamin B Complex Tablet] 1 each PO DAILY #30 tablet 06/07/18 Gabapentin 300 mg PO DAILY 09/17/18 Baclofen [Lioresal -] 10 mg PO HS tablet 09/18/18 Cefuroxime Axetil [Ceftin -] 500 mg PO BID #20 tablet 09/18/18 Escitalopram Oxalate [Lexapro -] 5 mg PO DAILY #30 tablet 09/18/18 Loratadine [Claritin -] 10 mg PO DAILY tablet 09/18/18 Cyclobenzaprine HCl [Flexeril -] 10 mg PO HS PRN #7 tablet 10/20/18 Anemia: Yes Asthma: No Cancer: No Cardiac Disorders: No CVA: Yes (mild L hemiparesis-2004) COPD: No CHF: No Dementia: No Diabetes: Yes GI Disorders: No Disorders: No HTN: Yes Hypercholesterolemia: No Kidney Stones: No (kidney) Liver Disease: Yes (polycystic liver/pancreas) Seizures: No Thyroid Disease: No - Surgical History Abdominal Surgery: No Appendectomy: No Cardiac Surgery: No Cholecystectomy: No Lung Surgery: No Neurologic Surgery: No Orthopedic Surgery: No - Suicide/Smoking/Psychosocial Hx Smoking History: Never smoked Have you smoked in the past 12 months: No If you are a former smoker, when did you quit?: when transplanted Hx Alcohol Use: No Drug/Substance Use Hx: No Substance Use Type: None Hx Substance Use Treatment: No Review of Systems - Review of Systems Comments:: 10/20/18 22:12 Constitutional: Negative for chills, fever, fatigue. HENT: Negative for sore throat, rhinorrhea, congestion. Eyes: Negative for visual disturbance. Respiratory: Negative for shortness of breath, cough, and wheezing. Cardiovascular: Negative for chest pain, palpitations, and leg swelling. Gastrointestinal: Negative for abdominal pain, blood in stool, constipation, diarrhea, nausea, and vomiting. Genitourinary: Negative for dysuria, flank pain, and hematuria. Musculoskeletal: Positive for neck pain (chronic)and b/l leg pain (chronic). Negative for myalgias and back pain. Skin: Negative for rash. Neurological: Positive for headache. Negative for light-headedness, dizziness, syncope, weakness, numbness. Psychiatric/Behavioral: Positive for depression. Negative for SI/HI/AVH, behavioral problems and confusion. *Physical Exam - Vital Signs Last Vital Signs Temp Pulse Resp BP Pulse Ox 98.1 F 85 22 H 149/93 98 10/20/18 19:55 10/20/18 19:55 10/20/18 19:55 10/20/18 19:55 10/20/18 19:55 - Physical Exam Comments: 10/20/18 21:26 Gen: Alert, NAD, comfortable-appearing. HEENT: No TTP of neck. PERRL, EOMI, MMM, NCAT. No conjunctival pallor. Sclera are non-icteric. Oropharynx is clear. CV: Regular rate and rhythm. No murmurs, rubs, or gallops. PULM: No resp distress. CTAB, no wheezes, rales, or rhonchi. ABD: soft, NT/ND, no rebound tenderness or guarding, no CVA tenderness. BACK: No TTP of c/t/l-spine. No step-offs or deformities. MSK: No bony deformities. 2+ pulses in all extremities. No TTP in all extremities. NEURO: AAOx3. PERRL. No gross CN deficits. 5/5 strength in UEs and RLE. 4/5 strength in LLE (from prior stroke). Sensation grossly intact throughout. No pronator drift. No dysmetria. No dysdiadochokinesia. No abnormal nystagmus. + resting tremor (Parkinson's). EXTREMITIES: No cyanosis. No clubbing. No edema. No calf tenderness. PSYCH: Anxious mood, normal thought pattern. SKIN: Warm and dry. Normal capillary refill. No rashes. No jaundice. ED Treatment Course - LABORATORY CBC & Chemistry Diagram: 10/20/18 22:16 10/20/18 22:16 Medical Decision Making - Medical Decision Making 10/20/18 22:39 68yo F hx stroke (2016) w/residual LUE/LLE weakness, HTN, DM, ESRD s/p transplant (2014), chronic neck pain, and depression presents from home c/o headache and her chronic depression and neck pain. Pt had an argument with her son last night and has had a headache since. It started gradually, is constant, bitemporal, pressure type. Pt tried 2 Advil without improvement, last advil at 1500 today. She states she has a headache every time she gets worried or has a fight with her son. The last time it happened was when she had a fight with her son on September 16 and she presented here with the exact same symptoms. She was admitted from September 16- and had a full workup including labs (including trop, TSH , ESR/CRP), CTH/c-spine/sinuses, neuro consult, and psych consult. She is being seen by Dr Deshpande (Neurologist) and Dr Santos (PCP) and states Dr Santos is going to set her up with a psychiatrist at her next visit. She has appts for both of them set up this week. Pt also complains of her chronic neck pain x months, constant, R>L, 10/23, described as "tension in the muscle." Endorses her chronic depression, denies SI/HI/AVH, states she's just "crying a lot" and lives alone. Pt is prescribed 5mg escitalopram but states she only takes it when she feels bad. Endorses chronic leg pain from arthritis. Walks with a cane. Denies trauma, F/C, vision changes, fatigue, N/V, D/C, blood in stool or urine, dysuria, numbness/tingling, new weakness, abdominal pain, back pain. -CBC, CMP -Flexeril for neck, Advil for headache -Dispo: likely d/c home pending labs and reassessment 10/20/18 22:40 CBC WNL. 10/20/18 23:21 Na 127. Recommended 1L NS to pt but pt wants to go home. Agreed to eat something salty at home and f/u with PCP. Pt feeling much better. Denies pain. Requests prescription for Flexeril - 7 tablets prescribed. Discharge home. *DC/Admit/Observation/Transfer Diagnosis at time of Disposition: Headache, Depression - Discharge Dispostion Disposition: HOME Condition at time of disposition: Improved Decision to Admit order: No - Prescriptions Prescriptions: Cyclobenzaprine HCl [Flexeril -] 10 mg PO HS PRN #7 tablet PRN Reason: Pain - Referrals - Patient Instructions Printed Discharge Instructions: DI for Depression -- Adult, DI for Headache, DI for Chronic Neck Pain Additional Instructions: You have been seen in the Emergency Department for your headache, chronic neck pain, and chronic depression. Your labs and physical exam show no signs concerning for an emergent condition. You had additional testing done for these symptoms during your last visit in September, including a CT scan of your head, neck , and sinuses, and consults with Psychiatry and Neurology. Your headache is most likely due to stress. Your neck pain and depression is chronic. Your sodium level is low so please eat something salty when you get home and tell your primary care doctor at your appointment this week. Follow-up with your primary care doctor, neurologist, and transplant doctor as scheduled. Ask your primary care doctor to refer you to a psychiatrist. Take your Escitalopram every day, not just on the days when you feel bad. Take Flexeril 10mg at night as needed for your neck muscle pain. Return to the ED immediately if you experience a headache not controlled by over the counter medications, dizziness, vision changes, numbness/tingling, weakness, or any other new or worsening symptom. - Post Discharge Activity
[2018-10-20] MEDS ORDERED: CYCLOBENZAPRINE HCL 10 MG TABLET (FP) ONE (21:54)
[2018-10-20] MEDS ORDERED: IBUPROFEN 200 MG TABLET PO ONE (21:57)
[2018-10-20] MEDS ORDERED: IBUPROFEN 400 MG TABLET (FP) PO ONE (22:02)
[2018-10-20 22:23] VITALS: TEMP 98.6
[2018-10-20 22:30] LABS: BASO % 0.4 % (0-2.0); PLATELET COUNT 238 K/MM3 (134-434)
[2018-10-20 22:38] LABS: EOS % 0.3 % (0-4.5); HEMATOCRIT 40.2 % (32.4-45.2); HEMOGLOBIN 13.5 GM/dL (10.7-15.3); LYMPH % 20.5 % (8-40); MCH 28.1 pg (25.7-33.7); MCHC 33.7 g/dl (32.0-36.0); MEAN CELL VOLUME 83.4 fl (80-96); MONO % 6.3 % (3.8-10.2); NEUT % 72.5 % (42.8-82.8); RBC 4.82 M/mm3 (3.60-5.2); RDW 13.5 % (11.6-15.6); WHITE BLOOD COUNT 8.5 K/mm3 (4.0-10.0)
[2018-10-20 22:54] LABS: ALBUMIN 4.4 g/dl (3.4-5.0); BILIRUBIN,TOTAL 0.4 mg/dL (0.2-1); BLOOD UREA NITROGEN 10.8 mg/dL (7-18); CALCIUM 9.3 mg/dL (8.5-10.1); CREATININE 0.9 mg/dL (0.55-1.3); POTASSIUM 4.5 mmol/L (3.5-5.1)
--- NOTE | 2018-10-20 23:22 | PDOC ---
Documentation entered by Liliana Chapman SCRIBE, acting as scribe for Radha Salamanca MD. Radha Salamanca MD: This documentation has been prepared by the Ari garber Sammi, SCRIBE, under my direction and personally reviewed by me in its entirety. I confirm that the documentation accurately reflects all work, treatment, procedures, and medical decision making performed by me. Attending Attestation - Resident Resident Name: Vivienne Dowd - ED Attending Attestation I have performed the following: I have examined & evaluated the patient, The case was reviewed & discussed with the resident, I agree w/resident's findings & plan, Exceptions are as noted - HPI HPI: 10/20/18 21:33 The patient is a bengali 68 year old female, with a significant PMH of stroke 3 years ago with residual left arm/leg weakness, HTN, NIDDM, ESRD s/p transplant 2013, who presents to the emergency department after having a fight with her son for evaluation of chronic depression and chronic intermittent. Of note, the patient was admitted 09/16-09/18 for exact symptoms and was evaluated by neurology and psychiatry. - Physicial Exam PE: 10/20/18 21:34 GENERAL: Well-appearing, well-nourished. No apparent distress. HEENT: Normocephalic, atraumatic. PERRL, EOM intact. CARDIOVASCULAR: Normal S1, S2. Regular rate and rhythm. PULMONARY: Clear to auscultation bilaterally. ABDOMEN: Soft, non-distended, non-tender. EXTREMITIES: Normal ROM in all four extremities. No gross deformities. NEUROLOGICAL: Alert and oriented, ambulatory, conversant, moving all extremities, positive resting tremor PSYCH: Anxious (no suicidal ideation) - Medical Decision Making 10/20/18 22:09 In speaking with this pt she is here becasue she has been having problems sleeping ,has "butterflies" inher stomqach after a verbal fight with her son. -1 month ago she had CTs of her head,neck and sinuses and was evaluated by Dr Mazariegos (neurology) and Dr Leach ( psychiatry) -she saw her neurologist October 16 and he started her on carbidopa for her Parkinson's ds -she has an appt with Dr Santos on [place] and at that time sheis josephine gto get a psychiatry referral for further care. She is supposed to take lexapro 5 mg po daily but only takes it prn. It was explained to her in Romansh that she needs to take the drug on a daily basis to be effective i-she has no new focal neuro deficits,no confusion,no slurred speech,no new motor weakness or visual changes -she has no suicidal idealogy 10/20/18 22:16 10/20/18 23:20 pt given a RX for flexeril for muscle spasms and she already has an appt w Dr Santos this week
[2018-10-20 23:50] VITALS: BP 136/52; PULSE 62
== END 2018-10-20 23:30 | disposition home or self-care (01) ==
LOC: JER 19:48
DX: F32.9 Major depressive disorder, single episode, unspecified (principal)
CPT/HCPCS: 36415; 80053; 85025; 99283-25

== ENCOUNTER 2020-12-10 16:16 | Observation (INO) | payer OTHER ==
[2020-12-10] MEDS ORDERED: ACETAMINOPHEN 1000 MG/100 ML VIAL (NON FORMULARY) IVPB ONE (17:56)
[2020-12-10] MEDS ORDERED: ACETAMINOPHEN INJECTION 100 ML IVPB ONE (18:22)
[2020-12-10 19:05] LABS: BASO % 0.5 % (0-2.0); EOS % 0.6 % (0-4.5); HEMATOCRIT 35.1 % (32.4-45.2); HEMOGLOBIN 11.1 GM/dL (10.7-15.3); LYMPH % 19.4 % (8-40); MCH 22.5 pg (25.7-33.7); MCHC 31.7 g/dl (32.0-36.0); MEAN CELL VOLUME 70.9 fl (80-96); MEAN PLT VOLUME 8.6 fl (7.5-11.1); MONO % 6.3 % (3.8-10.2); NEUT % 73.2 % (42.8-82.8); PLATELET COUNT 310 10^3/uL (134-434); RBC 4.95 M/mm3 (3.60-5.2); RDW 16.2 % (11.6-15.6); WHITE BLOOD COUNT 7.3 K/mm3 (4.0-10.0)
[2020-12-10 19:24] LABS: ALBUMIN 3.9 g/dl (3.4-5.0); BLOOD UREA NITROGEN 22.8 mg/dL (7-18); CALCIUM 8.9 mg/dL (8.5-10.1)
[2020-12-10 19:26] LABS: CREATININE 1.2 mg/dL (0.55-1.3)
[2020-12-10 19:29] LABS: BILIRUBIN,TOTAL 0.3 mg/dL (0.2-1); TOT PROT 7.2 g/dl (6.4-8.2)
[2020-12-10] MEDS ORDERED: GABAPENTIN 100 MG CAPSULE PO ONE (21:13)
[2020-12-10] MEDS ORDERED: LIDOCAINE 5% TOPICAL PATCH TP ONE (21:14)
[2020-12-10] MEDS ORDERED: LIDOCAINE 5% TOPICAL PATCH ONE (21:31)
[2020-12-10] MEDS ORDERED: GABAPENTIN 100 MG CAPSULE ONE (21:31)
[2020-12-10] MEDS ORDERED: diazePAM 5 MG TABLET PO ONE (21:48)
[2020-12-10] MEDS ORDERED: diazePAM 5 MG TABLET ONE (21:54)
[2020-12-11 04:32] VITALS: BMI 29.9
[2020-12-11] MEDS: ACETAMINOPHEN 325 MG TABLET (FP) PO PRN ×2 (05:43→19:14)
[2020-12-11] MEDS: LIDOCAINE PATCH REMOVAL MC SCH (06:01)
[2020-12-11] MEDS ORDERED: diazePAM 2 MG TABLET PO PRN (06:45)
[2020-12-11 07:03] LABS: BASO % 0.6 % (0-2.0); EOS % 1.2 % (0-4.5); HEMATOCRIT 32.5 % (32.4-45.2); HEMOGLOBIN 10.4 GM/dL (10.7-15.3); LYMPH % 18.8 % (8-40); MCH 22.7 pg (25.7-33.7); MEAN CELL VOLUME 70.9 fl (80-96); MEAN PLT VOLUME 8.7 fl (7.5-11.1); MONO % 6.9 % (3.8-10.2); NEUT % 72.5 % (42.8-82.8); PLATELET COUNT 259 10^3/uL (134-434); RBC 4.59 M/mm3 (3.60-5.2); RDW 16.2 % (11.6-15.6); WHITE BLOOD COUNT 6.9 K/mm3 (4.0-10.0)
[2020-12-11 07:33] LABS: ALBUMIN 3.5 g/dl (3.4-5.0); BLOOD UREA NITROGEN 20.8 mg/dL (7-18)
[2020-12-11 07:36] LABS: CREATININE 0.9 mg/dL (0.55-1.3)
[2020-12-11 07:38] LABS: BILIRUBIN,TOTAL 0.4 mg/dL (0.2-1); TOT PROT 6.4 g/dl (6.4-8.2)
[2020-12-11] MEDS: ENOXAPARIN NA (PORCINE) 40 MG/0.4 ML DISP.SYRIN SQ SCH (09:16)
[2020-12-11] MEDS: TACROLIMUS 0.5 MG CAPSULE PO SCH (09:17)
[2020-12-11] MEDS: MYCOPHENOLATE MOFETIL 500 MG TABLET PO SCH ×2 (09:17→21:16)
[2020-12-11] MEDS: CARBIDOPA/LEVODOPA 25/100 TABLET (FP) PO SCH ×4 (09:18→20:40)
[2020-12-11] MEDS: MULTIVITAMINS (DAILY MVI) TABLET (FP) PO SCH (09:18)
[2020-12-11] MEDS: PANTOPRAZOLE 40 MG TABLET PO SCH (09:18)
[2020-12-11] MEDS: ESCITALOPRAM OXALATE 10 MG TABLET PO SCH (09:18)
[2020-12-11] MEDS ORDERED: TACROLIMUS 0.5 MG CAPSULE PO SCH (10:00)
[2020-12-11] MEDS ORDERED: PT OWN MED DRAWER 7, Y5N ONE (20:29)
[2020-12-11] MEDS: PRAMIPEXOLE DIHYDROCHLORIDE 0.5 MG TABLET PO SCH (21:16)
[2020-12-11] MEDS: TACROLIMUS ANHYDROUS 1 MG CAPSULE PO SCH (21:16)
[2020-12-12] MEDS: LIDOCAINE PATCH REMOVAL MC SCH ×2 (01:21→22:22)
[2020-12-12] MEDS ORDERED: PT OWN MED DRAWER 7, Y5N ONE (09:01)
[2020-12-12] MEDS: ENOXAPARIN NA (PORCINE) 40 MG/0.4 ML DISP.SYRIN SQ SCH (09:10)
[2020-12-12] MEDS: ESCITALOPRAM OXALATE 10 MG TABLET PO SCH (09:11)
[2020-12-12] MEDS: CARBIDOPA/LEVODOPA 25/100 TABLET (FP) PO SCH ×4 (09:11→21:00)
[2020-12-12] MEDS: MULTIVITAMINS (DAILY MVI) TABLET (FP) PO SCH (09:11)
[2020-12-12] MEDS: PANTOPRAZOLE 40 MG TABLET PO SCH (09:11)
[2020-12-12] MEDS: MYCOPHENOLATE MOFETIL 500 MG TABLET PO SCH ×2 (09:11→21:32)
[2020-12-12] MEDS: TACROLIMUS 0.5 MG CAPSULE PO SCH (09:11)
[2020-12-12] MEDS: CYCLOBENZAPRINE HCL 5 MG TABLET PO SCH (09:11)
[2020-12-12] MEDS: ACETAMINOPHEN 325 MG TABLET (FP) PO PRN ×2 (12:25→22:02)
[2020-12-12] MEDS: METHYL SALICYLATE/MENTHOL OINT 30 GM TUBE TP SCH ×2 (13:50→21:37)
[2020-12-12] MEDS: PRAMIPEXOLE DIHYDROCHLORIDE 0.5 MG TABLET PO SCH (21:33)
[2020-12-12] MEDS: TACROLIMUS ANHYDROUS 1 MG CAPSULE PO SCH (22:20)
[2020-12-13] MEDS: ACETAMINOPHEN 325 MG TABLET (FP) PO PRN (06:47)
[2020-12-13 09:25] VITALS: BP 123/59; PULSE 74; TEMP 97.5
[2020-12-13] MEDS: ENOXAPARIN NA (PORCINE) 40 MG/0.4 ML DISP.SYRIN SQ SCH (10:10)
[2020-12-13] MEDS: METHYL SALICYLATE/MENTHOL OINT 30 GM TUBE TP SCH (10:11)
[2020-12-13] MEDS: CYCLOBENZAPRINE HCL 5 MG TABLET PO SCH (10:11)
[2020-12-13] MEDS: CARBIDOPA/LEVODOPA 25/100 TABLET (FP) PO SCH ×2 (10:11→12:04)
[2020-12-13] MEDS: MYCOPHENOLATE MOFETIL 500 MG TABLET PO SCH (10:11)
[2020-12-13] MEDS: ESCITALOPRAM OXALATE 10 MG TABLET PO SCH (10:12)
[2020-12-13] MEDS: TACROLIMUS 0.5 MG CAPSULE PO SCH (10:13)
[2020-12-13] MEDS: MULTIVITAMINS (DAILY MVI) TABLET (FP) PO SCH (10:13)
[2020-12-13] MEDS: PANTOPRAZOLE 40 MG TABLET PO SCH (10:13)
[2020-12-13] MEDS ORDERED: PT OWN MED DRAWER 7, Y5N ONE (11:39)
== END 2020-12-13 15:16 | disposition home or self-care (01) ==
LOC: JER 16:16 → JERFT 16:16 → JERBED 22:55 → J5S 12-11 01:25 → J7W 12-12 17:26
PROVIDERS: ADMIT Family Medicine; ATTEND Family Medicine
PROC: 3E033GC Introduction of Other Therapeutic Substance into Peripheral Vein, Percutaneous Approach (ICD-10-PCS; principal; 2020-12-10)
PROC: 3E013GC Introduction of Other Therapeutic Substance into Subcutaneous Tissue, Percutaneous Approach (ICD-10-PCS; 2020-12-10)
DX: I82.621 Acute embolism and thrombosis of deep veins of right upper extremity (principal); M25.511 Pain in right shoulder; M54.2 Cervicalgia; I10 Essential (primary) hypertension; D64.9 Anemia, unspecified; I69.354 Hemiplegia and hemiparesis following cerebral infarction affecting left non-dominant side; E11.9 Type 2 diabetes mellitus without complications; Z11.52 Encounter for screening for COVID-19; Z95.828 Presence of other vascular implants and grafts; Z87.891 Personal history of nicotine dependence; Z79.84 Long term (current) use of oral hypoglycemic drugs; Z91.041 Radiographic dye allergy status; Z88.5 Allergy status to narcotic agent; Z90.5 Acquired absence of kidney; Z94.0 Kidney transplant status; R26.2 Difficulty in walking, not elsewhere classified; Z99.89 Dependence on other enabling machines and devices; F32.9 Major depressive disorder, single episode, unspecified
CPT/HCPCS: 36415; 71045-TC-FY; 72125-TC; 73030-TC-RT-FY; 80053; 85025; 93971; 96372; 96374; 99285-25; C9803; G0378; J0131; J7517; U0003; U0005

== ENCOUNTER 2021-01-14 04:40 | Day surgery (SDC) | payer OTHER ==
[2021-01-13 09:27] VITALS: BMI 29.8
[2021-01-14] MEDS ORDERED: HEPARIN NA (PORCINE) 5,000 UNITS/ML 1ML VIAL ONE (14:25)
[2021-01-14] MEDS ORDERED: LIDOCAINE HCL 1%, 10 MG/ML (20ML VIAL) ONE (14:25)
[2021-01-14] MEDS ORDERED: POVIDONE-IODINE OINTMENT 10% - 28.4 GM TUBE ONE (14:51)
[2021-01-14] MEDS ORDERED: PROPOFOL 20 ML ONE (15:25)
[2021-01-14] MEDS ORDERED: MIDAZOLAM HCL 2 MG/2 ML SINGLE DOSE VIAL ONE (15:25)
[2021-01-14] MEDS ORDERED: LIDOCAINE HCL 1%, 10 MG/ML (20ML VIAL) INF ONE ×2 (15:42)
[2021-01-14] MEDS ORDERED: ONDANSETRON 4 MG/2 ML VIAL IVPUSH PRN (16:31)
[2021-01-14] MEDS ORDERED: PROMETHAZINE HCL 25 MG/1 ML VIAL IVPUSH PRN (16:31)
[2021-01-14] MEDS ORDERED: LACTATED RINGERS SOLUTION 1,000 ML IV SCH (16:45)
[2021-01-14 18:49] VITALS: TEMP 98.2
[2021-01-14 18:58] VITALS: BP 134/74; PULSE 70
== END 2021-01-14 18:30 | disposition home or self-care (01) ==
LOC: JASU-SURG 04:40
PROVIDERS: ATTEND Surgery
PROC: 03L70ZZ Occlusion of Right Brachial Artery, Open Approach (ICD-10-PCS; principal; 2021-01-14 15:30)
DX: T82.898A Other specified complication of vascular prosthetic devices, implants and grafts, initial encounter (principal); I77.0 Arteriovenous fistula, acquired; I12.9 Hypertensive chronic kidney disease with stage 1 through stage 4 chronic kidney disease, or unspecified chronic kidney disease; N18.9 Chronic kidney disease, unspecified
CPT/HCPCS: 88304-TC; 88311-TC; 94760; J1644

== ENCOUNTER 2021-04-04 04:34 | Day surgery (SDC) | payer OTHER ==
[2021-03-31 15:07] VITALS: BMI 29.5
[2021-04-04] MEDS ORDERED: HEPARIN NA (PORCINE) 5,000 UNITS/ML 1ML VIAL ONE (14:55)
[2021-04-04] MEDS ORDERED: LIDOCAINE HCL 1%, 10 MG/ML (20ML VIAL) ONE (14:55)
[2021-04-04] MEDS ORDERED: PAPAVERINE HCL 30 MG/1 ML 10 ML VIAL NR ONE (15:33)
[2021-04-04] MEDS ORDERED: PROPOFOL 20 ML ONE ×2 (17:38→18:21)
[2021-04-04] MEDS ORDERED: MIDAZOLAM HCL 2 MG/2 ML SINGLE DOSE VIAL ONE (17:58)
[2021-04-04] MEDS ORDERED: ceFAZolin SODIUM 1 GM VIAL IVPB ONE (18:01)
[2021-04-04] MEDS ORDERED: ACETAMINOPHEN WITH CODEINE 300MG/30MG TABLET PO PRN (18:37)
[2021-04-04] MEDS ORDERED: ONDANSETRON 4 MG/2 ML VIAL IVPUSH PRN (19:09)
[2021-04-04 20:27] VITALS: BP 165/75; PULSE 65; TEMP 97.1
== END 2021-04-04 20:16 | disposition home or self-care (01) ==
LOC: JASU-SURG 04:34
PROVIDERS: ATTEND Surgery
PROC: 05BY0ZZ Excision of Upper Vein, Open Approach (ICD-10-PCS; principal; 2021-04-04 15:00)
DX: T82.868A Thrombosis due to vascular prosthetic devices, implants and grafts, initial encounter (principal); M79.621 Pain in right upper arm; Q61.2 Polycystic kidney, adult type; Y83.2 Surgical operation with anastomosis, bypass or graft as the cause of abnormal reaction of the patient, or of later complication, without mention of misadventure at the time of the procedure; Z94.0 Kidney transplant status
CPT/HCPCS: 36415; 84132; 88304-TC; 88311-TC; 94760; J1644

== ENCOUNTER 2022-07-14 05:40 | Day surgery (SDC) | payer OTHER ==
[2022-06-23 09:18] VITALS: BMI 30.2
[~2022-07-14 05:40] MED LIST: BUPIVACAINE HCL/PF 0.5% (5MG/ML) 10 ML VIAL NR ONE; IOHEXOL 180 MG/1 ML ML IJ ONE; LIDOCAINE 1% P/F 10 MG/ML VIAL PNB ONE; TRIAMCINOLONE ACET 40MG/1ML VIAL IM ONE
[2022-07-14] MEDS ORDERED: BUPIVACAINE HCL/PF 0.5% (5MG/ML) 10 ML VIAL ONE (07:30)
[2022-07-14] MEDS ORDERED: TRIAMCINOLONE ACET 40MG/1ML VIAL ONE (07:30)
[2022-07-14] MEDS ORDERED: BUPIVACAINE HCL/PF 0.25% (2.5MG/ML) 10 ML VIAL ONE (07:30)
[2022-07-14] MEDS ORDERED: LIDOCAINE HCL/PF 1% SDV 5ML VIAL ONE (07:30)
[2022-07-14] MEDS ORDERED: BUPIVACAINE HCL/PF 0.5% (5MG/ML) 10 ML VIAL NR ONE ×2 (10:46)
[2022-07-14] MEDS ORDERED: LIDOCAINE 1% P/F 10 MG/ML VIAL PNB ONE ×2 (10:46)
[2022-07-14] MEDS ORDERED: TRIAMCINOLONE ACET 40MG/1ML VIAL IM ONE (10:48)
[2022-07-14 12:36] VITALS: RESP 18
[2022-07-14 13:52] VITALS: BP 130/58; PULSE 60; TEMP 98.2
== END 2022-07-14 11:40 | disposition home or self-care (01) ==
LOC: JASU-SURG 05:40
PROVIDERS: ATTEND Pain Medicine Pain Medicine
PROC: 3E023BZ Introduction of Anesthetic Agent into Muscle, Percutaneous Approach (ICD-10-PCS; 2022-07-14)
PROC: 3E0233Z Introduction of Anti-inflammatory into Muscle, Percutaneous Approach (ICD-10-PCS; principal; 2022-07-14 12:00)
DX: M25.551 Pain in right hip (principal)
CPT/HCPCS: 76000-TC-FY

== ENCOUNTER 2022-10-20 05:35 | Day surgery (SDC) | payer OTHER ==
[2022-10-16 11:26] VITALS: BMI 29.9
[~2022-10-20 05:35] MED LIST changes: -BUPIVACAINE HCL/PF 0.5% (5MG/ML) 10 ML VIAL NR ONE; -LIDOCAINE 1% P/F 10 MG/ML VIAL PNB ONE; +LIDOCAINE HCL 1% PRESERVATIVE FREE - 30ML VIAL IJ ONE; -TRIAMCINOLONE ACET 40MG/1ML VIAL IM ONE
[2022-10-20 11:31] VITALS: RESP 18
[2022-10-20] MEDS ORDERED: LIDOCAINE HCL 1% PRESERVATIVE FREE - 30ML VIAL IJ ONE (12:58)
[2022-10-20] MEDS ORDERED: DEXAMETHASONE SOD PHOSPHATE 20 MG/5 ML VIAL IM ONE (12:59)
[2022-10-20] MEDS ORDERED: ACETAMINOPHEN 500 MG TABLET (FP) ONE (13:30)
[2022-10-20 13:35] VITALS: TEMP 97.7
[2022-10-20] MEDS ORDERED: ACETAMINOPHEN 500 MG TABLET (FP) PO PRN (13:44)
[2022-10-20 14:43] VITALS: BP 140/60; PULSE 60
== END 2022-10-20 14:57 | disposition home or self-care (01) ==
LOC: JASU-SURG 05:35
PROVIDERS: ATTEND Pain Medicine Pain Medicine
PROC: 3E0R3BZ Introduction of Anesthetic Agent into Spinal Canal, Percutaneous Approach (ICD-10-PCS; 2022-10-20)
PROC: 3E0R33Z Introduction of Anti-inflammatory into Spinal Canal, Percutaneous Approach (ICD-10-PCS; principal; 2022-10-20 13:45)
DX: M48.061 Spinal stenosis, lumbar region without neurogenic claudication (principal); M54.16 Radiculopathy, lumbar region
CPT/HCPCS: 76000-TC-FY

== ENCOUNTER 2022-12-12 04:15 | Day surgery (SDC) | payer OTHER ==
[2022-12-07 17:28] VITALS: BMI 29.8
[~2022-12-12 04:15] MED LIST changes: -IOHEXOL 180 MG/1 ML ML IJ ONE
[2022-12-12 06:35] VITALS: RESP 20
[2022-12-12] MEDS ORDERED: LIDOCAINE HCL 1% PRESERVATIVE FREE - 30ML VIAL IJ ONE (08:55)
[2022-12-12 09:43] VITALS: PULSE 60; TEMP 98.5
[2022-12-12 11:04] VITALS: BP 150/75
[2022-12-12] MEDS ORDERED: ACETAMINOPHEN 500 MG TABLET (FP) PO PRN (13:49)
== END 2022-12-12 11:34 | disposition home or self-care (01) ==
LOC: JASU-SURG 04:15
PROVIDERS: ATTEND Pain Medicine Pain Medicine
PROC: 01HY3MZ Insertion of Neurostimulator Lead into Peripheral Nerve, Percutaneous Approach (ICD-10-PCS; principal; 2022-12-12 08:45)
DX: G89.4 Chronic pain syndrome (principal); M25.551 Pain in right hip
CPT/HCPCS: 64555; C1778; 76000-TC-FY; J1100

== ENCOUNTER 2023-03-06 03:49 | Day surgery (SDC) | payer OTHER ==
[2023-03-05 08:50] VITALS: BMI 29.8
[2023-03-06] MEDS ORDERED: LIDOCAINE HCL/PF 1% SDV 5ML VIAL ONE (07:16)
[2023-03-06] MEDS ORDERED: LIDOCAINE HCL/PF 2% SDV 5ML VIAL ONE (07:16)
[2023-03-06] MEDS ORDERED: LIDOCAINE HCL 1%, 10 MG/ML (20ML VIAL) INF ONE (08:48)
[2023-03-06] MEDS ORDERED: ACETAMINOPHEN 500 MG TABLET (FP) ONE (09:51)
[2023-03-06 11:52] VITALS: BP 150/68; PULSE 56; RESP 18; TEMP 98
[2023-03-06] MEDS ORDERED: ACETAMINOPHEN 500 MG TABLET (FP) PO PRN (12:51)
== END 2023-03-06 11:00 | disposition home or self-care (01) ==
LOC: JASU-SURG 03:49
PROVIDERS: ATTEND Pain Medicine Pain Medicine
PROC: 01HY3MZ Insertion of Neurostimulator Lead into Peripheral Nerve, Percutaneous Approach (ICD-10-PCS; principal; 2023-03-06 08:00)
DX: G89.4 Chronic pain syndrome (principal); M25.561 Pain in right knee
CPT/HCPCS: 64555; C1778

== ENCOUNTER 2023-07-27 03:58 | Day surgery (SDC) | payer OTHER ==
[2023-07-24 16:30] VITALS: BMI 30.4
[2023-07-27] MEDS ORDERED: LIDOCAINE HCL/PF 1% SDV 5ML VIAL ONE (07:09)
[2023-07-27] MEDS ORDERED: BUPIVACAINE HCL/PF 0.75% 10 ML VIAL ONE (07:09)
[2023-07-27] MEDS: LIDOCAINE 1% P/F 10 MG/ML VIAL INF ONE ×2 (10:11→10:17)
[2023-07-27] MEDS: BUPIVACAINE 0.75% IN DEXTROSE/PF 2ML AMPULE NR ONE ×2 (10:12→10:21)
[2023-07-27 11:12] VITALS: BP 150/73; PULSE 67; RESP 20; TEMP 97.3
[2023-07-27] MEDS ORDERED: ACETAMINOPHEN 500 MG TABLET (FP) PO PRN (13:20)
== END 2023-07-27 11:03 | disposition home or self-care (01) ==
LOC: JASU-SURG 03:58
PROVIDERS: ATTEND Pain Medicine Pain Medicine
PROC: 3E0T33Z Introduction of Anti-inflammatory into Peripheral Nerves and Plexi, Percutaneous Approach (ICD-10-PCS; 2023-07-27)
PROC: 3E0T3BZ Introduction of Anesthetic Agent into Peripheral Nerves and Plexi, Percutaneous Approach (ICD-10-PCS; principal; 2023-07-27 10:30)
DX: M47.816 Spondylosis without myelopathy or radiculopathy, lumbar region (principal)
CPT/HCPCS: 76000-TC-FY

== ENCOUNTER 2023-08-28 04:25 | Day surgery (SDC) | payer OTHER ==
[2023-08-27 16:00] VITALS: BMI 30.9
[2023-08-28] MEDS ORDERED: LIDOCAINE HCL/PF 1% SDV 5ML VIAL ONE (07:41)
[2023-08-28] MEDS ORDERED: BUPIVACAINE HCL/PF 0.75% 10 ML VIAL ONE (07:41)
[2023-08-28] MEDS: BUPIVACAINE HCL/PF 0.75% 10 ML VIAL NR ONE (13:09)
[2023-08-28] MEDS: LIDOCAINE HCL 1% PRESERVATIVE FREE - 30ML VIAL IJ ONE (13:09)
[2023-08-28 14:54] VITALS: BP 159/60; PULSE 54; RESP 17; TEMP 97.6
== END 2023-08-28 14:14 | disposition home or self-care (01) ==
LOC: JASU-SURG 04:25
PROVIDERS: ATTEND Pain Medicine Pain Medicine
PROC: 3E0T33Z Introduction of Anti-inflammatory into Peripheral Nerves and Plexi, Percutaneous Approach (ICD-10-PCS; 2023-08-28)
PROC: 3E0T3BZ Introduction of Anesthetic Agent into Peripheral Nerves and Plexi, Percutaneous Approach (ICD-10-PCS; principal; 2023-08-28 11:30)
DX: M47.816 Spondylosis without myelopathy or radiculopathy, lumbar region (principal)
CPT/HCPCS: 76000-TC-FY

== ENCOUNTER 2023-09-27 03:56 | Day surgery (SDC) | payer OTHER ==
[2023-09-25 11:45] VITALS: BMI 30.9
[2023-09-27] MEDS ORDERED: DEXAMETHASONE SOD PHOSPHATE 10 MG/1 ML VIAL ONE (07:21)
[2023-09-27] MEDS ORDERED: BUPIVACAINE HCL/PF 0.75% 10 ML VIAL ONE (07:21)
[2023-09-27] MEDS ORDERED: LIDOCAINE HCL/PF 1% SDV 5ML VIAL ONE (07:21)
[2023-09-27] MEDS ORDERED: LIDOCAINE HCL/PF 2% SDV 5ML VIAL ONE (07:21)
[2023-09-27] MEDS: BUPIVACAINE HCL/PF 0.75% 10 ML VIAL NR ONE (12:24)
[2023-09-27] MEDS: DEXAMETHASONE SOD PHOSPHATE 10 MG/1 ML VIAL IVPUSH ONE (12:28)
[2023-09-27] MEDS: LIDOCAINE HCL/PF 2% SDV 5ML VIAL INF ONE (12:28)
[2023-09-27] MEDS: LIDOCAINE 1% P/F 10 MG/ML VIAL INF ONE (12:28)
[2023-09-27] MEDS ORDERED: ACETAMINOPHEN 500 MG TABLET (FP) ONE (13:15)
[2023-09-27] MEDS: ACETAMINOPHEN 500 MG TABLET (FP) PO PRN (13:20)
[2023-09-27 14:03] VITALS: RESP 18
[2023-09-27 14:22] VITALS: BP 125/46; PULSE 60; TEMP 98.4
== END 2023-09-27 13:35 | disposition home or self-care (01) ==
LOC: JASU-SURG 03:56
PROVIDERS: ATTEND Pain Medicine Pain Medicine
PROC: 3E0T3BZ Introduction of Anesthetic Agent into Peripheral Nerves and Plexi, Percutaneous Approach (ICD-10-PCS; principal; 2023-09-27 10:15)
PROC: 3E0T33Z Introduction of Anti-inflammatory into Peripheral Nerves and Plexi, Percutaneous Approach (ICD-10-PCS; 2023-09-27 10:15)
DX: M47.816 Spondylosis without myelopathy or radiculopathy, lumbar region (principal)
CPT/HCPCS: 76000-TC-FY; J1100

== ENCOUNTER 2023-10-15 12:42 | Observation (INO) | payer OTHER ==
[2023-10-15] MEDS ORDERED: ACETAMINOPHEN INJECTION 100 ML IVPB ONE (13:24)
[2023-10-15 13:50] LABS: HEMATOCRIT 38.1 % (32.4-45.2); HEMOGLOBIN 12.8 GM/dL (10.7-15.3); MCHC 33.5 g/dl (32.0-36.0); MEAN CELL VOLUME 83.5 fl (80-96); MEAN PLT VOLUME 8.7 fl (7.5-11.1); PLATELET COUNT 267 10^3/uL (134-434); RBC 4.56 M/mm3 (3.60-5.2); RDW 13.7 % (11.6-15.6); WHITE BLOOD COUNT 8.9 K/mm3 (4.0-10.0)
[2023-10-15 14:07] LABS: POTASSIUM 5.1 mmol/L (3.5-5.1)
[2023-10-15 14:09] LABS: ALBUMIN 3.7 g/dl (3.4-5.0); CALCIUM 8.7 mg/dL (8.5-10.1)
[2023-10-15] MEDS: ACETAMINOPHEN 1000 MG/100 ML BAG IVPB ONE (14:09)
[2023-10-15 14:13] LABS: CREATININE 1.2 mg/dL (0.55-1.3)
[2023-10-15 14:15] LABS: BILIRUBIN,TOTAL 0.6 mg/dL (0.2-1); TOT PROT 6.9 g/dl (6.4-8.2)
[2023-10-15] MEDS ORDERED: fentaNYL CITRATE 250 MCG/5 ML VIAL ONE (16:15)
[2023-10-15] MEDS ORDERED: CARBIDOPA/LEVODOPA 25/100 TABLET (FP) ONE (17:27)
[2023-10-15] MEDS: TACROLIMUS ANHYDROUS 1 MG CAPSULE PO ONE (17:33)
[2023-10-15] MEDS: MYCOPHENOLATE MOFETIL 250 MG CAPSULE PO ONE (17:33)
[2023-10-15] MEDS: CARBIDOPA/LEVODOPA 25/100 TABLET (FP) PO ONE (17:33)
[2023-10-16] MEDS ORDERED: ACETAMINOPHEN INJECTION 100 ML IVPB ONE ×2 (01:33→07:55)
[2023-10-16] MEDS: ACETAMINOPHEN 1000 MG/100 ML BAG IVPB PRN (01:37)
[2023-10-16] MEDS ORDERED: FENTANYL CITRATE/PF 50 MCG/ML VIAL ONE ×2 (03:10→06:12)
[2023-10-16] MEDS ORDERED: CARBIDOPA/LEVODOPA 25/100 TABLET (FP) ONE ×2 (04:50→23:08)
[2023-10-16] MEDS: CARBIDOPA/LEVODOPA 25/100 TABLET (FP) PO SCH ×2 (04:53→13:37)
[2023-10-16 06:38] LABS: BASO % 0.2 % (0-2.0); EOS % 0.8 % (0-4.5); HEMATOCRIT 37.8 % (32.4-45.2); HEMOGLOBIN 12.6 GM/dL (10.7-15.3); LYMPH % 15.3 % (8-40); MCH 28.2 pg (25.7-33.7); MCHC 33.3 g/dl (32.0-36.0); MEAN CELL VOLUME 84.8 fl (80-96); MEAN PLT VOLUME 8.8 fl (7.5-11.1); MONO % 5.7 % (3.8-10.2); PLATELET COUNT 215 10^3/uL (134-434); RBC 4.46 M/mm3 (3.60-5.2); RDW 13.6 % (11.6-15.6); WHITE BLOOD COUNT 9.1 K/mm3 (4.0-10.0)
[2023-10-16 07:02] LABS: POTASSIUM 4.4 mmol/L (3.5-5.1)
[2023-10-16 07:07] LABS: CALCIUM 8.7 mg/dL (8.5-10.1)
[2023-10-16 07:08] LABS: BLOOD UREA NITROGEN 22.7 mg/dL (7-18)
[2023-10-16 07:11] LABS: CREATININE 1.1 mg/dL (0.55-1.3)
[2023-10-16] MEDS: LORATADINE 10 MG TABLET PO SCH (09:29)
[2023-10-16] MEDS: PANTOPRAZOLE 40 MG TABLET PO SCH (09:29)
[2023-10-16] MEDS: MYCOPHENOLATE MOFETIL 250 MG CAPSULE PO SCH (09:29)
[2023-10-16] MEDS: PRAMIPEXOLE DIHYDROCHLORIDE 1 MG TABLET PO SCH (09:29)
[2023-10-16] MEDS: TACROLIMUS ANHYDROUS 1 MG CAPSULE PO SCH (09:29)
[2023-10-16] MEDS: TORSEMIDE 20 MG TABLET (FP) PO SCH (09:29)
[2023-10-16] MEDS ORDERED: oxyCODONE HCL 5 MG TABLET PO PRN (09:51)
[2023-10-16] MEDS ORDERED: APIXABAN 5 MG TABLET ONE (23:02)
[2023-10-16] MEDS: APIXABAN 5 MG TABLET PO SCH (23:07)
[2023-10-17] MEDS ORDERED: ACETAMINOPHEN 1000 MG/100 ML BAG IVPB PRN (06:01)
[2023-10-17 06:23] LABS: HEMATOCRIT 38.5 % (32.4-45.2); MCH 28.3 pg (25.7-33.7); MCHC 33.7 g/dl (32.0-36.0); MEAN CELL VOLUME 84.1 fl (80-96); MEAN PLT VOLUME 8.5 fl (7.5-11.1); PLATELET COUNT 220 10^3/uL (134-434); RBC 4.57 M/mm3 (3.60-5.2); RDW 13.7 % (11.6-15.6); WHITE BLOOD COUNT 8.7 K/mm3 (4.0-10.0)
[2023-10-17 07:07] LABS: POTASSIUM 4.4 mmol/L (3.5-5.1)
[2023-10-17 07:09] LABS: ALBUMIN 3.5 g/dl (3.4-5.0); BLOOD UREA NITROGEN 20.2 mg/dL (7-18); CALCIUM 8.5 mg/dL (8.5-10.1)
[2023-10-17 07:14] LABS: BILIRUBIN,TOTAL 0.6 mg/dL (0.2-1); TOT PROT 6.4 g/dl (6.4-8.2)
[2023-10-17 12:10] VITALS: BMI 29.9
[2023-10-17] MEDS: LIDOCAINE 5% TOPICAL PATCH TP SCH (17:42)
[2023-10-17 18:13] LABS: EPI CELLS >36 /uL (0-25.1); HYALINE CASTS 2 /uL (0-3.1); URINE APPEARANCE CLOUDY; URINE BACTERIA 940 /uL (0-1359); URINE BILIRUBIN NEGATIVE (NEGATIVE); URINE COLOR YELLOW; URINE GLUCOSE (UA) NEGATIVE (NEGATIVE); URINE KETONE NEGATIVE (NEGATIVE); URINE LEUK ESTERASE 3+ (NEGATIVE); URINE NITRITE NEGATIVE (NEGATIVE); URINE PROTEIN NEGATIVE (NEGATIVE); URINE UROBILINOGEN 0.2 mg/dL (0.2-1.0); URINE WBC 150 /uL (0-25.8)
[2023-10-17 18:15] LABS: URINE RBC 115.6 /uL (0-23.9)
[2023-10-17 22:38] VITALS: RESP 18
[2023-10-17] MEDS: LIDOCAINE PATCH REMOVAL MC SCH (22:46)
[2023-10-18] MEDS: PRAMIPEXOLE DIHYDROCHLORIDE 1 MG TABLET PO SCH (06:08)
[2023-10-18] MEDS: PANTOPRAZOLE 40 MG TABLET PO SCH (10:03)
[2023-10-18] MEDS: CEFTRIAXONE 1 GM in DEXTROSE 5%-WATER - 50 ML IVPB SCH (10:05)
[2023-10-18] MEDS: PHENAZOPYRIDINE HCL 100 MG TABLET (FP) PO ONE (10:06)
[2023-10-18] MEDS: DOCUSATE SODIUM 100 MG CAPSULE (FP) PO PRN (10:11)
[2023-10-18] MEDS: ACETAMINOPHEN 1000 MG/100 ML BAG IVPB PRN (13:53)
[2023-10-19] MEDS: MICONAZOLE NITRATE 2% VAGINAL CREAM 45 GM TUBE VG SCH (22:10)
[2023-10-20 23:52] VITALS: BP 130/54; PULSE 56; TEMP 97.5
== END 2023-10-20 23:00 ==
LOC: JER 12:42 → JERBED 20:25 → J7W 10-17 07:26
PROVIDERS: ADMIT Internal Medicine; ATTEND Family Medicine
PROC: 3E033NZ Introduction of Analgesics, Hypnotics, Sedatives into Peripheral Vein, Percutaneous Approach (ICD-10-PCS; principal; 2023-10-15)
PROC: 3E033NZ Introduction of Analgesics, Hypnotics, Sedatives into Peripheral Vein, Percutaneous Approach (ICD-10-PCS; 2023-10-15)
DX: N39.0 Urinary tract infection, site not specified (principal); N18.9 Chronic kidney disease, unspecified; M25.561 Pain in right knee; Z94.0 Kidney transplant status; E11.9 Type 2 diabetes mellitus without complications; W18.39XA Other fall on same level, initial encounter; Y93.89 Activity, other specified; Y92.89 Other specified places as the place of occurrence of the external cause; E78.5 Hyperlipidemia, unspecified; K29.70 Gastritis, unspecified, without bleeding; Q61.3 Polycystic kidney, unspecified; Z86.73 Personal history of transient ischemic attack (TIA), and cerebral infarction without residual deficits; Z91.041 Radiographic dye allergy status; M54.2 Cervicalgia; G89.29 Other chronic pain; F32.A Depression, unspecified; Z88.5 Allergy status to narcotic agent; Z87.891 Personal history of nicotine dependence
CPT/HCPCS: 36415; 71045-TC-FY; 73070-TC-RT-FY; 73564-TC-RT-FY; 73700-TC-RT; 80048; 80053; 81003; 85025; 85027; 87086; 93005; 93010; 96374; 96375; 96376; 97116-GP; 97161-GP; 99285-25; G0378; J0131; J7517

== ENCOUNTER 2023-12-20 08:30 | Day surgery (SDC) | payer OTHER ==
[2023-12-19 14:26] VITALS: BMI 30.7
[2023-12-20 08:40] VITALS: RESP 20
[2023-12-20] MEDS ORDERED: ACETAMINOPHEN 500 MG TABLET (FP) PO PRN (09:31)
[2023-12-20] MEDS: DEXAMETHASONE SOD PHOSPHATE 10 MG/1 ML VIAL IVPUSH ONE (10:49)
[2023-12-20] MEDS: BUPIVACAINE HCL/PF 0.75% 10 ML VIAL NR ONE (10:49)
[2023-12-20] MEDS: LIDOCAINE HCL 1% PRESERVATIVE FREE - 30ML VIAL IJ ONE (10:50)
[2023-12-20] MEDS: LIDOCAINE HCL 2% (50ML VIAL) NR ONE (10:50)
[2023-12-20 11:34] VITALS: BP 140/58; PULSE 65; TEMP 97.3
== END 2023-12-20 13:10 | disposition home or self-care (01) ==
LOC: JASU-SURG 08:30
PROVIDERS: ATTEND Pain Medicine Pain Medicine
PROC: 015B3ZZ Destruction of Lumbar Nerve, Percutaneous Approach (ICD-10-PCS; principal; 2023-12-20 10:00)
DX: M47.816 Spondylosis without myelopathy or radiculopathy, lumbar region (principal)
CPT/HCPCS: 76000-TC-FY; J1100

== ENCOUNTER 2024-01-24 16:44 | Observation (INO) | payer OTHER ==
[2024-01-24] MEDS ORDERED: ACETAMINOPHEN INJECTION 100 ML ONE (19:03)
[2024-01-24] MEDS: ACETAMINOPHEN 1000 MG/100 ML BAG IVPB ONE (19:07)
[2024-01-24 19:43] LABS: BASO % 0.3 % (0-2.0); EOS % 0.1 % (0-4.5); HEMATOCRIT 34.9 % (32.4-45.2); HEMOGLOBIN 11.8 GM/dL (10.7-15.3); LYMPH % 7.9 % (8-40); MCH 27.9 pg (25.7-33.7); MCHC 33.9 g/dl (32.0-36.0); MEAN CELL VOLUME 82.4 fl (80-96); MONO % 12.4 % (3.8-10.2); NEUT % 79.3 % (42.8-82.8); PLATELET COUNT 187 10^3/uL (134-434); RBC 4.24 M/mm3 (3.60-5.2); RDW 14.1 % (11.6-15.6)
[2024-01-24 20:02] LABS: INR 1.32 (0.83-1.09); PROTHROMBIN TIME (PATIENT) 14.8 SEC (9.7-13.0)
[2024-01-24 20:04] LABS: ACTIVATED PTT 26.3 SECONDS (25.2-36.5)
[2024-01-24 20:10] LABS: POTASSIUM 4.2 mmol/L (3.5-5.1)
[2024-01-24 20:11] LABS: CALCIUM 8.6 mg/dL (8.5-10.1)
[2024-01-24 20:12] LABS: ALBUMIN 3.1 g/dl (3.4-5.0); BLOOD UREA NITROGEN 35.9 mg/dL (7-18)
[2024-01-24 20:15] LABS: CREATININE 1.4 mg/dL (0.55-1.3)
[2024-01-24 20:17] LABS: BILIRUBIN,TOTAL 0.4 mg/dL (0.2-1); TOT PROT 5.8 g/dl (6.4-8.2)
[2024-01-24] MEDS: SODIUM CHLORIDE 0.9% 500 ML INFUS.BAG IV ONE (20:51)
[2024-01-24 21:10] LABS: PH,URINE 5.5 (5.0-8.0); URINE APPEARANCE CLEAR; URINE BILIRUBIN NEGATIVE (NEGATIVE); URINE COLOR YELLOW; URINE GLUCOSE (UA) NEGATIVE (NEGATIVE); URINE KETONE NEGATIVE (NEGATIVE); URINE LEUK ESTERASE 2+ (NEGATIVE); URINE NITRITE NEGATIVE (NEGATIVE); URINE PROTEIN TRACE (NEGATIVE)
[2024-01-24 21:27] LABS: EPI CELLS 19.7 /uL (0-25.1); HYALINE CASTS 4.82 /uL (0-3.1); URINE RBC 30.5 /uL (0-23.9); URINE WBC 137.6 /uL (0-25.8)
[2024-01-24 21:28] LABS: URINE BACTERIA 12957.9 /uL (0-1359)
[2024-01-24] MEDS ORDERED: PIPERACILLIN/TAZOB 3.375 GM 3.375 GM/50 ML BAG IVPB ONE (22:55)
[2024-01-24] MEDS: PIPERACILLIN/TAZOB 3.375 GM 3.375 GM in DEXTROSE 5%-WATER - 50 ML IVPB ONE (22:58)
[2024-01-25 04:38] VITALS: BMI 30.2
[2024-01-25] MEDS: PIPERACILLIN/TAZOB 2.25 GM 2.25 GM in DEXTROSE 5%-WATER - 50 ML IVPB SCH ×2 (04:56→21:01)
[2024-01-25] MEDS: PANTOPRAZOLE 40 MG TABLET PO SCH (06:18)
[2024-01-25 09:02] LABS: BASO % 0.2 % (0-2.0); EOS % 0.2 % (0-4.5); HEMATOCRIT 37.4 % (32.4-45.2); HEMOGLOBIN 12.2 GM/dL (10.7-15.3); LYMPH % 4.5 % (8-40); MCH 27.1 pg (25.7-33.7); MCHC 32.5 g/dl (32.0-36.0); MEAN CELL VOLUME 83.4 fl (80-96); MEAN PLT VOLUME 9.4 fl (7.5-11.1); NEUT % 85.1 % (42.8-82.8); PLATELET COUNT 199 10^3/uL (134-434); RBC 4.49 M/mm3 (3.60-5.2); RDW 13.4 % (11.6-15.6); WHITE BLOOD COUNT 8.4 K/mm3 (4.0-10.0)
[2024-01-25 09:10] LABS: CHLORIDE 102 mmol/L (98-107); POTASSIUM 4.1 mmol/L (3.5-5.1); SODIUM 134 mmol/L (136-145)
[2024-01-25 09:12] LABS: ALBUMIN 3.1 g/dl (3.4-5.0); ANION GAP 8 mmol/L (4-13); BLOOD UREA NITROGEN 28.7 mg/dL (7-18); CO2 24 mmol/L (21-32); GLUCOSE,RANDOM 109 mg/dL (74-106); MAGNESIUM 1.6 mg/dL (1.8-2.4)
[2024-01-25 09:15] LABS: SGPT/ALT 30 U/L (13-61)
[2024-01-25 09:16] LABS: CREATININE 1.1 mg/dL (0.55-1.3); SGOT/AST 21 U/L (15-37)
[2024-01-25 09:17] LABS: BILIRUBIN,TOTAL 0.5 mg/dL (0.2-1); TOT PROT 5.8 g/dl (6.4-8.2)
[2024-01-25 09:18] LABS: ALK PHOS 105 U/L (45-117)
[2024-01-25] MEDS: MYCOPHENOLATE MOFETIL 500 MG TABLET PO SCH (09:36)
[2024-01-25] MEDS: TACROLIMUS ANHYDROUS 1 MG CAPSULE PO SCH ×2 (09:36→21:02)
[2024-01-25] MEDS: PRAMIPEXOLE DIHYDROCHLORIDE 1 MG TABLET PO SCH (09:36)
[2024-01-25] MEDS: APIXABAN 5 MG TABLET PO SCH (09:37)
[2024-01-25] MEDS ORDERED: PATIENT'S OWN MEDICATION (NON-FORMULARY) (Mirabegron [Myrbetriq] 25 MG Tab.Er.24h) PO SCH (10:00)
[2024-01-25] MEDS: CARBIDOPA/LEVODOPA 25/100 TABLET (FP) PO SCH (21:02)
[2024-01-26] MEDS: CEFTRIAXONE 1 GM in DEXTROSE 5%-WATER - 50 ML IVPB SCH (18:01)
[2024-01-26] MEDS: INSULIN ASPART SLIDING SCALE (NOVOLOG) 1 VIAL SQ SCH (21:25)
[2024-01-28] MEDS: ACETAMINOPHEN 325 MG TABLET (FP) PO SCH (14:42)
[2024-01-28] MEDS: LIDOCAINE 5% TOPICAL PATCH TP SCH (14:44)
[2024-01-28] MEDS: LIDOCAINE PATCH REMOVAL MC SCH (22:04)
[2024-01-29 08:15] VITALS: BP 163/72; PULSE 63; RESP 20; TEMP 97.3
== END 2024-01-29 16:49 | disposition home or self-care (01) ==
LOC: JER 16:44 → JERBED 22:48 → J6W 01-25 03:41
PROVIDERS: ADMIT Internal Medicine; ATTEND Family Medicine
PROC: 3E013VG Introduction of Insulin into Subcutaneous Tissue, Percutaneous Approach (ICD-10-PCS; principal; 2024-01-24)
PROC: 3E03329 Introduction of Other Anti-infective into Peripheral Vein, Percutaneous Approach (ICD-10-PCS; 2024-01-24)
PROC: 3E033NZ Introduction of Analgesics, Hypnotics, Sedatives into Peripheral Vein, Percutaneous Approach (ICD-10-PCS; 2024-01-24)
PROC: 3E0337Z Introduction of Electrolytic and Water Balance Substance into Peripheral Vein, Percutaneous Approach (ICD-10-PCS; 2024-01-24)
DX: N39.0 Urinary tract infection, site not specified (principal); I12.0 Hypertensive chronic kidney disease with stage 5 chronic kidney disease or end stage renal disease; E11.22 Type 2 diabetes mellitus with diabetic chronic kidney disease; N18.6 End stage renal disease; Z94.0 Kidney transplant status; I69.354 Hemiplegia and hemiparesis following cerebral infarction affecting left non-dominant side; G89.29 Other chronic pain; M54.2 Cervicalgia; Z99.2 Dependence on renal dialysis; F32.A Depression, unspecified; W06.XXXA Fall from bed, initial encounter; Y93.89 Activity, other specified; Y92.003 Bedroom of unspecified non-institutional (private) residence as the place of occurrence of the external cause; E87.1 Hypo-osmolality and hyponatremia
CPT/HCPCS: 36415; 70450-TC; 71045-TC-FY; 71250-TC; 72125-TC; 72128-TC; 72131-TC; 72170-TC-FY; 74150-TC; 80048; 80053; 80307; 81003; 82550; 82962; 83036; 83735; 84443; 84484; 85025; 85610; 85730; 86850; 86900; 86901; 87086; 87186; 93005; 93010; 93306-TC; 96365; 96366; 96367; 96372; 96375; 97116-GP; 97161-GP; 99285-25; G0378; J0131; J7517

== ENCOUNTER 2024-03-06 04:04 | Day surgery (SDC) | payer OTHER ==
[2024-03-06] MEDS: IOHEXOL 180 MG/1 ML ML IJ ONE
[2024-03-06] MEDS ORDERED: ACETAMINOPHEN 500 MG TABLET (FP) PO PRN (09:18)
[2024-03-06] MEDS: LIDOCAINE HCL 1% PRESERVATIVE FREE - 30ML VIAL IJ ONE ×2 (10:47)
[2024-03-06] MEDS: DEXAMETHASONE SOD PHOSPHATE 10 MG/1 ML VIAL IM ONE ×2 (10:54)
[2024-03-06 11:30] VITALS: RESP 18; TEMP 97.7
[2024-03-06 12:13] VITALS: BP 139/78; PULSE 65
== END 2024-03-06 11:45 | disposition home or self-care (01) ==
LOC: JASU-SURG 04:04
PROVIDERS: ATTEND Pain Medicine Pain Medicine
PROC: 3E0R3BZ Introduction of Anesthetic Agent into Spinal Canal, Percutaneous Approach (ICD-10-PCS; 2024-03-06)
PROC: 3E0R33Z Introduction of Anti-inflammatory into Spinal Canal, Percutaneous Approach (ICD-10-PCS; principal; 2024-03-06 10:30)
DX: M48.061 Spinal stenosis, lumbar region without neurogenic claudication (principal); M54.16 Radiculopathy, lumbar region
CPT/HCPCS: 76000-TC-FY; J1100

== ENCOUNTER 2024-05-30 04:09 | Day surgery (SDC) | payer OTHER ==
[2024-05-28 13:15] VITALS: BMI 30.7
[2024-05-30] MEDS ORDERED: LIDOCAINE HCL/PF 2% SDV 5ML VIAL ONE ×2 (07:22→09:42)
[2024-05-30] MEDS ORDERED: BUPIVACAINE HCL/PF 0.25% (2.5MG/ML) 10 ML VIAL ONE (07:22)
[2024-05-30] MEDS ORDERED: BUPIVACAINE HCL/PF 0.5% (5MG/ML) 10 ML VIAL ONE (07:22)
[2024-05-30] MEDS ORDERED: TRIAMCINOLONE ACET 40MG/1ML VIAL ONE (07:22)
[2024-05-30] MEDS ORDERED: LIDOCAINE HCL/PF 1% SDV 5ML VIAL ONE (07:23)
[2024-05-30] MEDS ORDERED: DEXAMETHASONE SOD PHOSPHATE 10 MG/1 ML VIAL ONE (07:23)
[2024-05-30] MEDS ORDERED: BUPIVACAINE HCL/PF 0.75% 10 ML VIAL ONE (07:23)
[2024-05-30] MEDS ORDERED: MIDAZOLAM HCL 2 MG/2 ML SINGLE DOSE VIAL ONE (08:28)
[2024-05-30] MEDS ORDERED: ONDANSETRON 4 MG/2 ML VIAL ONE (08:28)
[2024-05-30] MEDS ORDERED: ceFAZolin SODIUM 1 GM VIAL ONE (08:28)
[2024-05-30] MEDS ORDERED: ACETAMINOPHEN 500 MG TABLET (FP) PO PRN (08:54)
[2024-05-30] MEDS: ceFAZolin SODIUM 1 GM VIAL IVPB ONE (09:55)
[2024-05-30] MEDS: LIDOCAINE HCL/PF 2% SDV 5ML VIAL INF ONE ×3 (10:00)
[2024-05-30] MEDS: LIDOCAINE 1% P/F 10 MG/ML VIAL INF ONE ×4 (10:00)
[2024-05-30 11:11] VITALS: RESP 20
[2024-05-30 12:23] VITALS: BP 109/50; PULSE 60; TEMP 97.5
== END 2024-05-30 12:26 | disposition home or self-care (01) ==
LOC: JASU-SURG 04:09
PROVIDERS: ATTEND Pain Medicine Pain Medicine
PROC: 00HV3MZ Insertion of Neurostimulator Lead into Spinal Cord, Percutaneous Approach (ICD-10-PCS; principal; 2024-05-30 08:00)
DX: G89.4 Chronic pain syndrome (principal); M54.16 Radiculopathy, lumbar region; M47.816 Spondylosis without myelopathy or radiculopathy, lumbar region
CPT/HCPCS: 63650; C1897; 76000-TC-FY; J1100

== ENCOUNTER 2024-06-27 05:28 | Day surgery (SDC) | payer OTHER ==
[2024-06-25 15:56] VITALS: BMI 20.9
[2024-06-27] MEDS: ceFAZolin SODIUM 1 GM VIAL IVPB ONE (14:17)
[2024-06-27] MEDS: LIDOCAINE HCL 1% PRESERVATIVE FREE - 30ML VIAL IJ ONE ×2 (14:20)
[2024-06-27] MEDS: LIDOCAINE HCL/PF 2% SDV 5ML VIAL INF ONE ×2 (14:21)
[2024-06-27] MEDS ORDERED: LIDOCAINE HCL/PF 1% SDV 5ML VIAL ONE ×2 (15:47→16:11)
[2024-06-27] MEDS ORDERED: LIDOCAINE HCL/PF 2% SDV 5ML VIAL ONE (16:11)
[2024-06-27] MEDS ORDERED: VANCOMYCIN 1,000 MG VIAL (RESTRICTED TO ID ONLY) ONE (16:34)
[2024-06-27] MEDS ORDERED: ONDANSETRON 4 MG/2 ML VIAL IVPUSH PRN (16:44)
[2024-06-27] MEDS ORDERED: PROMETHAZINE HCL 25 MG/1 ML VIAL IVPB PRN (16:44)
[2024-06-27] MEDS ORDERED: oxyCODONE HCL 5 MG TABLET PO PRN (16:44)
[2024-06-27] MEDS: LACTATED RINGERS SOLUTION 1,000 ML IV SCH (17:34)
[2024-06-27 17:48] VITALS: TEMP 97.3
[2024-06-27] MEDS ORDERED: ACETAMINOPHEN INJECTION 100 ML ONE (18:07)
[2024-06-27] MEDS: ACETAMINOPHEN 1000 MG/100 ML BAG IVPB ONE (18:12)
[2024-06-27] MEDS: ACETAMINOPHEN 500 MG TABLET (FP) PO PRN (18:40)
[2024-06-27] MEDS ORDERED: ACETAMINOPHEN 325 MG TABLET (FP) ONE (18:41)
[2024-06-27 19:12] VITALS: RESP 20
[2024-06-27 19:15] VITALS: BP 157/60; PULSE 64
== END 2024-06-27 19:32 | disposition home or self-care (01) ==
LOC: JASU-SURG 05:28
PROVIDERS: ATTEND Pain Medicine Pain Medicine
PROC: 00HV3MZ Insertion of Neurostimulator Lead into Spinal Cord, Percutaneous Approach (ICD-10-PCS; 2024-06-27)
PROC: 0JH73BZ Insertion of Single Array Stimulator Generator into Back Subcutaneous Tissue and Fascia, Percutaneous Approach (ICD-10-PCS; principal; 2024-06-27 13:00)
DX: M48.061 Spinal stenosis, lumbar region without neurogenic claudication (principal); M54.16 Radiculopathy, lumbar region; M54.50 Low back pain, unspecified; G89.4 Chronic pain syndrome
CPT/HCPCS: 63650; 63685; C1778; L8679; 76000-TC-FY; 94760; C1767; J0131